=== PATIENT | male | born 1945 | race Caucasian/White ===

== ENCOUNTER 2017-08-03 18:24 | Emergency (ER) | payer MEDICARE, OTHER ==
[~2017-08-03] VITALS: Ht 180.3 cm; Wt 100.0 kg
[~2017-08-03 18:24] MED LIST: ADVAI250I INH; ALBU1AER INH; ALPR.5 PO; APIX5 PO; AZIT250T43 PO; CARV3.125 PO; CINA30 PO; CLON.2 PO; COMMODE 3:1; ECOT81TA2 PO; GABA300C3 PO; HYDR200T42 PO; PRED5 PO; PROT40TA PO; SEVEL800 PO; WALKER ROLLING; WHEELCHAIR RENTAL RA; Z.0.COMMODE-3:1; Z.0.OXYGEN INH; Z.0.WALKERFRONT
[2017-08-03 18:40] VITALS: BP 155/108; PULSE 114; RESP 24; TEMP 98.2; O2SAT 92
[2017-08-03] MEDS ORDERED: GABA300C5 PO (18:51)
[2017-08-03] MEDS ORDERED: PLAQ200T PO (18:51)
[2017-08-03] MEDS ORDERED: SEVEL800 PO (18:51)
[2017-08-03] MEDS ORDERED: CINA30 PO (18:51)
--- NOTE | 2017-08-03 19:02 | PD ---
HPI . left shoulder pain Chief Complaint: Injury Time Seen by Provider: 18:58 Travel History International Travel<30 days: No Contact w/Intl Traveler<30days: No Traveled to known affect area: No History of Present Illness HPI 71 yr old male here with c/o left shoulder pain s/p doing work for the [employer]. He is on dialysis. He tells me he thinks he hurt his rotator cuff. He is unable to move this upper extremity without assistance from the other hand. PFSH Past Medical History Arthritis: Yes Asthma: Yes Autoimmune Disease: No Blood Disorders: No Anxiety: No Depression: No Heart Rhythm Problems: Yes (irregular heartbeat) Cancer: No Cardiovascular Problems: Yes High Cholesterol: No Chemotherapy: No Chest Pain: No Congestive Heart Failure: Yes COPD: Yes Cerebrovascular Accident: No Diabetes: No Dialysis: Yes (MWF) Diminished Hearing: No Endocrine: Yes Gastrointestinal Disorders: Yes GERD: Yes Genitourinary: Yes Hepatitis: Yes Hiatal Hernia: No Hypertension: Yes Immune Disorder: No Kidney Stones: No Musculoskeletal: Yes (general. right femoral neck fx. avascular necrosis of left hip) Neurologic: No Psychiatric: No Reproductive: No Respiratory: Yes (COPD) Immunizations Current: Yes Migraines: No Myocardial Infarction: Yes Radiation Therapy: No Renal Failure: Yes Seizures: No Sickle Cell Disease: No Sleep Apnea: No Thyroid Disease: Yes (hyperparathyroidism of renal orgin) Ulcer: Yes Influenza Vaccination: Yes Past Surgical History Abdominal Surgery: No AICD: No Arteriovenous Shunt: No Cardiac Surgery: No Ear Surgery: No Endocrine Surgery: No Eye Surgery: No Genitourinary Surgery: Yes Insulin Pump: No Joint Replacement: Yes (L HIP, R HIP) Oral Surgery: No Pacemaker: No Thoracic Surgery: No Other Surgery: Yes Social History Alcohol Use: No Tobacco Use: No Substance Use: No Allergies-Medications (Allergen,Severity, Reaction): Coded Allergies: No Known Allergies (Verified , 08/03/17) Reported Meds & Prescriptions Reported Meds & Active Scripts Active Lortab (Hydrocodone-Acetaminophen) 5-325 Mg Tab 1 Tab PO Q6H PRN Reported Sensipar (Cinacalcet) 30 Mg Tab 30 Mg PO DAILY Plaquenil (Hydroxychloroquine Sulfate) 200 Mg Tab 200 Mg PO DAILY Take with food Gabapentin 300 Mg Cap 300 Mg PO DAILY Renvela (Sevelamer Carbonate) 800 Mg Tab 800 Mg PO QID Review of Systems General / Constitutional: No: Fever Eyes: No: Visual changes HENT: No: Headaches Cardiovascular: No: Chest Pain or Discomfort Respiratory: No: Shortness of Breath Gastrointestinal: No: Abdominal Pain Genitourinary: No: Dysuria Musculoskeletal: Positive: Pain (left shoulder pain) Skin: No Rash Neurologic: No: Weakness Psychiatric: No: Depression Endocrine: No: Polydipsia Hematologic/Lymphatic: No: Easy Bruising Physical Exam Narrative GENERAL: AAOx3, NAD, ambulatory, SKIN: Warm and dry. HEAD: Atraumatic. Normocephalic. EYES: Pupils equal and round. No scleral icterus. No injection or drainage. ENT: No nasal bleeding or discharge. Mucous membranes pink and moist. NECK: Trachea midline. No JVD. CARDIOVASCULAR: Regular rate and rhythm. RESPIRATORY: No accessory muscle use. Clear to auscultation. Breath sounds equal bilaterally. GASTROINTESTINAL: Abdomen soft, non-tender, nondistended. MUSCULOSKELETAL: Extremities without clubbing, cyanosis, or edema. No obvious deformities. left shoulder, no active ROM due to pain, must use other arm for assistance. cannot cross arms across chest. NEUROLOGICAL: Awake and alert. No obvious cranial nerve deficits. Motor grossly within normal limits. Five out of 5 muscle strength in the arms and legs. Normal speech. PSYCHIATRIC: Appropriate mood and affect; insight and judgment normal. Data Data Last Documented VS Vital Signs Date Time Temp Pulse Resp B/P (MAP) Pulse Ox O2 Delivery O2 Flow Rate FiO2 08/03/17 19:54 08/03/17 18:52 Room Air 08/03/17 18:40 98.2 114 24 92 Orders Orders Shoulder, Complete (>2vws) (08/03/17 18:57) Oxycodone-Acetamin 5-325 Mg (Percocet (08/03/17 19:15) Ice/Cold Pack (08/03/17 19:16) Splint Or Brace Apply/Monitor (08/03/17 19:16) Sling Cradle Arm (08/03/17 ) MDM Medical Decision Making Medical Screen Exam Complete: Yes Emergency Medical Condition: Yes Medical Record Reviewed: Yes Differential Diagnosis shoulder dislocation, fracture, rotator cuff injury Narrative Course 71 yr old male here with c/o left shoulder pain. He has decreased ROM and could possibly have a dislocation. Xray ordered. I suspect rotator cuff injury. Case discussed with Wm France PA-C who will disposition this patient. Scripts Hydrocodone-Acetaminophen (Lortab) 5-325 Mg Tab 1 TAB PO Q6H Y for PAIN, #20 TAB 0 Refills Prov: Dominique Martinez 08/03/17 Condition: Stable Karmen Staley Aug 03, 2017 19:02
[2017-08-03] MEDS ORDERED: oxyCODONE/ACETAMINOPHEN 5 MG/325 MG TAB PO ONE (19:15)
[2017-08-03] MEDS ORDERED: HYDR-3533 PO ×2 (19:16→19:23)
--- NOTE | 2017-08-03 19:29 | PD ---
Physical Exam Date Seen by Provider: Aug 03, 2017 Time Seen by Provider: 19:28 Data Data Last Documented VS Vital Signs Date Time Temp Pulse Resp B/P (MAP) Pulse Ox O2 Delivery O2 Flow Rate FiO2 08/03/17 18:52 Room Air 08/03/17 18:40 98.2 114 24 155/108 (124) 92 Orders Orders Shoulder, Complete (>2vws) (08/03/17 18:57) Oxycodone-Acetamin 5-325 Mg (Percocet (08/03/17 19:15) Ice/Cold Pack (08/03/17 19:16) Splint Or Brace Apply/Monitor (08/03/17 19:16) MDM Medical Record Reviewed: Yes Supervised Visit with ASHLEY: No Interpretation(s) Left shoulder: Negative for acute fracture. Positive general changes. Differential Diagnosis MDM: High Differential diagnoses: Fracture, sprain, strain, dislocation, contusion, neurovascular injury Narrative Course Patient's given Percocet 50 g by mouth, ice pack, sling. X-ray is negative for bony injury. This is left shoulder tendinitis Diagnosis Primary Impression: Left shoulder tendinitis Patient Instructions: General Instructions Additional Instruction: Rest. Sling. Ice. Lortab. Follow-up with her doctor next 3-5 days. Med/Other Pt SpecificInfo: Prescription(s) given Scripts Hydrocodone-Acetaminophen (Lortab) 5-325 Mg Tab 1 TAB PO Q6H Y for PAIN, #20 TAB 0 Refills Prov: Dominique Martinez DO 08/03/17 Disposition: 01 DISCHARGE HOME Condition: Stable Khoa Em Aug 03, 2017 19:29
--- NOTE | 2017-08-03 19:47 | RADRPT ---
EXAM DATE/TIME: 08/03/2017 19:33 [facility] COMPARISON: No previous studies available for comparison. INDICATIONS : Pain after working- [employer] for possible dislocation of left shoulder. MEDICAL HISTORY : None. SURGICAL HISTORY : None. ENCOUNTER: Initial ACUITY: 1 day PAIN SCORE: 10/10 LOCATION: Left Shoulder. FINDINGS: Multiple view examination of the left shoulder demonstrates no evidence of fracture or dislocation. The glenohumeral and acromioclavicular joints are maintained. There is normal range of motion betwee n internal and external rotation. Bony mineralization is normal. CONCLUSION: No fracture or subluxation of the left shoulder. Jakob Pace MD on August 03, 2017 at 19:45 Board Certified Radiologist. This report was verified electronically.
== END 2017-08-03 19:59 | disposition home or self-care (01) ==
LOC: NETRI 18:24
DX: M75.92 Shoulder lesion, unspecified, left shoulder (principal); X37.0XXA Hurricane, initial encounter
CPT/HCPCS: 73030; 99283

== ENCOUNTER 2017-12-12 10:02 | Inpatient (IN) | payer MEDICARE, OTHER ==
[~2017-12-12] VITALS: Ht 175.3 cm; Wt 92.8 kg
[2017-12-12] VITALS (13 sets, daily range): BP systolic 120–198; BP diastolic 55–86; PULSE 63–109; RESP 16–32; TEMP 98.3–98.7; O2SAT 100
[~2017-12-12 10:02] MED LIST changes: -ADVAI250I INH; -ALBU1AER INH; -ALPR.5 PO; -APIX5 PO; -AZIT250T43 PO; -CARV3.125 PO; -CLON.2 PO; -COMMODE 3:1; -ECOT81TA2 PO; -GABA300C3 PO; +GABA300C5 PO; +HYDR-3533 PO; -HYDR200T42 PO; +PLAQ200T PO; -PRED5 PO; -PROT40TA PO; -WALKER ROLLING; -WHEELCHAIR RENTAL RA; -Z.0.COMMODE-3:1; -Z.0.OXYGEN INH; -Z.0.WALKERFRONT
[2017-12-12] MEDS ORDERED: RESP: ALBUTEROL 2.5 MG/IPRATROPIUM 0.5 MG NEB (SCH) ONE (10:09)
[2017-12-12] MEDS ORDERED: fentaNYL DRIP 250 ML IV STA (10:09)
[2017-12-12] MEDS ORDERED: ETOMIDATE 40 MG/20 ML VIAL ONE (10:10)
[2017-12-12] MEDS ORDERED: SUCCINYLCHOLINE CHLORIDE 200 MG/10 ML VIAL ONE (10:11)
[2017-12-12] MEDS: RESP: ALBUTEROL 2.5 MG/IPRATROPIUM 0.5 MG NEB (SCH) INH ×5 (10:15→21:01)
[2017-12-12] MEDS ORDERED: SUCCINYLCHOLINE CHLORIDE 100 MG/5 ML SYRINGE IV PUSH ONE (10:15)
[2017-12-12] MEDS ORDERED: ETOMIDATE 20 MG/10 ML VIAL IV PUSH ONE (10:15)
[2017-12-12] MEDS ORDERED: PROPOFOL 500 MG/50 ML INJ 50 ML ONE (10:17)
[2017-12-12] MEDS: PROPOFOL 1000 MG/100 ML INJ 100 ML IV PRN ×2 (10:20→21:04)
--- NOTE | 2017-12-12 10:54 | RADRPT ---
EXAM DATE/TIME: 12/12/2017 10:37 [facility] COMPARISON: CHEST SINGLE AP, November 27, 2015, 4:57. SHOULDER LEFT COMPLETE (>2VWS), August 03, 2017, 19:33. INDICATIONS : Endotracheal placement, post respiratory arrest. MEDICAL HISTORY : dialysis SURGICAL HISTORY : None. ENCOUNTER: Initial ACUITY: 1 day PAIN SCORE: 0/10 LOCATION: upper chest FINDINGS: The endotracheal tube tip is approximately 5 cm above the level of the reed. The bilateral infiltrates which were seen on previous abdomen through. The heart is enlarged. There a re diffuse interstitial prominence likely worsening interstitial edema. The osseous structures are grossly intact.. CONCLUSION: 1. Endotracheal tube in satisfactory position. 2. Diffuse interstitial prominence suggesting interstitial edema. 3. The diffuse infiltrates seen on prior have improved. Cristian Lee MD on December 12, 2017 at 10:50 Board Certified Radiologist. This report was verified electronically.
--- NOTE | 2017-12-12 11:00 | PD ---
HPI Chief Complaint: Respiratory Distress Time Seen by Provider: 10:07 Travel History International Travel<30 days: No Contact w/Intl Traveler<30days: No Traveled to known affect area: No History of Present Illness HPI 72-year-old male was brought in by EMS for shortness of breath. Patient states that the shortness breath started yesterday evening. Patient has history of COPD. Patient with given albuterol treatment 2 an Solu-Medrol 125 mg IV prior to arrival. Patient has history of end-stage renal disease on dialysis Tuesday. Patient with given BiPAP on the way to ED. Patient still complain of severe shortness of breath. PFSH Past Medical History Arthritis: Yes Asthma: Yes Autoimmune Disease: No Blood Disorders: No Anxiety: No Depression: No Heart Rhythm Problems: Yes (irregular heartbeat) Cancer: No Cardiovascular Problems: Yes High Cholesterol: No Chemotherapy: No Chest Pain: No Congestive Heart Failure: Yes COPD: Yes Cerebrovascular Accident: No Diabetes: No Dialysis: Yes (MWF) Diminished Hearing: No Endocrine: Yes Gastrointestinal Disorders: Yes GERD: Yes Genitourinary: Yes Hepatitis: Yes Hiatal Hernia: No Hypertension: Yes Immune Disorder: No Kidney Stones: No Musculoskeletal: Yes (general. right femoral neck fx. avascular necrosis of left hip) Neurologic: No Psychiatric: No Reproductive: No Respiratory: Yes (COPD) Immunizations Current: Yes Migraines: No Myocardial Infarction: Yes Radiation Therapy: No Renal Failure: Yes Seizures: No Sickle Cell Disease: No Sleep Apnea: No Thyroid Disease: Yes (hyperparathyroidism of renal orgin) Ulcer: Yes ?: Not Past Surgical History Abdominal Surgery: No AICD: No Arteriovenous Shunt: No Cardiac Surgery: No Ear Surgery: No Endocrine Surgery: No Eye Surgery: No Genitourinary Surgery: Yes Insulin Pump: No Joint Replacement: Yes (L HIP, R HIP) Oral Surgery: No Pacemaker: No Thoracic Surgery: No Other Surgery: Yes Social History Alcohol Use: No Tobacco Use: No Substance Use: No Allergies-Medications (Allergen,Severity, Reaction): Coded Allergies: No Known Allergies (Verified , 08/03/17) Reported Meds & Prescriptions Reported Meds & Active Scripts Active Lortab (Hydrocodone-Acetaminophen) 5-325 Mg Tab 1 Tab PO Q6H PRN Reported Sensipar (Cinacalcet) 30 Mg Tab 30 Mg PO DAILY Plaquenil (Hydroxychloroquine Sulfate) 200 Mg Tab 200 Mg PO DAILY Take with food Gabapentin 300 Mg Cap 300 Mg PO DAILY Renvela (Sevelamer Carbonate) 800 Mg Tab 800 Mg PO QID Review of Systems General / Constitutional: No: Fever Eyes: No: Visual changes HENT: No: Headaches Cardiovascular: No: Chest Pain or Discomfort Respiratory: Positive: Shortness of Breath Gastrointestinal: No: Abdominal Pain Genitourinary: No: Dysuria Musculoskeletal: No: Pain Skin: No Rash Neurologic: No: Weakness Psychiatric: No: Depression Endocrine: No: Polydipsia Hematologic/Lymphatic: No: Easy Bruising Physical Exam Narrative GENERAL: Well-nourished, well-developed patient. SKIN: Focused skin assessment warm/dry. HEAD: Normocephalic. EYES: No scleral icterus. No injection or drainage. NECK: Supple, trachea midline. No JVD or lymphadenopathy. CARDIOVASCULAR: Regular rate and rhythm without murmurs, gallops, or rubs. RESPIRATORY: Patient has decreased breath sounds bilaterally. Moderate expiratory wheezes noted. Few rhonchi at the bases. GASTROINTESTINAL: Abdomen soft, non-tender, nondistended. MUSCULOSKELETAL: No cyanosis, or edema. BACK: Nontender without obvious deformity. No CVA tenderness. Neurologic exam: Patient's lethargic. Patient moves all extremities well. No obvious focal neurological deficit. Data Data Last Documented VS Vital Signs Date Time Temp Pulse Resp B/P (MAP) Pulse Ox O2 Delivery O2 Flow Rate FiO2 12/12/17 10:34 84 16 156/71 (99) 100 Ventilator 100 Orders Orders Complete Blood Count With Diff (12/12/17 10:07) Comprehensive Metabolic Panel (12/12/17 10:07) B-Type Natriuretic Peptide (12/12/17 10:07) Act Partial Throm Time (Ptt) (12/12/17 10:07) Prothrombin Time / Inr (Pt) (12/12/17 10:07) Arterial Blood Gas (Abg) (12/12/17 10:07) Urinalysis - C+S If Indicated (12/12/17 10:07) Influenzae A/B Antigen (12/12/17 10:07) Blood Culture (12/12/17 10:07) Iv Access Insert/Monitor (12/12/17 10:07) Electrocardiogram (12/12/17 10:07) Ecg Monitoring (12/12/17 10:07) Oximetry (12/12/17 10:07) Chest, Single Ap (12/12/17 10:07) Sodium Chloride 0.9% Flush (Ns Flush) (12/12/17 10:15) Albuterol-Ipratropium Neb (Duoneb Neb) (12/12/17 10:15) Resp Bipap / Cpap Non Invas Vt (12/12/17 10:07) Albuterol-Ipratropium Neb (Duoneb Neb) (12/12/17 10:09) Etomidate Inj (Amidate Inj) (12/12/17 10:10) Succinylcholine Inj (Quelicin Inj) (12/12/17 10:11) Etomidate Inj (Amidate Inj) (12/12/17 10:15) Succinylcholine Inj (Quelicin Inj) (12/12/17 10:15) Fentanyl Drip (Fentanyl Drip) (12/12/17 10:09) Restraints Non-Violent NAA.Q3H (12/12/17 10:09) Propofol 500 Mg/50 Ml Inj (Diprivan 500 (12/12/17 10:17) Urinary Catheter Insert/Apply (12/12/17 10:38) Doroteo-Gastric Tube Insert/Mon (12/12/17 10:38) Propofol 1000 Mg/100 Ml Inj (Diprivan 10 (12/12/17 10:45) MDM Medical Decision Making Medical Screen Exam Complete: Yes Emergency Medical Condition: Yes Interpretation(s) 10:57 AM. ET tube in place. Diffuse interstitial prominence suggesting interstitial edema. Differential Diagnosis Differential diagnoses include acute exacerbation COPD, bronchitis, pneumonia, PE, pneumothorax, CHF. Narrative Course 72-year-old male with shortness of breath. History of COPD. Patient in respiratory distress. Patient's lethargic. Moderate expiratory wheezes bilaterally. Patient was advised that he needs to be intubated. Patient agreed to that. Patient was not intubated. Propofol and fentanyl needed for sedation. Rocephin 1 g IV. Zithromax 500 mg IV. Albuterol with Atrovent unit dose treatment 3. Critical Care Narrative Aggregate critical care time was 60 minutes. Time to perform other separately billable procedures was not included in the critical care time. My time did not include minutes spent treating any other patients simultaneously or on activities that did not directly contribute to the patient's treatment. The services I provided to this patient were to treat and/or prevent clinically significant deterioration that could result in: I provided critical care services requiring my management, as noted below: Chart data review, documentation time, medication orders and management, vital sign assessments/reviewing monitor data, ordering and reviewing lab tests, ordering and interpreting/reviewing x-rays and diagnostic studies, care of the patient and discussion of the patient with the admitting physicians. Procedures Procedure Narrative After the risks and benefits were discussed the following procedure was performed: INTUBATION: The patient was put in optimal position for the procedure. Rapid sequence intubation was initiated by me using 20 milligrams of etomidate IV and 100 milligrams of succinylcholine IV. The patient was intubated with a 7.5 cuffed endotracheal tube. Tube placement was confirmed by visualization of the tube and balloon passing through the cords, capnometry and subsequent chest x- ray. Breath sounds were equal and well aerated bilaterally postintubation. No breath sounds over stomach. Patient tolerated procedure well. Diagnosis Primary Impression: ACUTE RESPIRATORY FAILURE WITH HYPOXIA Additional Impression: COPD with acute exacerbation Raul Campa MD Dec 12, 2017 11:00
[2017-12-12 11:44] LABS: AUTOMATED NEUTROPHIL # 11.6 TH/MM3 (1.8-7.7); BASOPHIL # 0.1 TH/MM3 (0-0.2); BASOPHIL % 0.6 % (0.0-2.0); EOSINOPHIL # 0.5 TH/MM3 (0-0.4); EOSINOPHIL % 2.7 % (0.0-4.0); HEMATOCRIT 30.4 % (39.0-51.0); HEMOGLOBIN 9.6 GM/DL (13.0-17.0); LYMPHOCYTE # 4.5 TH/MM3 (1.0-4.8); MEAN CELL VOLUME 94.7 FL (80.0-100.0); MEAN CORPUSCULAR HGB CONC 31.7 % (32.0-36.0); MEAN PLATELET VOLUME 7.6 FL (7.0-11.0); MONO % 10.1 % (0.0-8.0); MONOCYTE # 1.9 TH/MM3 (0-0.9); NEUT % 62.6 % (16.0-70.0); PLATELET COUNT 263 TH/MM3 (150-450); RED BLOOD COUNT 3.21 MIL/MM3 (4.50-5.90); RED CELL DISTRIBUTION WIDTH 15.7 % (11.6-17.2); WHITE BLOOD COUNT 18.5 TH/MM3 (4.0-11.0)
[2017-12-12 11:57] LABS: INTERNATIONAL NORMALIZED RATIO 1.1 RATIO; PROTHROMBIN TIME - PATIENT 10.7 SEC (9.8-11.6)
[2017-12-12 12:03] LABS: ALBUMIN 3.8 GM/DL (3.4-5.0); ALT (GPT) 64 U/L (12-78); AST (GOT) 46 U/L (15-37); BICARBONATE 28.1 MEQ/L (21.0-32.0); BLOOD UREA NITROGEN 53 MG/DL (7-18); CALCIUM 9.5 MG/DL (8.5-10.1); CHLORIDE 97 MEQ/L (98-107); CREATININE 8.63 MG/DL (0.60-1.30); GLOMERULAR FILTRATION RATE 6 ML/MIN (>89); GLUCOSE,RANDOM 166 MG/DL (74-106); SODIUM (NA) 136 MEQ/L (136-145)
[2017-12-12 12:05] LABS: ALKALINE PHOSPHATASE 128 U/L (45-117); TOTAL BILIRUBIN ADULT 0.6 MG/DL (0.2-1.0); TOTAL PROTEIN 7.6 GM/DL (6.4-8.2)
[2017-12-12] MEDS ORDERED: LACTULOSE SYRUP 20 GM/30 ML CUP PO PRN (14:00)
[2017-12-12] MEDS ORDERED: MAGNESIUM HYDROXIDE SUSP 30 ML CUP PO PRN (14:00)
[2017-12-12] MEDS ORDERED: FAMOTIDINE 20 MG/2 ML VIAL IV PUSH SCH (14:00)
[2017-12-12] MEDS ORDERED: SENNOSIDES 8.6 MG TAB PO PRN (14:00)
[2017-12-12] MEDS ORDERED: CHLORHEXIDINE GLUCONATE 2 % 1 PACK (2 CLOTHS) TOP PRN (14:00)
[2017-12-12] MEDS ORDERED: MISCELLANEOUS NURSING INFORMATION XX SCH (14:00)
[2017-12-12] MEDS ORDERED: BISACODYL 10 MG SUPP RECTAL PRN (14:00)
[2017-12-12] MEDS ORDERED: DEXTROSE 50% IN WATER 50 ML VIAL(D50) IV PUSH PRN (14:15)
[2017-12-12] MEDS ORDERED: GLUCAGON 1 MG/ML VIAL OTHER PRN (14:15)
[2017-12-12] MEDS ORDERED: SODIUM CHLOR 0.9% 1000 ML INJ 1,000 ML OTHER PRN ×2 (14:25)
[2017-12-12] MEDS ORDERED: SODIUM CHLOR 0.9% 1000 ML INJ 1,000 ML IV PRN (14:25)
[2017-12-12] MEDS ORDERED: MANNITOL 12.5 GM/50 ML VIAL IV PRN (14:30)
[2017-12-12] MEDS ORDERED: HEPARIN SODIUM - IV 10,000 UNITS/10 ML VIAL PRN (14:30)
[2017-12-12] MEDS ORDERED: diphenhydrAMINE HCL 25 MG CAP PO PRN (14:30)
[2017-12-12] MEDS ORDERED: SODIUM CHLORIDE 0.9% FLUSH 10 ML FLUSH IV FLUSH PRN (14:30)
[2017-12-12] MEDS ORDERED: NITROGLYCERIN 0.4 MG SL 25 TABS/BTL SL PRN (14:30)
[2017-12-12] MEDS ORDERED: ACETAMINOPHEN 325 MG TAB PO PRN (14:30)
[2017-12-12] MEDS ORDERED: ONDANSETRON HCL 4 MG/2 ML VIAL IV PUSH PRN (14:30)
[2017-12-12] MEDS ORDERED: cloNIDine HCL 0.1 MG TAB PO PRN (14:30)
[2017-12-12] MEDS ORDERED: GENTAMICIN SULFATE 20 MG/2 ML VIAL OTHER PRN (14:30)
[2017-12-12] MEDS ORDERED: HEPARIN SODIUM - IV 10,000 UNITS/10 ML VIAL IV FLUSH PRN (14:30)
[2017-12-12] MEDS: INSULIN NovoLIN REGULAR SUPPLEMENTAL SCALE SQ SCH ×3 (15:00→23:00)
--- NOTE | 2017-12-12 16:01 | MH ---
cc: STACI WOLFE M.D. DATE OF ADMISSION 12/12/2017 DATE OF 1945 HISTORY OF THE PRESENT ILLNESS The patient is a 72-year-old male with multiple medical comorbidities which include end-stage renal disease, hypertension, CHF, COPD, cardiomyopathy, hyperparathyroidism and anemia of chronic disease. He was brought into ED via EMS for respiratory distress and was given albuterol treatment x2 in addition to Solu-Medrol 125 mg IV prior to arrival. The patient was initially placed on BiPap without any significant relief. In the ED he was intubated with etomidate, succinylcholine and placed on full mechanical ventilation. When seen the patient is sedated with Diprivan and on fentanyl infusion. His laboratory data significant for hyperkalemia with potassium 6.3, BUN 53, creatinine in 8.63 and BNP of 1218. His chest x-ray showed ET tube above the reed, interstitial edema. Nephrology service was notified and the patient is currently receiving hemodialysis treatment. ABG postintubation showed a pH of 7.30, CO2 54, pAO2 454, bicarb 26, sats of 97%. PAST MEDICAL HISTORY As stated above which include: 1. End-stage renal disease. 2. CHF. 3. COPD. 4. Cardiomyopathy. 5. Anemia. PAST SURGICAL HISTORY 1. Previous left hip replacement. 2. AV fistula placement right upper extremity. ALLERGIES NO KNOWN DRUG ALLERGIES. FAMILY HISTORY Noncontributory to present medical illness. SOCIAL HISTORY The patient lives at home. Ex-smoker. No history of alcohol or drug use per records. MEDICATIONS Reported medications include: 1. Plaquenil. 2. Gabapentin. 3. Renvela. 4. Sensipar. REVIEW OF SYSTEMS As per HPI. Rest of the system unobtainable as the patient is intubated. PHYSICAL EXAMINATION GENERAL: A 72-year-old male intubated for respiratory failure. VITAL SIGNS: Afebrile, pulse of 84, blood pressure 156/65 with a MAP of 93, saturation 98%. Vent setting PRVC rate of 18, tidal volume 600. I-time 1.0. PEEP 5. FIO2 50%. HEENT: Atraumatic, normocephalic. Pupils equal, round and reactive to light and accommodation. Extraocular muscles intact. Conjunctivae pink. Nonicteric sclerae. Oral mucosa within normal. NECK: Supple. No JVD, adenopathy or thyromegaly. Trachea midline. Orally intubated. CARDIOVASCULAR: Regular rate and rhythm. Normal S1-S2. No murmurs, rubs or gallops noted. LUNGS: Pulmonary exam bilateral equal air entry with coarse breath sounds. ABDOMEN: Soft, obese, nontender, no distension, positive bowel sounds. EXTREMITIES: No cyanosis, clubbing, +1 edema. NEUROLOGIC: Intubated and sedated. LABORATORY DATA WBC 18.5, hemoglobin 9.6, hematocrit 30, platelet count 263. Sodium 136, potassium 6.3, chloride 97, CO2 28, BUN 53, creatinine 8.63, glucose 166, AST 46, ALT 64, total bilirubin 0.6. BNP 1218. INR 1.1. PT 10.7, PTT 24.9. IMAGING Radiographic studies chest x-ray showed ET tube above the reed, interstitial edema. IMPRESSION 1. Acute hypoxemic and hypercapnic respiratory failure. 2. Pulmonary edema. 3. End-stage renal disease. 4. Hypertension. 5. CHF. 6. Cardiomyopathy. 7. COPD. 8. Hyperparathyroidism. 9. Anemia of chronic disease. 10. Leukocytosis. RECOMMENDATIONS 1. Continue with Diprivan and fentanyl infusion for sedation and daily sedation vacation when appropriate. 2. Continue with vent support and maintain sats above 92%. 3. Bronchodilators in the form of DuoNeb q.6h and will initiate ICU vent bundle. 4. We will start spontaneous breathing trials in a.m. and possible extubation if the patient tolerates it. 5. Monitor heart rate and blood pressure closely and maintain MAP greater than 65 mmHg. 6. We will obtain 2-D echo to evaluate LV function. He had an echocardiogram November 2015 which showed EF of 25-30%. 7. Place on Coreg 3.125 mg b.i.d. 8. Monitor renal function and avoid nephrotoxins. Patient is currently receiving hemodialysis. Will repeat BMP in 2 hours post dialysis. 9. Keep n.p.o. for now and place on Pepcid 10 mg IV q.12 for GI prophylaxis. Start tube feeds within next 24 hours if the patient remains intubated. 10. Monitor for signs of infections which include fever and WBC. Will hold off on antibiotics at this time as there is no evidence of any infectious process. Will obtain a sputum culture with gram stain and urinalysis with culture if indicated. 11. Monitor CBC. 12. Sliding scale insulin with Accu-Cheks to maintain euglycemia. 13. GI prophylaxis with Pepcid and DVT prophylaxis with SCDs and heparin subcu. Further recommendations will be based on hospital course. MD MORIAH De La O/LORI /3:08 PM /3:31 PM
--- NOTE | 2017-12-12 16:17 | PD.CONS ---
HPI Service Nephrology Consult Requested By Reason for Consult ESRD Primary Care Physician Grey Calero MD History of Present Illness Mr. Sy is a 72 year old male with history of ESRD for which he is on nocturnal HD MWF. He was brought to the ER with complaints of shortness of breath. Was on BiPAP en route, intubated in the ER. Given nebulizer and Solumedrol. Xray of the chest suggestive of bilateral infiltrates, possible pulmonary edema. [place] [facility] [place]. Currently on the ventilator, on Diprivan drip, but he appears to follow some commands. Seen during dialysis, UF goal is 5 liters, but his BP dropped, may not be able to achieve 5liters in UF. On 1K, serum potassium was 6.3. Review of Systems ROS Limitations: Intubated Past Family Social History Allergies: Coded Allergies: No Known Allergies (Verified Allergy, Unknown, 12/12/17) Past Medical History ESRD Avascular necrosis of the hip, s/p replacement. Hypertension. Secondary hyperparathyroidism of renal origin. History of CHF History of COPD History of atrial flutter Past Surgical History AVF placement. Bilateral hip replacements. Reported Medications Active Lortab (Hydrocodone-Acetaminophen) 5-325 Mg Tab 1 Tab PO Q6H PRN Reported Sensipar (Cinacalcet) 30 Mg Tab 30 Mg PO DAILY Plaquenil (Hydroxychloroquine Sulfate) 200 Mg Tab 200 Mg PO DAILY Take with food Gabapentin 300 Mg Cap 300 Mg PO DAILY Renvela (Sevelamer Carbonate) 800 Mg Tab 800 Mg PO QID Family History non contributory Social History Former smoker, quit about 26 years ago. Physical Exam Vital Signs Vital Signs Date Time Temp Pulse Resp B/P (MAP) Pulse Ox O2 Delivery O2 Flow Rate FiO2 12/12/17 14:51 12/12/17 14:30 100 50 12/12/17 14:05 63 18 125/56 (79) 100 12/12/17 12:01 75 18 136/62 (86) 100 Auto-Vent 12/12/17 11:30 50 12/12/17 11:28 81 16 129/62 (84) 100 Auto-Vent 12/12/17 10:34 84 16 156/71 (99) 100 Ventilator 100 12/12/17 10:20 100 12/12/17 10:20 100 100 12/12/17 10:15 34 100 BiPAP 12/12/17 10:13 108 198/86 (123) 12/12/17 10:05 109 32 100 Physical Exam GENERAL: intubated, on the ventilator SKIN: Warm and dry. HEAD: Normocephalic. EYES: No scleral icterus. No injection or drainage. NECK: Supple, trachea midline. No JVD or lymphadenopathy. CARDIOVASCULAR: Regular rate and rhythm without murmurs, gallops, or rubs. RESPIRATORY: Breath sounds equal bilaterally. Vented breath sounds heard bilaterally. GASTROINTESTINAL: Abdomen soft, non-tender, nondistended. MUSCULOSKELETAL: No cyanosis, or edema. BACK: Nontender without obvious deformity. No CVA tenderness. Laboratory Laboratory Tests Test 12/12/17 10:07 12/12/17 10:10 Blood Gas Puncture Site LT RADIAL Blood Gas Patient Temperature 98.6 Blood Gas HCO3 26 Blood Gas Base Excess -0.1 Blood Gas Oxygen Saturation 97 Arterial Blood pH 7.30 Arterial Blood Partial Pressure CO2 54 Arterial Blood Partial Pressure O2 454 Arterial Blood Oxygen Content 12.5 Arterial Blood Carboxyhemoglobin 1.2 Arterial Blood Methemoglobin 1.3 Blood Gas Hemoglobin 8.3 Oxygen Delivery Device VENTILATOR Blood Gas Ventilator Setting Blood Gas Inspired Oxygen 100 White Blood Count 18.5 Red Blood Count 3.21 Hemoglobin 9.6 Hematocrit 30.4 Mean Corpuscular Volume 94.7 Mean Corpuscular Hemoglobin 30.0 Mean Corpuscular Hemoglobin Concent 31.7 Red Cell Distribution Width 15.7 Platelet Count 263 Mean Platelet Volume 7.6 Neutrophils (%) (Auto) 62.6 Lymphocytes (%) (Auto) 24.0 Monocytes (%) (Auto) 10.1 Eosinophils (%) (Auto) 2.7 Basophils (%) (Auto) 0.6 Neutrophils # (Auto) 11.6 Lymphocytes # (Auto) 4.5 Monocytes # (Auto) 1.9 Eosinophils # (Auto) 0.5 Basophils # (Auto) 0.1 CBC Comment DIFF FINAL Differential Comment Prothrombin Time 10.7 Prothromb Time International Ratio 1.1 Activated Partial Thromboplast Time 24.9 Blood Urea Nitrogen 53 Creatinine 8.63 Random Glucose 166 Total Protein 7.6 Albumin 3.8 Calcium Level 9.5 Alkaline Phosphatase 128 Aspartate Amino Transf (AST/SGOT) 46 Alanine Aminotransferase (ALT/SGPT) 64 Total Bilirubin 0.6 Sodium Level 136 Potassium Level 6.3 Chloride Level 97 Carbon Dioxide Level 28.1 Anion Gap 11 Estimat Glomerular Filtration Rate 6 B-Type Natriuretic Peptide 1218 Date/Time Source Procedure Growth Status 12/12/17 11:29 Blood Peripheral Aerobic Blood Culture Pending Received 12/12/17 11:29 Blood Peripheral Anaerobic Blood Culture Pending Received 12/12/17 11:30 Nasal Washing Influenza Types A,B Antigen (LUCRETIA) - Final NEGATIVE FOR FLU A AND B ANTIGEN.... Complete Result Diagram: 12/12/17 1010 12/12/17 1010 Assessment and Plan Problem List: (1) ESRD (end stage renal disease) ICD Codes: N18.6 - End-stage renal disease Status: Chronic Plan: Dialysis will be continued MWF. Seen at dialysis today: UF goal is 5 liters. On 1k. Monitor fluid and electrolyte balance. Avoid Gadolinium. High protein diet. Dietary potassium and phosphorus restrictions. (2) Respiratory failure ICD Codes: J96.90 - Respiratory failure, unspecified, unspecified whether with hypoxia or hypercapnia Plan: Due to pulmonary edema? COPD exacerbation? Pneumonia? Repeat CXR after dialysis. Monitor. Currently on the ventilator. (3) Anemia ICD Codes: D64.9 - Anemia, unspecified Plan: Epogen with dialysis. (4) Secondary hyperparathyroidism of renal origin ICD Codes: N25.81 - Secondary hyperparathyroidism of renal origin Plan: monitor phosphorus. Continue Sensipar when he is able to take oral medications. Assessment and Plan Thanks for the consult. Tru Galarza MD Dec 12, 2017 16:17
[2017-12-12] MEDS: GELATIN 12 MM/7 MM FOAM TOP PRN (17:22)
[2017-12-12] MEDS: EPOETIN ALFA 10,000 UNITS/ML VIAL IV PUSH PRN (17:23)
[2017-12-12] MEDS: FAMOTIDINE 20 MG/2 ML VIAL IV PUSH SCH (17:59)
[2017-12-12] MEDS: HEPARIN SODIUM - SQ 10,000 UNITS/ML VIAL SQ SCH (18:04)
--- NOTE | 2017-12-12 20:29 | EKG ---
Date Performed: 12/12/2017 Time Performed: 10:07:13 PTAGE: 72 years EKG: SINUS TACHYCARDIA RIGHT BUNDLE BRANCH BLOCK SIGNIFICANT BASELINE ARTIFACT CONSIDER REPEAT E KG ABNORMAL ECG PREVIOUS TRACING : 11/26/2015 09.17 DOCTOR: Munira Rutledge Interpretating Date/Time 12/12/2017 20:28:59
[2017-12-12] MEDS: DOCUSATE SODIUM 50 MG/SENNA 8.6 MG TAB PO SCH (21:00)
[2017-12-12] MEDS: CARVEDILOL 3.125 MG TAB PO SCH (21:04)
[2017-12-12 21:08] LABS: BICARBONATE 24.3 MEQ/L (21.0-32.0); CALCIUM 8.9 MG/DL (8.5-10.1); CREATININE 6.05 MG/DL (0.60-1.30)
[2017-12-13] VITALS (18 sets, daily range): BP systolic 134–179; BP diastolic 64–95; PULSE 62–86; RESP 18; TEMP 97.1–98.5; O2SAT 100
[2017-12-13] MEDS: PROPOFOL 1000 MG/100 ML INJ 100 ML IV PRN ×4 (02:00→21:07)
[2017-12-13] MEDS: FAMOTIDINE 20 MG/2 ML VIAL IV PUSH SCH ×2 (02:00→14:48)
[2017-12-13] MEDS: HEPARIN SODIUM - SQ 10,000 UNITS/ML VIAL SQ SCH ×2 (02:00→14:48)
[2017-12-13] MEDS ORDERED: RASS Change Order XX ONE ×2 (02:15→21:00)
[2017-12-13] MEDS: INSULIN NovoLIN REGULAR SUPPLEMENTAL SCALE SQ SCH ×6 (03:00→23:00)
[2017-12-13] MEDS: CHLORHEXIDINE GLUCONATE 2 % 1 PACK (2 CLOTHS) TOP SCH (04:00)
[2017-12-13 04:07] LABS: AUTOMATED NEUTROPHIL # 3.7 TH/MM3 (1.8-7.7); BASOPHIL % 0.1 % (0.0-2.0); HEMATOCRIT 24.2 % (39.0-51.0); HEMOGLOBIN 8.2 GM/DL (13.0-17.0); LYMPH % 4.9 % (9.0-44.0); LYMPHOCYTE # 0.2 TH/MM3 (1.0-4.8); MEAN CELL VOLUME 92.2 FL (80.0-100.0); MEAN CORPUSCULAR HGB CONC 33.7 % (32.0-36.0); MEAN PLATELET VOLUME 7.4 FL (7.0-11.0); MONO % 5.4 % (0.0-8.0); MONOCYTE # 0.2 TH/MM3 (0-0.9); NEUT % 89.6 % (16.0-70.0); PLATELET COUNT 117 TH/MM3 (150-450); RED BLOOD COUNT 2.63 MIL/MM3 (4.50-5.90); RED CELL DISTRIBUTION WIDTH 15.5 % (11.6-17.2); WHITE BLOOD COUNT 4.1 TH/MM3 (4.0-11.0)
[2017-12-13 04:22] LABS: BICARBONATE 26.6 MEQ/L (21.0-32.0); CALCIUM 8.6 MG/DL (8.5-10.1); CREATININE 6.81 MG/DL (0.60-1.30)
[2017-12-13] MEDS: RESP: ALBUTEROL 2.5 MG/IPRATROPIUM 0.5 MG NEB (SCH) INH ×4 (04:44→21:04)
--- NOTE | 2017-12-13 07:23 | HHI.CCPN ---
Subjective Remarks/Hospital Course Patient is a 72-year-old male with multiple medical comorbidities which include end-stage renal disease, hypertension, CHF, COPD, cardiomyopathy, hyperparathyroidism and anemia of chronic disease. He was brought into ED via EMS for respiratory distress and was given albuterol treatment x2 in addition to Solu-Medrol 125 mg IV prior to arrival. The patient was initially placed on BiPap without any significant relief. In the ED he was intubated with etomidate, succinylcholine and placed on full mechanical ventilation. When seen the patient is sedated with Diprivan and on fentanyl infusion. His laboratory data significant for hyperkalemia with potassium 6.3, BUN 53, creatinine in 8.63 and BNP of 1218. His chest x-ray showed ET tube above the reed, interstitial edema. Nephrology service was notified and the patient is currently receiving hemodialysis treatment. ABG postintubation showed a pH of 7.30, CO2 54, pAO2 454, bicarb 26, sats of 97%. 12/13 Patient is intubated on no sedation. Awake and alert, s/p HD yesterday with removal 3L. Afebrile. Objective Vital Signs Date Time Temp Pulse Resp B/P (MAP) Pulse Ox O2 Delivery O2 Flow Rate FiO2 12/13/17 06:00 63 12/13/17 04:45 100 40 12/13/17 04:00 98.5 179/74 (109) 12/13/17 00:00 18 12/12/17 12:01 Auto-Vent Intake and Output 12/13/17 12/13/17 12/14/17 08:00 16:00 00:00 Intake Total 154 ml Balance 154 ml Result Diagram: 12/13/17 0324 12/13/17 0324 Other Results Laboratory Tests Test 12/12/17 10:07 12/12/17 10:10 12/12/17 14:35 12/12/17 20:35 Blood Gas Puncture Site LT RADIAL Blood Gas Patient Temperature 98.6 Blood Gas HCO3 26 mmol/L Blood Gas Base Excess -0.1 mmol/L Blood Gas Oxygen Saturation 97 % Arterial Blood pH 7.30 Arterial Blood Partial Pressure CO2 54 mmHg Arterial Blood Partial Pressure O2 454 mmHG Arterial Blood Oxygen Content 12.5 Vol % Arterial Blood Carboxyhemoglobin 1.2 % Arterial Blood Methemoglobin 1.3 % Blood Gas Hemoglobin 8.3 G/DL Oxygen Delivery Device VENTILATOR Blood Gas Ventilator Setting Blood Gas Inspired Oxygen 100 % White Blood Count 18.5 TH/MM3 Red Blood Count 3.21 MIL/MM3 Hemoglobin 9.6 GM/DL Hematocrit 30.4 % Mean Corpuscular Volume 94.7 FL Mean Corpuscular Hemoglobin 30.0 PG Mean Corpuscular Hemoglobin Concent 31.7 % Red Cell Distribution Width 15.7 % Platelet Count 263 TH/MM3 Mean Platelet Volume 7.6 FL Neutrophils (%) (Auto) 62.6 % Lymphocytes (%) (Auto) 24.0 % Monocytes (%) (Auto) 10.1 % Eosinophils (%) (Auto) 2.7 % Basophils (%) (Auto) 0.6 % Neutrophils # (Auto) 11.6 TH/MM3 Lymphocytes # (Auto) 4.5 TH/MM3 Monocytes # (Auto) 1.9 TH/MM3 Eosinophils # (Auto) 0.5 TH/MM3 Basophils # (Auto) 0.1 TH/MM3 CBC Comment DIFF FINAL Differential Comment Prothrombin Time 10.7 SEC Prothromb Time International Ratio 1.1 RATIO Activated Partial Thromboplast Time 24.9 SEC Blood Urea Nitrogen 53 MG/DL 41 MG/DL Creatinine 8.63 MG/DL 6.05 MG/DL Random Glucose 166 MG/DL 183 MG/DL Total Protein 7.6 GM/DL Albumin 3.8 GM/DL Calcium Level 9.5 MG/DL 8.9 MG/DL Alkaline Phosphatase 128 U/L Aspartate Amino Transf (AST/SGOT) 46 U/L Alanine Aminotransferase (ALT/SGPT) 64 U/L Total Bilirubin 0.6 MG/DL Sodium Level 136 MEQ/L 136 MEQ/L Potassium Level 6.3 MEQ/L 5.9 MEQ/L Chloride Level 97 MEQ/L 97 MEQ/L Carbon Dioxide Level 28.1 MEQ/L 24.3 MEQ/L Anion Gap 11 MEQ/L 15 MEQ/L Estimat Glomerular Filtration Rate 6 ML/MIN 9 ML/MIN B-Type Natriuretic Peptide 1218 PG/ML Nasal Screen MRSA (PCR) MRSA DETECTED Test 12/13/17 03:24 White Blood Count 4.1 TH/MM3 Red Blood Count 2.63 MIL/MM3 Hemoglobin 8.2 GM/DL Hematocrit 24.2 % Mean Corpuscular Volume 92.2 FL Mean Corpuscular Hemoglobin 31.0 PG Mean Corpuscular Hemoglobin Concent 33.7 % Red Cell Distribution Width 15.5 % Platelet Count 117 TH/MM3 Mean Platelet Volume 7.4 FL Neutrophils (%) (Auto) 89.6 % Lymphocytes (%) (Auto) 4.9 % Monocytes (%) (Auto) 5.4 % Eosinophils (%) (Auto) 0.0 % Basophils (%) (Auto) 0.1 % Neutrophils # (Auto) 3.7 TH/MM3 Lymphocytes # (Auto) 0.2 TH/MM3 Monocytes # (Auto) 0.2 TH/MM3 Eosinophils # (Auto) 0.0 TH/MM3 Basophils # (Auto) 0.0 TH/MM3 CBC Comment DIFF FINAL Differential Comment Blood Urea Nitrogen 51 MG/DL Creatinine 6.81 MG/DL Random Glucose 152 MG/DL Calcium Level 8.6 MG/DL Sodium Level 137 MEQ/L Potassium Level 5.7 MEQ/L Chloride Level 98 MEQ/L Carbon Dioxide Level 26.6 MEQ/L Anion Gap 12 MEQ/L Estimat Glomerular Filtration Rate 8 ML/MIN Imaging Last Impressions Chest X-Ray 12/12/17 1007 Signed Impressions: Service Date/Time: Tuesday, December 12, 2017 10:37 - CONCLUSION: 1. Endotracheal tube in satisfactory position. 2. Diffuse interstitial prominence suggesting interstitial edema. 3. The diffuse infiltrates seen on prior have improved. Cristian Lee MD Objective Remarks GENERAL: Patient is 72 yo intubated SKIN: Warm and dry. HEAD: Normocephalic. EYES: No scleral icterus. No injection or drainage. NECK: Supple, trachea midline. No JVD or lymphadenopathy. CARDIOVASCULAR: Regular rate and rhythm without murmurs, gallops, or rubs. RESPIRATORY: Breath sounds equal bilaterally. No accessory muscle use. GASTROINTESTINAL: Abdomen soft, non-tender, nondistended. MUSCULOSKELETAL: No cyanosis, or edema. Neuro: Awake. A/P Assessment and Plan 1. Acute hypoxemic and hypercapnic respiratory failure. 2. Pulmonary edema. 3. End-stage renal disease. 4. Hypertension. 5. CHF. 6. Cardiomyopathy. 7. COPD. 8. Hyperparathyroidism. 9. Anemia of chronic disease. 10. Leukocytosis. Plan Neuro: On Diprivan and fentanyl infusion for sedation. Daily sedation vacation Pulm: Continue with vent support and maintain sats >92%. Bronchodilators, ICU vent bundle. Start SBT today and possible extubation if earle. CV: Monitor HR and BP and maintain MAP> 65 mmHg. For 2-D echo to evaluate LV function. Echo from November 2015 showed EF of 25-30%. Continue Coreg 3.125 mg b.i.d. : Monitor renal function and avoid nephrotoxins. s/p HD yesterday with removal 3L. Renal- Dr. Galarza GI: On Pepcid 10 mg IV q.12 for GI prophylaxis. Start tube feeds today if remains intubated. ID: Monitor for signs of infections(fever and WBC). Follow up on Blood and sputum cx, Nasal washing negative for Influenza Heme: Monitor CBC. On Epogen with HD. Endo: SSI with Accu-Cheks to maintain euglycemia. GI prophylaxis with Pepcid and DVT prophylaxis with SCDs and heparin subcu. Level 3 Nellie Giles MD Dec 13, 2017 07:23
[2017-12-13] MEDS ORDERED: DEXTROSE 10% INJ 1,000 ML IV SCH (09:15)
[2017-12-13] MEDS ORDERED: SODIUM POLYSTYRENE SULFONATE SUSP 15 GM/60 ML CUP PO ONE (09:15)
[2017-12-13] MEDS: CARVEDILOL 3.125 MG TAB PO SCH ×2 (09:28→20:42)
[2017-12-13] MEDS: DOCUSATE SODIUM 50 MG/SENNA 8.6 MG TAB PO SCH ×2 (09:28→20:42)
--- NOTE | 2017-12-13 09:49 | RADRPT ---
EXAM DATE/TIME: 12/13/2017 08:03 [place] COMPARISON: CHEST SINGLE AP, November 27, 2015, 4:57. CHEST SINGLE AP, December 12, 2017, 10:37. INDICATIONS : Ventilator dependent respiratory failure. MEDICAL HISTORY : None. SURGICAL HISTORY : Dialysis. ENCOUNTER: Subsequent ACUITY: 2 days PAIN SCORE: Non-responsive. LOCATION: Bilateral chest FINDINGS: There is an ETT with tip at the level of the clavicles. NGT courses beyond the GE junction. Diffuse i nterstitial prominence, perihilar patchy airspace disease and bilateral lower lung zone airspace dise ase. Cardiac selected remains enlarged. Remainder of the exam is unchanged. CONCLUSION: 1. Interval placement of NGT coursing beyond the GE junction. 2. Cardiomegaly with pulmonary vascular congestion. 3. Bilateral lower lung zone airspace disease, presumably atelectasis. Kb Dean MD on December 13, 2017 at 9:44 Board Certified Radiologist. This report was verified electronically.
--- NOTE | 2017-12-13 10:09 | HHI.NPPN ---
Subjective General Problems: Anemia Renal Failure: Chronic, End Stage Renal Disease Interval History 3L UF yesterday. He is on the vent, awake, attempting to speak. 40% FiO2. (Nancy Springer) Review of Systems General General Remarks unable to assess however denies pain (Nancy Springer) Objective Data Data Vital Signs Date Time Temp Pulse Resp B/P (MAP) Pulse Ox O2 Delivery O2 Flow Rate FiO2 12/13/17 07:47 100 40 12/13/17 06:00 63 12/13/17 04:45 100 40 12/13/17 04:00 98.5 63 179/74 (109) 100 12/13/17 04:00 63 12/13/17 04:00 50 12/13/17 02:00 63 12/13/17 00:00 65 12/13/17 00:00 98.4 65 18 172/73 (106) 100 12/13/17 00:00 50 12/12/17 23:22 100 40 12/12/17 22:00 69 12/12/17 20:34 100 40 12/12/17 20:00 98.7 78 18 149/65 (93) 100 12/12/17 20:00 78 12/12/17 20:00 50 12/12/17 16:00 98.3 85 18 120/55 (76) 100 12/12/17 14:51 12/12/17 14:30 100 50 12/12/17 14:05 63 18 125/56 (79) 100 12/12/17 12:01 75 18 136/62 (86) 100 Auto-Vent 12/12/17 11:30 50 12/12/17 11:28 81 16 129/62 (84) 100 Auto-Vent 12/12/17 10:34 84 16 156/71 (99) 100 Ventilator 100 12/12/17 10:20 100 12/12/17 10:20 100 100 12/12/17 10:15 34 100 BiPAP 12/12/17 10:13 108 198/86 (123) 12/12/17 10:05 109 32 100 (Nancy Springer) -: 12/13/17 0324 12/13/17 0324 Microbiology 12/12/17 Aerobic Blood Culture, Received Pending 12/12/17 Anaerobic Blood Culture, Received Pending 12/12/17 Aerobic Blood Culture, Received Pending 12/12/17 Anaerobic Blood Culture, Received Pending 12/12/17 Gram Stain - Final, Resulted 12/12/17 Sputum Culture, Resulted Pending 12/12/17 Influenza Types A,B Antigen (LUCRETIA) - Final, Complete NEGATIVE FOR FLU A AND B ANTIGEN.... Imaging Last 72 hours Impressions Chest X-Ray 12/13/17 0000 Signed Impressions: Service Date/Time: Wednesday, December 13, 2017 08:03 - CONCLUSION: 1. Interval placement of NGT coursing beyond the GE junction. 2. Cardiomegaly with pulmonary vascular congestion. 3. Bilateral lower lung zone airspace disease, presumably atelectasis. Kb Dean MD Chest X-Ray 12/12/17 1007 Signed Impressions: Service Date/Time: Tuesday, December 12, 2017 10:37 - CONCLUSION: 1. Endotracheal tube in satisfactory position. 2. Diffuse interstitial prominence suggesting interstitial edema. 3. The diffuse infiltrates seen on prior have improved. Cristian Lee MD (Nancy Springer) Physical Exam General Appearance: Well Developed, Comfortable (Nancy Springer) Eyes Eye Exam: Pupils Equal, Pupils Reactive (Nancy Springer) Pulmonary Resp Exam: Breath Sounds Equal, Crackles, Decreased Bases Resp Remarks vented lung sounds (Nancy Springer BLev TITLE AGENT) Cardiology CV Exam: Normal Sinus Rhythm, Good Perfusion (Nancy Springer) Gastrointestinal/Abdomen GI Exam: Soft, Non-Tender, Bowel Sounds Present (Nancy SpringerP) Musculoskeletal MS Exam: Joints Intact, Normal Tone (Nancy Springer) Integumentary Skin Exam: Clear, Warm, Dry, Intact (Nancy Springer) Extremeties Extremities Exam: No Edema, Pedal Pulses Palpable (Nancy Springer BLev CHAVEZ) Neurologic Neuro Exam: Awake, Moving All Extremities (Nancy Springer) Assessment/Plan Discussed Condition With: Patient Assessment Summary: Anemia of CKD, CHF, Diabetes Mellitus, End Stage Renal Disease Problem List: (1) ESRD (end stage renal disease) ICD Codes: N18.6 - End-stage renal disease Status: Chronic Plan: Typical MWF HD 3L UF yesterday (attempted 5L but he was hypotensive) We will dialyze again today. He has hyperkalemia. Kayexalate ordered with D10 drip . HD today on a 1K. Monitor fluid and electrolyte balance. Avoid Gadolinium. High protein diet when no longer NPO. Also dietary potassium and phosphorus restrictions. (2) Respiratory failure ICD Codes: J96.90 - Respiratory failure, unspecified, unspecified whether with hypoxia or hypercapnia Plan: Extubation after dialysis today Repeat CXR shows vascular congestion (3) Anemia ICD Codes: D64.9 - Anemia, unspecified Plan: Epogen with dialysis. (4) Secondary hyperparathyroidism of renal origin ICD Codes: N25.81 - Secondary hyperparathyroidism of renal origin Plan: Phosphorus level added. Resume Sensipar when he is able to take oral medications. (Nancy Springer) Plan patient was seen and examined. Dialysis again today. He may have lost body weight, needs a new dry weight. Avoid Kayexalate if at all possible. (Tru Galarza MD) Nancy Springer Dec 13, 2017 10:08 Tru Galarza MD Dec 13, 2017 11:06
[2017-12-13] MEDS: DEXTROSE 10% INJ 500 ML IV SCH (10:16)
--- NOTE | 2017-12-13 18:21 | ECHRPT ---
Indication: CHF CONCLUSIONS The left ventricular systolic function is normal with an estimated ejection fraction in the range of 55-60%. Mild mitral valve regurgitation. Mild mitral valve stenosis (mean grad 3 at heart rate of 66, MVA 2.22) Mild aortic valve stenosis (peak 25, mean 12, ANNABELLE 1.3) There is mild tricuspid valve regurgitation. BP: 125 / 56 HR: 63 Rhythm: Sinus MEASUREMENTS (Male / Female) Normal Values Technical Quality:Poor 2D ECHO LVOT Diameter 1.9 cm LV Ejection Fraction MOD 4C 58.7 % LV Cardiac Index MOD 4C 2479.4 cm/minm LV Ejection Fraction 4C AL 59.0 % LV Cardiac Index 4C AL 2583.9 cm/minm M-MODE Aortic Root Diameter MM 2.9 cm AV Cusp Separation MM 1.1 cm DOPPLER AV Peak Velocity 252.0 cm/s AV Peak Gradient 25.4 mmHg AV Mean Gradient 12.5 mmHg AV Velocity Time Integral 59.5 cm LVOT Peak Velocity 109.0 cm/s LVOT Peak Gradient 4.8 mmHg LVOT Velocity Time Integral 28.1 cm LVOT Cardiac Index 2244.7 cm/minm AV Area Cont Eq vti 1.3 cm AV Area Cont Eq pk 1.2 cm MV Peak Velocity 146.0 cm/s MV Peak Gradient 8.5 mmHg MV Mean Velocity 81.7 cm/s MV Mean Gradient 3.0 mmHg MV Area PHT 2.7 cm Mitral E Point Velocity 115.0 cm/s Mitral A Point Velocity 72.6 cm/s Mitral E to A Ratio 1.6 LV E' Lateral Velocity 6.1 cm/s Mitral E to LV E' Lateral Ratio 18.7 LV E' Septal Velocity 5.1 cm/s Mitral E to LV E' Septal Ratio 22.7 TR Peak Velocity 303.0 cm/s TR Peak Gradient 36.7 mmHg Right Atrial Pressure 10.0 mmHg Pulmonary Artery Systolic Pressu 46.7 mmHg Right Ventricular Systolic Press 46.7 mmHg PV Peak Velocity 110.0 cm/s PV Peak Gradient 4.8 mmHg FINDINGS LEFT VENTRICLE The left ventricular systolic function is normal with an estimated ejection fraction in the range of 55-60%. Normal left ventricular size. Wall thickness is normal. There was limited left ventricular wall motion assessment due to poor endocardial visualization. RIGHT VENTRICLE Normal right ventricular size and systolic function. LEFT ATRIUM The left atrial size is normal. RIGHT ATRIUM The right atrial size is normal. ATRIAL SEPTUM Normal atrial septal thickness. AORTA The aortic root and proximal ascending aorta are normal in size on limited imaging. MITRAL VALVE The mitral valve is not well visualized. Mild mitral valve regurgitation. Mild mitral annular calcification. Mild mitral valve stenosis (mean grad 3 at heart rate of 66, MVA 2.22) AORTIC VALVE The aortic valve is not well visualized. Mild aortic valve stenosis (peak 25, mean 12, ANNABELLE 1.3) No aortic valve regurgitation. TRICUSPID VALVE Structurally normal tricuspid valve. There is mild tricuspid valve regurgitation. The estimated pulmonary arterial pressure is 46.7 mmHg. PULMONARY VALVE No pulmonary valve regurgitation or stenosis. VESSELS The inferior vena cava is normal in size. PERICARDIUM No pericardial effusion. Igor Ordaz DO (Electronically Signed) Final Date:13 December 2017 18:20
[2017-12-13] MEDS ORDERED: fentaNYL DRIP 250 ML IV PRN (19:45)
[2017-12-13] MEDS: fentaNYL 2,500 MCG/NS 250 ML IV PRN (20:42)
[2017-12-14] VITALS (18 sets, daily range): BP systolic 80–175; BP diastolic 42–80; PULSE 58–112; RESP 16–23; TEMP 97.3–99.7; O2SAT 89–100
[2017-12-14] MEDS: HEPARIN SODIUM - SQ 10,000 UNITS/ML VIAL SQ SCH ×2 (00:56→15:19)
[2017-12-14] MEDS: PROPOFOL 1000 MG/100 ML INJ 100 ML IV PRN ×6 (00:56→21:59)
[2017-12-14] MEDS: FAMOTIDINE 20 MG/2 ML VIAL IV PUSH SCH ×2 (00:56→15:18)
[2017-12-14] MEDS: INSULIN NovoLIN REGULAR SUPPLEMENTAL SCALE SQ SCH ×6 (03:00→22:08)
[2017-12-14] MEDS: RESP: ALBUTEROL 2.5 MG/IPRATROPIUM 0.5 MG NEB (SCH) INH ×4 (03:33→21:06)
[2017-12-14] MEDS: CHLORHEXIDINE GLUCONATE 2 % 1 PACK (2 CLOTHS) TOP SCH (04:00)
[2017-12-14 06:05] LABS: AUTOMATED NEUTROPHIL # 4.4 TH/MM3 (1.8-7.7); BASOPHIL % 0.2 % (0.0-2.0); EOSINOPHIL % 0.9 % (0.0-4.0); HEMATOCRIT 25.4 % (39.0-51.0); HEMOGLOBIN 8.7 GM/DL (13.0-17.0); LYMPH % 8.3 % (9.0-44.0); LYMPHOCYTE # 0.4 TH/MM3 (1.0-4.8); MEAN CELL VOLUME 92.5 FL (80.0-100.0); MEAN CORPUSCULAR HEMOGLOBIN 31.5 PG (27.0-34.0); MEAN CORPUSCULAR HGB CONC 34.1 % (32.0-36.0); MEAN PLATELET VOLUME 7.8 FL (7.0-11.0); MONO % 6.8 % (0.0-8.0); MONOCYTE # 0.4 TH/MM3 (0-0.9); NEUT % 83.8 % (16.0-70.0); PLATELET COUNT 138 TH/MM3 (150-450); RED BLOOD COUNT 2.75 MIL/MM3 (4.50-5.90); RED CELL DISTRIBUTION WIDTH 15.4 % (11.6-17.2); WHITE BLOOD COUNT 5.3 TH/MM3 (4.0-11.0)
[2017-12-14 06:08] LABS: BICARBONATE 25.9 MEQ/L (21.0-32.0); CALCIUM 8.6 MG/DL (8.5-10.1); CREATININE 5.78 MG/DL (0.60-1.30)
[2017-12-14] MEDS: GELATIN 12 MM/7 MM FOAM TOP PRN (08:42)
[2017-12-14] MEDS: EPOETIN ALFA 10,000 UNITS/ML VIAL IV PUSH PRN (08:42)
--- NOTE | 2017-12-14 09:14 | HHI.NPPN ---
Subjective General Problems: Anemia Renal Failure: Chronic, End Stage Renal Disease Interval History Remains intubated, sedated. Seen during bedside dialysis. (Nancy Springer) Review of Systems General General Remarks unable to assess (Nancy Springer) Objective Data Data Vital Signs Date Time Temp Pulse Resp B/P (MAP) Pulse Ox O2 Delivery O2 Flow Rate FiO2 12/14/17 07:35 100 35 12/14/17 06:00 67 12/14/17 04:26 100 35 12/14/17 04:00 35 12/14/17 04:00 58 12/14/17 04:00 98.2 58 18 152/64 (93) 100 12/14/17 02:00 60 12/14/17 01:09 100 35 12/14/17 00:00 98.1 63 18 151/66 (94) 100 12/14/17 00:00 40 12/14/17 00:00 63 12/13/17 22:16 100 40 12/13/17 22:00 66 12/13/17 20:00 98.3 67 18 138/64 (88) 100 12/13/17 20:00 67 12/13/17 20:00 50 12/13/17 19:12 100 40 12/13/17 18:00 67 12/13/17 16:00 97.5 62 18 134/95 (108) 100 12/13/17 16:00 50 12/13/17 16:00 62 12/13/17 15:40 100 40 12/13/17 14:00 62 12/13/17 12:00 50 12/13/17 12:00 97.1 63 18 150/66 (94) 100 12/13/17 12:00 63 12/13/17 11:09 100 40 12/13/17 10:00 68 (Nancy Springer) -: 12/14/17 0415 12/14/17 0415 Imaging Last 72 hours Impressions Chest X-Ray 12/13/17 0000 Signed Impressions: Service Date/Time: Wednesday, December 13, 2017 08:03 - CONCLUSION: 1. Interval placement of NGT coursing beyond the GE junction. 2. Cardiomegaly with pulmonary vascular congestion. 3. Bilateral lower lung zone airspace disease, presumably atelectasis. Kb Dean MD Chest X-Ray 12/12/17 1007 Signed Impressions: Service Date/Time: Tuesday, December 12, 2017 10:37 - CONCLUSION: 1. Endotracheal tube in satisfactory position. 2. Diffuse interstitial prominence suggesting interstitial edema. 3. The diffuse infiltrates seen on prior have improved. Cristian Lee MD (Gian,Nancy B. PROCESS MAINTENANCE TECHNICIAN) Physical Exam General Appearance: Well Developed, Comfortable (Gian,Nancy B. PROCESS MAINTENANCE TECHNICIAN) Eyes Eye Exam: Pupils Equal, Pupils Reactive (Gian,Nancy B. PROCESS MAINTENANCE TECHNICIAN) Pulmonary Resp Exam: Breath Sounds Equal, Crackles, Decreased Bases Resp Remarks vented lung sounds (Gian,Nancy B. PROCESS MAINTENANCE TECHNICIAN) Cardiology CV Exam: Normal Sinus Rhythm, Good Perfusion (Gian,Nancy B. PROCESS MAINTENANCE TECHNICIAN) Gastrointestinal/Abdomen GI Exam: Soft, Non-Tender, Bowel Sounds Present (Gian,Nancy B. PROCESS MAINTENANCE TECHNICIAN) Musculoskeletal MS Exam: Joints Intact, Normal Tone (Gian,Nancy B. PROCESS MAINTENANCE TECHNICIAN) Integumentary Skin Exam: Clear, Warm, Dry, Intact (Gian,Nancy B. PROCESS MAINTENANCE TECHNICIAN) Extremeties Extremities Exam: No Edema, Pedal Pulses Palpable (Gian,Nancy B. PROCESS MAINTENANCE TECHNICIAN) Neurologic Neuro Exam: Awake, Moving All Extremities (Gian,Nancy B. PROCESS MAINTENANCE TECHNICIAN) Assessment/Plan Discussed Condition With: Patient Assessment Summary: Anemia of CKD, CHF, Diabetes Mellitus, End Stage Renal Disease Problem List: (1) ESRD (end stage renal disease) ICD Codes: N18.6 - End-stage renal disease Status: Chronic Plan: Typical MWF HD 3L UF Tue and 3L UF Tuesday Seen during dialysis today on a 3K, 350 BFR, goal 3L He has been hyperkalemic. On D10 drip . Monitor fluid and electrolyte balance. Avoid Gadolinium. High protein diet when no longer NPO. Also dietary potassium and phosphorus restrictions. (2) Respiratory failure ICD Codes: J96.90 - Respiratory failure, unspecified, unspecified whether with hypoxia or hypercapnia Plan: Vent management per CCM. Monitor fluid status Hx of CHF (3) Anemia ICD Codes: D64.9 - Anemia, unspecified Plan: Epogen with dialysis. (4) Secondary hyperparathyroidism of renal origin ICD Codes: N25.81 - Secondary hyperparathyroidism of renal origin Plan: Check Phosphorus level Resume Sensipar when he is able to take oral medications. (Nancy Springer) Plan patient was seen and examined. Seen during dialysis UF goal is 3 liters. I do not think he has significant pulmonary edema. Weaning from the vent per the turf keeper. (Tru Galarza MD) Nancy Springer Dec 14, 2017 09:14 Tru Galarza MD Dec 14, 2017 20:05
[2017-12-14] MEDS: ALBUMIN 25% INJ 100 ML IV PRN (10:04)
[2017-12-14] MEDS: CARVEDILOL 3.125 MG TAB PO SCH ×2 (11:42→21:00)
[2017-12-14] MEDS: DOCUSATE SODIUM 50 MG/SENNA 8.6 MG TAB PO SCH ×2 (11:43→21:58)
[2017-12-14] MEDS: DEXTROSE 10% INJ 500 ML IV SCH (12:29)
[2017-12-14] MEDS: fentaNYL 2,500 MCG/NS 250 ML IV PRN (12:43)
[2017-12-14] MEDS ORDERED: DEXTROSE 50% IN WATER 50 ML SYRINGE ONE (19:47)
[2017-12-14] MEDS ORDERED: CEFEPIME INJ 2,000 MG in SODIUM CHLORIDE 0.9% INJ 100 ML IV PRN (21:15)
--- NOTE | 2017-12-14 21:33 | HHI.CCPN ---
Subjective Remarks/Hospital Course Patient is a 72-year-old male with multiple medical comorbidities which include end-stage renal disease, hypertension, CHF, COPD, cardiomyopathy, hyperparathyroidism and anemia of chronic disease. He was brought into ED via EMS for respiratory distress and was given albuterol treatment x2 in addition to Solu-Medrol 125 mg IV prior to arrival. The patient was initially placed on BiPap without any significant relief. In the ED he was intubated with etomidate, succinylcholine and placed on full mechanical ventilation. When seen the patient is sedated with Diprivan and on fentanyl infusion. His laboratory data significant for hyperkalemia with potassium 6.3, BUN 53, creatinine in 8.63 and BNP of 1218. His chest x-ray showed ET tube above the reed, interstitial edema. Nephrology service was notified and the patient is currently receiving hemodialysis treatment. ABG postintubation showed a pH of 7.30, CO2 54, pAO2 454, bicarb 26, sats of 97%. 12/13 Patient is intubated on no sedation. Awake and alert, s/p HD yesterday with removal 3L. Afebrile. Subjective 12/14: Afebrile. Remains on propofol drip at 20 mcg/kg per minute. Episodic hypotension. Episodic hypoglycemia requiring D50. On D10 drip for hyperkalemia ? Per nephrology's orders, potassium currently normalized. We'll start tube feeding. Added cefepime for Pseudomonas in sputum Objective Vital Signs Date Time Temp Pulse Resp B/P (MAP) Pulse Ox O2 Delivery O2 Flow Rate FiO2 12/14/17 21:06 97 35 12/14/17 18:00 112 12/14/17 16:00 99.7 16 109/54 (72) 12/12/17 12:01 Auto-Vent Intake and Output 12/14/17 12/14/17 12/15/17 08:00 16:00 00:00 Intake Total 517 ml 100 ml 612 ml Output Total 0 ml 2200 ml 0 ml Balance 517 ml -2100 ml 612 ml Result Diagram: 12/14/17 0415 12/14/17 0415 Other Results Microbiology Date/Time Source Procedure Growth Status 12/12/17 15:50 Sputum Endotracheal Gram Stain - Final Complete 12/12/17 15:50 Sputum Culture - Final Haemophilus Influenzae Pseudomonas Aeruginosa Complete 12/12/17 11:30 Nasal Washing Influenza Types A,B Antigen (LUCRETIA) - Final NEGATIVE FOR FLU A AND B ANTIGEN.... Complete Imaging Last Impressions Chest X-Ray 12/13/17 0000 Signed Impressions: Service Date/Time: Wednesday, December 13, 2017 08:03 - CONCLUSION: 1. Interval placement of NGT coursing beyond the GE junction. 2. Cardiomegaly with pulmonary vascular congestion. 3. Bilateral lower lung zone airspace disease, presumably atelectasis. Kb Dean MD Objective Remarks GENERAL: 72-year-old male currently orotracheally intubated SKIN: Warm and dry. No rash HEAD: Normocephalic. Atraumatic EYES: Pupils are equally round and reactive at 3 mm. NECK: Supple, trachea midline. No JVD or lymphadenopathy. CARDIOVASCULAR: RRR. S1, S2. No S4. Without murmurs RESPIRATORY: Breath sounds equal bilaterally. No accessory muscle use. GASTROINTESTINAL: Abdomen soft, non-tender, nondistended. MUSCULOSKELETAL: Trace lower extremity. Right upper extremity positive thrill Neuro: Arousable, ventilator. Moves all 4 extremity spontaneously. Cranial nerves II through XII appear grossly intact. A/P Assessment and Plan Neuro/Psych: Peripheral neuropathy Currently on propofol drip at 20 mcg per kilogram per minute for sedation while intubated Goal of RASS -2 Daily sedation vacation Continue gabapentin 300 mg daily for peripheral neuropathy Hydrochloroquine 200 mg daily for arthritis CV: Chronic diastolic heart failure - Mild pulmonary hypertension with pulmonary arterial pressure 46.7 mmHg 2-D echocardiogram reveals EF of 55-60%. Mild MR/TR. Pulmonary arterial Pressures 46.7 mmHg I will hold carvedilol 3.125 mg twice a day in light of hypotension Currently not any baseline fluids. I will place on D5 normal saline at 50 cc an hour overnight discontinue once tube feeds are at goal Resp: Acute hypoxemic and hypercapnic respiratory failure Polymicrobial pneumonia - Pseudomonas and Haemophilus influenza History of COPD [facility] /11/25/34 Ventilator bundle Albuterol/ipratropium aerosols every 6 hours with albuterol aerosols every 2 hours. Dyspnea Follow-up on chest x-ray in a.m. 12/15 GI: Start tube feedings with Nepro goal 50 cc an hour Famotidine for GI prophylaxis Docusate sodium/senna 1 tablet twice a day for bowel regimen : Murillo catheter if indicated Endo: Hypoglycemia Secondary hyperparathyroidism Novulog with Accu-Cheks every 4 hours to maintain euglycemia Initiate tube feeding. Last blood sugar 71. Continue Cinacalet 30 mg daily for secondary hyperparathyroidism Check cortisol level Renal: End-stage renal disease on hemodialysis Tuesday/Tuesday/Tuesday Dr. Galarza..UF 3 L Tuesday and Tuesday. 2200 cc today. Avoid nephrotoxic drugs Heme: Normocytic anemia/anemia of chronic kidney disease Thrombocytopenia Monitor CBC daily. Follow trends Continue Epogen with hemodialysis ID: Haemophilus influenza/pseudomonas aeruginosa pneumonia Pertinent cultures 12/12 - sputum - Haemophilus influenza, pseudomonas aeruginosa 12/12 - blood cultures 2 - no growth MSK: OP/OA PT evaluate and treat FEN: Secondary hyperparathyroidisn Previously on sevelamer 800 mg 4 times a day. Switch to Lanthanum 500 mg 3 times a day while intubated Access - Utilize peripheral IV. Central line if indicated Prophylaxis - GI - famotidine - DVT - SCD/heparin subcutaneous Level II follow-up Saji Pearson MD Dec 14, 2017 21:33
[2017-12-14] MEDS: ARTIFICIAL TEARS OPTH SOLN 15 ML BTL EACH EYE SCH (22:24)
[2017-12-14] MEDS ORDERED: DEXT 5%-NACL 0.9% 1000 ML INJ 1,000 ML IV SCH (22:30)
[2017-12-14] MEDS ORDERED: DEXTROSE 50% IN WATER 50 ML VIAL(D50) IV PUSH ONE (22:30)
[2017-12-15] VITALS (20 sets, daily range): BP systolic 102–137; BP diastolic 51–95; PULSE 67–127; RESP 18–118; TEMP 98.7–100.7; O2SAT 91–100
[2017-12-15] MEDS: INSULIN NovoLIN REGULAR SUPPLEMENTAL SCALE SQ SCH ×6 (03:00→23:00)
[2017-12-15] MEDS: HEPARIN SODIUM - SQ 10,000 UNITS/ML VIAL SQ SCH ×2 (03:49→14:42)
[2017-12-15] MEDS: CHLORHEXIDINE GLUCONATE 2 % 1 PACK (2 CLOTHS) TOP SCH (04:00)
[2017-12-15] MEDS: RESP: ALBUTEROL 2.5 MG/IPRATROPIUM 0.5 MG NEB (SCH) INH ×4 (04:20→20:23)
--- NOTE | 2017-12-15 04:56 | RADRPT ---
EXAM DATE/TIME: 12/15/2017 03:12 [facility] COMPARISON: CHEST SINGLE AP, December 13, 2017, 8:03. INDICATIONS : Shortness of breath, possible pulmonary disease. MEDICAL HISTORY : Renal failure SURGICAL HISTORY : None. ENCOUNTER: Subsequent ACUITY: 4 - 6 days PAIN SCORE: Non-responsive. LOCATION: Bilateral chest FINDINGS: ET tube tip well above the reed. Gastric tube traverses the [id number]. Persistent mid and low er lung parenchymal opacities, similar to prior. Heart upper limits normal size. Both hemidiaphragm s are fairly well delineated. CONCLUSION: Persistent mid and lower lung air space opacities. Marco Antonio Umana MD on December 15, 2017 at 4:53 Board Certified Radiologist. This report was verified electronically.
[2017-12-15 07:23] LABS: AUTOMATED NEUTROPHIL # 10.7 TH/MM3 (1.8-7.7); BASOPHIL # 0.1 TH/MM3 (0-0.2); BASOPHIL % 0.4 % (0.0-2.0); EOSINOPHIL # 0.2 TH/MM3 (0-0.4); EOSINOPHIL % 1.3 % (0.0-4.0); HEMATOCRIT 32.5 % (39.0-51.0); HEMOGLOBIN 10.8 GM/DL (13.0-17.0); LYMPH % 4.7 % (9.0-44.0); LYMPHOCYTE # 0.6 TH/MM3 (1.0-4.8); MEAN CELL VOLUME 91.6 FL (80.0-100.0); MEAN CORPUSCULAR HEMOGLOBIN 30.5 PG (27.0-34.0); MEAN CORPUSCULAR HGB CONC 33.3 % (32.0-36.0); MEAN PLATELET VOLUME 7.5 FL (7.0-11.0); MONO % 6.4 % (0.0-8.0); MONOCYTE # 0.8 TH/MM3 (0-0.9); NEUT % 87.2 % (16.0-70.0); PLATELET COUNT 161 TH/MM3 (150-450); RED BLOOD COUNT 3.54 MIL/MM3 (4.50-5.90); RED CELL DISTRIBUTION WIDTH 15.2 % (11.6-17.2); WHITE BLOOD COUNT 12.2 TH/MM3 (4.0-11.0)
[2017-12-15 07:56] LABS: ALKALINE PHOSPHATASE 120 U/L (45-117); TOTAL BILIRUBIN ADULT 0.7 MG/DL (0.2-1.0); TOTAL PROTEIN 6.8 GM/DL (6.4-8.2)
[2017-12-15 08:04] LABS: ALT (GPT) 50 U/L (12-78); AST (GOT) 46 U/L (15-37); BICARBONATE 29.5 MEQ/L (21.0-32.0); BLOOD UREA NITROGEN 32 MG/DL (7-18); CALCIUM 9.2 MG/DL (8.5-10.1); CHLORIDE 98 MEQ/L (98-107); CREATININE 5.62 MG/DL (0.60-1.30); GLOMERULAR FILTRATION RATE 10 ML/MIN (>89); GLUCOSE,RANDOM 98 MG/DL (74-106); MAGNESIUM 1.7 MG/DL (1.5-2.5); PHOSPHORUS 4.5 MG/DL (2.5-4.9); SODIUM (NA) 138 MEQ/L (136-145)
[2017-12-15] MEDS ORDERED: SEVELAMER CARBONATE 800 MG TAB PO SCH (09:00)
[2017-12-15] MEDS: HYDROXYCHLOROQUINE SULFATE 200 MG TAB PO SCH (09:10)
[2017-12-15] MEDS: CINACALCET HYDROCHLORIDE 30 MG TAB PO SCH (09:10)
[2017-12-15] MEDS: FAMOTIDINE 20 MG TAB NG SCH (09:10)
[2017-12-15] MEDS: DOCUSATE SODIUM 50 MG/SENNA 8.6 MG TAB PO SCH ×2 (09:10→21:06)
[2017-12-15] MEDS: GABAPENTIN 300 MG CAP PO SCH (09:10)
[2017-12-15] MEDS: LANTHANUM CARBONATE 500 MG CHEWABLE TABLET CHEW SCH ×3 (09:10→18:24)
[2017-12-15] MEDS: PROPOFOL 1000 MG/100 ML INJ 100 ML IV PRN ×2 (09:35→21:13)
--- NOTE | 2017-12-15 12:24 | HHI.NPPN ---
Subjective General Problems: Anemia Renal Failure: Chronic, End Stage Renal Disease Interval History He is still intubated on 40% FiO2, tolerated CPAP. He is awake, agitated. Tube feeding has been started. (Nancy Springer) Review of Systems General General Remarks unable to assess (Nancy Springer) Objective Data Data Vital Signs Date Time Temp Pulse Resp B/P (MAP) Pulse Ox O2 Delivery O2 Flow Rate FiO2 12/15/17 11:46 100 40 12/15/17 11:40 99 40 12/15/17 08:48 100 40 12/15/17 06:00 100 12/15/17 04:21 91 40 12/15/17 04:00 98.7 103 20 135/53 (80) 94 12/15/17 04:00 35 12/15/17 04:00 103 12/15/17 02:00 67 12/15/17 00:05 92 40 12/15/17 00:00 35 12/15/17 00:00 98.9 101 18 108/53 (71) 92 12/15/17 00:00 101 12/14/17 22:00 101 12/14/17 21:06 97 35 12/14/17 20:00 35 12/14/17 20:00 98.8 98 18 80/42 (55) 89 12/14/17 20:00 96 12/14/17 18:00 112 12/14/17 16:16 97 35 12/14/17 16:00 99.7 109 16 109/54 (72) 91 12/14/17 16:00 35 12/14/17 16:00 109 12/14/17 14:00 108 (Nancy Springer) -: 12/15/17 0630 12/15/17 0630 Imaging Last 72 hours Impressions Chest X-Ray 12/15/17 0600 Signed Impressions: Service Date/Time: November 03:12 - CONCLUSION: Persistent mid and lower lung air space opacities. Marco Antonio Umana MD Chest X-Ray 12/13/17 0000 Signed Impressions: Service Date/Time: Wednesday, December 13, 2017 08:03 - CONCLUSION: 1. Interval placement of NGT coursing beyond the GE junction. 2. Cardiomegaly with pulmonary vascular congestion. 3. Bilateral lower lung zone airspace disease, presumably atelectasis. Kb Dean MD (Nancy Springer) Physical Exam General Appearance: Well Developed, Comfortable (Nancy Springer) Eyes Eye Exam: Pupils Equal, Pupils Reactive (Nancy Springer CELL TESTER) Pulmonary Resp Exam: Breath Sounds Equal, Crackles, Decreased Bases Resp Remarks vented lung sounds (Nancy Springer CELL TESTER) Cardiology CV Exam: Normal Sinus Rhythm, Good Perfusion (Nancy SpringerP) Gastrointestinal/Abdomen GI Exam: Soft, Non-Tender, Bowel Sounds Present (Nancy Springer) Musculoskeletal MS Exam: Joints Intact, Normal Tone (Nancy Springer) Integumentary Skin Exam: Clear, Warm, Dry, Intact (Nancy Springer) Extremeties Extremities Exam: No Edema, Pedal Pulses Palpable (Nancy Springer) Neurologic Neuro Exam: Awake, Moving All Extremities, Sedated Neuro Remarks awake, intubated, agitated (Nancy Springer) Assessment/Plan Discussed Condition With: Patient Assessment Summary: Anemia of CKD, CHF, Diabetes Mellitus, End Stage Renal Disease Problem List: (1) ESRD (end stage renal disease) ICD Codes: N18.6 - End-stage renal disease Status: Chronic Plan: Typical MWF HD ; He was dialyzed [id number] for fluid removal and hyperkalemia Next HD tomorrow Stop IVF, he has been started on tube feeding. he has functioning AVF Monitor fluid and electrolyte balance. His phosphorus is acceptable/ Avoid Gadolinium. (2) Respiratory failure ICD Codes: J96.90 - Respiratory failure, unspecified, unspecified whether with hypoxia or hypercapnia Plan: Vent management and weening per [facility]. Monitor fluid status Hx of CHF, also most likely has COPD He has hemophiles influenza and pseudomonas on sputum culture. On Cefepime. (3) Anemia ICD Codes: D64.9 - Anemia, unspecified Plan: Epogen with dialysis. (4) Secondary hyperparathyroidism of renal origin ICD Codes: N25.81 - Secondary hyperparathyroidism of renal origin Plan: Acceptable Phosphorus level Resume Sensipar when he is able to take oral medications. (Nancy Springer) Plan patient was seen and examined. Dialyzed on 3 consecutive days. May have developed vent associated pneumonia. On Cefepime. Change dose of Cefepime to 500 mg IV Q24 hours. (Tru Galarza MD) Nancy Springer Dec 15, 2017 12:24 Tru Galarza MD Dec 15, 2017 13:46
[2017-12-15] MEDS ORDERED: DIGOXIN 0.5 MG/2 ML VIAL IV PUSH ONE (14:30)
--- NOTE | 2017-12-15 15:46 | HHI.CCPN ---
Subjective Remarks/Hospital Course Patient is a 72-year-old male with multiple medical comorbidities which include end-stage renal disease, hypertension, CHF, COPD, cardiomyopathy, hyperparathyroidism and anemia of chronic disease. He was brought into ED via EMS for respiratory distress and was given albuterol treatment x2 in addition to Solu-Medrol 125 mg IV prior to arrival. The patient was initially placed on BiPap without any significant relief. In the ED he was intubated with etomidate, succinylcholine and placed on full mechanical ventilation. When seen the patient is sedated with Diprivan and on fentanyl infusion. His laboratory data significant for hyperkalemia with potassium 6.3, BUN 53, creatinine in 8.63 and BNP of 1218. His chest x-ray showed ET tube above the reed, interstitial edema. Nephrology service was notified and the patient is currently receiving hemodialysis treatment. ABG postintubation showed a pH of 7.30, CO2 54, pAO2 454, bicarb 26, sats of 97%. 12/13 Patient is intubated on no sedation. Awake and alert, s/p HD yesterday with removal 3L. Afebrile. 12/14: Afebrile. Remains on propofol drip at 20 mcg/kg per minute. Episodic hypotension. Episodic hypoglycemia requiring D50. On D10 drip for hyperkalemia ? Per nephrology's orders, potassium currently normalized. We'll start tube feeding. Added cefepime for Pseudomonas in sputum Subjective 12/15: Afebrile. Tolerating tube feeding. Currently on PSV trial is tolerated well. Not following commands however moving all 4 extremities purposefully today than yesterday. Objective Vital Signs Date Time Temp Pulse Resp B/P (MAP) Pulse Ox O2 Delivery O2 Flow Rate FiO2 12/15/17 11:46 100 40 12/15/17 06:00 100 12/15/17 04:00 98.7 20 135/53 (80) 12/12/17 12:01 Auto-Vent Intake and Output 12/15/17 12/15/17 12/16/17 08:00 16:00 00:00 Output Total 0 ml Balance 0 ml Result Diagram: 12/15/17 0630 12/15/17 0630 Other Results Microbiology Date/Time Source Procedure Growth Status 12/12/17 11:29 Blood Peripheral Aerobic Blood Culture - Preliminary NO GROWTH IN 3 DAYS Resulted 12/12/17 11:29 Blood Peripheral Anaerobic Blood Culture - Preliminary NO GROWTH IN 3 DAYS Resulted 12/12/17 15:50 Sputum Endotracheal Gram Stain - Final Complete 12/12/17 15:50 Sputum Culture - Final Haemophilus Influenzae Pseudomonas Aeruginosa Complete Imaging Last Impressions Chest X-Ray 12/15/17 0600 Signed Impressions: Service Date/Time: November 03:12 - CONCLUSION: Persistent mid and lower lung air space opacities. Marco Antonio Umana MD Objective Remarks GENERAL: 72-year-old male currently orotracheally intubated SKIN: Warm and dry. No rash HEAD: Normocephalic. Atraumatic EYES: Pupils are equally round and reactive at 3 mm. NECK: Supple, trachea midline. No JVD or lymphadenopathy. CARDIOVASCULAR: RRR. S1, S2. No S4. Without murmurs RESPIRATORY: Breath sounds equal bilaterally. No accessory muscle use. GASTROINTESTINAL: Abdomen soft, non-tender, nondistended. MUSCULOSKELETAL: Trace lower extremity. Right upper extremity positive thrill Neuro: Arousable, ventilator. Moves all 4 extremity spontaneously. Cranial nerves II through XII appear grossly intact. A/P Assessment and Plan Neuro/Psych: Peripheral neuropathy Currently on propofol drip at 20 mcg per kilogram per minute for sedation while intubated Goal of RASS -2 Daily sedation vacation Continue gabapentin 300 mg daily for peripheral neuropathy Hydrochloroquine 200 mg daily for arthritis resumed CV: Chronic diastolic heart failure - Mild pulmonary hypertension with pulmonary arterial pressure 46.7 mmHg 2-D echocardiogram reveals EF of 55-60%. Mild MR/TR. Pulmonary arterial Pressures 46.7 mmHg Resume carvedilol 3.125 mg twice a day in light of atrial fibrillation Received 1 dose of digoxin 0.25 mg on 12/15 Currently not any baseline fluids. I will place on D5 normal saline at 50 cc an hour overnight discontinue once tube feeds are at goal Resp: Acute hypoxemic and hypercapnic respiratory failure Polymicrobial pneumonia - Pseudomonas and Haemophilus influenza History of COPD [facility] /11/25/34 Ventilator bundle Albuterol/ipratropium aerosols every 6 hours with albuterol aerosols every 2 hours. Dyspnea Follow-up on chest x-ray in a.m. 12/16 GI: Start tube feedings with Nepro goal 55 cc an hour for nutrition's recommendations Famotidine for GI prophylaxis Docusate sodium/senna 1 tablet twice a day for bowel regimen : Murillo catheter if indicated Endo: Hypoglycemia Secondary hyperparathyroidism Novulog with Accu-Cheks every 4 hours to maintain euglycemia Blood sugars have stabilized Continue Cinacalet 30 mg daily for secondary hyperparathyroidism Check cortisol level - low at 9 Renal: End-stage renal disease on hemodialysis Tuesday/Tuesday/Tuesday Dr. Galarza..UF 3 L Tuesday and Tuesday. 2200 cc today. Plan for tomorrow Avoid nephrotoxic drugs Heme: Normocytic anemia/anemia of chronic kidney disease Thrombocytopenia Leukocytosis Monitor CBC daily. Follow trends Continue Epogen with hemodialysis ID: Haemophilus influenza/pseudomonas aeruginosa pneumonia Pertinent cultures Continue cefepime day #2. Dosage unclear with hemodialysis currently 2 g every 48 hours. 12/12 - sputum - Haemophilus influenza, pseudomonas aeruginosa 12/12 - blood cultures 2 - no growth MSK: OP/OA PT evaluate and treat FEN: Secondary hyperparathyroidisn Previously on sevelamer 800 mg 4 times a day. Switch to Lanthanum 500 mg 3 times a day while intubated Access - Utilize peripheral IV. Central line if indicated Prophylaxis - GI - famotidine - DVT - SCD/heparin subcutaneous Level II follow-up Saji Pearson MD Dec 15, 2017 15:46
[2017-12-15] MEDS: ARTIFICIAL TEARS OPTH SOLN 15 ML BTL EACH EYE SCH ×2 (17:38→21:06)
[2017-12-15] MEDS: CARVEDILOL 3.125 MG TAB PO SCH (21:07)
[2017-12-15] MEDS: MUPIROCIN 2% OINT 1 APPLIC/GM SYR EACH NARE SCH (21:07)
[2017-12-16] VITALS (19 sets, daily range): BP systolic 79–177; BP diastolic 50–74; PULSE 101–140; RESP 18–64; TEMP 98.5–100.1; O2SAT 93–100
[2017-12-16] MEDS: INSULIN NovoLIN REGULAR SUPPLEMENTAL SCALE SQ SCH ×5 (03:00→23:00)
[2017-12-16] MEDS: RESP: ALBUTEROL 2.5 MG/IPRATROPIUM 0.5 MG NEB (SCH) INH ×3 (03:21→16:23)
[2017-12-16] MEDS: CHLORHEXIDINE GLUCONATE 2 % 1 PACK (2 CLOTHS) TOP SCH (04:00)
[2017-12-16] MEDS: ARTIFICIAL TEARS OPTH SOLN 15 ML BTL EACH EYE SCH ×3 (04:46→21:16)
[2017-12-16] MEDS: HEPARIN SODIUM - SQ 10,000 UNITS/ML VIAL SQ SCH ×2 (04:46→14:00)
--- NOTE | 2017-12-16 05:11 | RADRPT ---
EXAM DATE/TIME: 12/16/2017 03:39 [facility] COMPARISON: CHEST SINGLE AP, December 12, 2017, 10:37. CHEST SINGLE AP, December 13, 2017, 8:03. CHEST SINGLE AP, December 15, 2017, 3:12. INDICATIONS : Evalaute for respiratory disease. MEDICAL HISTORY : Renal failure. SURGICAL HISTORY : None. ENCOUNTER: Subsequent ACUITY: 4 - 6 days PAIN SCORE: Non-responsive. LOCATION: chest FINDINGS: The ET tube and NG tube are well placed. The heart size is normal. There is increased density in the perihilar regions and at the bases bilaterally being more prominent on the right. There is some indis tinctness of the central interstitial markings. CONCLUSION: Persistent perihilar and bibasilar areas of consolidation. The indistinctness of the interstitium sug gests this could represent pulmonary edema. Jakob Marley MD on December 16, 2017 at 5:07 Board Certified Radiologist. This report was verified electronically.
[2017-12-16 07:12] LABS: HEMATOCRIT 32.1 % (39.0-51.0); HEMOGLOBIN 10.6 GM/DL (13.0-17.0); MEAN CORPUSCULAR HEMOGLOBIN 30.5 PG (27.0-34.0); MEAN CORPUSCULAR HGB CONC 33.1 % (32.0-36.0); MEAN PLATELET VOLUME 7.7 FL (7.0-11.0); PLATELET COUNT 163 TH/MM3 (150-450); RED BLOOD COUNT 3.49 MIL/MM3 (4.50-5.90); RED CELL DISTRIBUTION WIDTH 15.6 % (11.6-17.2); WHITE BLOOD COUNT 12.3 TH/MM3 (4.0-11.0)
[2017-12-16 07:38] LABS: BICARBONATE 29.4 MEQ/L (21.0-32.0); CALCIUM 8.7 MG/DL (8.5-10.1); CREATININE 7.36 MG/DL (0.60-1.30); MAGNESIUM 1.9 MG/DL (1.5-2.5); PHOSPHORUS 2.9 MG/DL (2.5-4.9)
--- NOTE | 2017-12-16 08:29 | HHI.CCPN ---
Subjective Remarks/Hospital Course Patient is a 72-year-old male with multiple medical comorbidities which include end-stage renal disease, hypertension, CHF, COPD, cardiomyopathy, hyperparathyroidism and anemia of chronic disease. He was brought into ED via EMS for respiratory distress and was given albuterol treatment x2 in addition to Solu-Medrol 125 mg IV prior to arrival. The patient was initially placed on BiPap without any significant relief. In the ED he was intubated with etomidate, succinylcholine and placed on full mechanical ventilation. When seen the patient is sedated with Diprivan and on fentanyl infusion. His laboratory data significant for hyperkalemia with potassium 6.3, BUN 53, creatinine in 8.63 and BNP of 1218. His chest x-ray showed ET tube above the reed, interstitial edema. Nephrology service was notified and the patient is currently receiving hemodialysis treatment. ABG postintubation showed a pH of 7.30, CO2 54, pAO2 454, bicarb 26, sats of 97%. 12/13 Patient is intubated on no sedation. Awake and alert, s/p HD yesterday with removal 3L. Afebrile. 12/14: Afebrile. Remains on propofol drip at 20 mcg/kg per minute. Episodic hypotension. Episodic hypoglycemia requiring D50. On D10 drip for hyperkalemia ? Per nephrology's orders, potassium currently normalized. We'll start tube feeding. Added cefepime for Pseudomonas in sputum Subjective 12/15: Afebrile. Tolerating tube feeding. Currently on PSV trial is tolerated well. Not following commands however moving all 4 extremities purposefully today than yesterday. 12/16 Patient remains intubated and on Fentanyl and Diprivan drip for sedation. s /p HD yesterday Objective Vital Signs Date Time Temp Pulse Resp B/P (MAP) Pulse Ox O2 Delivery O2 Flow Rate FiO2 12/16/17 06:00 108 12/16/17 04:12 95 40 12/16/17 04:00 100.1 18 131/61 (84) 12/12/17 12:01 Auto-Vent Intake and Output 12/16/17 12/16/17 12/17/17 08:00 16:00 00:00 Intake Total 427 ml Output Total 0 ml Balance 427 ml Result Diagram: 12/16/17 0406 12/16/17 0406 Other Results Laboratory Tests Test 12/16/17 04:06 White Blood Count 12.3 TH/MM3 Red Blood Count 3.49 MIL/MM3 Hemoglobin 10.6 GM/DL Hematocrit 32.1 % Mean Corpuscular Volume 92.0 FL Mean Corpuscular Hemoglobin 30.5 PG Mean Corpuscular Hemoglobin Concent 33.1 % Red Cell Distribution Width 15.6 % Platelet Count 163 TH/MM3 Mean Platelet Volume 7.7 FL Blood Urea Nitrogen 46 MG/DL Creatinine 7.36 MG/DL Random Glucose 141 MG/DL Calcium Level 8.7 MG/DL Phosphorus Level 2.9 MG/DL Magnesium Level 1.9 MG/DL Sodium Level 135 MEQ/L Potassium Level 4.7 MEQ/L Chloride Level 95 MEQ/L Carbon Dioxide Level 29.4 MEQ/L Anion Gap 11 MEQ/L Estimat Glomerular Filtration Rate 7 ML/MIN Imaging Last Impressions Chest X-Ray 12/16/17 0600 Signed Impressions: Service Date/Time: Saturday, December 16, 2017 03:39 - CONCLUSION: Persistent perihilar and bibasilar areas of consolidation. The indistinctness of the interstitium suggests this could represent pulmonary edema. Jakob Marley MD Objective Remarks GENERAL: 72-year-old male currently orotracheally intubated SKIN: Warm and dry. No rash HEAD: Normocephalic. Atraumatic EYES: Pupils are equally round and reactive at 3 mm. NECK: Supple, trachea midline. No JVD or lymphadenopathy. CARDIOVASCULAR: RRR. S1, S2. No S4. Without murmurs RESPIRATORY: Breath sounds equal bilaterally. No accessory muscle use. GASTROINTESTINAL: Abdomen soft, non-tender, nondistended. MUSCULOSKELETAL: Trace lower extremity. Right upper extremity positive thrill Neuro: Arousable, ventilator. Moves all 4 extremity spontaneously. Cranial nerves II through XII appear grossly intact. A/P Assessment and Plan Neuro/Psych: Peripheral neuropathy Monitor Neuro status. Check CT brain. Currently on propofol/Fentanyl drips for sedation. Daily sedation vacation Goal of RASS -2 Continue gabapentin 300 mg daily for peripheral neuropathy Hydrochloroquine 200 mg daily for arthritis resumed CV: Chronic diastolic heart failure - Mild pulmonary hypertension with pulmonary arterial pressure 46.7 mmHg 2-D echocardiogram reveals EF of 55-60%. Mild MR/TR. Pulmonary arterial Pressures 46.7 mmHg On carvedilol 3.125 mg twice a day in light of atrial fibrillation Received 1 dose of digoxin 0.25 mg on 12/15 Resp: Acute hypoxemic and hypercapnic respiratory failure Polymicrobial pneumonia - Pseudomonas and Haemophilus influenza History of COPD [facility] 18/600/11/25/34 Ventilator bundle Albuterol/ipratropium aerosols every 6 hours with albuterol aerosols every 2 hours. Dyspnea SBT daily as earle. Check ABG GI: On tube feedings with Nepro goal 55 cc an hour for nutrition's recommendations Famotidine for GI prophylaxis Docusate sodium/senna 1 tablet twice a day for bowel regimen Endo: Hypoglycemia Secondary hyperparathyroidism Novulog with Accu-Cheks every 4 hours to maintain euglycemia Blood sugars have stabilized Continue Cinacalet 30 mg daily for secondary hyperparathyroidism Check cortisol level - low at 9 Renal: Secondary hyperparathyroidism End-stage renal disease on hemodialysis Tuesday/Tuesday/Tuesday Monitor renal function, avoid nephrotoxins. HD per renal- Dr. Galarza On Lanthanum 500 mg 3 times a day while intubated Heme: Normocytic anemia/anemia of chronic kidney disease Thrombocytopenia Leukocytosis Monitor CBC daily. Follow trends Continue Epogen with hemodialysis ID: Haemophilus influenza/pseudomonas aeruginosa pneumonia Pertinent cultures Continue cefepime monitor for signs of infections ( Fever, WBC) 12/12 - sputum - Haemophilus influenza, pseudomonas aeruginosa 12/12 - blood cultures 2 - no growth Recheck sputum cx MSK: OP/OA PT evaluate and treat Access - Utilize peripheral IV. Central line if indicated Prophylaxis - GI - famotidine - DVT - SCD/heparin subcutaneous Level III Nellie Giles MD Dec 16, 2017 08:29
[2017-12-16] MEDS: FAMOTIDINE 20 MG TAB NG SCH (09:00)
--- NOTE | 2017-12-16 09:55 | HHI.NPPN ---
Subjective General Problems: Anemia Renal Failure: Chronic, End Stage Renal Disease Interval History Clinically doing worse. He is still on the vent, 40% FiO2. Sedation decreased and he is not following commands. Lung sounds are more coarse. He is in route for head CT. (Nancy Springer) Review of Systems General General Remarks unable to assess (Nancy Springer) Objective Data Data Vital Signs Date Time Temp Pulse Resp B/P (MAP) Pulse Ox O2 Delivery O2 Flow Rate FiO2 12/16/17 09:29 96 40 12/16/17 06:00 108 12/16/17 04:12 95 40 12/16/17 04:00 109 12/16/17 04:00 40 12/16/17 04:00 100.1 111 18 131/61 (84) 96 12/16/17 02:00 107 12/16/17 01:14 97 40 12/16/17 00:00 110 12/16/17 00:00 99.8 110 18 79/50 (60) 97 12/16/17 00:00 40 12/15/17 22:12 98 40 12/15/17 22:00 109 12/15/17 20:05 98 40 12/15/17 20:00 100.7 96 22 122/58 (79) 98 12/15/17 20:00 96 12/15/17 20:00 40 12/15/17 18:00 96 12/15/17 17:10 98 40 12/15/17 16:00 40 12/15/17 16:00 98.8 97 118 102/51 (68) 98 12/15/17 16:00 97 12/15/17 14:00 105 12/15/17 13:55 40 12/15/17 12:00 106 12/15/17 12:00 98.9 106 86 120/58 (78) 98 12/15/17 12:00 40 12/15/17 11:46 100 40 12/15/17 11:40 99 40 12/15/17 10:00 127 (Nancy Springer) -: 12/16/17 0406 12/16/17 0406 Imaging Last 72 hours Impressions Chest X-Ray 12/16/17 0600 Signed Impressions: Service Date/Time: Saturday, December 16, 2017 03:39 - CONCLUSION: Persistent perihilar and bibasilar areas of consolidation. The indistinctness of the interstitium suggests this could represent pulmonary edema. Jakob Marley MD Chest X-Ray 12/15/17 0600 Signed Impressions: Service Date/Time: November 03:12 - CONCLUSION: Persistent mid and lower lung air space opacities. Marco Antonio Umana MD Drip Comment Fentanyl, propofol, tube feeding. (GianNancy B. COUNTY ENGINEER) Physical Exam General Appearance: Well Developed, Comfortable (Gian,Nancy B. COUNTY ENGINEER) Eyes Eye Exam: Pupils Equal, Pupils Reactive (Gian,Nancy B. COUNTY ENGINEER) Pulmonary Resp Exam: Breath Sounds Equal, Crackles, Rhonchi, Sputum, Decreased Bases Resp Remarks vented lung sounds (Gian,Nancy B. COUNTY ENGINEER) Cardiology CV Exam: Normal Sinus Rhythm, Good Perfusion (GianNancy B. COUNTY ENGINEER) Gastrointestinal/Abdomen GI Exam: Soft, Non-Tender, Bowel Sounds Present (Gian,Nancy B. COUNTY ENGINEER) Musculoskeletal MS Exam: Joints Intact, Normal Tone (Gian,Nancy B. COUNTY ENGINEER) Integumentary Skin Exam: Clear, Warm, Dry, Intact (Gian,Nancy B. COUNTY ENGINEER) Extremeties Extremities Exam: No Edema, Pedal Pulses Palpable (Gian,Nancy B. COUNTY ENGINEER) Neurologic Neuro Exam: Awake, Moving All Extremities, Sedated Neuro Remarks awake, intubated, agitated (GianNancy B. COUNTY ENGINEER) Assessment/Plan Discussed Condition With: Patient Assessment Summary: Anemia of CKD, CHF, Diabetes Mellitus, End Stage Renal Disease Problem List: (1) ESRD (end stage renal disease) ICD Codes: N18.6 - End-stage renal disease Status: Chronic Plan: Typical MWF HD ; He was had extra treatment on Tuesday for fluid removal Due for dialysis today Avoid IVF, follow fluid status Obtain renal panel intermittently. he has functioning AVF Monitor fluid and electrolyte balance. Avoid Gadolinium. (2) Respiratory failure ICD Codes: J96.90 - Respiratory failure, unspecified, unspecified whether with hypoxia or hypercapnia Plan: Attempd CPAP trial and extubation, Vent management and weening per CCM. Now with VAP,+ H. influenza and pseudomonas on sputum culture. Now on cefepime. Consider adding Ceftriaxone. Hx of CHF, also most likely has COPD He has developed fever, leukocytosis. (3) Anemia ICD Codes: D64.9 - Anemia, unspecified Plan: Epogen with dialysis. (4) Secondary hyperparathyroidism of renal origin ICD Codes: N25.81 - Secondary hyperparathyroidism of renal origin Plan: Hold Fosrenol, phosphorus is on low end of normal. Resume Sensipar when he is able to take oral medications. Plan p (Nancy Springer) Plan patient was seen and examined. Agree with above assessment and plan. (Tru Galarza MD) Nancy Springer Dec 16, 2017 09:55 Tru Galarza MD Dec 16, 2017 14:18
[2017-12-16] MEDS: MUPIROCIN 2% OINT 1 APPLIC/GM SYR EACH NARE SCH ×2 (10:01→21:16)
[2017-12-16] MEDS: DOCUSATE SODIUM 50 MG/SENNA 8.6 MG TAB PO SCH ×2 (10:02→21:16)
[2017-12-16] MEDS: CINACALCET HYDROCHLORIDE 30 MG TAB PO SCH (10:02)
[2017-12-16] MEDS: GABAPENTIN 300 MG CAP PO SCH (10:03)
[2017-12-16] MEDS: CARVEDILOL 3.125 MG TAB PO SCH ×2 (10:03→21:16)
[2017-12-16] MEDS: HYDROXYCHLOROQUINE SULFATE 200 MG TAB PO SCH (10:03)
--- NOTE | 2017-12-16 11:24 | RADRPT ---
EXAM DATE/TIME: 12/16/2017 10:58 [place] COMPARISON: No previous studies available for comparison. INDICATIONS : Altered mental status RADIATION DOSE: 69.15 CTDIvol (mGy) ; Patient motion MEDICAL HISTORY : Hypertension. Congestive heart failure. Renal failure, acute. SURGICAL HISTORY : None. ENCOUNTER: Initial ACUITY: 1 day PAIN SCALE: Non-responsive LOCATION: cranial TECHNIQUE: Multiple contiguous axial images were obtained of the head. Using automated exposure control and adj ustment of the mA and/or kV according to patient size, radiation dose was kept as low as reasonably a chievable to obtain optimal diagnostic quality images. DICOM format image data is available electro nically for review and comparison. FINDINGS: CEREBRUM: Atrophy. The ventricles are normal for age. No evidence of midline shift, mass lesion, hemorrhage or acute infarction. No extra-axial fluid collections are seen. POSTERIOR FOSSA: The cerebellum and brainstem are intact. The 4th ventricle is midline. The cerebellopontine angle i s unremarkable. EXTRACRANIAL: The visualized portion of the orbits is intact. SKULL: The calvaria is intact. No evidence of skull fracture. CONCLUSION: No acute disease. Marco Antonio Henriquez Jr., MD on December 16, 2017 at 11:16 Board Certified Radiologist. This report was verified electronically.
[2017-12-16] MEDS: GELATIN 12 MM/7 MM FOAM TOP PRN (13:51)
[2017-12-16] MEDS: EPOETIN ALFA 10,000 UNITS/ML VIAL IV PUSH PRN (13:51)
[2017-12-16] MEDS: fentaNYL 2,500 MCG/NS 250 ML IV PRN (21:17)
[2017-12-17] VITALS (34 sets, daily range): BP systolic 90–170; BP diastolic 46–91; PULSE 79–128; RESP 17–81; TEMP 98.1–99; O2SAT 90–100
[2017-12-17] MEDS: HEPARIN SODIUM - SQ 10,000 UNITS/ML VIAL SQ SCH ×2 (01:07→15:59)
[2017-12-17] MEDS: INSULIN NovoLIN REGULAR SUPPLEMENTAL SCALE SQ SCH ×6 (02:20→23:00)
[2017-12-17] MEDS: CHLORHEXIDINE GLUCONATE 2 % 1 PACK (2 CLOTHS) TOP SCH (02:21)
[2017-12-17] MEDS: ARTIFICIAL TEARS OPTH SOLN 15 ML BTL EACH EYE SCH ×3 (04:56→21:33)
[2017-12-17 05:39] LABS: AUTOMATED NEUTROPHIL # 10.6 TH/MM3 (1.8-7.7); BASOPHIL % 0.3 % (0.0-2.0); EOSINOPHIL # 0.2 TH/MM3 (0-0.4); EOSINOPHIL % 1.7 % (0.0-4.0); HEMATOCRIT 31.2 % (39.0-51.0); HEMOGLOBIN 10.3 GM/DL (13.0-17.0); LYMPH % 3.8 % (9.0-44.0); LYMPHOCYTE # 0.5 TH/MM3 (1.0-4.8); MEAN CORPUSCULAR HEMOGLOBIN 30.3 PG (27.0-34.0); MEAN CORPUSCULAR HGB CONC 32.9 % (32.0-36.0); MEAN PLATELET VOLUME 7.2 FL (7.0-11.0); MONO % 14.4 % (0.0-8.0); MONOCYTE # 1.9 TH/MM3 (0-0.9); NEUT % 79.8 % (16.0-70.0); PLATELET COUNT 147 TH/MM3 (150-450); RED BLOOD COUNT 3.39 MIL/MM3 (4.50-5.90); RED CELL DISTRIBUTION WIDTH 15.2 % (11.6-17.2); WHITE BLOOD COUNT 13.3 TH/MM3 (4.0-11.0)
[2017-12-17 06:25] LABS: BICARBONATE 29.5 MEQ/L (21.0-32.0); CALCIUM 9.7 MG/DL (8.5-10.1); CREATININE 5.97 MG/DL (0.60-1.30)
--- NOTE | 2017-12-17 07:08 | HHI.CCPN ---
Subjective Remarks/Hospital Course Patient is a 72-year-old male with multiple medical comorbidities which include end-stage renal disease, hypertension, CHF, COPD, cardiomyopathy, hyperparathyroidism and anemia of chronic disease. He was brought into ED via EMS for respiratory distress and was given albuterol treatment x2 in addition to Solu-Medrol 125 mg IV prior to arrival. The patient was initially placed on BiPap without any significant relief. In the ED he was intubated with etomidate, succinylcholine and placed on full mechanical ventilation. When seen the patient is sedated with Diprivan and on fentanyl infusion. His laboratory data significant for hyperkalemia with potassium 6.3, BUN 53, creatinine in 8.63 and BNP of 1218. His chest x-ray showed ET tube above the reed, interstitial edema. Nephrology service was notified and the patient is currently receiving hemodialysis treatment. ABG postintubation showed a pH of 7.30, CO2 54, pAO2 454, bicarb 26, sats of 97%. 12/13 Patient is intubated on no sedation. Awake and alert, s/p HD yesterday with removal 3L. Afebrile. 12/14: Afebrile. Remains on propofol drip at 20 mcg/kg per minute. Episodic hypotension. Episodic hypoglycemia requiring D50. On D10 drip for hyperkalemia ? Per nephrology's orders, potassium currently normalized. We'll start tube feeding. Added cefepime for Pseudomonas in sputum Subjective 12/15: Afebrile. Tolerating tube feeding. Currently on PSV trial is tolerated well. Not following commands however moving all 4 extremities purposefully today than yesterday. 12/16 Patient remains intubated and on Fentanyl and Diprivan drip for sedation. s /p HD yesterday 12/17 No events overnight. s/p HD yesterday with removal 1.8L. Remains sedated with Fentanyl and intubated. Patient doesnt follow commands off sedation. CT brain yesterday showed no acute process. T:99.9 last night Objective Vital Signs Date Time Temp Pulse Resp B/P (MAP) Pulse Ox O2 Delivery O2 Flow Rate FiO2 12/17/17 06:00 126 12/17/17 04:06 94 50 12/17/17 04:00 98.1 48 170/63 (98) Intake and Output 12/17/17 12/17/17 12/18/17 08:00 16:00 00:00 Intake Total 695 ml Output Total 0 ml Balance 695 ml Result Diagram: 12/17/17 0435 12/17/17 0435 Other Results Laboratory Tests Test 12/16/17 08:55 12/17/17 04:35 Blood Gas Puncture Site LT RADIAL Blood Gas Patient Temperature 98.6 Blood Gas HCO3 29 mmol/L Blood Gas Base Excess 3.5 mmol/L Blood Gas Oxygen Saturation 86 % Arterial Blood pH 7.36 Arterial Blood Partial Pressure CO2 52 mmHg Arterial Blood Partial Pressure O2 60 mmHg Arterial Blood Oxygen Content 13.6 Vol % Arterial Blood Carboxyhemoglobin 1.1 % Arterial Blood Methemoglobin 2.3 % Blood Gas Hemoglobin 11.3 G/DL Oxygen Delivery Device VENTILATOR Blood Gas Ventilator Setting 18/600/5PEEP Blood Gas Inspired Oxygen 40 % White Blood Count 13.3 TH/MM3 Red Blood Count 3.39 MIL/MM3 Hemoglobin 10.3 GM/DL Hematocrit 31.2 % Mean Corpuscular Volume 92.0 FL Mean Corpuscular Hemoglobin 30.3 PG Mean Corpuscular Hemoglobin Concent 32.9 % Red Cell Distribution Width 15.2 % Platelet Count 147 TH/MM3 Mean Platelet Volume 7.2 FL Neutrophils (%) (Auto) 79.8 % Lymphocytes (%) (Auto) 3.8 % Monocytes (%) (Auto) 14.4 % Eosinophils (%) (Auto) 1.7 % Basophils (%) (Auto) 0.3 % Neutrophils # (Auto) 10.6 TH/MM3 Lymphocytes # (Auto) 0.5 TH/MM3 Monocytes # (Auto) 1.9 TH/MM3 Eosinophils # (Auto) 0.2 TH/MM3 Basophils # (Auto) 0.0 TH/MM3 CBC Comment DIFF FINAL Differential Comment Blood Urea Nitrogen 40 MG/DL Creatinine 5.97 MG/DL Random Glucose 174 MG/DL Calcium Level 9.7 MG/DL Sodium Level 135 MEQ/L Potassium Level 4.3 MEQ/L Chloride Level 95 MEQ/L Carbon Dioxide Level 29.5 MEQ/L Anion Gap 11 MEQ/L Estimat Glomerular Filtration Rate 9 ML/MIN Imaging Last Impressions Chest X-Ray 12/16/17 0600 Signed Impressions: Service Date/Time: Saturday, December 16, 2017 03:39 - CONCLUSION: Persistent perihilar and bibasilar areas of consolidation. The indistinctness of the interstitium suggests this could represent pulmonary edema. Jakob Marley MD Head CT 12/16/17 0000 Signed Impressions: Service Date/Time: Saturday, December 16, 2017 10:58 - CONCLUSION: No acute disease. Marco Antonio Henriquez Jr., MD Objective Remarks GENERAL: 72-year-old male currently orotracheally intubated SKIN: Warm and dry. No rash HEAD: Normocephalic. Atraumatic EYES: Pupils are equally round and reactive at 3 mm. NECK: Supple, trachea midline. No JVD or lymphadenopathy. CARDIOVASCULAR: RRR. S1, S2. No S4. Without murmurs RESPIRATORY: Breath sounds equal bilaterally. No accessory muscle use. GASTROINTESTINAL: Abdomen soft, non-tender, nondistended. MUSCULOSKELETAL: Trace lower extremity. Right upper extremity positive thrill Neuro: Arousable, ventilator. Moves all 4 extremity spontaneously. Cranial nerves II through XII appear grossly intact. A/P Assessment and Plan Neuro/Psych: Peripheral neuropathy Monitor Neuro status. CT brain yesterday showed herman cute intracranial process. Will check EEG and Ammonia level, Neuro eval. Check MRI brain. On Fentanyl drip for sedation. Daily sedation vacation Goal of RASS -2 Continue gabapentin 300 mg daily for peripheral neuropathy Hydrochloroquine 200 mg daily for arthritis resumed CV: Chronic diastolic heart failure - Mild pulmonary hypertension with pulmonary arterial pressure 46.7 mmHg 2-D echocardiogram reveals EF of 55-60%. Mild MR/TR. Pulmonary arterial Pressures 46.7 mmHg On carvedilol 3.125 mg twice a day in light of atrial fibrillation Received 1 dose of digoxin 0.25 mg on 12/15 Resp: Acute hypoxemic and hypercapnic respiratory failure Polymicrobial pneumonia - Pseudomonas and Haemophilus influenza History of COPD [facility] 18/600///50 Ventilator bundle Albuterol/ipratropium aerosols every 6 hours with albuterol aerosols every 2 hours. Dyspnea SBT daily as earle. GI: On tube feedings with Nepro goal 55 cc an hour for nutrition's recommendations Famotidine for GI prophylaxis Docusate sodium/senna 1 tablet twice a day for bowel regimen Endo: Hypoglycemia Secondary hyperparathyroidism Novulog with Accu-Cheks every 4 hours to maintain euglycemia Continue Cinacalet 30 mg daily for secondary hyperparathyroidism Check cortisol level - low at 9 Renal: Secondary hyperparathyroidism End-stage renal disease on hemodialysis Tuesday/Tuesday/Tuesday Monitor renal function, avoid nephrotoxins. HD per renal- Dr. Galarza On Lanthanum 500 mg 3 times a day while intubated Heme: Normocytic anemia/anemia of chronic kidney disease Thrombocytopenia Leukocytosis Monitor CBC daily. Follow trends Continue Epogen with hemodialysis ID: Haemophilus influenza/pseudomonas aeruginosa pneumonia Pertinent cultures Continue cefepime monitor for signs of infections ( Fever, WBC) 12/12 - sputum - Haemophilus influenza, pseudomonas aeruginosa 12/12 - blood cultures 2 - no growth Follow up on sputum cx from 12/16 MSK: OP/OA PT evaluate and treat Access - Utilize peripheral IV. Central line if indicated Prophylaxis - GI - famotidine - DVT - SCD/heparin subcutaneous Level III Nellie Giles MD Dec 17, 2017 07:08
--- NOTE | 2017-12-17 08:18 | HHI.NPPN ---
Subjective General Problems: Anemia Renal Failure: Chronic, End Stage Renal Disease Interval History on the ventilator. Had dialysis yesterday with removal of 1.8 liters. Review of Systems General General Remarks unable to assess Objective Data Data Vital Signs Date Time Temp Pulse Resp B/P (MAP) Pulse Ox O2 Delivery O2 Flow Rate FiO2 12/17/17 07:55 97 45 12/17/17 07:55 45 12/17/17 06:00 126 12/17/17 04:06 94 50 12/17/17 04:00 98.1 96 48 170/63 (98) 93 12/17/17 04:00 96 12/17/17 04:00 50 12/17/17 02:00 121 12/17/17 01:08 93 40 12/17/17 00:00 99.0 127 21 102/51 (68) 94 12/17/17 00:00 127 12/17/17 00:00 40 12/16/17 22:00 127 12/16/17 20:00 130 12/16/17 20:00 40 12/16/17 20:00 99.9 130 30 123/58 (79) 98 12/16/17 19:45 98 40 12/16/17 18:00 129 12/16/17 16:25 96 40 12/16/17 16:00 98.5 140 64 132/63 (86) 94 12/16/17 16:00 140 12/16/17 14:00 139 12/16/17 12:21 40 12/16/17 12:21 93 40 12/16/17 12:00 98.9 102 64 127/56 (79) 94 12/16/17 12:00 101 12/16/17 10:40 100 100 12/16/17 10:00 116 12/16/17 09:29 96 40 -: 12/17/17 0435 12/17/17 0435 Microbiology 12/16/17 Gram Stain, Received Pending 12/16/17 Sputum Culture, Received Pending Drip Comment Fentanyl, propofol, tube feeding. Physical Exam General Appearance: Well Developed, Comfortable Eyes Eye Exam: Pupils Equal, Pupils Reactive Pulmonary Resp Exam: Breath Sounds Equal, Crackles, Rhonchi, Sputum, Decreased Bases Cardiology CV Exam: Normal Sinus Rhythm, Good Perfusion Gastrointestinal/Abdomen GI Exam: Soft, Non-Tender, Bowel Sounds Present Musculoskeletal MS Exam: Joints Intact, Normal Tone Integumentary Skin Exam: Clear, Warm, Dry, Intact Extremeties Extremities Exam: No Edema, Pedal Pulses Palpable Neurologic Neuro Exam: Awake, Moving All Extremities, Sedated Assessment/Plan Discussed Condition With: Patient Assessment Summary: Anemia of CKD, CHF, Diabetes Mellitus, End Stage Renal Disease Problem List: (1) ESRD (end stage renal disease) ICD Codes: N18.6 - End-stage renal disease Status: Chronic Plan: We will continue dialysis MWF. Avoid IVF, follow fluid status Obtain renal panel intermittently. he has functioning AVF Monitor fluid and electrolyte balance. Avoid Gadolinium. (2) Respiratory failure ICD Codes: J96.90 - Respiratory failure, unspecified, unspecified whether with hypoxia or hypercapnia Plan: Management per hull molder. Now with VAP,+ H. influenza and pseudomonas on sputum culture. Now on cefepime. Hx of CHF, also most likely has COPD He has developed fever, leukocytosis. (3) Anemia ICD Codes: D64.9 - Anemia, unspecified Plan: Epogen with dialysis. (4) Secondary hyperparathyroidism of renal origin ICD Codes: N25.81 - Secondary hyperparathyroidism of renal origin Plan: Hold Fosrenol, phosphorus is on low end of normal. Resume Sensipar when he is able to take oral medications. Tru Galarza MD Dec 17, 2017 08:18
[2017-12-17] MEDS: CARVEDILOL 3.125 MG TAB PO SCH ×2 (09:58→21:33)
[2017-12-17] MEDS: MUPIROCIN 2% OINT 1 APPLIC/GM SYR EACH NARE SCH ×2 (09:58→21:33)
[2017-12-17] MEDS: FAMOTIDINE 20 MG TAB NG SCH (09:58)
[2017-12-17] MEDS: HYDROXYCHLOROQUINE SULFATE 200 MG TAB PO SCH (09:58)
[2017-12-17] MEDS: CINACALCET HYDROCHLORIDE 30 MG TAB PO SCH (09:58)
[2017-12-17] MEDS: DOCUSATE SODIUM 50 MG/SENNA 8.6 MG TAB PO SCH ×2 (09:58→21:33)
[2017-12-17] MEDS: SODIUM CHLORIDE 0.9% FLUSH 10 ML FLUSH IVF PRN (09:59)
--- NOTE | 2017-12-17 11:44 | MB ---
cc: SHAHZAD ACE M.D. DATE OF CONSULTATION: 12/17/2017. REASON FOR CONSULTATION: He is a 72-year-old seen in neurological consultation. HISTORY OF PRESENT ILLNESS: He was admitted on December 12 with a history of shortness of breath in acute respiratory failure. The patient has a history of end-stage renal disease on dialysis. He had been followed by the screenplay writer. He remains intubated. When seen this morning, he is off sedation but he has been intermittently on fentanyl and Diprivan. EXAMINATION: The exam showed the patient to be restless, moving intermittently, there is some head and neck movement and some right more than left sided limb movement. He does not follow commands at all. Pupils were poorly reactive, about 2 - 3 mm. He does not respond to visual threat. When stimulated over the chest and limbs, there is what appears to be more right-sided than left sided mild withdrawal response. His reflexes were absent throughout. Plantar responses - none. LABORATORY DATA: WBC today 13.3, hemoglobin 10.3, platelets 147,000. On the , his white count was 4.1, hemoglobin 8.2. His latest chemistry includes sodium 135, potassium 4.3, BUN 40, creatinine 5.97, glucose 174. IMAGING STUDIES: His CT brain yesterday showed no acute abnormality. ASSESSMENT: 1. Metabolic encephalopathy. 2. End-stage renal disease. An EEG is pending. As discussed with Dr. Giles, we will try to obtain an MRI brain as there are some focal findings on the neurologic exam. Continue the medical care. Additional labs have been requested including the ammonia level. I will follow the neurological course. Thank you for asking to assist in his care. Shahzad Ace MD [facility] /8:39 AM /11:32 AM
--- NOTE | 2017-12-17 12:15 | RADRPT ---
EXAM DATE/TIME: 12/17/2017 11:33 [facility] COMPARISON: CT BRAIN W/O CONTRAST, December 16, 2017, 10:58. INDICATIONS : Unresponsive off sedation. MEDICAL HISTORY : Congestive heart failure. Hypertension. SURGICAL HISTORY : Bilateral hip surgery. ENCOUNTER: Initial ACUITY: 1 day PAIN SCORE: 0/10 LOCATION: cranial TECHNIQUE: Multiplanar, multisequence MRI of the brain was performed without contrast. FINDINGS: CEREBRUM: The ventricles are normal for age. No evidence of midline shift, mass lesion, hemorrhage. No extraa xial fluid collections are seen. The pituitary gland and suprasellar cistern are normal in configura tion. WHITE MATTER: No significant signal abnormalities are seen in the white matter. POSTERIOR FOSSA: The cerebellum and brainstem are intact. The 4th ventricle is midline. The cerebellopontine angle is unremarkable. The cerebellar tonsils are normal in position. DIFFUSION IMAGIN mm focus of hyperintensity in the right parietal periventricular white matter on the diffusion weig hted images. Corresponding hyperintensity is seen on the flair images. There is also corresponding ab normality on the ADC map images. Similar but smaller finding is also seen in the left parietal perive ntricular white matter. EXTRACRANIAL: The visualized portions of the orbits and paranasal sinuses are unremarkable. CONCLUSION: Small foci of retracted diffusion in the parietal periventricular white matter bilaterally indicating small acute infarcts. No other acute intracranial findings. Gatito Shipman MD on December 17, 2017 at 12:02 Board Certified Radiologist. This report was verified electronically.
[2017-12-18] VITALS (23 sets, daily range): BP systolic 82–165; BP diastolic 47–65; PULSE 77–97; RESP 16–51; TEMP 98.5–99.6; O2SAT 92–98
[2017-12-18] MEDS ORDERED: ETOMIDATE 40 MG/20 ML VIAL ONE (00:46)
[2017-12-18] MEDS ORDERED: ROCURONIUM INJ 50 MG/5 ML VIAL IV ONE (01:00)
[2017-12-18] MEDS ORDERED: ETOMIDATE 20 MG/10 ML VIAL IV PUSH ONE (01:00)
--- NOTE | 2017-12-18 01:01 | PD.PROCEDR ---
Procedure Note Procedure PROCEDURE NOTE PROCEDURE: Endotracheal intubation INDICATION: Acute respiratory failure, endotracheal tube was dislodged. DETAILS OF PROCEDURE: The patient was placed in optimal position and preoxygenated with 100% FiO2 via [id number]. Oximeter oxygen saturation of 92% was obtained prior to laryngoscopy. The patient was administered Etomidate 20 mg IV for sedation, rocuronium 50 mg IV. Direct laryngoscopy was performed with a 4 Glidescope blade. The existing ETT was dislodged with cuff above the cords. ETT was removed and a grade I Cormack-Lehane view was obtained. On single attempt a size 7.5 endotracheal tube was visualized passing through the cords. Correct placement was confirmed with colorimetric CO2 detector. Breath sounds were equal bilaterally. No sounds auscultated over the stomach. The endotracheal tube was secured with a commercial tube guardado at a depth of 25 cm at the lips. The patient was connected to the ventilator. The patient tolerated the procedure well without any apparent complication. Oxygen saturations were maintained greater than 91% at all times. Stat chest x-ray was ordered. Patient has thrush. Nystatin ordered. Radha Adam MD Dec 18, 2017 01:01
--- NOTE | 2017-12-18 01:37 | RADRPT ---
EXAM DATE/TIME: 12/18/2017 00:58 [facility] COMPARISON: CHEST SINGLE AP, December 16, 2017, 3:39. INDICATIONS : Respiratory failure, post reintubation. MEDICAL HISTORY : Congestive heart failure. Hypertension. SURGICAL HISTORY : Bilateral hip surgery. ENCOUNTER: Initial ACUITY: 1 day PAIN SCORE: Non-responsive. LOCATION: Bilateral chest FINDINGS: ET tube is in good position 5.5 cm from the reed. The heart size is normal. There is increased dens ity at the right perihilar and right base. This minimal patchy density in the left perihilar region a nd medial left base. CONCLUSION: Bilateral areas of consolidation being worse on the right. ET tube is in good position. Jakob Marley MD on December 18, 2017 at 1:33 Board Certified Radiologist. This report was verified electronically.
[2017-12-18] MEDS: HEPARIN SODIUM - SQ 10,000 UNITS/ML VIAL SQ SCH ×2 (02:00→14:06)
[2017-12-18] MEDS: INSULIN NovoLIN REGULAR SUPPLEMENTAL SCALE SQ SCH ×7 (03:00→23:00)
[2017-12-18] MEDS: CHLORHEXIDINE GLUCONATE 2 % 1 PACK (2 CLOTHS) TOP SCH (04:00)
--- NOTE | 2017-12-18 05:36 | MG ---
cc: SHAHZAD ACE M.D. Sex: M DATE OF STUDY: 12/17/2017 INTRODUCTION An EEG was obtained on this 72-year-old patient with a history of being intubated. MEDICATIONS Fentanyl. DESCRIPTION The EEG is showing prominent delta rhythms bilaterally. There are some intermixed higher amplitude sharp contoured waves on the right at times more than left, and maximum anteriorly with some triphasic components. This pattern of EEG is noted continually with occasional brief generalized attenuation. Photic stimulation showed no change. INTERPRETATION Moderate to severe EEG abnormality bilaterally, possibly worse on the right. There are triphasic sharp waves right more than left but there are no epileptiform discharges. Clinical and imaging correlation. Shahzad Ace MD [facility] /8:02 PM /5:29 AM
[2017-12-18 05:53] LABS: AUTOMATED NEUTROPHIL # 9.8 TH/MM3 (1.8-7.7); BASOPHIL # 0.1 TH/MM3 (0-0.2); BASOPHIL % 0.7 % (0.0-2.0); EOSINOPHIL # 0.2 TH/MM3 (0-0.4); EOSINOPHIL % 1.4 % (0.0-4.0); HEMATOCRIT 31.6 % (39.0-51.0); HEMOGLOBIN 10.3 GM/DL (13.0-17.0); LYMPH % 4.4 % (9.0-44.0); LYMPHOCYTE # 0.6 TH/MM3 (1.0-4.8); MEAN CELL VOLUME 90.9 FL (80.0-100.0); MEAN CORPUSCULAR HEMOGLOBIN 29.6 PG (27.0-34.0); MEAN CORPUSCULAR HGB CONC 32.6 % (32.0-36.0); MEAN PLATELET VOLUME 7.3 FL (7.0-11.0); MONO % 15.2 % (0.0-8.0); MONOCYTE # 1.9 TH/MM3 (0-0.9); NEUT % 78.3 % (16.0-70.0); PLATELET COUNT 153 TH/MM3 (150-450); RED BLOOD COUNT 3.48 MIL/MM3 (4.50-5.90); RED CELL DISTRIBUTION WIDTH 15.5 % (11.6-17.2); WHITE BLOOD COUNT 12.5 TH/MM3 (4.0-11.0)
[2017-12-18 06:20] LABS: ALBUMIN 2.3 GM/DL (3.4-5.0); ALT (GPT) 35 U/L (12-78); AST (GOT) 39 U/L (15-37); BLOOD UREA NITROGEN 66 MG/DL (7-18); CALCIUM 10.1 MG/DL (8.5-10.1); CHLORIDE 95 MEQ/L (98-107); CREATININE 7.53 MG/DL (0.60-1.30); GLOMERULAR FILTRATION RATE 7 ML/MIN (>89); GLUCOSE,RANDOM 131 MG/DL (74-106); SODIUM (NA) 136 MEQ/L (136-145)
[2017-12-18 06:22] LABS: ALKALINE PHOSPHATASE 154 U/L (45-117); TOTAL BILIRUBIN ADULT 0.8 MG/DL (0.2-1.0); TOTAL PROTEIN 6.6 GM/DL (6.4-8.2)
[2017-12-18] MEDS: ARTIFICIAL TEARS OPTH SOLN 15 ML BTL EACH EYE SCH ×3 (06:45→21:04)
--- NOTE | 2017-12-18 08:23 | HHI.NPPN ---
Subjective General Problems: Anemia Renal Failure: Chronic, End Stage Renal Disease Interval History ETT tube dislodged, was reintubated yesterday. Seen by neurology, note was reviewed. MRI of the brain suggests small acute infarcts in the parietal lobe. Review of Systems General General Remarks unable to assess Objective Data Data Vital Signs Date Time Temp Pulse Resp B/P (MAP) Pulse Ox O2 Delivery O2 Flow Rate FiO2 12/18/17 08:04 98 35 12/18/17 08:04 35 12/18/17 06:00 79 12/18/17 04:00 78 12/18/17 04:00 40 12/18/17 04:00 99.3 78 49 112/53 (72) 97 12/18/17 03:59 97 40 12/18/17 02:00 82 12/18/17 01:01 94 40 12/18/17 00:00 99.1 90 33 165/65 (98) 92 12/18/17 00:00 40 12/18/17 00:00 90 12/17/17 22:00 91 12/17/17 20:06 100 40 12/17/17 20:00 89 12/17/17 20:00 40 12/17/17 20:00 99.0 89 29 116/55 (75) 100 12/17/17 18:00 79 12/17/17 16:00 98.9 91 24 158/84 (108) 100 12/17/17 16:00 91 12/17/17 16:00 45 12/17/17 15:16 100 40 12/17/17 15:00 84 30 110/63 (79) 100 12/17/17 14:00 82 12/17/17 14:00 82 38 111/76 (88) 100 12/17/17 13:00 82 33 152/91 (111) 100 12/17/17 12:34 100 45 12/17/17 12:00 83 12/17/17 12:00 45 12/17/17 12:00 99.0 83 17 133/88 (103) 100 12/17/17 11:30 85 22 149/64 (92) 100 12/17/17 11:25 100 100 12/17/17 11:16 86 17 130/67 (88) 95 12/17/17 11:01 96 77 157/64 (95) 94 12/17/17 10:31 93 76 99/46 (63) 92 12/17/17 10:00 90 12/17/17 09:30 92 80 120/82 (95) 90 12/17/17 09:00 91 74 139/60 (86) 91 -: 12/18/17 0425 12/18/17 0425 Drip Comment Fentanyl, propofol, tube feeding. Physical Exam General Appearance: Well Developed, Comfortable Eyes Eye Exam: Pupils Equal Pulmonary Resp Exam: Breath Sounds Equal, Crackles, Rhonchi, Sputum, Decreased Bases Cardiology CV Exam: Normal Sinus Rhythm, Good Perfusion Gastrointestinal/Abdomen GI Exam: Soft, Non-Tender, Bowel Sounds Present Musculoskeletal MS Exam: Joints Intact, Normal Tone Integumentary Skin Exam: Clear, Warm, Dry, Intact Extremeties Extremities Exam: No Edema Neurologic Neuro Exam: Sedated Assessment/Plan Discussed Condition With: Patient Assessment Summary: Anemia of CKD, CHF, Diabetes Mellitus, End Stage Renal Disease Problem List: (1) ESRD (end stage renal disease) ICD Codes: N18.6 - End-stage renal disease Status: Chronic Plan: We will continue dialysis MWF. Avoid IVF, follow fluid status Obtain renal panel intermittently. he has functioning AVF Monitor fluid and electrolyte balance. Avoid Gadolinium. (2) Respiratory failure ICD Codes: J96.90 - Respiratory failure, unspecified, unspecified whether with hypoxia or hypercapnia Plan: Management per designer writer. Now with VAP,+ H. influenza and pseudomonas on sputum culture. Now on cefepime. Hx of CHF, also most likely has COPD (3) Anemia ICD Codes: D64.9 - Anemia, unspecified Plan: Epogen with dialysis. (4) Secondary hyperparathyroidism of renal origin ICD Codes: N25.81 - Secondary hyperparathyroidism of renal origin Plan: Hold Fosrenol, phosphorus is on low end of normal. Resume Sensipar when he is able to take oral medications. (5) Encephalopathy ICD Codes: G93.40 - Encephalopathy, unspecified Plan: metabolic encephalopathy, with possibility of stroke. Seen by neurology. Monitor. Plan Prognosis is guarded. Tru Galarza MD Dec 18, 2017 08:23
[2017-12-18] MEDS: DOCUSATE SODIUM 50 MG/SENNA 8.6 MG TAB PO SCH ×2 (09:49→21:03)
[2017-12-18] MEDS: NYSTATIN SUSP 500,000 U/5 ML CUP OROPHARYNG SCH ×4 (09:49→21:04)
[2017-12-18] MEDS: CARVEDILOL 3.125 MG TAB PO SCH ×2 (09:49→21:03)
[2017-12-18] MEDS: MUPIROCIN 2% OINT 1 APPLIC/GM SYR EACH NARE SCH ×2 (09:49→21:04)
[2017-12-18] MEDS: CINACALCET HYDROCHLORIDE 30 MG TAB PO SCH (09:49)
[2017-12-18] MEDS: HYDROXYCHLOROQUINE SULFATE 200 MG TAB PO SCH (09:49)
[2017-12-18] MEDS: FAMOTIDINE 20 MG TAB NG SCH (09:52)
[2017-12-18] MEDS: fentaNYL 2,500 MCG/NS 250 ML IV PRN (10:28)
--- NOTE | 2017-12-18 16:21 | HHI.CCPN ---
Subjective Remarks/Hospital Course Patient is a 72-year-old male with multiple medical comorbidities which include end-stage renal disease, hypertension, CHF, COPD, cardiomyopathy, hyperparathyroidism and anemia of chronic disease. He was brought into ED via EMS for respiratory distress and was given albuterol treatment x2 in addition to Solu-Medrol 125 mg IV prior to arrival. The patient was initially placed on BiPap without any significant relief. In the ED he was intubated with etomidate, succinylcholine and placed on full mechanical ventilation. When seen the patient is sedated with Diprivan and on fentanyl infusion. His laboratory data significant for hyperkalemia with potassium 6.3, BUN 53, creatinine in 8.63 and BNP of 1218. His chest x-ray showed ET tube above the reed, interstitial edema. Nephrology service was notified and the patient is currently receiving hemodialysis treatment. ABG postintubation showed a pH of 7.30, CO2 54, pAO2 454, bicarb 26, sats of 97%. 12/13 Patient is intubated on no sedation. Awake and alert, s/p HD yesterday with removal 3L. Afebrile. 12/14: Afebrile. Remains on propofol drip at 20 mcg/kg per minute. Episodic hypotension. Episodic hypoglycemia requiring D50. On D10 drip for hyperkalemia ? Per nephrology's orders, potassium currently normalized. We'll start tube feeding. Added cefepime for Pseudomonas in sputum 12/15: Afebrile. Tolerating tube feeding. Currently on PSV trial is tolerated well. Not following commands however moving all 4 extremities purposefully today than yesterday. 12/16 Patient remains intubated and on Fentanyl and Diprivan drip for sedation. s /p HD yesterday 12/17 No events overnight. s/p HD yesterday with removal 1.8L. Remains sedated with Fentanyl and intubated. Patient doesn't follow commands off sedation. CT brain yesterday showed no acute process. T:99.9 last night Subjective 12/18: Afebrile. Patient ET tube migrated upwards towards vocal cords in high probability aspirated tube feeding. Reintubated by overnight product development actuary. Noted MRI brain revealed acute right and left parietal CVA. MRA brain and carotid Dopplers currently pending. Currently on baby aspirin. Also started on atorvastatin 10 mg daily. Objective Vital Signs Date Time Temp Pulse Resp B/P (MAP) Pulse Ox O2 Delivery O2 Flow Rate FiO2 12/18/17 15:14 93 35 12/18/17 14:00 78 12/18/17 12:00 98.5 18 91/59 (70) Intake and Output 12/18/17 12/18/17 12/19/17 08:00 16:00 00:00 Intake Total 312 ml Balance 312 ml Result Diagram: 12/18/17 0425 12/18/17 0425 Other Results Microbiology Date/Time Source Procedure Growth Status 12/12/17 11:29 Blood Peripheral Aerobic Blood Culture - Final NO GROWTH IN 5 DAYS Complete 12/12/17 11:29 Blood Peripheral Anaerobic Blood Culture - Final NO GROWTH IN 5 DAYS Complete 12/16/17 15:00 Sputum Endotracheal Gram Stain - Final Resulted 12/16/17 15:00 Sputum Culture - Preliminary Pseudomonas Aeruginosa Haemophilus Influenzae Resulted Imaging Last Impressions Chest X-Ray 12/18/17 0000 Signed Impressions: Service Date/Time: Monday, December 18, 2017 00:58 - CONCLUSION: Bilateral areas of consolidation being worse on the right. ET tube is in good position. Jakob Marley MD Brain MRI 12/17/17 0000 Signed Impressions: Service Date/Time: Sunday, December 17, 2017 11:33 - CONCLUSION: Small foci of retracted diffusion in the parietal periventricular white matter bilaterally indicating small acute infarcts. No other acute intracranial findings. Gatito Shipman MD Head CT 12/16/17 0000 Signed Impressions: Service Date/Time: Saturday, December 16, 2017 10:58 - CONCLUSION: No acute disease. Marco Antonio Henriquez Jr., MD Objective Remarks GENERAL: 72-year-old male currently orotracheally intubated SKIN: Warm and dry. No rash HEAD: Normocephalic. Atraumatic EYES: Pupils are equally round and reactive at 3 mm. NECK: Supple, trachea midline. No JVD or lymphadenopathy. CARDIOVASCULAR: RRR. S1, S2. No S4. Without murmurs RESPIRATORY: Breath sounds equal bilaterally. No accessory muscle use. GASTROINTESTINAL: Abdomen soft, non-tender, nondistended. MUSCULOSKELETAL: Trace lower extremity. Right upper extremity positive thrill Neuro: Arousable, ventilator. Moves all 4 extremity spontaneously. Cranial nerves II through XII appear grossly intact. Appears to right greater than left. No DTRs. A/P Assessment and Plan Neuro/Psych: Peripheral neuropathy Right greater than left parietal CVA Monitor Neuro status. CT brain yesterday showed herman cute intracranial process. 12/17 EEG revealed O's Sharp's triphasic right greater than left. No epileptiform discharges MRI brain 12/17 revealed 6 mm right parietal and tiny left parietal lacunar infarct in the periventricular white matter. Check MRA brain and carotid Dopplers Aspirin 81 mg daily Atorvastatin 10 mg denied On Fentanyl drip for sedation. Daily sedation vacation Goal of RASS -2 Continue gabapentin 300 mg daily for peripheral neuropathy Hydrochloroquine 200 mg daily for arthritis resumed Dr. Ace neurology following CV: Chronic diastolic heart failure - Mild pulmonary hypertension with pulmonary arterial pressure 46.7 mmHg 2-D echocardiogram reveals EF of 55-60%. Mild MR/TR. Pulmonary arterial Pressures 46.7 mmHg On carvedilol 3.125 mg twice a day in light of atrial fibrillation Received 1 dose of digoxin 0.25 mg on 12/15 Resp: Acute hypoxemic and hypercapnic respiratory failure Polymicrobial pneumonia - Pseudomonas and Haemophilus influenza History of COPD PRVC 18/600/11/25/40 PSV trial 10/25 at 40% Ventilator bundle Albuterol/ipratropium aerosols every 6 hours with albuterol aerosols every 2 hours. Dyspnea SBT daily as earle. GI: On tube feedings with Nepro goal 55 cc an hour for nutrition's recommendations Famotidine for GI prophylaxis Docusate sodium/senna 1 tablet twice a day for bowel regimen Endo: Hypoglycemia Secondary hyperparathyroidism Novulog with Accu-Cheks every 4 hours to maintain euglycemia Continue Cinacalet 30 mg daily for secondary hyperparathyroidism when able Check cortisol level - low at 9 Renal: Secondary hyperparathyroidism End-stage renal disease on hemodialysis Tuesday/Tuesday/Tuesday Monitor renal function, avoid nephrotoxins. HD per renal- Dr. Galarza Holding Lanthanum 500 mg 3 times a day while intubated and phosphorus currently normal. Recheck in a minimally Heme: Normocytic anemia/anemia of chronic kidney disease Thrombocytopenia Leukocytosis Monitor CBC daily. Follow trends Continue Epogen with hemodialysis ID: Haemophilus influenza/pseudomonas aeruginosa pneumonia Pertinent cultures Continue cefepime monitor for signs of infections ( Fever, WBC) 12/12 - sputum - Haemophilus influenza, pseudomonas aeruginosa 12/12 - blood cultures 2 - no growth Follow up on sputum cx from 12/16 MSK: OP/OA PT evaluate and treat Access - Utilize peripheral IV. Central line if indicated Prophylaxis - GI - famotidine - DVT - SCD/heparin subcutaneous Level II Saji Pearson MD Dec 18, 2017 16:21
[2017-12-18] MEDS ORDERED: ASPIRIN 81 MG CHEW TAB CHEW SCH (17:00)
--- NOTE | 2017-12-18 17:02 | PD.PROCEDR ---
Central Line Procedure REASON FOR PROCEDURE Central venous access PROCEDURE PERFORMED Central line placement: Right IJ CVL CONSENT Informed consent for procedure was not obtained and considered emergent due to hemodynamic instability. The risks and benefits of the procedure were discussed to include but limited to bleeding, clot formation, infection, and even . ANESTHESIA Local injection of 1% Lidocaine DESCRIPTION OF THE PROCEDURE The patient was placed in supine, mild Trendelenburg position. The area was exposed and cleansed with ChloraPrep, times two. Large sterile drape was used to cover the patient, with the site exposed, under sterile conditions including cap, face mask, sterile gown, and sterile gloves. On single attempt, the introducer needle was inserted with negative pressure in syringe and venous flash was obtained. The guide wire was then advanced without any restriction and the needle was removed. The dilator was used without any complications. Using Seldinger technique the triple-lumen antibiotic coated catheter was advanced over the guide wire to a depth of 16 centimeters. The guide wire was removed. All ports were aspirated with dark venous blood return and flushed easily with sterile saline. All ports were capped. Antibiotic disc was placed around central line at puncture site. The central line was secured to the skin with two interrupted 2.0 silk sutures. The area was bandaged with sterile see- through central line bandage. RADIOLOGICAL DATA Ultrasound guidance was used to locate the right internal jugular vein. Doppler /color flow was used to confirm venous flow. COMPLICATIONS: No apparent complications ESTIMATED BLOOD LOSS: Less than 1 cc. Saji Pearson MD Dec 18, 2017 17:02
[2017-12-18] MEDS ORDERED: VANCOMYCIN 1 GM/200 ML INJ 200 ML IV ONE (17:15)
--- NOTE | 2017-12-18 17:26 | RADRPT ---
EXAM DATE/TIME: 12/18/2017 17:03 [facility] COMPARISON: CHEST SINGLE AP, December 18, 2017, 0:58. INDICATIONS : Central line placement. MEDICAL HISTORY : Congestive heart failure. Hypertension. SURGICAL HISTORY : None. ENCOUNTER: Subsequent ACUITY: 1 week PAIN SCORE: 0/10 LOCATION: Bilateral chest FINDINGS: Single AP view of the chest. Endotracheal tube remains in place. Nasogastric tube is now in place wit h the tip below the [id number] of the radiograph. Patchy bilateral pulmonary opacity is unchanged. No evidence of pleural effusion or pneumothorax. CONCLUSION: Nasogastric tube now in place with tip below the [id number] of the radiograph. No significant inte rval change in bilateral pulmonary opacity with basilar predominance. Gatito Shipman MD on December 18, 2017 at 17:22 Board Certified Radiologist. This report was verified electronically.
[2017-12-18] MEDS: LEVOFLOXACIN 250 MG PREMIX INJ 50 ML IV SCH (18:12)
[2017-12-18 18:35] LABS: CHOLESTEROL 158 MG/DL (120-200); TRIGLYCERIDES 528 MG/DL (42-150)
[2017-12-18 18:36] LABS: CHOLESTEROL/ HDL RATIO 16.28 RATIO; HDL CHOLESTEROL 9.7 MG/DL (40.0-60.0)
[2017-12-18] MEDS: metroNIDAZOLE 250 MG TAB PO SCH ×2 (19:55→22:33)
[2017-12-18] MEDS ORDERED: TERBUTALINE INJ 1 MG/ML AMP SQ PRN (21:00)
[2017-12-18] MEDS: NOREPINEPHRINE INJ 4 MG in SODIUM CHLOR 0.9% 250 ML INJ 246 ML IV PRN (21:03)
[2017-12-18] MEDS: ATORVASTATIN 10 MG TAB PO SCH (21:04)
[2017-12-18 23:03] LABS: HEMATOCRIT 29.8 % (39.0-51.0); HEMOGLOBIN 9.9 GM/DL (13.0-17.0); MEAN CELL VOLUME 90.2 FL (80.0-100.0); MEAN CORPUSCULAR HEMOGLOBIN 30.1 PG (27.0-34.0); MEAN CORPUSCULAR HGB CONC 33.4 % (32.0-36.0); MEAN PLATELET VOLUME 7.4 FL (7.0-11.0); PLATELET COUNT 153 TH/MM3 (150-450); RED CELL DISTRIBUTION WIDTH 15.2 % (11.6-17.2); WHITE BLOOD COUNT 13.6 TH/MM3 (4.0-11.0)
[2017-12-18 23:31] LABS: ALKALINE PHOSPHATASE 140 U/L (45-117); ALT (GPT) 31 U/L (12-78); AST (GOT) 51 U/L (15-37); BICARBONATE 31.8 MEQ/L (21.0-32.0); BLOOD UREA NITROGEN 82 MG/DL (7-18); CALCIUM 9.6 MG/DL (8.5-10.1); CHLORIDE 96 MEQ/L (98-107); CREATININE 8.59 MG/DL (0.60-1.30); GLOMERULAR FILTRATION RATE 6 ML/MIN (>89); GLUCOSE,RANDOM 78 MG/DL (74-106); MAGNESIUM 2.2 MG/DL (1.5-2.5); PHOSPHORUS 2.8 MG/DL (2.5-4.9); SODIUM (NA) 137 MEQ/L (136-145); TOTAL BILIRUBIN ADULT 0.8 MG/DL (0.2-1.0)
[2017-12-18] MEDS: VASOPRESSIN INJ 40 UNITS in DEXTROSE 5% IN WATER 100ML INJ 98 ML IV SCH ×2 (23:54)
[2017-12-19] VITALS (38 sets, daily range): BP systolic 94–156; BP diastolic 43–84; PULSE 66–120; RESP 18–41; TEMP 98–100; O2SAT 92–100
[2017-12-19] MEDS: HEPARIN SODIUM - SQ 10,000 UNITS/ML VIAL SQ SCH ×2 (02:53→14:25)
[2017-12-19] MEDS: INSULIN NovoLIN REGULAR SUPPLEMENTAL SCALE SQ SCH ×6 (03:00→23:00)
[2017-12-19] MEDS: CHLORHEXIDINE GLUCONATE 2 % 1 PACK (2 CLOTHS) TOP SCH (04:00)
[2017-12-19 04:41] LABS: AUTOMATED NEUTROPHIL # 10.9 TH/MM3 (1.8-7.7); BASOPHIL # 0.1 TH/MM3 (0-0.2); BASOPHIL % 0.4 % (0.0-2.0); EOSINOPHIL # 0.4 TH/MM3 (0-0.4); EOSINOPHIL % 2.4 % (0.0-4.0); HEMATOCRIT 30.9 % (39.0-51.0); HEMOGLOBIN 10.1 GM/DL (13.0-17.0); LYMPH % 7.1 % (9.0-44.0); MEAN CELL VOLUME 90.4 FL (80.0-100.0); MEAN CORPUSCULAR HEMOGLOBIN 29.4 PG (27.0-34.0); MEAN CORPUSCULAR HGB CONC 32.5 % (32.0-36.0); MEAN PLATELET VOLUME 7.4 FL (7.0-11.0); MONO % 16.4 % (0.0-8.0); MONOCYTE # 2.4 TH/MM3 (0-0.9); NEUT % 73.7 % (16.0-70.0); PLATELET COUNT 154 TH/MM3 (150-450); RED BLOOD COUNT 3.42 MIL/MM3 (4.50-5.90); RED CELL DISTRIBUTION WIDTH 15.4 % (11.6-17.2); WHITE BLOOD COUNT 14.8 TH/MM3 (4.0-11.0)
--- NOTE | 2017-12-19 04:41 | RADRPT ---
EXAM DATE/TIME: 12/19/2017 02:57 [facility] COMPARISON: CHEST SINGLE AP, December 18, 2017, 17:03. INDICATIONS : Shortness of breath, possible pulmonary disease. MEDICAL HISTORY : Congestive heart failure. Hypertension SURGICAL HISTORY : None. ENCOUNTER: Subsequent ACUITY: 1 week PAIN SCORE: Non-responsive. LOCATION: Bilateral chest FINDINGS: Endotracheal tube in good position. NG enters stomach. Right central line in superior vena cava. Basi lar airspace disease increased on the left since December 18. No pneumothorax. CONCLUSION: 1. Slight increase in left basilar airspace disease over the last day. Right IJ line, endotracheal tu be and nasogastric tube in good position. Khoa Franco MD on December 19, 2017 at 4:38 Board Certified Radiologist. This report was verified electronically.
[2017-12-19 05:50] LABS: BANDS 6 % (0-6); LYMPHOCYTES 6 % (9-44); METAMYELOCYTES 2 % (0-1); MONOCYTES 17 % (0-8); NEUTROPHIL # MANUAL DIFF 10.7 TH/MM3 (1.8-7.7); POLYS (SEG NEUTROPHILS) 64 % (16-70)
[2017-12-19] MEDS: HYDROXYCHLOROQUINE SULFATE 200 MG TAB PO SCH (08:31)
[2017-12-19] MEDS: NYSTATIN SUSP 500,000 U/5 ML CUP OROPHARYNG SCH ×4 (08:31→20:41)
[2017-12-19] MEDS: ARTIFICIAL TEARS OPTH SOLN 15 ML BTL EACH EYE SCH ×3 (08:31→20:39)
[2017-12-19] MEDS: ASPIRIN 81 MG CHEW TAB PO SCH (08:32)
[2017-12-19] MEDS: CARVEDILOL 3.125 MG TAB PO SCH ×2 (08:32→20:40)
[2017-12-19] MEDS: CINACALCET HYDROCHLORIDE 30 MG TAB PO SCH (08:32)
[2017-12-19] MEDS: DOCUSATE SODIUM 50 MG/SENNA 8.6 MG TAB PO SCH ×2 (08:32→20:39)
[2017-12-19] MEDS: metroNIDAZOLE 250 MG TAB PO SCH ×3 (08:32→20:39)
[2017-12-19] MEDS: FAMOTIDINE 20 MG TAB NG SCH (08:32)
[2017-12-19] MEDS: SODIUM CHLORIDE 0.9% FLUSH 10 ML FLUSH IV FLUSH SCH (08:32)
[2017-12-19] MEDS: VASOPRESSIN INJ 40 UNITS in DEXTROSE 5% IN WATER 100ML INJ 98 ML IV SCH ×4 (09:38→16:01)
[2017-12-19] MEDS: NOREPINEPHRINE INJ 4 MG in SODIUM CHLOR 0.9% 250 ML INJ 246 ML IV PRN ×3 (09:38→23:17)
[2017-12-19] MEDS: fentaNYL 2,500 MCG/NS 250 ML IV PRN (09:39)
--- NOTE | 2017-12-19 09:51 | HHI.NPPN ---
Subjective General Problems: Anemia Renal Failure: Chronic, End Stage Renal Disease Interval History Remains intubated, sedated on Fentanyl. He is on Levophed and Vasopressin. (Nancy Springer) Review of Systems General General Remarks unable to assess (Nancy Springer) Objective Data Data 12/19/17 12/20/17 19:00 07:00 Intake Total 50 ml Output Total 0 ml Balance 50 ml IV Total 50 ml Tube Feeding Residual Discard 0 ml Vital Signs Date Time Temp Pulse Resp B/P (MAP) Pulse Ox O2 Delivery O2 Flow Rate FiO2 12/19/17 09:38 81 129/46 12/19/17 09:38 81 132/48 12/19/17 09:00 80 12/19/17 09:00 80 25 133/63 (86) 97 139/57 (84) 12/19/17 08:33 85 142/50 12/19/17 08:33 85 147/51 12/19/17 08:01 100 50 12/19/17 08:00 98.1 80 18 129/45 (73) 100 12/19/17 08:00 80 12/19/17 08:00 50 12/19/17 06:00 85 12/19/17 04:14 100 50 12/19/17 04:00 40 12/19/17 04:00 89 12/19/17 04:00 99.2 89 18 147/50 (82) 100 12/19/17 02:00 95 12/19/17 01:00 93 50 12/19/17 00:00 95 12/19/17 00:00 100.0 95 23 151/50 (83) 95 12/19/17 00:00 40 12/18/17 23:54 94 139/46 12/18/17 22:00 97 12/18/17 21:03 93 87/51 12/18/17 20:00 99.6 94 24 93/55 (68) 98 12/18/17 20:00 94 12/18/17 20:00 40 12/18/17 19:20 98 50 12/18/17 19:00 45 12/18/17 18:00 92 12/18/17 16:00 80 12/18/17 16:00 99.0 80 22 124/60 (81) 92 12/18/17 15:14 93 35 12/18/17 14:00 78 12/18/17 12:00 45 12/18/17 12:00 83 12/18/17 12:00 98.5 82 18 91/59 (70) 93 12/18/17 11:24 93 35 12/18/17 11:00 83 16 104/54 (71) 94 12/18/17 10:01 83 16 89/52 (64) 93 12/18/17 10:00 83 (Nancy Springer) -: 12/19/17 0410 12/18/17 2247 Microbiology 12/18/17 Aerobic Blood Culture, Received Pending 12/18/17 Anaerobic Blood Culture, Received Pending 12/18/17 Aerobic Blood Culture, Received Pending 12/18/17 Anaerobic Blood Culture, Received Pending Imaging Last 72 hours Impressions Chest X-Ray 12/19/17 0600 Signed Impressions: Service Date/Time: Tuesday, December 19, 2017 02:57 - CONCLUSION: 1. Slight increase in left basilar airspace disease over the last day. Right IJ line, endotracheal tube and nasogastric tube in good position. Khoa Franco MD Chest X-Ray 12/18/17 1701 Signed Impressions: Service Date/Time: Monday, December 18, 2017 17:03 - CONCLUSION: Nasogastric tube now in place with tip below the [id number] of the radiograph. No significant interval change in bilateral pulmonary opacity with basilar predominance. Gatito Shipman MD Chest X-Ray 12/18/17 0000 Signed Impressions: Service Date/Time: Monday, December 18, 2017 00:58 - CONCLUSION: Bilateral areas of consolidation being worse on the right. ET tube is in good position. Jakob Marley MD Brain MRI 12/17/17 0000 Signed Impressions: Service Date/Time: Sunday, December 17, 2017 11:33 - CONCLUSION: Small foci of retracted diffusion in the parietal periventricular white matter bilaterally indicating small acute infarcts. No other acute intracranial findings. Gatito Shipman MD Tubes & Lines Comment TLC right IJ Drip Comment Fentanyl, Levophed, vasopressin. (Nancy Springer) Physical Exam General Appearance: Well Developed, Comfortable Appearance Remarks intubated, sedated (Gian,Nancy B. AGENCY TRAINER) Eyes Eye Exam: Pupils Equal (Nancy Springer B. AGENCY TRAINER) Pulmonary Resp Exam: Breath Sounds Equal, Crackles, Rhonchi, Sputum, Decreased Bases Resp Remarks vented lung sounds (Nancy Springer. AGENCY TRAINER) Cardiology CV Exam: Normal Sinus Rhythm, Good Perfusion (Nancy Springer B. AGENCY TRAINER) Gastrointestinal/Abdomen GI Exam: Soft, Non-Tender, Bowel Sounds Present (Nancy Springer. AGENCY TRAINER) Musculoskeletal MS Exam: Joints Intact, Normal Tone (Nancy Springer B. AGENCY TRAINER) Integumentary Skin Exam: Clear, Warm, Dry, Intact (Nancy Springer. AGENCY TRAINER) Extremeties Extremities Exam: No Edema (Nancy Springer. AGENCY TRAINER) Neurologic Neuro Exam: Unresponsive, Sedated (Nancy Springer B. AGENCY TRAINER) VTE Prophylaxis Device: SCDs (Nancy Springer B. AGENCY TRAINER) Assessment/Plan Discussed Condition Comment Nurse Assessment Summary: Anemia of CKD, CHF, Diabetes Mellitus, End Stage Renal Disease Problem List: (1) ESRD (end stage renal disease) ICD Codes: N18.6 - End-stage renal disease Status: Chronic Plan: We will continue dialysis MWF. He is due for treatment today. Avoid IVF, follow fluid status Obtain renal panel intermittently. He has functioning AVF, avoid right arm procedures. Monitor fluid and electrolyte balance. Avoid Gadolinium. (2) Respiratory failure ICD Codes: J96.90 - Respiratory failure, unspecified, unspecified whether with hypoxia or hypercapnia Plan: Management per spikemaking supervisor. Vent weening as tolerated. Now with VAP,+ H. influenza and pseudomonas on sputum culture. Now on cefepime and Levaquin. Hx of CHF, also most likely has COPD (3) Anemia ICD Codes: D64.9 - Anemia, unspecified Plan: Epogen with dialysis. (4) Secondary hyperparathyroidism of renal origin ICD Codes: N25.81 - Secondary hyperparathyroidism of renal origin Plan: Hold Fosrenol, phosphorus is on low end of normal. Resume Sensipar when he is able to take oral medications. (5) Encephalopathy ICD Codes: G93.40 - Encephalopathy, unspecified Plan: metabolic encephalopathy, acute CVA per MRI. Due for MRA today. Seen by neurology. Plan Prognosis is guarded. (Nancy Springer) Plan patient was seen and examined. His condition has declined unfortunately. Due to dialysis today. On pressors. Prognosis is guarded. (Tru Galarza MD) Nancy Springer Dec 19, 2017 09:51 Tru Galarza MD Dec 19, 2017 15:33
[2017-12-19] MEDS ORDERED: GLYCERIN ADULT 2 GM SUPP RECTAL ONE (10:15)
[2017-12-19] MEDS ORDERED: METHYLNALTREXONE BROMIDE 12 MG/0.6 ML VIAL SQ ONE (10:15)
--- NOTE | 2017-12-19 10:17 | HHI.CCPN ---
Subjective Remarks/Hospital Course Patient is a 72-year-old male with multiple medical comorbidities which include end-stage renal disease, hypertension, CHF, COPD, cardiomyopathy, hyperparathyroidism and anemia of chronic disease. He was brought into ED via EMS for respiratory distress and was given albuterol treatment x2 in addition to Solu-Medrol 125 mg IV prior to arrival. The patient was initially placed on BiPap without any significant relief. In the ED he was intubated with etomidate, succinylcholine and placed on full mechanical ventilation. When seen the patient is sedated with Diprivan and on fentanyl infusion. His laboratory data significant for hyperkalemia with potassium 6.3, BUN 53, creatinine in 8.63 and BNP of 1218. His chest x-ray showed ET tube above the reed, interstitial edema. Nephrology service was notified and the patient is currently receiving hemodialysis treatment. ABG postintubation showed a pH of 7.30, CO2 54, pAO2 454, bicarb 26, sats of 97%. 12/13 Patient is intubated on no sedation. Awake and alert, s/p HD yesterday with removal 3L. Afebrile. 12/14: Afebrile. Remains on propofol drip at 20 mcg/kg per minute. Episodic hypotension. Episodic hypoglycemia requiring D50. On D10 drip for hyperkalemia ? Per nephrology's orders, potassium currently normalized. We'll start tube feeding. Added cefepime for Pseudomonas in sputum 12/15: Afebrile. Tolerating tube feeding. Currently on PSV trial is tolerated well. Not following commands however moving all 4 extremities purposefully today than yesterday. 12/16 Patient remains intubated and on Fentanyl and Diprivan drip for sedation. s /p HD yesterday 12/17 No events overnight. s/p HD yesterday with removal 1.8L. Remains sedated with Fentanyl and intubated. Patient doesn't follow commands off sedation. CT brain yesterday showed no acute process. T:99.9 last night 12/18: Afebrile. Patient ET tube migrated upwards towards vocal cords in high probability aspirated tube feeding. Reintubated by overnight cotton factor. Noted MRI brain revealed acute right and left parietal CVA. MRA brain and carotid Dopplers currently pending. Currently on baby aspirin. Also started on atorvastatin 10 mg daily. Subjective 1/29: Tmax 100. Central line placed yesterday due to hypotension. Currently norepinephrine and vasopressin drips. Wide pulse pressure arterial line. Tube feeds will be resumed. Stress dose steroids initiated. Last cortisol was 9. Objective Vital Signs Date Time Temp Pulse Resp B/P (MAP) Pulse Ox O2 Delivery O2 Flow Rate FiO2 12/19/17 09:38 81 129/46 12/19/17 09:00 25 97 12/19/17 08:01 50 12/19/17 08:00 98.1 Intake and Output 12/19/17 12/19/17 12/20/17 08:00 16:00 00:00 Intake Total 711 ml 280 ml Output Total 0 ml Balance 711 ml 280 ml Result Diagram: 12/19/17 0410 12/18/17 2247 Other Results Microbiology Date/Time Source Procedure Growth Status 12/18/17 19:50 Blood Peripheral Aerobic Blood Culture Pending Received 12/18/17 19:50 Blood Peripheral Anaerobic Blood Culture Pending Received 12/16/17 15:00 Sputum Endotracheal Gram Stain - Final Resulted 12/16/17 15:00 Sputum Culture - Preliminary Pseudomonas Aeruginosa Haemophilus Influenzae Resulted Imaging Last Impressions Chest X-Ray 12/19/17 0600 Signed Impressions: Service Date/Time: Tuesday, December 19, 2017 02:57 - CONCLUSION: 1. Slight increase in left basilar airspace disease over the last day. Right IJ line, endotracheal tube and nasogastric tube in good position. Khoa Franco MD Brain MRI 12/17/17 0000 Signed Impressions: Service Date/Time: Sunday, December 17, 2017 11:33 - CONCLUSION: Small foci of retracted diffusion in the parietal periventricular white matter bilaterally indicating small acute infarcts. No other acute intracranial findings. Gatito Shipman MD Head CT 12/16/17 0000 Signed Impressions: Service Date/Time: Saturday, December 16, 2017 10:58 - CONCLUSION: No acute disease. Marco Antonio Henriquez Jr., MD Objective Remarks GENERAL: 72-year-old male currently orotracheally intubated SKIN: Warm and dry. No rash HEAD: Normocephalic. Atraumatic EYES: Pupils are equally round and reactive at 3 mm. NECK: Supple, trachea midline. No JVD or lymphadenopathy. Right IJ CVL is clean dry and intact CARDIOVASCULAR: RRR. S1, S2. No S4. Without murmurs RESPIRATORY: Breath sounds equal bilaterally. No accessory muscle use. GASTROINTESTINAL: Abdomen soft, non-tender, nondistended. MUSCULOSKELETAL: Trace lower extremity. Right upper extremity positive thrill Neuro: Arousable, ventilator. Moves all 4 extremity spontaneously. Cranial nerves II through XII appear grossly intact. Appears to right greater than left. No DTRs. Vascular Central Line Catheter: Yes Assessment to: Continue Date of Insertion: Dec 18, 2017 Line: Central Venous Catheter Side: Right Location: Internal, Jugular A/P Assessment and Plan Neuro/Psych: Peripheral neuropathy Right greater than left parietal CVA Monitor Neuro status. CT brain no acute findings 12/17 EEG revealed O's Sharp's triphasic right greater than left. No epileptiform discharges MRI brain 12/17 revealed 6 mm right parietal and tiny left parietal lacunar infarct in the periventricular white matter. Check MRA brain unstable. Unable to carotid Dopplers currently secondary to central line Aspirin 81 mg daily Atorvastatin 10 mg a day. Triglycerides elevated On Fentanyl drip for sedation. Daily sedation vacation Goal of RASS -2 Continue gabapentin 300 mg daily for peripheral neuropathy Hydrochloroquine 200 mg daily for arthritis resumed Dr. Ace neurology following CV: Chronic diastolic heart failure - Mild pulmonary hypertension with pulmonary arterial pressure 46.7 mmHg Currently on norepinephrine at 12 mcg/m and vasopressin 0.04 units per minute to maintain mean a arterial pressure greater than 65 Stress dose hydrocortisone 100 mill grams every 8 hours started 12/19. Cortisol was low several days ago. 2-D echocardiogram reveals EF of 55-60%. Mild MR/TR. Pulmonary arterial Pressures 46.7 mmHg On carvedilol 3.125 mg twice a day in light of atrial fibrillation Received 1 dose of digoxin 0.25 mg on 12/15 Resp: Acute hypoxemic and hypercapnic respiratory failure Polymicrobial pneumonia - Pseudomonas and Haemophilus influenza History of COPD PRVC 18/600/1/5/40 PSV trial 10/25 at 40% Ventilator bundle Albuterol/ipratropium aerosols every 6 hours with albuterol aerosols every 2 hours. Dyspnea SBT daily as earle. GI: Constipation On tube feedings with Nepro goal 55 cc an hour for nutrition's recommendations. Restart now. Famotidine for GI prophylaxis Docusate sodium/senna 1 tablet twice a day for bowel regimen. Polyethylene glycol 17 twice a day, lactulose 30 cc 4 times a day and glycerin suppository 1 today. Check KUB in a.m. Endo: Hypoglycemia Secondary hyperparathyroidism Novulog with Accu-Cheks every 4 hours to maintain euglycemia Continue Cinacalet 30 mg daily for secondary hyperparathyroidism when able Check cortisol level - low at 9 Renal: Secondary hyperparathyroidism End-stage renal disease on hemodialysis Tuesday/Tuesday/Tuesday Monitor renal function, avoid nephrotoxins. HD per renal- Dr. Galarza Holding Lanthanum 500 mg 3 times a day while intubated and phosphorus currently normal. Recheck as needed Heme: Normocytic anemia/anemia of chronic kidney disease Thrombocytopenia Leukocytosis Monitor CBC daily. Follow trends Continue Epogen with hemodialysis ID: Haemophilus influenza/pseudomonas aeruginosa pneumonia Pertinent cultures Continue cefepime monitor for signs of infections ( Fever, WBC) 12/12 - sputum - Haemophilus influenza, pseudomonas aeruginosa 12/12 - blood cultures 2 - no growth Follow up on sputum cx from 12/16 Follow-up on blood cultures 12/18 MSK: OP/OA PT evaluate and treat Access -Right IJ CVL day #2 placed 12/18 -Left radial arterial line day #2 placed 12/18 Prophylaxis - GI - famotidine - DVT - SCD/heparin subcutaneous Level III follow-up Saji Pearson MD Dec 19, 2017 10:17
[2017-12-19] MEDS: HYDROCORTISONE SOD SUCCINATE 100 MG VIAL IV PUSH SCH ×3 (11:11→22:12)
[2017-12-19] MEDS: MUPIROCIN 2% OINT 1 APPLIC/GM SYR EACH NARE SCH ×2 (11:12→20:39)
[2017-12-19] MEDS: POLYETHYLENE GLYCOL 17 GM PKG PO SCH ×2 (11:24→20:38)
[2017-12-19] MEDS: ALBUMIN 25% INJ 100 ML IV PRN ×2 (13:45→13:46)
--- NOTE | 2017-12-19 14:08 | RADRPT ---
EXAM DATE/TIME: 12/19/2017 12:24 [facility] COMPARISON: No previous studies available for comparison. INDICATIONS : Unresponsive off sedation. MEDICAL HISTORY : Hypertension. Congestive heart failure. SURGICAL HISTORY : Bilateral hip ENCOUNTER: Initial ACUITY: 2 day PAIN SCORE: 0/10 LOCATION: cranial Please note a normal MRA of the brain does not entirely exclude the possibility of a small aneurysm, nor the possibility of distal intracranial vessel disease. TECHNIQUE: 3D time of flight MRA was performed. Source images, multiplanar STS MIP, and 3D volume MIP reconstru ctions were reviewed. FINDINGS: There is excellent visualization of the major intracranial arteries out to the second-order branch ve ssels. There is no evidence for aneurysm, vessel truncation or stenosis, and no evidence for vascula r malformation. Anterior communicating artery not seen. Posterior communicating arteries are not seen . Dominant left vertebral artery. Basilar artery is normal. Anterior, middle and posterior cerebral a rteries are patent. CONCLUSION: 1. No large vessel stenosis or aneurysm. 2. Normal variants as described above. Leonard Vaughn MD on December 19, 2017 at 14:02 Board Certified Radiologist. This report was verified electronically.
[2017-12-19] MEDS: LACTULOSE SYRUP 20 GM/30 ML CUP PO SCH ×3 (14:24→20:39)
[2017-12-19] MEDS: PROPOFOL 1000 MG/100 ML INJ 100 ML IV PRN (16:01)
--- NOTE | 2017-12-19 16:18 | HHI.PR ---
Review/Management Daily Summary 12/19 spoke with RN mri brain reviewed, tiny areas of probable subacute ischemia troy he is very ill, this ischemia could be from hypoperfusion or small embolism echo done 12/13, not very impressive for now asa and later on consider anticoagulation Subjective Subjective Comments sedated, dialysis i progress Active Medications Current Medications Medications (Trade) Dose Ordered Sig/Jhonathan Route Start Time Stop Time Status Last Admin (NS Flush) 2 ml UNSCH PRN IVF 12/12/17 10:15 12/17/17 09:59 Propofol 100 ml @ 0 mls/hr TITRATE PRN IV 12/12/17 10:45 12/19/17 16:01 (Heparin Inj) 5,000 units Q12H SQ 12/12/17 14:00 12/19/17 14:25 Miscellaneous Information 1 Q361D XX 12/12/17 14:00 (Chlorhexidine 2% Cloth) Taper DAILY@04 TOP 12/13/17 04:00 12/09/18 03:59 12/17/17 02:21 (Chlorhexidine 2% Cloth) 3 pack UNSCH PRN TOP 12/12/17 14:00 (Dayna-Colace) 1 tab BID PO 12/12/17 21:00 12/19/17 08:32 (Milk Of Magnesia Liq) 30 ml Q12H PRN PO 12/12/17 14:00 (Senokot) 17.2 mg Q12H PRN PO 12/12/17 14:00 (Dulcolax Supp) 10 mg DAILY PRN RECTAL 12/12/17 14:00 (Lactulose Liq) 30 ml DAILY PRN PO 12/12/17 14:00 (D50w (Vial) Inj) 50 ml UNSCH PRN IV PUSH 12/12/17 14:15 12/14/17 15:19 (Glucagon Inj) 1 mg UNSCH PRN OTHER 12/12/17 14:15 (NovoLIN R SUPPLEMENTAL SCALE) 1 Q4H SQ 12/12/17 15:00 12/19/17 11:00 Sodium Chloride 1,000 ml @ 0 mls/hr Q0M PRN OTHER 12/12/17 14:25 (Heparin Inj) 8,000 units UNSCH PRN IV FLUSH 12/12/17 14:30 Sodium Chloride 1,000 ml @ 200 mls/hr Q5H PRN IV 1/22/18 14:25 Sodium Chloride 1,000 ml @ 0 mls/hr Q0M PRN OTHER 12/12/17 14:25 (Mannitol Inj) 12.5 gm UNSCH PRN IV 12/12/17 14:30 Albumin Human 100 ml @ 60 mls/hr UNSCH PRN IV 12/12/17 14:30 12/19/17 13:46 (NS Flush) 5 ml UNSCH PRN IV FLUSH 12/12/17 14:30 (Heparin Inj) UNSCH PRN .XX 12/12/17 14:30 (Gentamicin (Dialysis) Inj) 20 mg UNSCH PRN OTHER 12/12/17 14:30 (Zofran Inj) 4 mg UNSCH PRN IV PUSH 12/12/17 14:30 (Tylenol) 650 mg UNSCH PRN PO 12/12/17 14:30 (Benadryl) 25 mg UNSCH PRN PO 12/12/17 14:30 (Nitrostat Sl) 0.4 mg UNSCH PRN SL 12/12/17 14:30 (Catapres) 0.1 mg UNSCH PRN PO 12/12/17 14:30 (Epogen Inj) 10,000 units UNSCH PRN IV PUSH 12/12/17 14:30 12/16/17 13:51 (Gelfoam 12 Mm/7 Mm Top) 1 foam UNSCH PRN TOP 12/12/17 14:30 12/16/17 13:51 Fentanyl Citrate 250 ml @ 5 mls/hr TITRATE PRN IV 12/13/17 20:45 12/19/17 09:39 Cefepime HCl 2000 mg/Sodium Chloride 100 ml @ 200 mls/hr Q48H PRN IV 12/14/17 21:15 (Pepcid) 20 mg DAILY NG 12/15/17 09:00 12/19/17 08:32 (Tears Naturale Opth Soln) 1 drop Q8HR EACH EYE 12/14/17 22:00 12/19/17 14:25 (Albuterol Neb) 2.5 mg Q2HR NEB PRN NEB 12/14/17 21:45 (Sensipar) 30 mg DAILY PO 12/15/17 09:00 12/19/17 08:32 (Plaquenil) 200 mg DAILY PO 12/15/17 09:00 12/19/17 08:31 (Bactroban Nasal 2% Oint) 1 applic Taper BID EACH NARE 12/15/17 21:00 12/11/18 20:59 12/19/17 11:12 (Coreg) 3.125 mg Q12HR PO 12/15/17 21:00 12/19/17 08:32 (Mycostatin Liq) 5 ml QID OROPHARYNG 12/18/17 09:00 12/28/17 08:59 12/19/17 14:24 (Aspirin Chew) 81 mg DAILY PO 12/19/17 09:00 12/19/17 08:32 (Lipitor) 10 mg HS PO 12/18/17 21:00 12/18/17 21:04 (NS Flush) DAILY IV FLUSH 12/19/17 09:00 12/19/17 08:32 (NS Flush) UNSCH PRN IV FLUSH 12/18/17 17:15 Levofloxacin/ Dextrose 50 ml @ 50 mls/hr Q48H IV 12/18/17 17:00 12/18/17 18:12 (Flagyl) 250 mg Q8HR PO 12/18/17 17:15 12/19/17 14:25 Norepinephrine Bitartrate 4 mg/ Sodium Chloride 250 ml @ 7.5 mls/hr TITRATE PRN IV 12/18/17 21:00 12/19/17 16:02 (Brethine Inj) 1 mg UNSCH PRN SQ 12/18/17 21:00 Vasopressin 40 units/Dextrose 100 ml @ 6 mls/hr [id number] IV 12/18/17 23:17 12/19/17 16:01 (SoluCORTEF INJ) 100 mg Q6H IV PUSH 12/19/17 11:00 12/19/17 11:11 (Miralax) 17 gm BID PO 12/19/17 10:15 12/19/17 11:24 (Lactulose Liq) 30 ml QID PO 12/19/17 13:00 12/19/17 14:24 (Kondremul Liq) 30 ml HS PO 12/19/17 21:00 Allergies Allergies Coded Allergies No Known Allergies (Verified Allergy, Unknown, 12/12/17) Exam I&O / VS 12/19/17 12/19/17 12/20/17 15:00 23:00 07:00 Intake Total 280 ml Output Total 0 ml Balance 280 ml IV Total 280 ml Tube Feeding Residual Discard 0 ml Vital Signs Date Time Temp Pulse Resp B/P (MAP) Pulse Ox O2 Delivery O2 Flow Rate FiO2 12/19/17 16:02 105 118/53 12/19/17 16:01 121 116/50 12/19/17 15:31 115 12/19/17 15:31 115 25 117/62 (80) 100 127/56 (79) 12/19/17 15:16 76 37 155/68 (97) 100 110/84 (93) 12/19/17 15:16 76 12/19/17 15:01 67 12/19/17 15:01 67 23 142/66 (91) 100 141/48 (79) 12/19/17 15:00 70 32 152/71 (98) 100 12/19/17 15:00 70 12/19/17 14:45 79 12/19/17 14:45 79 18 128/60 (82) 100 143/49 (80) 12/19/17 14:30 77 19 115/57 (76) 100 130/47 (74) 12/19/17 14:30 77 12/19/17 14:15 66 19 110/53 (72) 100 124/43 (70) 12/19/17 14:15 66 12/19/17 14:00 66 12/19/17 14:00 66 18 121/58 (79) 100 136/44 (74) 12/19/17 13:45 79 12/19/17 13:45 79 18 125/60 (81) 100 138/48 (78) 12/19/17 13:30 74 12/19/17 13:30 74 19 135/63 (87) 120/49 (72) 12/19/17 13:22 77 12/19/17 13:22 98.0 77 18 156/70 (98) 12/19/17 12:00 96 100 12/19/17 12:00 40 12/19/17 11:50 92 40 12/19/17 11:00 80 12/19/17 10:00 82 12/19/17 09:38 81 129/46 12/19/17 09:38 81 132/48 12/19/17 09:00 80 12/19/17 09:00 80 25 133/63 (86) 97 139/57 (84) 12/19/17 08:33 85 142/50 12/19/17 08:33 85 147/51 12/19/17 08:01 100 50 12/19/17 08:00 98.1 80 18 129/45 (73) 100 12/19/17 08:00 80 12/19/17 08:00 50 12/19/17 06:00 85 12/19/17 04:14 100 50 12/19/17 04:00 40 12/19/17 04:00 89 12/19/17 04:00 99.2 89 18 147/50 (82) 100 12/19/17 02:00 95 12/19/17 01:00 93 50 12/19/17 00:00 95 12/19/17 00:00 100.0 95 23 151/50 (83) 95 12/19/17 00:00 40 12/18/17 23:54 94 139/46 12/18/17 22:00 97 12/18/17 21:03 93 87/51 12/18/17 20:00 99.6 94 24 93/55 (68) 98 12/18/17 20:00 94 12/18/17 20:00 40 12/18/17 19:20 98 50 12/18/17 19:00 45 12/18/17 18:00 92 Respiratory: Lungs CTA, Non-labored respirations Cardiology: Normal rate Musculoskeletal: ROM Objective Radiology Results Last 48 hours Impressions Chest X-Ray 12/19/17 0600 Signed Impressions: Service Date/Time: Tuesday, December 19, 2017 02:57 - CONCLUSION: 1. Slight increase in left basilar airspace disease over the last day. Right IJ line, endotracheal tube and nasogastric tube in good position. Khoa Franco MD Head Magnetic Resonance Angiography 12/19/17 0000 Signed Impressions: Service Date/Time: Tuesday, December 19, 2017 12:24 - CONCLUSION: 1. No large vessel stenosis or aneurysm. 2. Normal variants as described above. Leonard Vaughn MD Chest X-Ray 12/18/17 1701 Signed Impressions: Service Date/Time: Monday, December 18, 2017 17:03 - CONCLUSION: Nasogastric tube now in place with tip below the [id number] of the radiograph. No significant interval change in bilateral pulmonary opacity with basilar predominance. Gatito Shipman MD Chest X-Ray 12/18/17 0000 Signed Impressions: Service Date/Time: Monday, December 18, 2017 00:58 - CONCLUSION: Bilateral areas of consolidation being worse on the right. ET tube is in good position. Jakob Marley MD Micro and Labs Laboratory Tests Test 12/18/17 18:45 12/18/17 22:47 12/19/17 04:10 Lactic Acid Level 1.0 0.9 0.9 White Blood Count 13.6 14.8 Red Blood Count 3.30 3.42 Hemoglobin 9.9 10.1 Hematocrit 29.8 30.9 Mean Corpuscular Volume 90.2 90.4 Mean Corpuscular Hemoglobin 30.1 29.4 Mean Corpuscular Hemoglobin Concent 33.4 32.5 Red Cell Distribution Width 15.2 15.4 Platelet Count 153 154 Mean Platelet Volume 7.4 7.4 Blood Urea Nitrogen 82 Creatinine 8.59 Random Glucose 78 Total Protein 6.0 Albumin 2.0 Calcium Level 9.6 Phosphorus Level 2.8 Magnesium Level 2.2 Alkaline Phosphatase 140 Aspartate Amino Transf (AST/SGOT) 51 Alanine Aminotransferase (ALT/SGPT) 31 Total Bilirubin 0.8 Sodium Level 137 Potassium Level 4.6 Chloride Level 96 Carbon Dioxide Level 31.8 Anion Gap 9 Estimat Glomerular Filtration Rate 6 Neutrophils (%) (Auto) 73.7 Lymphocytes (%) (Auto) 7.1 Monocytes (%) (Auto) 16.4 Eosinophils (%) (Auto) 2.4 Basophils (%) (Auto) 0.4 Neutrophils # (Auto) 10.9 Lymphocytes # (Auto) 1.0 Monocytes # (Auto) 2.4 Eosinophils # (Auto) 0.4 Basophils # (Auto) 0.1 CBC Comment AUTO DIFF Differential Total Cells Counted 100 Neutrophils % (Manual) 64 Band Neutrophils % 6 Lymphocytes % 6 Monocytes % 17 Eosinophils % 5 Neutrophils # (Manual) 10.7 Metamyelocytes 2 Differential Comment FINAL DIFF MANUAL Platelet Estimate NORMAL Platelet Morphology Comment NORMAL Date/Time Source Procedure Growth Status 12/18/17 19:50 Blood Peripheral Aerobic Blood Culture - Preliminary NO GROWTH IN 1 DAY Resulted 12/18/17 19:50 Blood Peripheral Anaerobic Blood Culture - Preliminary NO GROWTH IN 1 DAY Resulted 12/16/17 15:00 Sputum Endotracheal Gram Stain - Final Complete 12/16/17 15:00 Sputum Culture - Final Pseudomonas Aeruginosa Haemophilus Influenzae S. Aureus Mrsa Complete Raudel Ace MD Dec 19, 2017 16:18
[2017-12-19] MEDS: GELATIN 12 MM/7 MM FOAM TOP PRN (16:24)
[2017-12-19] MEDS: EPOETIN ALFA 10,000 UNITS/ML VIAL IV PUSH PRN (16:24)
[2017-12-19 16:26] LABS: HEMOGLOBIN A1C 6.9 % (4.3-6.0)
--- NOTE | 2017-12-19 19:08 | RADRPT ---
EXAM DATE/TIME: 12/19/2017 12:24 [facility] COMPARISON: No previous studies available for comparison. INDICATIONS : Unresponsive off sedation. MEDICAL HISTORY : Hypertension. Congestive heart failure. ESRD SURGICAL HISTORY : Bilat hip sx ENCOUNTER: Subsequent ACUITY: 1 week PAIN SCORE: Nonresponsive. LOCATION: cranial Percent stenosis is calculated using the diameter of the stenotic region over the diameter of the nor mal distal internal carotid artery. TECHNIQUE: 3D time of flight MRA of the extracranial circulation was performed using a neurovascular coil. Post processing was performed including rotating subvolume maximum intensity projections of each carotid artery, rotating full-volume maximum intensity projections of both carotid arteries, sagittal and cor onal sliding thin-slab reformations of each carotid artery, and left oblique sliding thin slab reform ation through the aortic arch to include the origin of the arch branch vessels. FINDINGS: AORTIC ARCH: There is a three vessel origin of the great vessels from the aorta. No evidence of ostial narrowing. RIGHT CAROTID: The common carotid artery is intact. The carotid bulb has a normal configuration without ulceration or narrowing. The internal carotid artery lumen is smooth without stenosis. The external carotid ar ray is intact. LEFT CAROTID: The common carotid artery is intact. The carotid bulb has a normal configuration without ulceration or narrowing. The internal carotid artery lumen is smooth without stenosis. The external carotid ar ray is intact. VERTEBRALS: The vertebral arteries have a symmetric diameter. No stenotic lesions are seen. CONCLUSION: 1. Patent carotids and vertebrals. Marco Antonio Henriquez Jr., MD on December 19, 2017 at 18:52 Board Certified Radiologist. This report was verified electronically.
[2017-12-19] MEDS: ATORVASTATIN 10 MG TAB PO SCH (20:39)
[2017-12-19] MEDS: MINERAL OIL EMULSION 55% PO SCH (20:40)
[2017-12-20] VITALS (30 sets, daily range): BP systolic 100–161; BP diastolic 45–73; PULSE 62–86; RESP 15–116; TEMP 97.6–99.1; O2SAT 80–100
[2017-12-20] MEDS: HEPARIN SODIUM - SQ 10,000 UNITS/ML VIAL SQ SCH ×2 (02:03→15:09)
[2017-12-20] MEDS: INSULIN NovoLIN REGULAR SUPPLEMENTAL SCALE SQ SCH ×6 (03:00→20:00)
--- NOTE | 2017-12-20 03:44 | RADRPT ---
EXAM DATE/TIME: 12/20/2017 02:02 [facility] COMPARISON: CHEST SINGLE AP, December 19, 2017, 2:57. INDICATIONS : Short of breath. MEDICAL HISTORY : Congestive heart failure. Hypertension SURGICAL HISTORY : None. ENCOUNTER: Subsequent ACUITY: 1 week PAIN SCORE: 0/10 LOCATION: Bilateral chest FINDINGS: Endotracheal tube in good position. NG enters stomach. Right central line in superior vena cava. Bila teral mostly basilar airspace disease similar to December 19. CONCLUSION: 1. Basilar airspace consolidation similar to December 19. Support apparatus in good position. Khoa Franco MD on December 20, 2017 at 3:40 Board Certified Radiologist. This report was verified electronically.
--- NOTE | 2017-12-20 03:53 | RADRPT ---
EXAM DATE/TIME: 12/20/2017 02:07 [facility] COMPARISON: ABDOMEN KUB ONLY, November 10, 2015, 18:37. INDICATIONS : Constipation. MEDICAL HISTORY : None. SURGICAL HISTORY : None. ENCOUNTER: Subsequent ACUITY: 1 week PAIN SCORE: 0/10 LOCATION: Bilateral abdomen FINDINGS: Supine view of the abdomen was performed. The abdominal bowel gas pattern is normal with NG tube coi led in the stomach. Bilateral total hip replacement. Moderate constipation. CONCLUSION: 1. Moderate constipation with stool throughout large bowel. NG coiled in stomach. Khoa Franco MD on December 20, 2017 at 3:50 Board Certified Radiologist. This report was verified electronically.
[2017-12-20] MEDS: HYDROCORTISONE SOD SUCCINATE 100 MG VIAL IV PUSH SCH ×4 (04:42→21:38)
[2017-12-20] MEDS: metroNIDAZOLE 250 MG TAB PO SCH (04:42)
[2017-12-20] MEDS: PROPOFOL 1000 MG/100 ML INJ 100 ML IV PRN (04:42)
[2017-12-20 05:39] LABS: BASOPHIL % 0.1 % (0.0-2.0); HEMATOCRIT 27.8 % (39.0-51.0); HEMOGLOBIN 9.1 GM/DL (13.0-17.0); LYMPHOCYTE # 0.8 TH/MM3 (1.0-4.8); MEAN CELL VOLUME 90.5 FL (80.0-100.0); MEAN CORPUSCULAR HEMOGLOBIN 29.7 PG (27.0-34.0); MEAN CORPUSCULAR HGB CONC 32.8 % (32.0-36.0); MEAN PLATELET VOLUME 7.7 FL (7.0-11.0); MONO % 9.1 % (0.0-8.0); MONOCYTE # 1.1 TH/MM3 (0-0.9); NEUT % 83.8 % (16.0-70.0); PLATELET COUNT 136 TH/MM3 (150-450); RED BLOOD COUNT 3.08 MIL/MM3 (4.50-5.90); RED CELL DISTRIBUTION WIDTH 15.6 % (11.6-17.2); WHITE BLOOD COUNT 11.9 TH/MM3 (4.0-11.0)
[2017-12-20 06:16] LABS: ALBUMIN 2.6 GM/DL (3.4-5.0); BICARBONATE 29.2 MEQ/L (21.0-32.0); CREATININE 6.49 MG/DL (0.60-1.30); PHOSPHORUS 5.3 MG/DL (2.5-4.9)
[2017-12-20] MEDS: VASOPRESSIN INJ 40 UNITS in DEXTROSE 5% IN WATER 100ML INJ 98 ML IV SCH ×2 (07:48)
[2017-12-20] MEDS: fentaNYL 2,500 MCG/NS 250 ML IV PRN ×2 (07:50→08:16)
[2017-12-20] MEDS ORDERED: METOCLOPRAMIDE HCL 10 MG/2 ML VIAL IV PUSH PRN (08:00)
[2017-12-20] MEDS ORDERED: BISACODYL 10 MG SUPP RECTAL ONE (08:00)
[2017-12-20] MEDS ORDERED: SODIUM POLYSTYRENE SULFONATE SUSP 15 GM/60 ML CUP PO ONE (08:00)
[2017-12-20] MEDS ORDERED: DEXTROSE 50% IN WATER 50 ML VIAL(D50) IV PUSH PRN (08:00)
[2017-12-20] MEDS ORDERED: GLUCAGON 1 MG/ML VIAL OTHER PRN (08:00)
[2017-12-20] MEDS ORDERED: Vancomycin Consult Pharmacy 1 EA OTHER SCH (08:00)
--- NOTE | 2017-12-20 08:07 | HHI.CCPN ---
Subjective Remarks/Hospital Course Patient is a 72-year-old male with multiple medical comorbidities which include end-stage renal disease, hypertension, CHF, COPD, cardiomyopathy, hyperparathyroidism and anemia of chronic disease. He was brought into ED via EMS for respiratory distress and was given albuterol treatment x2 in addition to Solu-Medrol 125 mg IV prior to arrival. The patient was initially placed on BiPap without any significant relief. In the ED he was intubated with etomidate, succinylcholine and placed on full mechanical ventilation. When seen the patient is sedated with Diprivan and on fentanyl infusion. His laboratory data significant for hyperkalemia with potassium 6.3, BUN 53, creatinine in 8.63 and BNP of 1218. His chest x-ray showed ET tube above the reed, interstitial edema. Nephrology service was notified and the patient is currently receiving hemodialysis treatment. ABG postintubation showed a pH of 7.30, CO2 54, pAO2 454, bicarb 26, sats of 97%. 12/13 Patient is intubated on no sedation. Awake and alert, s/p HD yesterday with removal 3L. Afebrile. 12/14: Afebrile. Remains on propofol drip at 20 mcg/kg per minute. Episodic hypotension. Episodic hypoglycemia requiring D50. On D10 drip for hyperkalemia ? Per nephrology's orders, potassium currently normalized. We'll start tube feeding. Added cefepime for Pseudomonas in sputum 12/15: Afebrile. Tolerating tube feeding. Currently on PSV trial is tolerated well. Not following commands however moving all 4 extremities purposefully today than yesterday. 12/16 Patient remains intubated and on Fentanyl and Diprivan drip for sedation. s /p HD yesterday 12/17 No events overnight. s/p HD yesterday with removal 1.8L. Remains sedated with Fentanyl and intubated. Patient doesn't follow commands off sedation. CT brain yesterday showed no acute process. T:99.9 last night 12/18: Afebrile. Patient ET tube migrated upwards towards vocal cords in high probability aspirated tube feeding. Reintubated by overnight long chain dyeing machine operator. Noted MRI brain revealed acute right and left parietal CVA. MRA brain and carotid Dopplers currently pending. Currently on baby aspirin. Also started on atorvastatin 10 mg daily. Subjective 1/29: Tmax 100. Central line placed yesterday due to hypotension. Currently norepinephrine and vasopressin drips. Wide pulse pressure arterial line. Tube feeds will be resumed. Stress dose steroids initiated. Last cortisol was 9. 12/20 Patient remains intubated and sedated with Diprivan and Fentanyl drips. On Levophed 8 mocs and Vasopressin 0.04. Afebrile. s/p HD yesterday with removal 4L. Objective Vital Signs Date Time Temp Pulse Resp B/P (MAP) Pulse Ox O2 Delivery O2 Flow Rate FiO2 12/20/17 05:05 100 45 12/20/17 04:00 98.6 63 18 117/57 (77) 123/45 (71) Intake and Output 12/20/17 12/20/17 12/21/17 08:00 16:00 00:00 Intake Total 648 ml Balance 648 ml Result Diagram: 12/20/17 0450 12/20/17 0450 Other Results Laboratory Tests Test 12/19/17 17:34 12/20/17 04:50 Lactic Acid Level 1.0 mmol/L White Blood Count 11.9 TH/MM3 Red Blood Count 3.08 MIL/MM3 Hemoglobin 9.1 GM/DL Hematocrit 27.8 % Mean Corpuscular Volume 90.5 FL Mean Corpuscular Hemoglobin 29.7 PG Mean Corpuscular Hemoglobin Concent 32.8 % Red Cell Distribution Width 15.6 % Platelet Count 136 TH/MM3 Mean Platelet Volume 7.7 FL Neutrophils (%) (Auto) 83.8 % Lymphocytes (%) (Auto) 7.0 % Monocytes (%) (Auto) 9.1 % Eosinophils (%) (Auto) 0.0 % Basophils (%) (Auto) 0.1 % Neutrophils # (Auto) 10.0 TH/MM3 Lymphocytes # (Auto) 0.8 TH/MM3 Monocytes # (Auto) 1.1 TH/MM3 Eosinophils # (Auto) 0.0 TH/MM3 Basophils # (Auto) 0.0 TH/MM3 CBC Comment AUTO DIFF Blood Urea Nitrogen 74 MG/DL Creatinine 6.49 MG/DL Random Glucose 266 MG/DL Albumin 2.6 GM/DL Calcium Level 9.0 MG/DL Phosphorus Level 5.3 MG/DL Sodium Level 135 MEQ/L Potassium Level 5.6 MEQ/L Chloride Level 93 MEQ/L Carbon Dioxide Level 29.2 MEQ/L Anion Gap 13 MEQ/L Estimat Glomerular Filtration Rate 9 ML/MIN Imaging Last Impressions Chest X-Ray 12/20/17 0600 Signed Impressions: Service Date/Time: Wednesday, December 20, 2017 02:02 - CONCLUSION: 1. Basilar airspace consolidation similar to December 19. Support apparatus in good position. Khoa Franco MD Abdomen X-Ray 12/20/17 0600 Signed Impressions: Service Date/Time: Wednesday, December 20, 2017 02:07 - CONCLUSION: 1. Moderate constipation with stool throughout large bowel. NG coiled in stomach. Khoa Franco MD Neck Magnetic Resonance Angiography 12/19/17 0000 Signed Impressions: Service Date/Time: Tuesday, December 19, 2017 12:24 - CONCLUSION: 1. Patent carotids and vertebrals. Marco Antonio Henriquez Jr., MD Head Magnetic Resonance Angiography 12/19/17 0000 Signed Impressions: Service Date/Time: Tuesday, December 19, 2017 12:24 - CONCLUSION: 1. No large vessel stenosis or aneurysm. 2. Normal variants as described above. Leonard Vaughn MD Brain MRI 12/17/17 0000 Signed Impressions: Service Date/Time: Sunday, December 17, 2017 11:33 - CONCLUSION: Small foci of retracted diffusion in the parietal periventricular white matter bilaterally indicating small acute infarcts. No other acute intracranial findings. Gatito Shipman MD Head CT 12/16/17 0000 Signed Impressions: Service Date/Time: Saturday, December 16, 2017 10:58 - CONCLUSION: No acute disease. Marco Antonio Henriquez Jr., MD Objective Remarks GENERAL: 72-year-old male currently orotracheally intubated SKIN: Warm and dry. No rash HEAD: Normocephalic. Atraumatic EYES: Pupils are equally round and reactive at 3 mm. NECK: Supple, trachea midline. No JVD or lymphadenopathy. Right IJ CVL is clean dry and intact CARDIOVASCULAR: RRR. S1, S2. No S4. Without murmurs RESPIRATORY: Breath sounds equal bilaterally. No accessory muscle use. GASTROINTESTINAL: Abdomen soft, non-tender, nondistended. MUSCULOSKELETAL: Trace lower extremity. Right upper extremity positive thrill Neuro: Arousable, ventilator. Moves all 4 extremity spontaneously. Cranial nerves II through XII appear grossly intact. Appears to right greater than left. No DTRs. Date of Insertion: Dec 18, 2017 Line: Central Venous Catheter Side: Right Location: Internal, Jugular A/P Assessment and Plan Neuro/Psych: Peripheral neuropathy Right greater than left parietal CVA Monitor Neuro status. CT brain no acute findings 12/17 EEG revealed O's Sharp's triphasic right greater than left. No epileptiform discharges MRI brain 12/17 revealed 6 mm right parietal and tiny left parietal lacunar infarct in the periventricular white matter. MRA brain 12/19: No large vessel stenosis or aneurysm. Aspirin 81 mg daily Atorvastatin 10 mg a day. Triglycerides elevated On Fentanyl/Diprivan drips for sedation. Daily sedation vacation Goal of RASS -2 Continue gabapentin 300 mg daily for peripheral neuropathy Hydrochloroquine 200 mg daily for arthritis resumed Dr. Ace neurology following CV: Chronic diastolic heart failure - Mild pulmonary hypertension with pulmonary arterial pressure 46.7 mmHg Currently on norepinephrine at 8 mcg/m and vasopressin 0.04 units per minute to maintain MAP>65mmHg Decrease hydrocortisone 50 mg Q 6 hours. Cortisol level 9 on 12/15 2-D echocardiogram reveals EF of 55-60%. Mild MR/TR. Pulmonary arterial Pressures 46.7 mmHg On carvedilol 3.125 mg twice a day in light of atrial fibrillation Received 1 dose of digoxin 0.25 mg on 12/15 Resp: Acute hypoxemic and hypercapnic respiratory failure Polymicrobial pneumonia - Pseudomonas and Haemophilus influenza History of COPD [facility] [address]/11/25/39 Continue with vent support keep sat >92% Ventilator bundle Albuterol/ipratropium aerosols every 6 hours with albuterol aerosols every 2 hours. Dyspnea SBT daily as earle. GI: Constipation Tube feeds held for high residuals. Nepro goal 55 cc an hour for nutrition's recommendations. KUB abdomen:Moderate constipation with stool throughout large bowel Famotidine for GI prophylaxis Docusate sodium/senna 1 tablet twice a day for bowel regimen. Polyethylene glycol 17 twice a day, lactulose 30 cc 4 times a day Will Add Reglan and give Dulcolax suppos x1 Endo: Hyperglycemia Secondary hyperparathyroidism Increase SSI to medium scale with accu checks Q4hr. Continue Cinacalet 30 mg daily for secondary hyperparathyroidism when able Cortisol level - 9 Renal: Secondary hyperparathyroidism End-stage renal disease on hemodialysis Tuesday/Tuesday/Tuesday Monitor renal function, avoid nephrotoxins. HD per renal- Dr. Galarza s/p HD yesterday with removal 4L. Heme: Normocytic anemia/anemia of chronic kidney disease Thrombocytopenia Leukocytosis..trending down Monitor CBC daily. Follow trends Continue Epogen with hemodialysis ID: Haemophilus influenza/pseudomonas aeruginosa pneumonia Pertinent cultures On cefepime, Levaquin, add Vanco. d./c Flagyl. monitor for signs of infections ( Fever, WBC) 12/12 - sputum - Haemophilus influenza, pseudomonas aeruginosa 12/12 - blood cultures 2 - no growth Follow up on sputum cx from 12/16: MRSA, H. Influenza, Pseudomonas Follow-up on blood cultures 12/18 MSK: OP/OA PT evaluate and treat Access -Right IJ CVL day #2 placed 12/18 -Left radial arterial line day #2 placed 12/18 Prophylaxis - GI - famotidine - DVT - SCD/heparin subcutaneous Level III follow-up Nellie Giles MD Dec 20, 2017 08:07
[2017-12-20] MEDS: NOREPINEPHRINE INJ 4 MG in SODIUM CHLOR 0.9% 250 ML INJ 246 ML IV PRN (08:15)
[2017-12-20] MEDS: DOCUSATE SODIUM 50 MG/SENNA 8.6 MG TAB PO SCH ×2 (08:17→21:38)
[2017-12-20] MEDS: MUPIROCIN 2% OINT 1 APPLIC/GM SYR EACH NARE SCH ×2 (08:17→21:00)
[2017-12-20] MEDS: ARTIFICIAL TEARS OPTH SOLN 15 ML BTL EACH EYE SCH ×3 (08:17→21:39)
[2017-12-20] MEDS: FAMOTIDINE 20 MG TAB NG SCH (08:17)
[2017-12-20] MEDS: POLYETHYLENE GLYCOL 17 GM PKG PO SCH ×2 (08:17→21:38)
[2017-12-20] MEDS: LACTULOSE SYRUP 20 GM/30 ML CUP PO SCH ×4 (08:17→21:00)
[2017-12-20] MEDS: NYSTATIN SUSP 500,000 U/5 ML CUP OROPHARYNG SCH ×4 (08:17→21:00)
[2017-12-20] MEDS: HYDROXYCHLOROQUINE SULFATE 200 MG TAB PO SCH (08:17)
[2017-12-20] MEDS: SODIUM CHLORIDE 0.9% FLUSH 10 ML FLUSH IV FLUSH SCH ×2 (08:17→21:38)
[2017-12-20] MEDS: CARVEDILOL 3.125 MG TAB PO SCH ×2 (08:18→21:37)
[2017-12-20] MEDS: ASPIRIN 81 MG CHEW TAB PO SCH (08:18)
[2017-12-20 08:25] LABS: BANDS 27 % (0-6); LYMPHOCYTES 5 % (9-44); MONOCYTES 6 % (0-8); NEUTROPHIL # MANUAL DIFF 10.6 TH/MM3 (1.8-7.7); POLYS (SEG NEUTROPHILS) 62 % (16-70)
[2017-12-20 08:26] LABS: TOXIC GRANULATION 1+ (NORMAL)
[2017-12-20] MEDS ORDERED: CEFEPIME INJ 1,000 MG in SODIUM CHLORIDE 0.9% INJ 100 ML IV SCH (09:00)
[2017-12-20] MEDS: CINACALCET HYDROCHLORIDE 30 MG TAB PO SCH ×2 (09:00→17:13)
--- NOTE | 2017-12-20 09:27 | HHI.NPPN ---
Subjective General Problems: Anemia Renal Failure: Chronic, End Stage Renal Disease Interval History Remains intubated, sedation is off. Saturations 100%. Hyperkalemic today, he was dialyzed yesterday. (Nancy Springer) Review of Systems General General Remarks unable to assess (Nancy Springer) Objective Data Data Vital Signs Date Time Temp Pulse Resp B/P (MAP) Pulse Ox O2 Delivery O2 Flow Rate FiO2 12/20/17 08:15 65 136/47 12/20/17 08:07 99 45 12/20/17 07:48 62 117/58 12/20/17 05:05 100 45 12/20/17 04:00 40 12/20/17 04:00 98.6 63 18 117/57 (77) 99 123/45 (71) 12/20/17 01:15 100 45 12/20/17 00:00 98.7 71 18 132/62 (85) 100 135/51 (79) 12/20/17 00:00 40 12/20/17 00:00 71 12/19/17 23:17 70 140/48 12/19/17 22:25 100 45 12/19/17 21:18 100 50 12/19/17 20:00 112 12/19/17 20:00 98.5 72 18 129/61 (83) 100 149/56 (87) 12/19/17 20:00 50 12/19/17 18:00 102 12/19/17 17:45 105 12/19/17 17:45 105 22 116/55 (75) 99 123/54 (77) 12/19/17 17:30 110 18 130/60 (83) 100 138/58 (84) 12/19/17 17:30 110 12/19/17 17:15 106 12/19/17 17:15 106 41 142/66 (91) 100 154/63 (93) 12/19/17 17:00 109 26 132/67 (88) 100 147/59 (88) 12/19/17 17:00 109 12/19/17 16:45 110 33 143/69 (93) 100 140/70 (93) 12/19/17 16:45 110 12/19/17 16:30 111 12/19/17 16:30 111 25 108/59 (75) 100 135/54 (81) 12/19/17 16:23 100 50 12/19/17 16:16 114 12/19/17 16:16 114 30 106/55 (72) 100 111/48 (69) 12/19/17 16:02 105 118/53 12/19/17 16:01 118 36 102/59 (73) 98 113/51 (71) 12/19/17 16:01 118 12/19/17 16:01 121 116/50 12/19/17 16:00 40 12/19/17 16:00 98.6 120 29 94/48 (63) 100 12/19/17 16:00 120 12/19/17 15:31 115 12/19/17 15:31 115 25 117/62 (80) 100 127/56 (79) 12/19/17 15:16 76 37 155/68 (97) 100 110/84 (93) 12/19/17 15:16 76 12/19/17 15:01 67 12/19/17 15:01 67 23 142/66 (91) 100 141/48 (79) 12/19/17 15:00 70 32 152/71 (98) 100 12/19/17 15:00 70 12/19/17 14:45 79 12/19/17 14:45 79 18 128/60 (82) 100 143/49 (80) 12/19/17 14:30 77 19 115/57 (76) 100 130/47 (74) 12/19/17 14:30 77 12/19/17 14:15 66 19 110/53 (72) 100 124/43 (70) 12/19/17 14:15 66 12/19/17 14:00 66 12/19/17 14:00 66 18 121/58 (79) 100 136/44 (74) 12/19/17 13:45 79 12/19/17 13:45 79 18 125/60 (81) 100 138/48 (78) 12/19/17 13:30 74 12/19/17 13:30 74 19 135/63 (87) 120/49 (72) 12/19/17 13:22 77 12/19/17 13:22 98.0 77 18 156/70 (98) 12/19/17 12:00 96 100 12/19/17 12:00 40 12/19/17 11:50 92 40 12/19/17 11:00 80 12/19/17 10:00 82 12/19/17 09:38 81 129/46 12/19/17 09:38 81 132/48 (Nancy Springer) -: 12/20/17 0450 12/20/17 0450 Imaging Last 72 hours Impressions Chest X-Ray 12/20/17 0600 Signed Impressions: Service Date/Time: Wednesday, December 20, 2017 02:02 - CONCLUSION: 1. Basilar airspace consolidation similar to December 19. Support apparatus in good position. Khoa Franco MD Abdomen X-Ray 12/20/17 06 Signed Impressions: Service Date/Time: Wednesday, December 20, 2017 02:07 - CONCLUSION: 1. Moderate constipation with stool throughout large bowel. NG coiled in stomach. Khoa Franco MD Chest X-Ray 12/19/17 0600 Signed Impressions: Service Date/Time: Tuesday, December 19, 2017 02:57 - CONCLUSION: 1. Slight increase in left basilar airspace disease over the last day. Right IJ line, endotracheal tube and nasogastric tube in good position. Khoa Franco MD Neck Magnetic Resonance Angiography 12/19/17 0000 Signed Impressions: Service Date/Time: Tuesday, December 19, 2017 12:24 - CONCLUSION: 1. Patent carotids and vertebrals. Marco Antonio Henriquez Jr., MD Head Magnetic Resonance Angiography 12/19/17 0000 Signed Impressions: Service Date/Time: Tuesday, December 19, 2017 12:24 - CONCLUSION: 1. No large vessel stenosis or aneurysm. 2. Normal variants as described above. Leonard Vaughn MD Chest X-Ray 12/18/17 1701 Signed Impressions: Service Date/Time: Monday, December 18, 2017 17:03 - CONCLUSION: Nasogastric tube now in place with tip below the [id number] of the radiograph. No significant interval change in bilateral pulmonary opacity with basilar predominance. Gatito Shipman MD Chest X-Ray 12/18/17 0000 Signed Impressions: Service Date/Time: Monday, December 18, 2017 00:58 - CONCLUSION: Bilateral areas of consolidation being worse on the right. ET tube is in good position. Jakob Marley MD Tubes & Lines Comment TLC right IJ Drip Comment Levophed (Nancy Springer. FIXED WING PILOT) Physical Exam General Appearance: Well Developed, Comfortable Appearance Remarks intubated, sedated (Nancy Springer. FIXED WING PILOT) Eyes Eye Exam: Pupils Equal (Nancy Springer B. FIXED WING PILOT) Pulmonary Resp Exam: Breath Sounds Equal, Crackles, Rhonchi, Sputum, Decreased Bases Resp Remarks vented lung sounds (Nancy Springer B. FIXED WING PILOT) Cardiology CV Exam: Regular, Normal Sinus Rhythm, Good Perfusion (Nancy Springer B. FIXED WING PILOT) Gastrointestinal/Abdomen GI Exam: Soft, Non-Tender, Bowel Sounds Present (Nnacy Springer B. FIXED WING PILOT) Musculoskeletal MS Exam: Joints Intact, Normal Tone (Nancy Springer B. FIXED WING PILOT) Integumentary Skin Exam: Clear, Warm, Dry, Intact (Nancy Springer B. FIXED WING PILOT) Extremeties Extremities Exam: No Edema, Pedal Pulses Palpable (Nancy Springer B. FIXED WING PILOT) Neurologic Neuro Exam: Unresponsive, Sedated (Nancy Springer B. FIXED WING PILOT) VTE Prophylaxis Device: SCDs (Nancy Springer B. FIXED WING PILOT) Assessment/Plan Assessment Summary: Anemia of CKD, CHF, Diabetes Mellitus, End Stage Renal Disease Electrolyte Assessment: Hyperkalemia Problem List: (1) ESRD (end stage renal disease) ICD Codes: N18.6 - End-stage renal disease Status: Chronic Plan: Dialyzed yesterday, 4L UF We will dialyze today due to hyperkalemia, resume MWF schedule tomorrow. Avoid IVF, follow fluid status Obtain renal panel intermittently. He has functioning AVF, avoid right arm procedures. Monitor fluid and electrolyte balance. Avoid Gadolinium. (2) Respiratory failure ICD Codes: J96.90 - Respiratory failure, unspecified, unspecified whether with hypoxia or hypercapnia Plan: Management per apartment maintenance technician. Vent weening as tolerated. Now with VAP,+ H. influenza and pseudomonas on sputum culture. Now on cefepime and Levaquin. Hx of CHF, also most likely has COPD (3) Anemia ICD Codes: D64.9 - Anemia, unspecified Plan: Epogen with dialysis. (4) Secondary hyperparathyroidism of renal origin ICD Codes: N25.81 - Secondary hyperparathyroidism of renal origin Plan: Start Calcium acetate with tube feeding. Sensipar resumed. (5) Encephalopathy ICD Codes: G93.40 - Encephalopathy, unspecified Plan: metabolic encephalopathy, acute CVA per MRI. Due for MRA today. Seen by neurology. (Nancy Springer) Plan patient was seen and examined. Because of hyperkalemia, he was dialyzed on . Remains on the ventilator. MRA unremarkable. ANIA? (Tru Galarza MD) Nancy Springer Dec 20, 2017 09:27 Tru Galarza MD Dec 21, 2017 08:27
[2017-12-20] MEDS: CEFEPIME INJ 1,000 MG in SODIUM CHLORIDE 0.9% INJ 100 ML IV SCH (09:54)
[2017-12-20] MEDS ORDERED: VANCOMYCIN INJ 1,250 MG in SODIUM CHLOR 0.9% 250 ML INJ 250 ML IV ONE (11:00)
[2017-12-20] MEDS: CALCIUM ACETATE 667 MG CAP PO SCH ×2 (15:08→18:52)
[2017-12-20] MEDS: LEVOFLOXACIN 250 MG PREMIX INJ 50 ML IV SCH (16:26)
[2017-12-20] MEDS: MINERAL OIL EMULSION 55% PO SCH (21:00)
[2017-12-20] MEDS: ATORVASTATIN 10 MG TAB PO SCH (21:38)
[2017-12-21] VITALS (19 sets, daily range): BP systolic 82–164; BP diastolic 46–72; PULSE 75–137; RESP 20–36; TEMP 97.7–98.8; O2SAT 92–100
[2017-12-21] MEDS: HEPARIN SODIUM - SQ 10,000 UNITS/ML VIAL SQ SCH ×2 (00:39→15:14)
[2017-12-21] MEDS: NOREPINEPHRINE INJ 4 MG in SODIUM CHLOR 0.9% 250 ML INJ 246 ML IV PRN (03:08)
[2017-12-21] MEDS: INSULIN NovoLIN REGULAR SUPPLEMENTAL SCALE SQ SCH ×7 (04:00→23:21)
[2017-12-21] MEDS: HYDROCORTISONE SOD SUCCINATE 100 MG VIAL IV PUSH SCH ×3 (05:23→20:37)
[2017-12-21] MEDS: ARTIFICIAL TEARS OPTH SOLN 15 ML BTL EACH EYE SCH ×3 (05:24→20:39)
[2017-12-21 06:22] LABS: AUTOMATED NEUTROPHIL # 19.7 TH/MM3 (1.8-7.7); BASOPHIL % 0.1 % (0.0-2.0); HEMATOCRIT 31.6 % (39.0-51.0); HEMOGLOBIN 10.4 GM/DL (13.0-17.0); LYMPH % 2.8 % (9.0-44.0); LYMPHOCYTE # 0.6 TH/MM3 (1.0-4.8); MEAN CELL VOLUME 90.3 FL (80.0-100.0); MEAN CORPUSCULAR HEMOGLOBIN 29.7 PG (27.0-34.0); MEAN CORPUSCULAR HGB CONC 32.9 % (32.0-36.0); MEAN PLATELET VOLUME 7.7 FL (7.0-11.0); MONO % 6.7 % (0.0-8.0); MONOCYTE # 1.5 TH/MM3 (0-0.9); NEUT % 90.4 % (16.0-70.0); PLATELET COUNT 168 TH/MM3 (150-450); RED CELL DISTRIBUTION WIDTH 15.2 % (11.6-17.2); WHITE BLOOD COUNT 21.8 TH/MM3 (4.0-11.0)
[2017-12-21 06:36] LABS: BICARBONATE 29.8 MEQ/L (21.0-32.0); CREATININE 5.85 MG/DL (0.60-1.30); RANDOM VANCOMYCIN 19.9 COMMENT
[2017-12-21 08:17] LABS: BANDS 12 % (0-6); LYMPHOCYTES 3 % (9-44); METAMYELOCYTES 1 % (0-1); MONOCYTES 3 % (0-8); NEUTROPHIL # MANUAL DIFF 20.5 TH/MM3 (1.8-7.7); POLYS (SEG NEUTROPHILS) 81 % (16-70)
[2017-12-21] MEDS: CEFEPIME INJ 1,000 MG in SODIUM CHLORIDE 0.9% INJ 100 ML IV SCH (09:00)
[2017-12-21] MEDS: CINACALCET HYDROCHLORIDE 30 MG TAB PO SCH (09:00)
[2017-12-21] MEDS: NYSTATIN SUSP 500,000 U/5 ML CUP OROPHARYNG SCH ×4 (09:00→20:37)
[2017-12-21] MEDS: MUPIROCIN 2% OINT 1 APPLIC/GM SYR EACH NARE SCH ×2 (09:00→20:38)
[2017-12-21] MEDS: CARVEDILOL 3.125 MG TAB PO SCH ×2 (09:57→20:38)
[2017-12-21] MEDS: FAMOTIDINE 20 MG TAB NG SCH (09:57)
[2017-12-21] MEDS: LACTULOSE SYRUP 20 GM/30 ML CUP PO SCH (09:57)
[2017-12-21] MEDS: DOCUSATE SODIUM 50 MG/SENNA 8.6 MG TAB PO SCH ×2 (09:57→19:29)
[2017-12-21] MEDS: ASPIRIN 81 MG CHEW TAB PO SCH (09:57)
[2017-12-21] MEDS: CALCIUM ACETATE 667 MG CAP PO SCH (09:57)
[2017-12-21] MEDS: HYDROXYCHLOROQUINE SULFATE 200 MG TAB PO SCH (09:58)
[2017-12-21] MEDS: POLYETHYLENE GLYCOL 17 GM PKG PO SCH (09:58)
--- NOTE | 2017-12-21 12:22 | HHI.NPPN ---
Subjective General Problems: Anemia Renal Failure: Chronic, End Stage Renal Disease Interval History Unresponsive on ventilator. Low dose Levophed infusing. Due for dialysis. (Nancy Springer) Review of Systems General General Remarks unable to assess (Nancy Springer) Objective Data Data Vital Signs Date Time Temp Pulse Resp B/P (MAP) Pulse Ox O2 Delivery O2 Flow Rate FiO2 12/21/17 10:00 75 12/21/17 08:00 75 12/21/17 08:00 97.8 86 36 154/72 (99) 95 164/62 (96) 12/21/17 08:00 45 12/21/17 07:35 45 12/21/17 07:33 94 40 12/21/17 06:00 85 12/21/17 04:04 92 40 12/21/17 04:00 97.7 84 22 149/70 (96) 100 145/65 (91) 12/21/17 04:00 82 12/21/17 04:00 45 12/21/17 03:08 81 139/54 12/21/17 02:00 80 12/21/17 01:04 96 40 12/21/17 00:00 45 12/21/17 00:00 84 12/21/17 00:00 97.7 80 22 117/59 (78) 100 124/57 (79) 12/20/17 20:00 45 12/20/17 20:00 71 12/20/17 20:00 97.6 71 22 100/69 (79) 100 161/67 (98) 12/20/17 19:28 100 40 12/20/17 19:00 75 40 141/57 (85) 80 12/20/17 19:00 75 12/20/17 18:00 71 12/20/17 18:00 71 28 153/55 (87) 100 12/20/17 17:00 67 12/20/17 17:00 67 18 141/58 (85) 100 12/20/17 16:15 99 45 12/20/17 16:00 62 12/20/17 16:00 45 12/20/17 16:00 98.6 62 23 107/48 (67) 100 12/20/17 15:30 71 29 134/63 (86) 129/68 (88) 12/20/17 15:30 71 12/20/17 15:00 70 31 130/52 (78) 100 12/20/17 15:00 70 12/20/17 14:00 73 12/20/17 14:00 73 116 118/51 (73) 100 12/20/17 13:00 77 12/20/17 13:00 77 18 115/53 (73) 100 (Nancy Springer) -: 12/21/17 0500 12/21/17 0500 Imaging Last 72 hours Impressions Chest X-Ray 12/20/17 0600 Signed Impressions: Service Date/Time: Wednesday, December 20, 2017 02:02 - CONCLUSION: 1. Basilar airspace consolidation similar to December 19. Support apparatus in good position. Khoa Franco MD Abdomen X-Ray 12/20/17 0600 Signed Impressions: Service Date/Time: Wednesday, December 20, 2017 02:07 - CONCLUSION: 1. Moderate constipation with stool throughout large bowel. NG coiled in stomach. Khoa Franco MD Chest X-Ray 12/19/17 0600 Signed Impressions: Service Date/Time: Tuesday, December 19, 2017 02:57 - CONCLUSION: 1. Slight increase in left basilar airspace disease over the last day. Right IJ line, endotracheal tube and nasogastric tube in good position. Khoa Franco MD Neck Magnetic Resonance Angiography 12/19/17 0000 Signed Impressions: Service Date/Time: Tuesday, December 19, 2017 12:24 - CONCLUSION: 1. Patent carotids and vertebrals. Marco Antonio Henriquez Jr., MD Head Magnetic Resonance Angiography 12/19/17 0000 Signed Impressions: Service Date/Time: Tuesday, December 19, 2017 12:24 - CONCLUSION: 1. No large vessel stenosis or aneurysm. 2. Normal variants as described above. Leonard Vaughn MD Chest X-Ray 12/18/17 1701 Signed Impressions: Service Date/Time: Monday, December 18, 2017 17:03 - CONCLUSION: Nasogastric tube now in place with tip below the [id number] of the radiograph. No significant interval change in bilateral pulmonary opacity with basilar predominance. Gatito Shipman MD Tubes & Lines Comment TLC right IJ Drip Comment Levophed (Nancy Springer) Physical Exam General Appearance: Well Developed, Comfortable Appearance Remarks intubated, sedated (Nancy Springer HARBOR ENGINEER) Eyes Eye Exam: Pupils Equal (Nancy SpringerP) Pulmonary Resp Exam: Breath Sounds Equal, Crackles, Rhonchi, Sputum, Decreased Bases Resp Remarks vented lung sounds (Nancy Springer HARBOR ENGINEER) Cardiology CV Exam: Regular, Normal Sinus Rhythm, Good Perfusion (Nancy Springer HARBOR ENGINEER) Gastrointestinal/Abdomen GI Exam: Soft, Non-Tender, Bowel Sounds Present (Nancy Springer. HARBOR ENGINEER) Musculoskeletal MS Exam: Joints Intact, Normal Tone (Nancy Springer HARBOR ENGINEER) Integumentary Skin Exam: Clear, Warm, Dry, Intact (Nancy Springer HARBOR ENGINEER) Extremeties Extremities Exam: No Edema, Pedal Pulses Palpable (Nancy Springer HARBOR ENGINEER) Neurologic Neuro Exam: Unresponsive, Sedated (Nancy Springer HARBOR ENGINEER) VTE Prophylaxis Device: SCDs (Nancy Springer HARBOR ENGINEER) Assessment/Plan Assessment Summary: Anemia of CKD, CHF, Diabetes Mellitus, End Stage Renal Disease Electrolyte Assessment: Hyperkalemia Problem List: (1) ESRD (end stage renal disease) ICD Codes: N18.6 - End-stage renal disease Status: Chronic Plan: Dialyzed yesterday due to hyperkalemia HD today to return to normal schedule. Avoid IVF, follow fluid status Obtain renal panel intermittently. He has functioning AVF, avoid right arm procedures. Monitor fluid and electrolyte balance. Avoid Gadolinium. (2) Respiratory failure ICD Codes: J96.90 - Respiratory failure, unspecified, unspecified whether with hypoxia or hypercapnia Plan: Management per broach setter. Vent weening as tolerated. + VAP,+ H. influenza and pseudomonas, MRSA, on sputum culture. On cefepime and Levaquin. Hx of CHF, also most likely has COPD Worsening leukocytosis. (3) Anemia ICD Codes: D64.9 - Anemia, unspecified Plan: Epogen with dialysis. (4) Secondary hyperparathyroidism of renal origin ICD Codes: N25.81 - Secondary hyperparathyroidism of renal origin Plan: Continue Calcium acetate with tube feeding. Also on Sensipar. (5) Encephalopathy ICD Codes: G93.40 - Encephalopathy, unspecified Plan: metabolic encephalopathy, acute CVA per MRI. MRA negative. Seen by neurology. (Nancy Springer) Plan patient was seen and examined. Not improving. Dialysis to be continued. Prognosis is guarded. (Tru Galarza MD) Nancy Springer Dec 21, 2017 12:22 Tru Galarza MD Dec 22, 2017 09:42
--- NOTE | 2017-12-21 12:29 | HHI.CCPN ---
Subjective Remarks/Hospital Course Patient is a 72-year-old male with multiple medical comorbidities which include end-stage renal disease, hypertension, CHF, COPD, cardiomyopathy, hyperparathyroidism and anemia of chronic disease. He was brought into ED via EMS for respiratory distress and was given albuterol treatment x2 in addition to Solu-Medrol 125 mg IV prior to arrival. The patient was initially placed on BiPap without any significant relief. In the ED he was intubated with etomidate, succinylcholine and placed on full mechanical ventilation. When seen the patient is sedated with Diprivan and on fentanyl infusion. His laboratory data significant for hyperkalemia with potassium 6.3, BUN 53, creatinine in 8.63 and BNP of 1218. His chest x-ray showed ET tube above the reed, interstitial edema. Nephrology service was notified and the patient is currently receiving hemodialysis treatment. ABG postintubation showed a pH of 7.30, CO2 54, pAO2 454, bicarb 26, sats of 97%. 12/13 Patient is intubated on no sedation. Awake and alert, s/p HD yesterday with removal 3L. Afebrile. 12/14: Afebrile. Remains on propofol drip at 20 mcg/kg per minute. Episodic hypotension. Episodic hypoglycemia requiring D50. On D10 drip for hyperkalemia ? Per nephrology's orders, potassium currently normalized. We'll start tube feeding. Added cefepime for Pseudomonas in sputum 12/15: Afebrile. Tolerating tube feeding. Currently on PSV trial is tolerated well. Not following commands however moving all 4 extremities purposefully today than yesterday. 12/16 Patient remains intubated and on Fentanyl and Diprivan drip for sedation. s /p HD yesterday 12/17 No events overnight. s/p HD yesterday with removal 1.8L. Remains sedated with Fentanyl and intubated. Patient doesn't follow commands off sedation. CT brain yesterday showed no acute process. T:99.9 last night 12/18: Afebrile. Patient ET tube migrated upwards towards vocal cords in high probability aspirated tube feeding. 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 Noted MRI brain revealed acute right and left parietal CVA. MRA brain and carotid Dopplers currently pending. Currently on baby aspirin. Also started on atorvastatin 10 mg daily. 12/19: Tmax 100. Central line placed yesterday due to hypotension. Currently norepinephrine and vasopressin drips. Wide pulse pressure arterial line. Tube feeds will be resumed. Stress dose steroids initiated. Last cortisol was 9. 12/20 Patient remains intubated and sedated with Diprivan and Fentanyl drips. On Levophed 8 mocs and Vasopressin 0.04. Afebrile. s/p HD yesterday with removal 4L. Subjective 12/21: Afebrile. Remains on propofol drip at 20 mcg/kg Per minute. On low- dose norepinephrine 2.5 g per minute as well. Remains quite agitated on the ventilator. 8 bowel movements overnight. C. difficile toxin is pending. Noted staph epi in blood 12/10 question kalie. ID consulted. On vancomycin Objective Vital Signs Date Time Temp Pulse Resp B/P (MAP) Pulse Ox O2 Delivery O2 Flow Rate FiO2 12/21/17 10:00 75 12/21/17 08:00 97.8 36 154/72 (99) 95 164/62 (96) 12/21/17 08:00 45 Intake and Output 12/21/17 12/21/17 12/22/17 08:00 16:00 00:00 Intake Total 326 ml Balance 326 ml Result Diagram: 12/21/17 0500 12/21/17 0500 Other Results Microbiology Date/Time Source Procedure Growth Status 12/18/17 19:50 Blood Peripheral Aerobic Blood Culture - Preliminary Staphylococcus Epidermidis Resulted 12/18/17 19:50 Blood Peripheral Anaerobic Blood Culture - Preliminary NO GROWTH IN 3 DAYS Resulted 12/16/17 15:00 Sputum Endotracheal Gram Stain - Final Complete 12/16/17 15:00 Sputum Culture - Final Pseudomonas Aeruginosa Haemophilus Influenzae S. Aureus Mrsa Complete Imaging Last Impressions Chest X-Ray 12/20/17 0600 Signed Impressions: Service Date/Time: Wednesday, December 20, 2017 02:02 - CONCLUSION: 1. Basilar airspace consolidation similar to December 19. Support apparatus in good position. Khoa Franco MD Abdomen X-Ray 12/20/17 0600 Signed Impressions: Service Date/Time: Wednesday, December 20, 2017 02:07 - CONCLUSION: 1. Moderate constipation with stool throughout large bowel. NG coiled in stomach. Khoa Franco MD Neck Magnetic Resonance Angiography 12/19/17 0000 Signed Impressions: Service Date/Time: Tuesday, December 19, 2017 12:24 - CONCLUSION: 1. Patent carotids and vertebrals. Marco Antonio Henriquez Jr., MD Head Magnetic Resonance Angiography 12/19/17 0000 Signed Impressions: Service Date/Time: Tuesday, December 19, 2017 12:24 - CONCLUSION: 1. No large vessel stenosis or aneurysm. 2. Normal variants as described above. Leonard Vaughn MD Brain MRI 12/17/17 0000 Signed Impressions: Service Date/Time: Sunday, December 17, 2017 11:33 - CONCLUSION: Small foci of retracted diffusion in the parietal periventricular white matter bilaterally indicating small acute infarcts. No other acute intracranial findings. Gatito Shipman MD Head CT 12/16/17 0000 Signed Impressions: Service Date/Time: Saturday, December 16, 2017 10:58 - CONCLUSION: No acute disease. Marco Antonio Henriquez Jr., MD Objective Remarks GENERAL: 72-year-old male currently orotracheally intubated SKIN: Warm and dry. No rash HEAD: Normocephalic. Atraumatic EYES: Pupils are equally round and reactive at 3 mm. NECK: Supple, trachea midline. No JVD or lymphadenopathy. Right IJ CVL is clean dry and intact CARDIOVASCULAR: RRR. S1, S2. No S4. Without murmurs RESPIRATORY: Breath sounds equal bilaterally. No accessory muscle use. GASTROINTESTINAL: Abdomen soft, non-tender, nondistended. MUSCULOSKELETAL: Trace lower extremity. Right upper extremity positive thrill Neuro: Arousable, ventilator. Moves all 4 extremity spontaneously. Cranial nerves II through XII appear grossly intact. Appears to right greater than left. No DTRs. Vascular Central Line Catheter: Yes Assessment to: Continue Date of Insertion: Dec 18, 2017 Line: Central Venous Catheter Side: Right Location: Internal, Jugular A/P Assessment and Plan Neuro/Psych: Peripheral neuropathy Right greater than left parietal CVA Monitor Neuro status. CT brain no acute findings 12/17 EEG revealed Sharp's triphasic right greater than left. No epileptiform discharges MRI brain 12/17 revealed 6 mm right parietal and tiny left parietal lacunar infarct in the periventricular white matter. MRA brain/neck 12/19: No large vessel stenosis or aneurysm. Aspirin 81 mg daily Atorvastatin 10 mg a day. Triglycerides elevated On Fentanyl as needed/propofol at 20 mcg/kg per minute drips for sedation. Daily sedation vacation Goal of RASS -2 Continue gabapentin 300 mg daily for peripheral neuropathy Hydrochloroquine 200 mg daily for arthritis resumed As needed midazolam for breakthrough agitation. Dexmedetomidine drip in attempt to wean. Dr. Ace neurology following CV: Chronic diastolic heart failure - Mild pulmonary hypertension with pulmonary arterial pressure 46.7 mmHg Currently on norepinephrine at 2.5 mcg/m to maintain MAP>65mmHg Decrease hydrocortisone 50 mg Q 8 hours. Cortisol level 9 on 12/15 2-D echocardiogram reveals EF of 55-60%. Mild MR/TR. Pulmonary arterial Pressures 46.7 mmHg Holding carvedilol 3.125 mg twice a day in light of atrial fibrillation Received 1 dose of digoxin 0.25 mg on 12/15 Resp: Acute hypoxemic and hypercapnic respiratory failure Polymicrobial pneumonia - Pseudomonas and Haemophilus influenza History of COPD [facility] /11/25/39 Continue with vent support keep sat >92% Ventilator bundle Albuterol/ipratropium aerosols every 6 hours with albuterol aerosols every 2 hours. Dyspnea SBT daily as earle. GI: Constipation - resolved Nepro goal 55 cc an hour for nutrition's recommendations. KUB abdomen:Moderate constipation with stool throughout large bowel Famotidine 20 mg by tube daily for GI prophylaxis Docusate sodium/senna 1 tablet twice a day for bowel regimen. Metoclopramide 5 mg every 8 hours as needed nausea/high residuals Check C. difficile Endo: Hyperglycemia Secondary hyperparathyroidism Increase SSI to medium scale with accu checks Q4hr. Continue Cinacalet 30 mg daily for secondary hyperparathyroidism when able Cortisol level - 9 Renal: End-stage renal disease on hemodialysis Tuesday/Tuesday/Tuesday Monitor renal function, avoid nephrotoxins. HD per renal- Dr. Galarza s/p HD yesterday with removal 4L. Heme: Normocytic anemia/anemia of chronic kidney disease Thrombocytopenia Leukocytosis..trending upwards Monitor CBC daily. Follow trends Continue Epogen with hemodialysis ID: Haemophilus influenza/pseudomonas aeruginosa pneumonia/MRSA Staph epi bacteremia Pertinent cultures On cefepime, levofloxacin, add Vanco/30. d./c metronidazole. monitor for signs of infections ( Fever, WBC) 12/12 - sputum - Haemophilus influenza, pseudomonas aeruginosa 12/12 - blood cultures 2 - no growth Follow up on sputum cx from 12/16: MRSA, H. Influenza, Pseudomonas Follow-up on blood cultures 12/18 [facility] Infectious disease consult for antibiotic management Repeat blood cultures 2 today 12/21 [facility]: OP/OA PT evaluate and treat Access -Right IJ CVL day #4 placed 12/18 -Left radial arterial line day #4 placed 12/18. Discontinue today Prophylaxis - GI - famotidine - DVT - SCD/heparin subcutaneous Level III follow-up Saji Pearson MD Dec 21, 2017 12:29
[2017-12-21] MEDS ORDERED: Vancomycin Consult Pharmacy 1 EA OTHER SCH (12:30)
[2017-12-21] MEDS: PROPOFOL 1000 MG/100 ML INJ 100 ML IV PRN ×2 (15:12→22:42)
[2017-12-21] MEDS: LANTHANUM CARBONATE 500 MG CHEWABLE TABLET CHEW SCH ×2 (15:14→17:00)
[2017-12-21] MEDS: SODIUM CHLORIDE 0.9% FLUSH 10 ML FLUSH IV FLUSH SCH (15:15)
[2017-12-21] MEDS: RESP: ALBUTEROL 2.5 MG/IPRATROPIUM 0.5 MG NEB (SCH) NEB ×3 (15:52→21:15)
[2017-12-21] MEDS ORDERED: RESP: ALBUTEROL 2.5 MG/IPRATROPIUM 0.5 MG NEB (SCH) NEB (16:00)
--- NOTE | 2017-12-21 16:26 | PD.CONS ---
Consult Service Palliative Care Consult Requested By Dr. Pearson. Primary Care Physician Grey Calero MD Reason for Consultation a. To assist with evaluation and management of symptoms including: Shortness of breath, restlessness/agitation, debility. b. To assist medical decision maker(s) with: better understanding of current medical conditions; weighing benefits/burdens of medical treatment options; making medical treatment decisions. . HPI History of Present Illness Mr. Sy is a 72-year-old male with a medical history significant for end- stage renal disease on hemodialysis, COPD, CHF, cardiomyopathy and anemia of chronic disease. Patient presented to ED via EMS on 12/12/17 endorsing worsening shortness of breath. ED workup to include chest x-ray revealing diffuse infiltrates, cardiomegaly with pulmonary vascular congestion. Patient presented with leukocytosis of 18.5, Hgb 9.6, platelet count 263. Potassium 6.3 , BUN/creatinine 53/8.63. Elevated liver enzymes to include total bilirubin 0.6 , AST 46, ALT 64, alkaline phosphatase 128. BNP 1218. Upon ED arrival, patient was initially placed on BiPAP without significant relief. Clinical course complicated by acute respiratory failure requiring intubation and mechanical ventilation. Patient was admitted to medical ICU for further management. Nephrology, consulted given end-stage renal disease on hemodialysis. Patient was subsequently dialyzed on 12/12, 12/13 and 12/14. Clinical course further complicated by altered mental status, encephalopathy. Neurology, Dr. Ace consulted on 12/17/17. EEG revealing moderate to severe encephalopathy. MRI revealing small acute infarct. Clinical course further complicated by hypotension requiring vasopressors. Patient remained agitated on the vent, concerns regarding his ability to medically extubate. Sputum culture positive for MRSA, blood culture positive for Staphylococcus epidermidis. ID consultation pending for further recommendations and management. Palliative care has been consulted to assist with goals of care given patient complicated medical history and current clinical condition. Patient seen in the medical ICU. He remains intratracheally intubated on mechanical ventilation. Currently 40% FiO2. Patient restless during my visit, heart rate in the 120s. Eyes half open, not tracking or following any commands. Patient is scheduled for hemodialysis today. No family at bedside. Case discussed with Dr. Pearson and bedside RN Clinton. Telephone call to patient's tire rebuilder Dr. Demetris Calero. Confirmation of advance directives available. Contacted Sonya, patient receiving hemodialysis 3 times a week. Confirmed NO advance directives, contact information is for patient's step-son John. However, receptionists recalls that patient once mentioned having 2 children. Telephone conversation with patient's friend Joanie Chirinos -listed on contact information. Friend tells me that he has known patient for the past few years, used to be coworkers. Friend has no information on patient's family members, unaware if patient has biological children. Telephone conversation with patient's jaguar Rogersoralcristy. He confirmed being patient's jaguar, his mother Nigel Sy was to patient, she in 2008. John indicates not knowing much about patient's past has he was very "reserved". Unknown as per John if patient has any biological children, however, there is a sister in [place]. John to call back with sister's information. Medical information provided. Heavier reports that we have him listed as proxy healthcare decision-maker and that he has been signing consents. Explained to John that we need to obtain additional information before establishing proxy decision maker. He verbalized understanding. . Function/Cognitive Trajectory As per prior admission in 2016, patient residing alone. Independent with all ADLs. Driving himself to all of his hemodialysis appointments. . Review of Systems ROS Limitations: Clinical Condition, Intubated, Altered Mental Status Constitutional: DENIES: Fever Eyes: DENIES: Eye inflammation Ears, nose, mouth, throat: DENIES: Nasal discharge, Running Nose, Epistaxis Respiratory: COMPLAINS OF: Shortness of breath Cardiovascular: COMPLAINS OF: Dyspnea on Exertion, DENIES: Lower Extremity Edema Gastrointestinal: COMPLAINS OF: Diarrhea, DENIES: Vomiting Genitourinary: DENIES: Urinary incontinence Integumentary: COMPLAINS OF: Excessive dryness Hematologic/Lymphatics: COMPLAINS OF: Bruising Neurologic: DENIES: Seizures, Tremor Psychiatric: COMPLAINS OF: Anxiety, Confusion, Agitation Other ROS: Limited ROS secondary to patient's clinical condition, intubated on mechanical ventilation. ROS obtained from medical records, clinical observation. Past Family Social History Coded Allergies: No Known Allergies (Verified Allergy, Unknown, 12/12/17) Past Medical History End-stage renal disease on hemodialysis M-W-F COPD CHF Cardiomyopathy Atherosclerotic heart disease, history of [place] Asthma GERD Anemia of chronic disease Hyperparathyroidism Hepatitis C History of acute respiratory failure requiring intubation and mechanical ventilation in July 2005 . Past Surgical History Left hip replacement AV fistula to right upper extremity Cardiac catheter in 2002 . Reported Medications Sensipar (Cinacalcet) 30 Mg Tab 30 Mg PO DAILY Plaquenil (Hydroxychloroquine Sulfate) 200 Mg Tab 200 Mg PO DAILY Gabapentin 300 Mg Cap 300 Mg PO DAILY Renvela (Sevelamer Carbonate) 800 Mg Tab 800 Mg PO QID . Current Medications Medications (Trade) Dose Ordered Sig/Jhonathan Route Start Time Stop Time Status Last Admin (NS Flush) 2 ml UNSCH PRN IVF 12/12/17 10:15 12/17/17 09:59 Propofol 100 ml @ 0 mls/hr TITRATE PRN IV 12/12/17 10:45 12/21/17 15:12 (Heparin Inj) 5,000 units Q12H SQ 12/12/17 14:00 12/21/17 15:14 Miscellaneous Information 1 Q361D XX 12/12/17 14:00 (Chlorhexidine 2% Cloth) Taper DAILY@04 TOP 12/13/17 04:00 12/09/18 03:59 12/17/17 02:21 (Chlorhexidine 2% Cloth) 3 pack UNSCH PRN TOP 12/12/17 14:00 (Dayna-Colace) 1 tab BID PO 12/12/17 21:00 12/21/17 09:57 (Milk Of Magnesia Liq) 30 ml Q12H PRN PO 12/12/17 14:00 (Senokot) 17.2 mg Q12H PRN PO 12/12/17 14:00 (Dulcolax Supp) 10 mg DAILY PRN RECTAL 12/12/17 14:00 (Lactulose Liq) 30 ml DAILY PRN PO 12/12/17 14:00 (D50w (Vial) Inj) 50 ml UNSCH PRN IV PUSH 12/12/17 14:15 12/14/17 15:19 (Glucagon Inj) 1 mg UNSCH PRN OTHER 12/12/17 14:15 Sodium Chloride 1,000 ml @ 0 mls/hr Q0M PRN OTHER 12/12/17 14:25 (Heparin Inj) 8,000 units UNSCH PRN IV FLUSH 12/12/17 14:30 Sodium Chloride 1,000 ml @ 200 mls/hr Q5H PRN IV 12/12/17 14:25 Sodium Chloride 1,000 ml @ 0 mls/hr Q0M PRN OTHER 12/12/17 14:25 (Mannitol Inj) 12.5 gm UNSCH PRN IV 12/12/17 14:30 Albumin Human 100 ml @ 60 mls/hr UNSCH PRN IV 12/12/17 14:30 12/19/17 13:46 (NS Flush) 5 ml UNSCH PRN IV FLUSH 12/12/17 14:30 (Heparin Inj) UNSCH PRN .XX 12/12/17 14:30 (Gentamicin (Dialysis) Inj) 20 mg UNSCH PRN OTHER 12/12/17 14:30 (Zofran Inj) 4 mg UNSCH PRN IV PUSH 12/12/17 14:30 (Tylenol) 650 mg UNSCH PRN PO 12/12/17 14:30 (Benadryl) 25 mg UNSCH PRN PO 12/12/17 14:30 (Nitrostat Sl) 0.4 mg UNSCH PRN SL 12/12/17 14:30 (Catapres) 0.1 mg UNSCH PRN PO 12/12/17 14:30 (Epogen Inj) 10,000 units UNSCH PRN IV PUSH 12/12/17 14:30 12/19/17 16:24 (Gelfoam 12 Mm/7 Mm Top) 1 foam UNSCH PRN TOP 12/12/17 14:30 12/19/17 16:24 Fentanyl Citrate 250 ml @ 5 mls/hr TITRATE PRN IV 12/13/17 20:45 12/20/17 08:16 Cefepime HCl 2000 mg/Sodium Chloride 100 ml @ 200 mls/hr Q48H PRN IV 12/14/17 21:15 (Pepcid) 20 mg DAILY NG 12/15/17 09:00 12/21/17 09:57 (Tears Naturale Opth Soln) 1 drop Q8HR EACH EYE 12/14/17 22:00 12/21/17 15:14 (Albuterol Neb) 2.5 mg Q2HR NEB PRN NEB 12/14/17 21:45 (Sensipar) 30 mg DAILY PO 12/15/17 09:00 12/21/17 09:00 (Plaquenil) 200 mg DAILY PO 12/15/17 09:00 12/21/17 09:58 (Bactroban Nasal 2% Oint) Taper BID EACH NARE 12/15/17 21:00 12/11/18 20:59 12/20/17 21:00 (Coreg) 3.125 mg Q12HR PO 12/15/17 21:00 12/21/17 09:57 (Mycostatin Liq) 5 ml QID OROPHARYNG 12/18/17 09:00 12/28/17 08:59 12/20/17 18:52 (Aspirin Chew) 81 mg DAILY PO 12/19/17 09:00 12/21/17 09:57 (Lipitor) 10 mg HS PO 12/18/17 21:00 12/20/17 21:38 (NS Flush) DAILY IV FLUSH 12/19/17 09:00 12/21/17 15:15 (NS Flush) UNSCH PRN IV FLUSH 12/18/17 17:15 Levofloxacin/ Dextrose 50 ml @ 50 mls/hr Q48H IV 12/18/17 17:00 12/20/17 16:26 Norepinephrine Bitartrate 4 mg/ Sodium Chloride 250 ml @ 7.5 mls/hr TITRATE PRN IV 12/18/17 21:00 12/21/17 03:08 (Brethine Inj) 1 mg UNSCH PRN SQ 12/18/17 21:00 (Reglan Inj) 5 mg Q8H PRN IV PUSH 12/20/17 08:00 (D50w (Vial) Inj) 50 ml UNSCH PRN IV PUSH 12/20/17 08:00 (Glucagon Inj) 1 mg UNSCH PRN OTHER 12/20/17 08:00 (NovoLIN R SUPPLEMENTAL SCALE) 1 Q4HR SQ 12/20/17 08:00 12/21/17 12:29 Cefepime HCl 1000 mg/Sodium Chloride 100 ml @ 200 mls/hr Q24H IV 12/20/17 09:00 12/20/17 09:54 (SoluCORTEF INJ) 50 mg Q8HR IV PUSH 12/21/17 14:00 12/21/17 15:13 (Fosrenol Chew) 500 mg TID@0800,1200,1700 CHEW 12/21/17 14:00 12/21/17 15:14 (Duoneb Neb) 1 ampule Q6HR NEB NEB 12/21/17 16:00 Dexmedetomidine HCl 200 mcg/ Sodium Chloride 52 ml @ 4.18 mls/hr TITRATE PRN IV 12/21/17 12:30 (Versed Inj) 2 mg Q1HR PRN IV PUSH 12/21/17 12:30 Family History Both parents are , unknown cause. . Substance Use Tobacco: Former smoker. history of having smoked 2-1/2 packs per day 20 years , stopped about 1994. Alcohol: None reported as per family. Prescription med abuse: None reported as per family. Illicits: None reported as per family. . Psychosocial History Retired, , lives alone. in 2008. . Spiritual/Cultural Factors Jehovah Witness. . Health Care Surrogate(s): Unclear if advance directives have been completed. Healthcare proxy decision maker to be determined. . Physical Exam Vital Signs Date Time Temp Pulse Resp B/P (MAP) Pulse Ox O2 Delivery O2 Flow Rate FiO2 12/21/17 14:00 75 12/21/17 14:00 45 12/21/17 12:16 100 40 12/21/17 12:00 98.1 80 21 129/46 (73) 98 12/21/17 12:00 75 12/21/17 10:00 75 12/21/17 08:00 75 12/21/17 08:00 97.8 86 36 154/72 (99) 95 164/62 (96) 12/21/17 08:00 45 12/21/17 07:35 45 12/21/17 07:33 94 40 12/21/17 06:00 85 12/21/17 04:04 92 40 12/21/17 04:00 97.7 84 22 149/70 (96) 100 145/65 (91) 12/21/17 04:00 82 12/21/17 04:00 45 12/21/17 03:08 81 139/54 12/21/17 02:00 80 12/21/17 01:04 96 40 12/21/17 00:00 45 12/21/17 00:00 84 12/21/17 00:00 97.7 80 22 117/59 (78) 100 124/57 (79) 12/20/17 20:00 45 12/20/17 20:00 71 12/20/17 20:00 97.6 71 22 100/69 (79) 100 161/67 (98) 12/20/17 19:28 100 40 12/20/17 19:00 75 40 141/57 (85) 80 12/20/17 19:00 75 12/20/17 18:00 71 12/20/17 18:00 71 28 153/55 (87) 100 12/20/17 17:00 67 12/20/17 17:00 67 18 141/58 (85) 100 12/20/17 16:15 99 45 12/20/17 16:00 62 12/20/17 16:00 45 12/20/17 16:00 98.6 62 23 107/48 (67) 100 12/20/17 15:30 71 29 134/63 (86) 129/68 (88) 12/20/17 15:30 71 Exam CONSTITUTIONAL/GENERAL: This is an adequately nourished elderly man in moderate distress secondary to restlessness, agitation. TUBES/LINES/DRAINS: ETT, OG, Murillo catheter, rectal tube, right IJ, soft wrist restraints. SKIN: No jaundice, rashes, or lesions. Ecchymoses on upper extremities. No wounds seen anteriorly. Skin temperature appropriate. Not diaphoretic. HEAD: Atraumatic. Normocephalic. EYES: Pupils equal and round and reactive. No scleral icterus. No injection or drainage. Fundi not examined. ENT: Unable to evaluate hearing secondary to clinical condition. Nose without bleeding or purulent drainage. Moist oral cause a. NECK: Trachea midline. Supple. CARDIOVASCULAR: Tachycardic with heart rate in the 120s. Regular rhythm. Peripheral pulses symmetric. RESPIRATORY/CHEST: Symmetric, coarse sounds bilaterally. Endotracheal intubated on mechanical ventilation. GASTROINTESTINAL: Abdomen large, round, soft. Bowel sounds present. GENITOURINARY: Without palpable bladder distension. Murillo catheter in place. MUSCULOSKELETAL: Extremities without clubbing, cyanosis, or edema. No mottling or clubbing. NEUROLOGICAL: Not following any commands or attempting to communicate. Moves all extremities spontaneously. PSYCHIATRIC: Restlessness/agitated. . Diagnostic Tests Laboratory Laboratory Tests Test 12/18/17 18:45 12/18/17 22:47 12/19/17 04:10 12/19/17 17:34 Lactic Acid Level 1.0 mmol/L (0.4-2.0) 0.9 mmol/L (0.4-2.0) 0.9 mmol/L (0.4-2.0) 1.0 mmol/L (0.4-2.0) White Blood Count 13.6 TH/MM3 (4.0-11.0) 14.8 TH/MM3 (4.0-11.0) Red Blood Count 3.30 MIL/MM3 (4.50-5.90) 3.42 MIL/MM3 (4.50-5.90) Hemoglobin 9.9 GM/DL (13.0-17.0) 10.1 GM/DL (13.0-17.0) Hematocrit 29.8 % (39.0-51.0) 30.9 % (39.0-51.0) Mean Corpuscular Volume 90.2 FL (80.0-100.0) 90.4 FL (80.0-100.0) Mean Corpuscular Hemoglobin 30.1 PG (27.0-34.0) 29.4 PG (27.0-34.0) Mean Corpuscular Hemoglobin Concent 33.4 % (32.0-36.0) 32.5 % (32.0-36.0) Red Cell Distribution Width 15.2 % (11.6-17.2) 15.4 % (11.6-17.2) Platelet Count 153 TH/MM3 (150-450) 154 TH/MM3 (150-450) Mean Platelet Volume 7.4 FL (7.0-11.0) 7.4 FL (7.0-11.0) Blood Urea Nitrogen 82 MG/DL (7-18) Creatinine 8.59 MG/DL (0.60-1.30) Random Glucose 78 MG/DL (74-106) Total Protein 6.0 GM/DL (6.4-8.2) Albumin 2.0 GM/DL (3.4-5.0) Calcium Level 9.6 MG/DL (8.5-10.1) Phosphorus Level 2.8 MG/DL (2.5-4.9) Magnesium Level 2.2 MG/DL (1.5-2.5) Alkaline Phosphatase 140 U/L (45-117) Aspartate Amino Transf (AST/SGOT) 51 U/L (15-37) Alanine Aminotransferase (ALT/SGPT) 31 U/L (12-78) Total Bilirubin 0.8 MG/DL (0.2-1.0) Sodium Level 137 MEQ/L (136-145) Potassium Level 4.6 MEQ/L (3.5-5.1) Chloride Level 96 MEQ/L (98-107) Carbon Dioxide Level 31.8 MEQ/L (21.0-32.0) Anion Gap 9 MEQ/L (5-15) Estimat Glomerular Filtration Rate 6 ML/MIN (>89) Neutrophils (%) (Auto) 73.7 % (16.0-70.0) Lymphocytes (%) (Auto) 7.1 % (9.0-44.0) Monocytes (%) (Auto) 16.4 % (0.0-8.0) Eosinophils (%) (Auto) 2.4 % (0.0-4.0) Basophils (%) (Auto) 0.4 % (0.0-2.0) Neutrophils # (Auto) 10.9 TH/MM3 (1.8-7.7) Lymphocytes # (Auto) 1.0 TH/MM3 (1.0-4.8) Monocytes # (Auto) 2.4 TH/MM3 (0-0.9) Eosinophils # (Auto) 0.4 TH/MM3 (0-0.4) Basophils # (Auto) 0.1 TH/MM3 (0-0.2) CBC Comment AUTO DIFF Differential Total Cells Counted 100 Neutrophils % (Manual) 64 % (16-70) Band Neutrophils % 6 % (0-6) Lymphocytes % 6 % (9-44) Monocytes % 17 % (0-8) Eosinophils % 5 % (0-4) Neutrophils # (Manual) 10.7 TH/MM3 (1.8-7.7) Metamyelocytes 2 % (0-1) Differential Comment FINAL DIFF MANUAL Platelet Estimate NORMAL (NORMAL) Platelet Morphology Comment NORMAL (NORMAL) Test 12/20/17 04:50 12/20/17 10:59 12/21/17 05:00 White Blood Count 11.9 TH/MM3 (4.0-11.0) 21.8 TH/MM3 (4.0-11.0) Red Blood Count 3.08 MIL/MM3 (4.50-5.90) 3.50 MIL/MM3 (4.50-5.90) Hemoglobin 9.1 GM/DL (13.0-17.0) 10.4 GM/DL (13.0-17.0) Hematocrit 27.8 % (39.0-51.0) 31.6 % (39.0-51.0) Mean Corpuscular Volume 90.5 FL (80.0-100.0) 90.3 FL (80.0-100.0) Mean Corpuscular Hemoglobin 29.7 PG (27.0-34.0) 29.7 PG (27.0-34.0) Mean Corpuscular Hemoglobin Concent 32.8 % (32.0-36.0) 32.9 % (32.0-36.0) Red Cell Distribution Width 15.6 % (11.6-17.2) 15.2 % (11.6-17.2) Platelet Count 136 TH/MM3 (150-450) 168 TH/MM3 (150-450) Mean Platelet Volume 7.7 FL (7.0-11.0) 7.7 FL (7.0-11.0) Neutrophils (%) (Auto) 83.8 % (16.0-70.0) 90.4 % (16.0-70.0) Lymphocytes (%) (Auto) 7.0 % (9.0-44.0) 2.8 % (9.0-44.0) Monocytes (%) (Auto) 9.1 % (0.0-8.0) 6.7 % (0.0-8.0) Eosinophils (%) (Auto) 0.0 % (0.0-4.0) 0.0 % (0.0-4.0) Basophils (%) (Auto) 0.1 % (0.0-2.0) 0.1 % (0.0-2.0) Neutrophils # (Auto) 10.0 TH/MM3 (1.8-7.7) 19.7 TH/MM3 (1.8-7.7) Lymphocytes # (Auto) 0.8 TH/MM3 (1.0-4.8) 0.6 TH/MM3 (1.0-4.8) Monocytes # (Auto) 1.1 TH/MM3 (0-0.9) 1.5 TH/MM3 (0-0.9) Eosinophils # (Auto) 0.0 TH/MM3 (0-0.4) 0.0 TH/MM3 (0-0.4) Basophils # (Auto) 0.0 TH/MM3 (0-0.2) 0.0 TH/MM3 (0-0.2) CBC Comment AUTO DIFF AUTO DIFF Differential Total Cells Counted 100 100 Neutrophils % (Manual) 62 % (16-70) 81 % (16-70) Band Neutrophils % 27 % (0-6) 12 % (0-6) Lymphocytes % 5 % (9-44) 3 % (9-44) Monocytes % 6 % (0-8) 3 % (0-8) Neutrophils # (Manual) 10.6 TH/MM3 (1.8-7.7) 20.5 TH/MM3 (1.8-7.7) Differential Comment FINAL DIFF MANUAL FINAL DIFF MANUAL Toxic Granulation 1+ (NORMAL) Platelet Estimate LOW (NORMAL) NORMAL (NORMAL) Platelet Morphology Comment NORMAL (NORMAL) NORMAL (NORMAL) Blood Urea Nitrogen 74 MG/DL (7-18) 72 MG/DL (7-18) Creatinine 6.49 MG/DL (0.60-1.30) 5.85 MG/DL (0.60-1.30) Random Glucose 266 MG/DL (74-106) 220 MG/DL (74-106) Albumin 2.6 GM/DL (3.4-5.0) Calcium Level 9.0 MG/DL (8.5-10.1) 9.0 MG/DL (8.5-10.1) Phosphorus Level 5.3 MG/DL (2.5-4.9) Sodium Level 135 MEQ/L (136-145) 137 MEQ/L (136-145) Potassium Level 5.6 MEQ/L (3.5-5.1) 4.9 MEQ/L (3.5-5.1) 3.9 MEQ/L (3.5-5.1) Chloride Level 93 MEQ/L (98-107) 94 MEQ/L (98-107) Carbon Dioxide Level 29.2 MEQ/L (21.0-32.0) 29.8 MEQ/L (21.0-32.0) Anion Gap 13 MEQ/L (5-15) 13 MEQ/L (5-15) Estimat Glomerular Filtration Rate 9 ML/MIN (>89) 10 ML/MIN (>89) Metamyelocytes 1 % (0-1) Random Vancomycin Level 19.9 COMMENT Result Diagram: 12/21/17 0500 12/21/17 0500 Microbiology Microbiology Date/Time Source Procedure Growth Status 12/21/17 14:32 Blood Peripheral Aerobic Blood Culture Pending Received 12/21/17 14:32 Blood Peripheral Anaerobic Blood Culture Pending Received 12/21/17 14:23 Blood Peripheral Aerobic Blood Culture Pending Received 12/21/17 14:23 Blood Peripheral Anaerobic Blood Culture Pending Received 12/18/17 19:50 Blood Peripheral Aerobic Blood Culture - Preliminary Staphylococcus Epidermidis Resulted 12/18/17 19:50 Blood Peripheral Anaerobic Blood Culture - Preliminary NO GROWTH IN 3 DAYS Resulted 12/18/17 18:45 Blood Peripheral Aerobic Blood Culture - Preliminary NO GROWTH IN 3 DAYS Resulted 12/18/17 18:45 Blood Peripheral Anaerobic Blood Culture - Preliminary NO GROWTH IN 3 DAYS Resulted Imaging Last Impressions Chest X-Ray 12/20/17 06 Signed Impressions: Service Date/Time: Wednesday, December 20, 2017 02:02 - CONCLUSION: 1. Basilar airspace consolidation similar to December 19. Support apparatus in good position. Khoa Franco MD Abdomen X-Ray 12/20/17 0600 Signed Impressions: Service Date/Time: Wednesday, December 20, 2017 02:07 - CONCLUSION: 1. Moderate constipation with stool throughout large bowel. NG coiled in stomach. Khoa Franco MD Neck Magnetic Resonance Angiography 12/19/17 0000 Signed Impressions: Service Date/Time: Tuesday, December 19, 2017 12:24 - CONCLUSION: 1. Patent carotids and vertebrals. Marco Antonio Henriquez Jr., MD Head Magnetic Resonance Angiography 12/19/17 0000 Signed Impressions: Service Date/Time: Tuesday, December 19, 2017 12:24 - CONCLUSION: 1. No large vessel stenosis or aneurysm. 2. Normal variants as described above. Leonard Vaughn MD Brain MRI 12/17/17 0000 Signed Impressions: Service Date/Time: Sunday, December 17, 2017 11:33 - CONCLUSION: Small foci of retracted diffusion in the parietal periventricular white matter bilaterally indicating small acute infarcts. No other acute intracranial findings. Gatito Shipman MD Head CT 12/16/17 0000 Signed Impressions: Service Date/Time: Saturday, December 16, 2017 10:58 - CONCLUSION: No acute disease. Marco Antonio Henriquez Jr., MD Procedures * 12/12/17 -endotracheal intubation. . Patient/Family Conference Present at Family Conference: Jaguar Benito. Family Conference Time (mins): 31 Family Conference Location: Telephone Issues Discussed: * Palliative care role, purpose, approach * Additional medical, psychosocial, and spiritual history * Patients general health, functional status, and cognitive changes in the months leading up to the current hospitalization * Patient/family understanding of the current medical problems * Patient/family understanding of prognosis -guarded prognosis * Patients goals of care as best understood from advance directives and/or conversations and/or values * Questions answered to the best of my ability * Palliative care contact information provided . Assessment and Plan Disease Oriented Problem List: (1) Respiratory failure (2) Pneumonia (3) Cerebrovascular accident (CVA) (4) ESRD (end stage renal disease) (5) Encephalopathy (6) Congestive heart failure Symptom Scale: (1) Anxiety 0-10 Scale: Unable to quantify (2) Pain 0-10 Scale: Unable to quantify (3) Shortness of breath 0-10 Scale: Unable to quantify Pertinent Non-Medical Issues Psychosocial: Retired, , lives alone. in 2008. Spiritual: Jehovah Witness. Legal: Appears that no advance directives have been completed. Ethical issues impacting care: Pending designation of healthcare proxy decision maker. Patient unable to participating in medical decision-making secondary to clinical condition. . Important Contacts Sosastephanie John Thong . Sister -pending name and contact information. . Prognosis Mr. Sy is a 72-year-old male with a medical history significant for end- stage renal disease on hemodialysis, COPD, CHF, cardiomyopathy and anemia of chronic disease. Patient presented to ED via EMS on 12/12/17 endorsing worsening shortness of breath. Clinical course complicated by acute respiratory failure requiring intubation and mechanical ventilation. Clinical course further complicated by acute CVA, pneumonia, persistent respiratory failure, sepsis. Patient's prognosis is guarded. Very high risk for further complications, clinical decline and . . Code Status: Full Code Plan * CODE STATUS: Full code by default. * HEALTHCARE DECISION-MAKING: Patient unable to participate in medical decision- making secondary to clinical condition, encephalopathic, intubated on mechanical ventilation. Unlikely to regain medical decision-making capacity given critical condition. It appears that no advance directives have been completed, palliative care has reached to patient's PCP and hemodialysis center. Patient is , unclear if he has any biological children. One jaguar Benito is willing to serve as proxy, however, it appears that patient has a sister in [place]. Pending sister's contact info. -- Healthcare proxy decision maker to be determined. * GOALS OF CARE: Unable to address given pending identification of healthcare proxy decision maker. See above. * SYMPTOMS: = Shortness of breath, secondary to respiratory failure. Currently intubated on mechanical ventilation. = Pain, history of chronic pain and neuropathy. Tylenol available as needed. Fentanyl infusion oncology's time as per toll bridge attendant. = Anxiety/agitation: Patient currently on propofol drip. Versed 2 mg IV available as needed. * Case discussed with Dr. Pearson and bedside RN Clinton. * Palliative care contact information has been provided to patient's jaguar Lopez. * Palliative care will continue to follow-up for further clarifications of goals of care as patient's clinical course continues to evolve. . Time Spent Total Floor Time (mins): 65 (Total time to include review and summarization of available medical records to include prior hospitalizations, physical exam, telephone conversation with patient's step son, case discussion with Dr. Pearson and bedside RN.) >50% Counseling/Coord of Care: Yes Thank you for the opportunity to participate in the care of Mr. Sy. Attestation To help prompt me to consider important information that might be impacting today's encounter and assessment, information from prior notes written by myself or my colleagues may have been "brought forward" into today's note. My signature on this note, however, is an attestation that I personally performed the exam, history, and/or decision-making noted today, and, unless otherwise indicated, the interactions with patient, family, and staff as well as the review of records all occurred today. I also attest that the listed assessment and stated plan reflect my best clinical judgment today based on the combination of historical information, prior notes, and today's exam/ interactions. When time spent is documented, it refers only to time spent today by the signer, or if indicated, combined time spent today by collaborating physician/nurse practitioner. Cindy Gatica Dec 21, 2017 16:26
[2017-12-21] MEDS: LINEZOLID 600 MG PREMIX 300 ML IV SCH (17:00)
--- NOTE | 2017-12-21 18:26 | MB ---
cc: AGUILAR JACKSON MD DATE OF CONSULTATION: 12/21/[address] Pearson. REASON FOR CONSULTATION: MRSA pneumonia. Staph epi bacteremia. Assistance with antibiotics. HISTORY OF PRESENT ILLNESS This is a 72 year-old white male who presented to the emergency department with shortness of breath on 12/12/2017. The patient has a history of COPD. He was intubated in the emergency department and admitted to the hospital and has been undergoing treatment. He remains on the ventilator. Sputum culture on admission came back showing Haemophilus influenzae and Pseudomonas aeruginosa. The sputum culture was repeated on 12/16 and it showed MRSA in addition to the previous organisms. The patient also had one blood culture of staph epidermidis on 12/18/2017. He had periodic low grade fever on admission with the highest temperature being 100.7 degrees on 12/15 and his last temperature of 100 degrees occurred on 12/19. The patient is sedated on the ventilator. His chest x-ray showing bibasilar airspace consolidation. On admission chest x-ray showed diffuse infiltrates. The patient undergoes dialysis 3 days a week. His white count has increased to 21.8 today. Previously was 11.9 yesterday. He was evaluated by neurology and felt to have metabolic encephalopathy. PAST MEDICAL HISTORY: 1. COPD. 2. CHF. 3. Anemia. 4. End-stage renal disease. 5. Cardiomyopathy. 6. History of left hip replacement. 7. History of right upper extremity A-V fistula. 8. Secondary hyperparathyroidism. ALLERGIES NO KNOWN DRUG ALLERGIES. MEDICATIONS 1. Cefepime 2. Levaquin. 3. Vancomycin given at dialysis. 4. Hydrocortisone. 5. Fosrenol. 6. Aspirin. 7. Lipitor. 8. Levophed. 9. Coreg. 10. Pepcid. 11. Sensipar. 12. Plaquenil. SOCIAL HISTORY: Unknown. FAMILY HISTORY Unable to obtain. REVIEW OF SYSTEMS: Unable to obtain. PHYSICAL EXAMINATION: This is a well-developed male who is in no acute distress. He is sedated on the ventilator. Vital signs: Temperature 98.1, heart rate 132, blood pressure 107/58. Respiratory rate per ventilator. HEENT: Head atraumatic. Extraocular movements cannot be assessed adequately. No icterus. Oropharynx intubated. Neck: Supple. No palpable adenopathy. Lungs: Rhonchi at both right and left diffusely. Heart: Irregular S1-S2. No audible murmur. Abdomen: Soft, nontender. Bowel sounds present. Rectal: Not performed. Extremities: No clubbing or cyanosis or edema. Skin: No diffuse rash. Neuro: Unable to assess. Psych: Unable to assess. LABORATORY DATA WBC 28.1, 90% neutrophils including 12% bands, hemoglobin 10.4, platelet count 168. Creatinine 5.85, BUN 10, sodium 137. Random vancomycin 19.9. IMPRESSION 1. Pneumonia due to MRSA and pseudomonas. 2. Acute respiratory failure. 3. End-stage renal disease. 4. One blood culture with staph epidermidis, out of four bottles suggesting contamination. RECOMMENDATIONS 1. Continue cefepime. 2. Continue Levaquin. 3. Change the vancomycin to Linezolid. 4. Follow chest x-ray and clinical response. I will follow the patient's progress with you. Aguilar Jackson MD FD/LUCITA /4:36 PM /5:34 PM
[2017-12-21] MEDS: ATORVASTATIN 10 MG TAB PO SCH (20:38)
[2017-12-21] MEDS: SODIUM CHLORIDE 0.9% FLUSH 10 ML FLUSH IV FLUSH PRN (20:39)
[2017-12-21] MEDS ORDERED: DEXMEDETOMIDINE INJ 1,000 MCG in SODIUM CHLOR 0.9% 250 ML INJ 240 ML IV PRN (21:15)
[2017-12-21] MEDS ORDERED: SODIUM CHLOR 0.9% 1000 ML INJ 1,000 ML IV ONE (21:45)
[2017-12-21] MEDS ORDERED: ALBUMIN 5% INJ 500 ML IV ONE (21:45)
[2017-12-21] MEDS: DEXMEDETOMIDINE INJ 200 MCG in SODIUM CHLORIDE 0.9% INJ 50 ML IV PRN (22:50)
[2017-12-21] MEDS: CHLORHEXIDINE GLUCONATE 2 % 1 PACK (2 CLOTHS) TOP SCH (23:24)
[2017-12-22] VITALS (20 sets, daily range): BP systolic 79–175; BP diastolic 52–82; PULSE 62–92; RESP 20–52; TEMP 97.8–100; O2SAT 91–100
[2017-12-22] MEDS: HEPARIN SODIUM - SQ 10,000 UNITS/ML VIAL SQ SCH ×2 (02:25→14:45)
[2017-12-22] MEDS: DEXMEDETOMIDINE INJ 200 MCG in SODIUM CHLORIDE 0.9% INJ 50 ML IV PRN ×5 (02:52→20:52)
[2017-12-22] MEDS: RESP: ALBUTEROL 2.5 MG/IPRATROPIUM 0.5 MG NEB (SCH) NEB ×4 (03:23→21:55)
[2017-12-22] MEDS: INSULIN NovoLIN REGULAR SUPPLEMENTAL SCALE SQ SCH ×6 (03:32→23:27)
[2017-12-22] MEDS: LINEZOLID 600 MG PREMIX 300 ML IV SCH ×2 (05:00→17:34)
[2017-12-22] MEDS: ARTIFICIAL TEARS OPTH SOLN 15 ML BTL EACH EYE SCH ×3 (05:00→20:51)
[2017-12-22] MEDS: HYDROCORTISONE SOD SUCCINATE 100 MG VIAL IV PUSH SCH ×3 (05:00→20:51)
--- NOTE | 2017-12-22 05:35 | RADRPT ---
EXAM DATE/TIME: 12/22/2017 03:23 [facility] COMPARISON: CHEST SINGLE AP, December 20, 2017, 2:02. INDICATIONS : Shortness of breath, possible pulmonary disease. MEDICAL HISTORY : Congestive heart failure. Hypertension SURGICAL HISTORY : None. ENCOUNTER: Subsequent ACUITY: 1 week PAIN SCORE: Non-responsive. LOCATION: Bilateral chest FINDINGS: Endotracheal tube in good position. NG enters stomach. Right central line in superior vena cava. Compared with December 20 there is interval development of dense consolidation in the left lung. Right basilar airspace disease has resolved with a cavitary lesion at the right lung base suspected, measu ring 3.3 cm in diameter. CONCLUSION: 1. Development of increased density consolidation in the left lung. Differential diagnosis includes p neumonia and aspiration. 2. Improving right basilar airspace consolidation but with development of a suspected cavitary lesion measuring about 3.3 cm in diameter, probably infectious in nature. Khoa Franco MD on December 22, 2017 at 5:30 Board Certified Radiologist. This report was verified electronically.
[2017-12-22 05:47] LABS: AUTOMATED NEUTROPHIL # 15.7 TH/MM3 (1.8-7.7); BASOPHIL % 0.2 % (0.0-2.0); HEMATOCRIT 28.3 % (39.0-51.0); HEMOGLOBIN 9.2 GM/DL (13.0-17.0); LYMPH % 4.3 % (9.0-44.0); LYMPHOCYTE # 0.7 TH/MM3 (1.0-4.8); MEAN CELL VOLUME 90.3 FL (80.0-100.0); MEAN CORPUSCULAR HEMOGLOBIN 29.5 PG (27.0-34.0); MEAN CORPUSCULAR HGB CONC 32.7 % (32.0-36.0); MEAN PLATELET VOLUME 8.2 FL (7.0-11.0); MONO % 4.3 % (0.0-8.0); MONOCYTE # 0.7 TH/MM3 (0-0.9); NEUT % 91.2 % (16.0-70.0); PLATELET COUNT 159 TH/MM3 (150-450); RED BLOOD COUNT 3.13 MIL/MM3 (4.50-5.90); RED CELL DISTRIBUTION WIDTH 15.3 % (11.6-17.2); WHITE BLOOD COUNT 17.2 TH/MM3 (4.0-11.0)
[2017-12-22 06:23] LABS: ALBUMIN 2.4 GM/DL (3.4-5.0); ALKALINE PHOSPHATASE 164 U/L (45-117); ALT (GPT) 37 U/L (12-78); AST (GOT) 39 U/L (15-37); BICARBONATE 30.5 MEQ/L (21.0-32.0); BLOOD UREA NITROGEN 69 MG/DL (7-18); CALCIUM 8.9 MG/DL (8.5-10.1); CHLORIDE 94 MEQ/L (98-107); GLOMERULAR FILTRATION RATE 12 ML/MIN (>89); GLUCOSE,RANDOM 340 MG/DL (74-106); MAGNESIUM 2.6 MG/DL (1.5-2.5); SODIUM (NA) 136 MEQ/L (136-145); TOTAL BILIRUBIN ADULT 0.7 MG/DL (0.2-1.0); TOTAL PROTEIN 6.3 GM/DL (6.4-8.2)
[2017-12-22] MEDS: LANTHANUM CARBONATE 500 MG CHEWABLE TABLET CHEW SCH ×3 (08:00→17:00)
[2017-12-22] MEDS: DOCUSATE SODIUM 50 MG/SENNA 8.6 MG TAB PO SCH ×2 (09:00→19:47)
[2017-12-22] MEDS: CINACALCET HYDROCHLORIDE 30 MG TAB PO SCH (09:00)
[2017-12-22] MEDS: ASPIRIN 81 MG CHEW TAB PO SCH (10:03)
[2017-12-22] MEDS: NYSTATIN SUSP 500,000 U/5 ML CUP OROPHARYNG SCH ×4 (10:03→20:53)
[2017-12-22] MEDS: HYDROXYCHLOROQUINE SULFATE 200 MG TAB PO SCH (10:03)
[2017-12-22] MEDS: SODIUM CHLORIDE 0.9% FLUSH 10 ML FLUSH IV FLUSH SCH (10:04)
[2017-12-22] MEDS: MUPIROCIN 2% OINT 1 APPLIC/GM SYR EACH NARE SCH ×2 (10:04→20:51)
[2017-12-22] MEDS: CEFEPIME INJ 1,000 MG in SODIUM CHLORIDE 0.9% INJ 100 ML IV SCH (10:04)
[2017-12-22] MEDS: FAMOTIDINE 20 MG TAB NG SCH (10:18)
[2017-12-22] MEDS: CARVEDILOL 3.125 MG TAB PO SCH ×2 (10:18→20:51)
[2017-12-22] MEDS: MIDAZOLAM HCL 2 MG/2 ML VIAL IV PUSH PRN (10:19)
--- NOTE | 2017-12-22 10:29 | HHI.NPPN ---
Subjective General Problems: Anemia Renal Failure: Chronic, End Stage Renal Disease Interval History Remains on vent, agitated. Precedex started. He becomes hypotensive with low dose propofol. (Nancy Springer) Review of Systems General General Remarks unable to assess (Nancy Springer) Objective Data Data Vital Signs Date Time Temp Pulse Resp B/P (MAP) Pulse Ox O2 Delivery O2 Flow Rate FiO2 12/22/17 09:56 96 40 12/22/17 09:51 40 12/22/17 09:51 96 40 12/22/17 07:55 91 40 12/22/17 06:00 88 12/22/17 04:09 95 40 12/22/17 04:00 40 12/22/17 04:00 72 12/22/17 04:00 97.8 72 20 86/54 (65) 95 12/22/17 02:00 62 12/22/17 00:45 75 66/40 12/22/17 00:00 40 12/22/17 00:00 83 12/22/17 00:00 99.4 83 29 143/65 (91) 97 12/21/17 23:55 97 40 12/21/17 22:30 84 138/71 12/21/17 22:00 86 12/21/17 21:45 86 129/60 12/21/17 21:30 85 107/58 12/21/17 21:06 99 40 12/21/17 20:00 137 12/21/17 20:00 40 12/21/17 20:00 98.8 137 20 82/56 (65) 98 Arterial Line 12/21/17 18:00 45 12/21/17 18:00 75 12/21/17 16:00 98.2 131 20 100/54 (69) 98 12/21/17 16:00 75 12/21/17 15:53 100 40 12/21/17 14:00 75 12/21/17 14:00 45 12/21/17 12:16 100 40 12/21/17 12:00 98.1 80 21 129/46 (73) 98 12/21/17 12:00 75 (Nancy Springer) -: 12/22/17 0400 12/22/17 0400 Microbiology 12/21/17 Aerobic Blood Culture, Received Pending 12/21/17 Anaerobic Blood Culture, Received Pending 12/21/17 Aerobic Blood Culture, Received Pending 12/21/17 Anaerobic Blood Culture, Received Pending Imaging Last 72 hours Impressions Chest X-Ray 12/22/17 0600 Signed Impressions: Service Date/Time: December 03:23 - CONCLUSION: 1. Development of increased density consolidation in the left lung. Differential diagnosis includes pneumonia and aspiration. 2. Improving right basilar airspace consolidation but with development of a suspected cavitary lesion measuring about 3.3 cm in diameter, probably infectious in nature. Khoa Franco MD Chest X-Ray 12/20/17 0600 Signed Impressions: Service Date/Time: Wednesday, December 20, 2017 02:02 - CONCLUSION: 1. Basilar airspace consolidation similar to December 19. Support apparatus in good position. Khoa Franco MD Abdomen X-Ray 12/20/17 06 Signed Impressions: Service Date/Time: Wednesday, December 20, 2017 02:07 - CONCLUSION: 1. Moderate constipation with stool throughout large bowel. NG coiled in stomach. Khoa Franco MD Tubes & Lines Comment TLC right IJ Drip Comment Levophed, propofol, precedex (Nancy Springer) Physical Exam General Appearance: Well Developed, Comfortable Appearance Remarks intubated, sedated (Nancy Springer) Eyes Eye Exam: Pupils Equal (Nancy SpringerP) Pulmonary Resp Exam: Breath Sounds Equal, Crackles, Rhonchi, Sputum, Decreased Bases Resp Remarks vented lung sounds (Nancy Springer) Cardiology CV Exam: Regular, Normal Sinus Rhythm, Good Perfusion (Nancy SpringerP) Gastrointestinal/Abdomen GI Exam: Soft, Non-Tender, Bowel Sounds Present (Nancy Springer) Musculoskeletal MS Exam: Joints Intact, Normal Tone (Nancy SpringerP) Integumentary Skin Exam: Clear, Warm, Dry, Intact (Nancy SpringerP) Extremeties Extremities Exam: No Edema, Pedal Pulses Palpable (Nancy Springer) Neurologic Neuro Exam: Awake, Moving All Extremities, Unresponsive, Sedated (Nancy Springer) VTE Prophylaxis Device: SCDs (Nancy Springer) Assessment/Plan Assessment Summary: Anemia of CKD, CHF, Diabetes Mellitus, End Stage Renal Disease Electrolyte Assessment: Hyperkalemia Problem List: (1) ESRD (end stage renal disease) ICD Codes: N18.6 - End-stage renal disease Status: Chronic Plan: Conitnue HD MWF, 1500 ml UF yesterday Avoid IVF, follow fluid status Obtain renal panel intermittently. He has functioning AVF, avoid right arm procedures. Monitor fluid and electrolyte balance. Avoid Gadolinium. (2) Respiratory failure ICD Codes: J96.90 - Respiratory failure, unspecified, unspecified whether with hypoxia or hypercapnia Plan: Management per electrical & instrumentation supervisor. Vent weening as tolerated. + VAP,+ H. influenza and pseudomonas, MRSA, on sputum culture. On cefepime and Levaquin. Vanco stopped, added Zyvoxx Hx of CHF, also most likely has COPD Persistent leukocytosis. ID is following. May need tracheostomy. Palliative care has evaluated, pending contact with sister. (3) Anemia ICD Codes: D64.9 - Anemia, unspecified Plan: Epogen with dialysis. (4) Secondary hyperparathyroidism of renal origin ICD Codes: N25.81 - Secondary hyperparathyroidism of renal origin Plan: Continue binders with tube feeding. Also on Sensipar. (5) Encephalopathy ICD Codes: G93.40 - Encephalopathy, unspecified Plan: metabolic encephalopathy, acute CVA per MRI. MRA negative. Seen by neurology. He is on precedex, consider changing propofol to versed. (Nancy Springer) Plan patient was seen and examined. Agree with above assessment and plan. Unfortunately he is not doing well. Not tolerating CPAP. May need tracheostomy. (Tru Galarza MD) Nancy Springer Dec 22, 2017 10:29 Tru Galarza MD Dec 22, 2017 14:39
--- NOTE | 2017-12-22 12:21 | HHI.IDPN ---
Note Infectious Disease Note Patient on the vent. Barely opens eyes. Afebrile. 72 year-old white male who presented to the emergency department with shortness of breath on 12/12/2017. The patient has a history of COPD. PAST MEDICAL HISTORY: 1. COPD. 2. CHF. 3. Anemia. 4. End-stage renal disease. 5. Cardiomyopathy. 6. History of left hip replacement. 7. History of right upper extremity A-V fistula. 8. Secondary hyperparathyroidism. ALLERGIES NO KNOWN DRUG ALLERGIES. ANTIBIOTICS 1. Cefepime 2. Levaquin. 3. Zyvox. OBJECTIVE: Vital Signs Date Time Temp Pulse Resp B/P (MAP) Pulse Ox O2 Delivery O2 Flow Rate FiO2 12/22/17 09:56 96 40 12/22/17 09:51 40 12/22/17 09:51 96 40 12/22/17 08:00 100.0 92 52 175/82 (113) 92 12/22/17 08:00 92 12/22/17 07:55 91 40 12/22/17 06:00 88 12/22/17 04:09 95 40 12/22/17 04:00 40 12/22/17 04:00 72 12/22/17 04:00 97.8 72 20 86/54 (65) 95 12/22/17 02:00 62 12/22/17 00:45 75 66/40 12/22/17 00:00 40 12/22/17 00:00 83 12/22/17 00:00 99.4 83 29 143/65 (91) 97 12/21/17 23:55 97 40 12/21/17 22:30 84 138/71 12/21/17 22:00 86 12/21/17 21:45 86 129/60 12/21/17 21:30 85 107/58 12/21/17 21:06 99 40 12/21/17 20:00 137 12/21/17 20:00 40 12/21/17 20:00 98.8 137 20 82/56 (65) 98 Arterial Line 12/21/17 18:00 45 12/21/17 18:00 75 12/21/17 16:00 98.2 131 20 100/54 (69) 98 12/21/17 16:00 75 12/21/17 15:53 100 40 12/21/17 14:00 75 12/21/17 14:00 45 Laboratory Tests Test 12/21/17 05:00 12/22/17 04:00 White Blood Count 21.8 TH/MM3 17.2 TH/MM3 Red Blood Count 3.50 MIL/MM3 3.13 MIL/MM3 Hemoglobin 10.4 GM/DL 9.2 GM/DL Hematocrit 31.6 % 28.3 % Mean Corpuscular Volume 90.3 FL 90.3 FL Mean Corpuscular Hemoglobin 29.7 PG 29.5 PG Mean Corpuscular Hemoglobin Concent 32.9 % 32.7 % Red Cell Distribution Width 15.2 % 15.3 % Platelet Count 168 TH/MM3 159 TH/MM3 Mean Platelet Volume 7.7 FL 8.2 FL Neutrophils (%) (Auto) 90.4 % 91.2 % Lymphocytes (%) (Auto) 2.8 % 4.3 % Monocytes (%) (Auto) 6.7 % 4.3 % Eosinophils (%) (Auto) 0.0 % 0.0 % Basophils (%) (Auto) 0.1 % 0.2 % Neutrophils # (Auto) 19.7 TH/MM3 15.7 TH/MM3 Lymphocytes # (Auto) 0.6 TH/MM3 0.7 TH/MM3 Monocytes # (Auto) 1.5 TH/MM3 0.7 TH/MM3 Eosinophils # (Auto) 0.0 TH/MM3 0.0 TH/MM3 Basophils # (Auto) 0.0 TH/MM3 0.0 TH/MM3 CBC Comment AUTO DIFF DIFF FINAL Differential Total Cells Counted 100 Neutrophils % (Manual) 81 % Band Neutrophils % 12 % Lymphocytes % 3 % Monocytes % 3 % Neutrophils # (Manual) 20.5 TH/MM3 Metamyelocytes 1 % Differential Comment FINAL DIFF MANUAL Platelet Estimate NORMAL Platelet Morphology Comment NORMAL Laboratory Tests Test 12/21/17 05:00 12/22/17 04:00 Blood Urea Nitrogen 72 MG/DL 69 MG/DL Creatinine 5.85 MG/DL 4.80 MG/DL Random Glucose 220 MG/DL 340 MG/DL Calcium Level 9.0 MG/DL 8.9 MG/DL Sodium Level 137 MEQ/L 136 MEQ/L Potassium Level 3.9 MEQ/L 3.7 MEQ/L Chloride Level 94 MEQ/L 94 MEQ/L Carbon Dioxide Level 29.8 MEQ/L 30.5 MEQ/L Anion Gap 13 MEQ/L 12 MEQ/L Estimat Glomerular Filtration Rate 10 ML/MIN 12 ML/MIN Total Protein 6.3 GM/DL Albumin 2.4 GM/DL Phosphorus Level 5.0 MG/DL Magnesium Level 2.6 MG/DL Alkaline Phosphatase 164 U/L Aspartate Amino Transf (AST/SGOT) 39 U/L Alanine Aminotransferase (ALT/SGPT) 37 U/L Total Bilirubin 0.7 MG/DL Microbiology Date/Time Source Procedure Growth Status 12/21/17 14:32 Blood Peripheral Aerobic Blood Culture - Preliminary NO GROWTH IN 1 DAY Resulted 12/21/17 14:32 Blood Peripheral Anaerobic Blood Culture - Preliminary NO GROWTH IN 1 DAY Resulted 12/21/17 14:23 Blood Peripheral Aerobic Blood Culture - Preliminary NO GROWTH IN 1 DAY Resulted 12/21/17 14:23 Blood Peripheral Anaerobic Blood Culture - Preliminary NO GROWTH IN 1 DAY Resulted IMAGING: Chest X-Ray 12/22/17 06 Signed Impressions: Service Date/Time: December 03:23 - CONCLUSION: 1. Development of increased density consolidation in the left lung. Differential diagnosis includes pneumonia and aspiration. 2. Improving right basilar airspace consolidation but with development of a suspected cavitary lesion measuring about 3.3 cm in diameter, probably infectious in nature. Khoa Franco MD Abdomen X-Ray 12/20/17 0600 Signed Impressions: Service Date/Time: Wednesday, December 20, 2017 02:07 - CONCLUSION: 1. Moderate constipation with stool throughout large bowel. NG coiled in stomach. Khoa Franco MD Neck Magnetic Resonance Angiography 12/19/17 0000 Signed Impressions: Service Date/Time: Tuesday, December 19, 2017 12:24 - CONCLUSION: 1. Patent carotids and vertebrals. Marco Antonio Henriquez Jr., MD Head Magnetic Resonance Angiography 12/19/17 0000 Signed Impressions: Service Date/Time: Tuesday, December 19, 2017 12:24 - CONCLUSION: 1. No large vessel stenosis or aneurysm. 2. Normal variants as described above. Leonard Vaughn MD Brain MRI 12/17/17 0000 Signed Impressions: Service Date/Time: Sunday, December 17, 2017 11:33 - CONCLUSION: Small foci of retracted diffusion in the parietal periventricular white matter bilaterally indicating small acute infarcts. No other acute intracranial findings. Gatito Shipman MD Head CT 12/16/17 0000 Signed Impressions: Service Date/Time: Saturday, December 16, 2017 10:58 - CONCLUSION: No acute disease. Marco Antonio Henriquez Jr., MD PHYSICAL EXAMINATION: GENERAL: No acute distress. Sedated on the ventilator. HEENT: Head atraumatic. Extraocular movements cannot be assessed adequately. No icterus. Oropharynx intubated. Neck: Supple. No palpable adenopathy. Lungs: Rhonchi at the left. clearer on the right. Heart: Irregular S1-S2. No audible murmur. Abdomen: Soft, nontender. Bowel sounds present. Extremities: No clubbing or cyanosis or edema. Skin: No diffuse rash. Neuro: Unable to assess. Psych: Unable to assess. IMPRESSION 1. Pneumonia due to MRSA and pseudomonas. 2. Acute respiratory failure. 3. End-stage renal disease. 4. One blood culture with staph epidermidis, out of four bottles suggesting contamination. RECOMMENDATIONS 1. Continue cefepime. 2. Continue Levaquin. 3. Continue Linezolid. 4. Monitor clinical status. Dave Waite MD Dec 22, 2017 12:21
--- NOTE | 2017-12-22 14:00 | HHI.HCPN ---
Reason for visit a. To assist with evaluation and management of symptoms including: Shortness of breath, restlessness/agitation, debility. b. To assist medical decision maker(s) with: better understanding of current medical conditions; weighing benefits/burdens of medical treatment options; making medical treatment decisions. . Subjective/Interval History Palliative care follow up for further clarification of goals of care. Patient seen in the medical ICU. He remains intratracheally intubated on mechanical ventilation. Currently 40% FiO2. Patient restless during my visit, currently on low-dose propofol and Precedex drip. Eyes half open, not tracking or following any commands. Chest x-ray today revealing increased density consolidation in the left lung, likely pneumonia/aspiration, cavitary lesion measuring 2.3 cm, probable infectious in nature. Pending CT of the thorax for further evaluation of lesion. workup today revealing persistent leukocytosis 17.2, Hgb is stable and 9.2, platelet count 159. BUN/creatinine 69 /4.80 status post hemodialysis yesterday removing 3L. Case discussed with Dr. Pearson, patient not likely to medically extubate, close to trach and PEG decision. Telephone call to patient's sister Lesa Pickard. Contact information obtained from case management. It appears that sister has been previously contacted and that she has to declined participating in medical decision- making. However, pending information on any additional blood relatives that may wish to participate. [facility] reports that patient has mentioned having 2 children. Telephone conversation with patient's willianon John Benito. Discussed that as per [place] statute, we are still in the process of identifying proxy decision maker. Medical update provided. John reports that patient's sister has verbalized previously not wishing to participating in medical decision-making, advised John that we need to hear directly from her. Willianon willing and readily available for medical decision-making. Reviewed that patient is not likely to be medically extubated, trach and PEG decision pending in the incoming days. Kelsie receptive to palliative care follow-ups. Requesting acute and report from case management to locate additional blood relatives. . Family/friend interactions See interval note. . Advance Directives Advance Directive Specifics Health Care Surrogate(s): Unclear if advance directives have been completed. Healthcare proxy decision maker to be determined. . Significant change in goals: Goals remain aggressive by default. Pending identification of proxy decision maker. . Objective Vital Signs Date Time Temp Pulse Resp B/P (MAP) Pulse Ox O2 Delivery O2 Flow Rate FiO2 12/22/17 13:19 95 40 12/22/17 09:56 96 40 12/22/17 09:51 40 12/22/17 09:51 96 40 12/22/17 08:00 100.0 92 52 175/82 (113) 92 12/22/17 08:00 92 12/22/17 07:55 91 40 12/22/17 06:00 88 12/22/17 04:09 95 40 12/22/17 04:00 40 12/22/17 04:00 72 12/22/17 04:00 97.8 72 20 86/54 (65) 95 12/22/17 02:00 62 12/22/17 00:45 75 66/40 12/22/17 00:00 40 12/22/17 00:00 83 12/22/17 00:00 99.4 83 29 143/65 (91) 97 12/21/17 23:55 97 40 12/21/17 22:30 84 138/71 12/21/17 22:00 86 12/21/17 21:45 86 129/60 12/21/17 21:30 85 107/58 12/21/17 21:06 99 40 12/21/17 20:00 137 12/21/17 20:00 40 12/21/17 20:00 98.8 137 20 82/56 (65) 98 Arterial Line 12/21/17 18:00 45 12/21/17 18:00 75 12/21/17 16:00 98.2 131 20 100/54 (69) 98 12/21/17 16:00 75 12/21/17 15:53 100 40 12/21/17 14:00 75 12/21/17 14:00 45 Intake & Output 12/22/17 12/22/17 07:00 19:00 Intake Total 1281 ml Output Total 1960.0 ml Balance -679.0 ml IV Total 952 ml Tube Feeding 329 ml Stool Total 400 ml Tube Feeding Residual Discard 60.0 ml Hemodialysis 1500 ml # Bowel Movements 1 Physical Exam CONSTITUTIONAL/GENERAL: This is an adequately nourished elderly man in moderate distress secondary to restlessness, agitation. TUBES/LINES/DRAINS: ETT, OG, Murillo catheter, rectal tube, right IJ, soft wrist restraints. SKIN: No jaundice, rashes, or lesions. Ecchymoses on upper extremities. No wounds seen anteriorly. Skin temperature appropriate. Not diaphoretic. HEAD: Atraumatic. Normocephalic. EYES: Pupils equal and round and reactive. No scleral icterus. No injection or drainage. Fundi not examined. ENT: Unable to evaluate hearing secondary to clinical condition. Nose without bleeding or purulent drainage. Moist oral cause a. NECK: Trachea midline. Supple. CARDIOVASCULAR: Regular rate and rhythm. Peripheral pulses symmetric. RESPIRATORY/CHEST: Symmetric, coarse sounds bilaterally. Endotracheal intubated on mechanical ventilation. GASTROINTESTINAL: Abdomen large, round, soft. Bowel sounds present, hyperactive. GENITOURINARY: Without palpable bladder distension. Murillo catheter in place. MUSCULOSKELETAL: Extremities without clubbing, cyanosis, or edema. No mottling or clubbing. NEUROLOGICAL: Not following any commands or attempting to communicate. Moves all extremities spontaneously. PSYCHIATRIC: Restlessness/agitated. . Diagnostic Tests Laboratory Laboratory Tests Test 12/19/17 17:34 12/20/17 04:50 12/20/17 10:59 12/21/17 05:00 Lactic Acid Level 1.0 mmol/L (0.4-2.0) White Blood Count 11.9 TH/MM3 (4.0-11.0) 21.8 TH/MM3 (4.0-11.0) Red Blood Count 3.08 MIL/MM3 (4.50-5.90) 3.50 MIL/MM3 (4.50-5.90) Hemoglobin 9.1 GM/DL (13.0-17.0) 10.4 GM/DL (13.0-17.0) Hematocrit 27.8 % (39.0-51.0) 31.6 % (39.0-51.0) Mean Corpuscular Volume 90.5 FL (80.0-100.0) 90.3 FL (80.0-100.0) Mean Corpuscular Hemoglobin 29.7 PG (27.0-34.0) 29.7 PG (27.0-34.0) Mean Corpuscular Hemoglobin Concent 32.8 % (32.0-36.0) 32.9 % (32.0-36.0) Red Cell Distribution Width 15.6 % (11.6-17.2) 15.2 % (11.6-17.2) Platelet Count 136 TH/MM3 (150-450) 168 TH/MM3 (150-450) Mean Platelet Volume 7.7 FL (7.0-11.0) 7.7 FL (7.0-11.0) Neutrophils (%) (Auto) 83.8 % (16.0-70.0) 90.4 % (16.0-70.0) Lymphocytes (%) (Auto) 7.0 % (9.0-44.0) 2.8 % (9.0-44.0) Monocytes (%) (Auto) 9.1 % (0.0-8.0) 6.7 % (0.0-8.0) Eosinophils (%) (Auto) 0.0 % (0.0-4.0) 0.0 % (0.0-4.0) Basophils (%) (Auto) 0.1 % (0.0-2.0) 0.1 % (0.0-2.0) Neutrophils # (Auto) 10.0 TH/MM3 (1.8-7.7) 19.7 TH/MM3 (1.8-7.7) Lymphocytes # (Auto) 0.8 TH/MM3 (1.0-4.8) 0.6 TH/MM3 (1.0-4.8) Monocytes # (Auto) 1.1 TH/MM3 (0-0.9) 1.5 TH/MM3 (0-0.9) Eosinophils # (Auto) 0.0 TH/MM3 (0-0.4) 0.0 TH/MM3 (0-0.4) Basophils # (Auto) 0.0 TH/MM3 (0-0.2) 0.0 TH/MM3 (0-0.2) CBC Comment AUTO DIFF AUTO DIFF Differential Total Cells Counted 100 100 Neutrophils % (Manual) 62 % (16-70) 81 % (16-70) Band Neutrophils % 27 % (0-6) 12 % (0-6) Lymphocytes % 5 % (9-44) 3 % (9-44) Monocytes % 6 % (0-8) 3 % (0-8) Neutrophils # (Manual) 10.6 TH/MM3 (1.8-7.7) 20.5 TH/MM3 (1.8-7.7) Differential Comment FINAL DIFF MANUAL FINAL DIFF MANUAL Toxic Granulation 1+ (NORMAL) Platelet Estimate LOW (NORMAL) NORMAL (NORMAL) Platelet Morphology Comment NORMAL (NORMAL) NORMAL (NORMAL) Blood Urea Nitrogen 74 MG/DL (7-18) 72 MG/DL (7-18) Creatinine 6.49 MG/DL (0.60-1.30) 5.85 MG/DL (0.60-1.30) Random Glucose 266 MG/DL (74-106) 220 MG/DL (74-106) Albumin 2.6 GM/DL (3.4-5.0) Calcium Level 9.0 MG/DL (8.5-10.1) 9.0 MG/DL (8.5-10.1) Phosphorus Level 5.3 MG/DL (2.5-4.9) Sodium Level 135 MEQ/L (136-145) 137 MEQ/L (136-145) Potassium Level 5.6 MEQ/L (3.5-5.1) 4.9 MEQ/L (3.5-5.1) 3.9 MEQ/L (3.5-5.1) Chloride Level 93 MEQ/L (98-107) 94 MEQ/L (98-107) Carbon Dioxide Level 29.2 MEQ/L (21.0-32.0) 29.8 MEQ/L (21.0-32.0) Anion Gap 13 MEQ/L (5-15) 13 MEQ/L (5-15) Estimat Glomerular Filtration Rate 9 ML/MIN (>89) 10 ML/MIN (>89) Metamyelocytes 1 % (0-1) Random Vancomycin Level 19.9 COMMENT Test 12/21/17 15:20 12/22/17 04:00 Stool C. difficile Toxin (PCR) NEGATIVE (NEGATIVE) Stl C. difficile Toxin Epiderm 027 PRESUMPTIVE NEGATIVE White Blood Count 17.2 TH/MM3 (4.0-11.0) Red Blood Count 3.13 MIL/MM3 (4.50-5.90) Hemoglobin 9.2 GM/DL (13.0-17.0) Hematocrit 28.3 % (39.0-51.0) Mean Corpuscular Volume 90.3 FL (80.0-100.0) Mean Corpuscular Hemoglobin 29.5 PG (27.0-34.0) Mean Corpuscular Hemoglobin Concent 32.7 % (32.0-36.0) Red Cell Distribution Width 15.3 % (11.6-17.2) Platelet Count 159 TH/MM3 (150-450) Mean Platelet Volume 8.2 FL (7.0-11.0) Neutrophils (%) (Auto) 91.2 % (16.0-70.0) Lymphocytes (%) (Auto) 4.3 % (9.0-44.0) Monocytes (%) (Auto) 4.3 % (0.0-8.0) Eosinophils (%) (Auto) 0.0 % (0.0-4.0) Basophils (%) (Auto) 0.2 % (0.0-2.0) Neutrophils # (Auto) 15.7 TH/MM3 (1.8-7.7) Lymphocytes # (Auto) 0.7 TH/MM3 (1.0-4.8) Monocytes # (Auto) 0.7 TH/MM3 (0-0.9) Eosinophils # (Auto) 0.0 TH/MM3 (0-0.4) Basophils # (Auto) 0.0 TH/MM3 (0-0.2) CBC Comment DIFF FINAL Differential Comment Blood Urea Nitrogen 69 MG/DL (7-18) Creatinine 4.80 MG/DL (0.60-1.30) Random Glucose 340 MG/DL (74-106) Total Protein 6.3 GM/DL (6.4-8.2) Albumin 2.4 GM/DL (3.4-5.0) Calcium Level 8.9 MG/DL (8.5-10.1) Phosphorus Level 5.0 MG/DL (2.5-4.9) Magnesium Level 2.6 MG/DL (1.5-2.5) Alkaline Phosphatase 164 U/L (45-117) Aspartate Amino Transf (AST/SGOT) 39 U/L (15-37) Alanine Aminotransferase (ALT/SGPT) 37 U/L (12-78) Total Bilirubin 0.7 MG/DL (0.2-1.0) Sodium Level 136 MEQ/L (136-145) Potassium Level 3.7 MEQ/L (3.5-5.1) Chloride Level 94 MEQ/L (98-107) Carbon Dioxide Level 30.5 MEQ/L (21.0-32.0) Anion Gap 12 MEQ/L (5-15) Estimat Glomerular Filtration Rate 12 ML/MIN (>89) Result Diagram: 12/22/170 12/22/17399 Microbiology Microbiology Date/Time Source Procedure Growth Status 12/21/17 14:32 Blood Peripheral Aerobic Blood Culture - Preliminary NO GROWTH IN 1 DAY Resulted 12/21/17 14:32 Blood Peripheral Anaerobic Blood Culture - Preliminary NO GROWTH IN 1 DAY Resulted 12/21/17 14:23 Blood Peripheral Aerobic Blood Culture - Preliminary NO GROWTH IN 1 DAY Resulted 12/21/17 14:23 Blood Peripheral Anaerobic Blood Culture - Preliminary NO GROWTH IN 1 DAY Resulted Imaging Last 24 hours Impressions Chest X-Ray 12/22/17 0600 Signed Impressions: Service Date/Time: , December 22, 2017 03:23 - CONCLUSION: 1. Development of increased density consolidation in the left lung. Differential diagnosis includes pneumonia and aspiration. 2. Improving right basilar airspace consolidation but with development of a suspected cavitary lesion measuring about 3.3 cm in diameter, probably infectious in nature. Khoa Franco MD Procedures * 12/12/17 -endotracheal intubation. . Assessment and Plan Disease Oriented Problem List: (1) Respiratory failure (2) Pneumonia (3) Cerebrovascular accident (CVA) (4) ESRD (end stage renal disease) (5) Encephalopathy (6) Congestive heart failure Symptom Scale: (1) Anxiety 0-10 Scale: Unable to quantify (2) Pain 0-10 Scale: Unable to quantify (3) Shortness of breath 0-10 Scale: Unable to quantify Pertinent Non-Medical Issues Psychosocial: Retired, , lives alone. in 2008. Spiritual: Jehovah Witness. Legal: Appears that no advance directives have been completed. Ethical issues impacting care: Pending designation of healthcare proxy decision maker. Patient unable to participating in medical decision-making secondary to clinical condition. . Important Contacts Kelsie John Thong . Sister Lesa Pickard . . Prognosis Mr. Sy is a 72-year-old male with a medical history significant for end- stage renal disease on hemodialysis, COPD, CHF, cardiomyopathy and anemia of chronic disease. Patient presented to ED via EMS on 12/12/17 endorsing worsening shortness of breath. Clinical course complicated by acute respiratory failure requiring intubation and mechanical ventilation. Clinical course further complicated by acute CVA, pneumonia, persistent respiratory failure, sepsis. Patient's prognosis is guarded. Very high risk for further complications, clinical decline and . . Code Status: Full Code Plan * CODE STATUS: Full code by default. * HEALTHCARE DECISION-MAKING: Patient unable to participate in medical decision- making secondary to clinical condition, encephalopathic, intubated on mechanical ventilation. Unlikely to regain medical decision-making capacity given critical condition. It appears that no advance directives have been completed, palliative care has reached to patient's PCP and hemodialysis center. Patient is , unclear if he has any biological children. One kelsie Benito is willing to serve as proxy, however, pt has a sister - Lesa Pickard- in [place]. Telephone call to patient's sister, left message in . Contact information obtained from case management. It appears that sister has been previously contacted and that she has to declined to participate in medical decision-making. However, pending information on any additional blood relatives that may wish to participate. [facility] reports that patient has mentioned having 2 children.--Healthcare proxy decision maker to be determined. [facility] report requested to identify potential blood relatives. * GOALS OF CARE: Unable to address given pending identification of healthcare proxy decision maker. See above. * SYMPTOMS: = Shortness of breath, secondary to respiratory failure. Currently intubated on mechanical ventilation. Likely to be medically extubated, trach and PEG decision approaching. = Pain, history of chronic pain and neuropathy. Tylenol available as needed. 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 = Anxiety/agitation: Patient currently on propofol drip. Versed 2 mg IV available as needed. * Case discussed with Dr. Pearson. * Palliative care contact information has been provided to patient's kelsie Lopez. * Palliative care will continue to follow-up for further clarifications of goals of care as patient's clinical course continues to evolve. . Time Spent Total Floor Time (mins): 33 (Total time to include review medical records, physical exam, several attempts at contacting patient's sister Lesa, telephone conversation with patient's willianstephanie Lopez, case discussion with Dr. Pearson.) >50% Counseling/Coord of Care: Yes Attestation To help prompt me to consider important information that might be impacting today's encounter and assessment, information from prior notes written by myself or my colleagues may have been "brought forward" into today's note. My signature on this note, however, is an attestation that I personally performed the exam, history, and/or decision-making noted today, and, unless otherwise indicated, the interactions with patient, family, and staff as well as the review of records all occurred today. I also attest that the listed assessment and stated plan reflect my best clinical judgment today based on the combination of historical information, prior notes, and today's exam/ interactions. When time spent is documented, it refers only to time spent today by the signer, or if indicated, combined time spent today by collaborating physician/nurse practitioner. Cindy Gatica Dec 22, 2017 14:00
[2017-12-22] MEDS: fentaNYL 2,500 MCG/NS 250 ML IV PRN (14:50)
--- NOTE | 2017-12-22 17:07 | RADRPT ---
EXAM DATE/TIME: 12/22/2017 16:39 [facility] COMPARISON: CHEST SINGLE AP, December 12, 2017, 10:37. CHEST SINGLE AP, December 20, 2017, 2:02. CHEST SINGLE AP, December 22, 2017, 3:23. INDICATIONS : Right lung cavitary lesion RADIATION DOSE: 11.18 CTDIvol (mGy) MEDICAL HISTORY : Cardiovascular disease. Hypertension. Chronic obstructive pulmonary disease. Hepatitis SURGICAL HISTORY : Right av fistula ENCOUNTER: Subsequent ACUITY: 2 weeks PAIN SCALE: Non-responsive LOCATION: chest TECHNIQUE: Volumetric scanning of the chest was performed. Using automated exposure control and adjustment of t he mA and/or kV according to patient size, radiation dose was kept as low as reasonably achievable to obtain optimal diagnostic quality images. DICOM format image data is available electronically for r eview and comparison. Follow-up recommendations for detected pulmonary nodules are based at a minimum on nodule size and pa tient risk factors according to Fleischner Society Guidelines. FINDINGS: This study is degraded by motion artifact. LUNGS: There is diffuse consolidation throughout the left lung with air bronchograms and volume loss. There is mediastinal shift to the left. In the right lung there is a cavitary mass in the right lower lobe measuring 3 x 2.3 cm. There are several smaller subtle cavitary lesions also noted. There is a larger 1.9 cm mass in the left lower lobe as well as small noncalcified pulmonary nodule in the right lung base measuring approximately 5 mm. There is mild consolidation and/or atelectasis in the posterior ri ght lower lobe. There is abrupt cut off of the left mainstem bronchus with abnormal soft tissue densi ty which could indicate mucous plugging. PLEURAE: There is no pleural thickening or pleural effusion. MEDIASTINUM: The heart and great vessels demonstrate no acute abnormality. There is no mediastinal or hilar lymph adenopathy. Coronary artery calcifications are present. There is mild cardiomegaly. There is no peric ardial effusion. Nasogastric tube is seen coursing through the esophagus and stomach. An endotracheal tube is present as well. AXILLAE: Within normal limits. No lymphadenopathy. MUSCULOSKELETAL: Within normal limits for patient age. MISCELLANEOUS: The visualized upper abdominal organs demonstrate no acute abnormality. The kidneys are small and atr ophic in appearance. CONCLUSION: 1. Multiple cavitary lesions in the right lung as well as a small nodule and larger nodule or mass. T hese findings are concerning for metastatic disease. 2. The left lung is completely opacified with air bronchograms and volume loss with mediastinal shift . Areas cut off of the left main bronchus with soft tissue density material which could indicate muco us plugging. 3. Mild to moderate cardiomegaly. Edy Laughlin MD on December 22, 2017 at 16:54 Board Certified Radiologist. This report was verified electronically.
[2017-12-22] MEDS ORDERED: ETOMIDATE 20 MG/10 ML VIAL IV PUSH ONE (17:45)
[2017-12-22] MEDS ORDERED: ROCURONIUM INJ 50 MG/5 ML VIAL IV ONE (17:45)
[2017-12-22] MEDS: NOREPINEPHRINE INJ 4 MG in SODIUM CHLOR 0.9% 250 ML INJ 246 ML IV PRN ×2 (18:05→20:53)
--- NOTE | 2017-12-22 18:22 | PD.PROCEDR ---
Procedure Note Procedure DATE: 12/22/2017 Bronchoscopy/diagnostic and therapeutic: INDICATION: Left lung mucous plugging CONSENT Informed consent for procedure was not a candidate considered emergent due to acute hypoxemia with known left mucous plugging DESCRIPTION OF THE PROCEDURE The patient was placed in supine position. On ACV 18/500/5/100. On propofol on dexmedetomidine and fentanyl drips. Received 20 mg etomidate and 50 mill grams rocuronium. I entered the ET tube with fiberoptic bronchoscopy. The reed was sharp. Left upper and lower lobes were visualized with thick white mucus plugging. A lavage was sterile saline. A Lukens trap was placed and lavaged and sent for sample see orders. The scope was withdrawn to the right upper, middle and lower lobes. Mucosa was normal without masses. There is thick mucous plugs in the right lower lobe/posterior branch which were lavaged with sterile saline until clear. I reexamined the left upper and lower lobes and they remain clear. The scope was withdrawn and the procedure ended ESTIMATED BLOOD LOSS: Minimal COMPLICATIONS: No apparent complications. STAT chest x-ray pending at time of dictation Saji Pearson MD Dec 22, 2017 18:22
[2017-12-22] MEDS: LEVOFLOXACIN 250 MG PREMIX INJ 50 ML IV SCH (19:02)
--- NOTE | 2017-12-22 19:42 | HHI.CCPN ---
Subjective Remarks/Hospital Course Patient is a 72-year-old male with multiple medical comorbidities which include end-stage renal disease, hypertension, CHF, COPD, cardiomyopathy, hyperparathyroidism and anemia of chronic disease. He was brought into ED via EMS for respiratory distress and was given albuterol treatment x2 in addition to Solu-Medrol 125 mg IV prior to arrival. The patient was initially placed on BiPap without any significant relief. In the ED he was intubated with etomidate, succinylcholine and placed on full mechanical ventilation. When seen the patient is sedated with Diprivan and on fentanyl infusion. His laboratory data significant for hyperkalemia with potassium 6.3, BUN 53, creatinine in 8.63 and BNP of 1218. His chest x-ray showed ET tube above the reed, interstitial edema. Nephrology service was notified and the patient is currently receiving hemodialysis treatment. ABG postintubation showed a pH of 7.30, CO2 54, pAO2 454, bicarb 26, sats of 97%. 12/13 Patient is intubated on no sedation. Awake and alert, s/p HD yesterday with removal 3L. Afebrile. 12/14: Afebrile. Remains on propofol drip at 20 mcg/kg per minute. Episodic hypotension. Episodic hypoglycemia requiring D50. On D10 drip for hyperkalemia ? Per nephrology's orders, potassium currently normalized. We'll start tube feeding. Added cefepime for Pseudomonas in sputum 12/15: Afebrile. Tolerating tube feeding. Currently on PSV trial is tolerated well. Not following commands however moving all 4 extremities purposefully today than yesterday. 12/16 Patient remains intubated and on Fentanyl and Diprivan drip for sedation. s /p HD yesterday 12/17 No events overnight. s/p HD yesterday with removal 1.8L. Remains sedated with Fentanyl and intubated. Patient doesn't follow commands off sedation. CT brain yesterday showed no acute process. T:99.9 last night 12/18: Afebrile. Patient ET tube migrated upwards towards vocal cords in high probability aspirated tube feeding. Reintubated by overnight public health program manager. Noted MRI brain revealed acute right and left parietal CVA. MRA brain and carotid Dopplers currently pending. Currently on baby aspirin. Also started on atorvastatin 10 mg daily. 12/19: Tmax 100. Central line placed yesterday due to hypotension. Currently norepinephrine and vasopressin drips. Wide pulse pressure arterial line. Tube feeds will be resumed. Stress dose steroids initiated. Last cortisol was 9. 12/20 Patient remains intubated and sedated with Diprivan and Fentanyl drips. On Levophed 8 mocs and Vasopressin 0.04. Afebrile. s/p HD yesterday with removal 4L. 12/21: Afebrile. Remains on propofol drip at 20 mcg/kg Per minute. On low- dose norepinephrine 2.5 g per minute as well. Remains quite agitated on the ventilator. 8 bowel movements overnight. C. difficile toxin is pending. Noted staph epi in blood 12/10 question kalie. ID consulted. On vancomycin Subjective 12/22: Tmax 100. Currently 99.7. CT chest today revealed 3 x 2 point centimeter right cavitary lesion along. Is mediastinal shift left dense infiltrate possible mucous plug left-sided. Status post bronchoscopy which essentially showed clearance of any significant degree/plugging. Follow chest x -ray revealed dense consolidation left lung. No pleural effusion. Labile blood pressure. Objective Vital Signs Date Time Temp Pulse Resp B/P (MAP) Pulse Ox O2 Delivery O2 Flow Rate FiO2 12/22/17 18:08 100 100 12/22/17 18:05 83 85/42 12/22/17 16:00 99.7 25 Intake and Output 12/22/17 12/22/17 12/23/17 08:00 16:00 00:00 Intake Total 681 ml Output Total 400 ml Balance 281 ml Result Diagram: 12/22/17 0400 12/22/17 0400 Other Results Microbiology Date/Time Source Procedure Growth Status 12/21/17 14:32 Blood Peripheral Aerobic Blood Culture - Preliminary NO GROWTH IN 1 DAY Resulted 12/21/17 14:32 Blood Peripheral Anaerobic Blood Culture - Preliminary NO GROWTH IN 1 DAY Resulted 12/16/17 15:00 Sputum Endotracheal Gram Stain - Final Complete 12/16/17 15:00 Sputum Culture - Final Pseudomonas Aeruginosa Haemophilus Influenzae S. Aureus Mrsa Complete Imaging Last Impressions Chest X-Ray 12/22/17 0600 Signed Impressions: Service Date/Time: December 03:23 - CONCLUSION: 1. Development of increased density consolidation in the left lung. Differential diagnosis includes pneumonia and aspiration. 2. Improving right basilar airspace consolidation but with development of a suspected cavitary lesion measuring about 3.3 cm in diameter, probably infectious in nature. Khoa Franco MD Chest CT 12/22/17 0000 Signed Impressions: Service Date/Time: December 16:39 - CONCLUSION: 1. Multiple cavitary lesions in the right lung as well as a small nodule and larger nodule or mass. These findings are concerning for metastatic disease. 2. The left lung is completely opacified with air bronchograms and volume loss with mediastinal shift. Areas cut off of the left main bronchus with soft tissue density material which could indicate mucous plugging. 3. Mild to moderate cardiomegaly. Edy Laughlin MD Abdomen X-Ray 12/20/17 0600 Signed Impressions: Service Date/Time: Wednesday, December 20, 2017 02:07 - CONCLUSION: 1. Moderate constipation with stool throughout large bowel. NG coiled in stomach. Khoa Franco MD Neck Magnetic Resonance Angiography 12/19/17 0000 Signed Impressions: Service Date/Time: Tuesday, December 19, 2017 12:24 - CONCLUSION: 1. Patent carotids and vertebrals. Marco Antonio Henriquez Jr., MD Head Magnetic Resonance Angiography 12/19/17 0000 Signed Impressions: Service Date/Time: Tuesday, December 19, 2017 12:24 - CONCLUSION: 1. No large vessel stenosis or aneurysm. 2. Normal variants as described above. Leonard Vaughn MD Brain MRI 12/17/17 0000 Signed Impressions: Service Date/Time: Sunday, December 17, 2017 11:33 - CONCLUSION: Small foci of retracted diffusion in the parietal periventricular white matter bilaterally indicating small acute infarcts. No other acute intracranial findings. Gatito Shipman MD Head CT 12/16/17 0000 Signed Impressions: Service Date/Time: Saturday, December 16, 2017 10:58 - CONCLUSION: No acute disease. Marco Antonio Henriquez Jr., MD Objective Remarks GENERAL: 72-year-old male currently orotracheally intubated SKIN: Warm and dry. No rash HEAD: Normocephalic. Atraumatic EYES: Pupils are equally round and reactive at 3 mm. NECK: Supple, trachea midline. No JVD or lymphadenopathy. Right IJ CVL is clean dry and intact CARDIOVASCULAR: RRR. S1, S2. No S4. Without murmurs RESPIRATORY: Misperceptions for the left lung uriostegui. No wheezing GASTROINTESTINAL: Abdomen soft, non-tender, nondistended. MUSCULOSKELETAL: Trace lower extremity. Right upper extremity positive thrill Neuro: Arousable, ventilator. Moves all 4 extremity spontaneously. Cranial nerves II through XII appear grossly intact. Appears to right greater than left. No DTRs. Vascular Central Line Catheter: Yes Assessment to: Continue Date of Insertion: Dec 18, 2017 Line: Central Venous Catheter Side: Right Location: Internal, Jugular A/P Assessment and Plan Neuro/Psych: Peripheral neuropathy Right greater than left parietal CVA Monitor Neuro status. CT brain no acute findings 12/17 EEG revealed Sharp's triphasic right greater than left. No epileptiform discharges MRI brain 12/17 revealed 6 mm right parietal and tiny left parietal lacunar infarct in the periventricular white matter. MRA brain/neck 12/19: No large vessel stenosis or aneurysm. Aspirin 81 mg daily Atorvastatin 10 mg a day. Triglycerides elevated On Fentanyl as needed/propofol at 20 mcg/kg per minute drips for sedation. Daily sedation vacation Goal of RASS -2 Continue gabapentin 300 mg daily for peripheral neuropathy Hydrochloroquine 200 mg daily for arthritis resumed As needed midazolam for breakthrough agitation. Dexmedetomidine drip in attempt to wean. Dr. Ace neurology following CV: Chronic diastolic heart failure - Mild pulmonary hypertension with pulmonary arterial pressure 46.7 mmHg Currently on norepinephrine at 2.5 mcg/m to maintain MAP>65mmHg Decrease hydrocortisone 50 mg Q 8 hours. Cortisol level 9 on 12/15 2-D echocardiogram reveals EF of 55-60%. Mild MR/TR. Pulmonary arterial Pressures 46.7 mmHg Holding carvedilol 3.125 mg twice a day in light of atrial fibrillation Received 1 dose of digoxin 0.25 mg on 12/15 Resp: Acute hypoxemic and hypercapnic respiratory failure Polymicrobial pneumonia - Pseudomonas and Haemophilus influenza Right cavitary lung mass History of COPD PRVC 18/600/11/25/40 increase PEEP to 8 Continue with vent support keep sat >92% Ventilator bundle Albuterol/ipratropium aerosols every 6 hours with albuterol aerosols every 2 hours. Dyspnea SBT daily as earle. CT thorax revealed 3 x 2.3 cm cavitary lesion. Mediastinal shift right to left. Left lower lobe collapse. Possible mucus plugging As post bronchoscopy 12/22. Lukens trap obtained. Follow chest x-ray revealed dense consolidation left lung uriostegui. No masses on my bronchoscopy. Able to identify of left upper and lower lobes up to third subsegment without obstruction. GI: Constipation - resolved Nepro goal 55 cc an hour for nutrition's recommendations. KUB abdomen:Moderate constipation with stool throughout large bowel Famotidine 20 mg by tube daily for GI prophylaxis Docusate sodium/senna 1 tablet twice a day for bowel regimen. Metoclopramide 5 mg every 8 hours as needed nausea/high residuals Check C. difficile Endo: Hyperglycemia Secondary hyperparathyroidism Increase SSI to medium scale with accu checks Q4hr. Continue Cinacalet 30 mg daily for secondary hyperparathyroidism when able Cortisol level - 9 /FEN/Renal: End-stage renal disease on hemodialysis Tuesday/Tuesday/Tuesday Hyper-magnesium Hyperphosphatemia Monitor renal function, avoid nephrotoxins. HD per renal- Dr. Galarza s/p HD yesterday with removal 4L. Heme: Normocytic anemia/anemia of chronic kidney disease Leukocytosis..trending downward Monitor CBC daily. Follow trends Continue Epogen with hemodialysis ID: Haemophilus influenza/pseudomonas aeruginosa pneumonia/MRSA Staph epi bacteremia? Pertinent cultures On cefepime, levofloxacin, add linezolid Previously on vancomycin and metronidazole monitor for signs of infections ( Fever, WBC) 12/12 - sputum - Haemophilus influenza, pseudomonas aeruginosa 12/12 - blood cultures 2 - no growth Follow up on sputum cx from 12/16: MRSA, H. Influenza, Pseudomonas Follow-up on blood cultures 12/18 staph epi Infectious disease consult for antibiotic management Repeat blood cultures 2 12/21 MSK: OP/OA PT evaluate and treat Access -Right IJ CVL day #5 placed 12/18 -Left radial arterial line 12/18.- 12/21 Prophylaxis - GI - famotidine - DVT - SCD/heparin subcutaneous Level III follow-up Saji Pearson MD Dec 22, 2017 19:42
--- NOTE | 2017-12-22 19:44 | RADRPT ---
EXAM DATE/TIME: 12/22/2017 18:53 [facility] COMPARISON: CHEST SINGLE AP, December 22, 2017, 3:23. INDICATIONS : Post bronchoscopy. MEDICAL HISTORY : Cardiovascular disease. Hypertension. Chronic obstructive pulmonary disease. Hepatitis SURGICAL HISTORY : None. ENCOUNTER: Subsequent ACUITY: 1 day PAIN SCORE: Non-responsive. LOCATION: Bilateral chest FINDINGS: There is worsening of opacification of the left hemithorax compared to previous examination consisten t with probable worsening diffuse consolidation and possible increased pleural fluid. The right lung is stable. Apparent cavitary lesion is noted within the right lower lung field. No pneumothorax is no maryann. Multiple tubes and lines are stable. CONCLUSION: Worsening opacification of the left hemithorax compared to previous examination consistent with proba ble worsening diffuse consolidation and possible increased pleural fluid. Apparent cavitary lesion wi thin the right lower lung field is stable. Multiple tubes and lines are stable. Sergey Brown MD on December 22, 2017 at 19:40 Board Certified Radiologist. This report was verified electronically.
[2017-12-22] MEDS: ATORVASTATIN 10 MG TAB PO SCH (20:52)
[2017-12-22] MEDS: RESP: SODIUM CHLORIDE 3% 4 ML NEB NEB SCH (21:59)
[2017-12-23] VITALS (31 sets, daily range): BP systolic 81–194; BP diastolic 42–87; PULSE 56–98; RESP 0–48; TEMP 98.1–100.9; O2SAT 92–99
[2017-12-23] MEDS: DEXMEDETOMIDINE INJ 200 MCG in SODIUM CHLORIDE 0.9% INJ 50 ML IV PRN ×4 (00:13→14:30)
[2017-12-23] MEDS: HEPARIN SODIUM - SQ 10,000 UNITS/ML VIAL SQ SCH ×2 (02:47→13:00)
[2017-12-23] MEDS: CHLORHEXIDINE GLUCONATE 2 % 1 PACK (2 CLOTHS) TOP SCH (03:14)
[2017-12-23] MEDS: INSULIN NovoLIN REGULAR SUPPLEMENTAL SCALE SQ SCH ×5 (03:14→20:28)
[2017-12-23] MEDS ORDERED: TERBUTALINE INJ 1 MG/ML AMP SQ PRN (03:45)
[2017-12-23] MEDS ORDERED: SODIUM CHLORID 0.9% 500 ML INJ 500 ML IV ONE (03:45)
[2017-12-23] MEDS: RESP: ALBUTEROL 2.5 MG/IPRATROPIUM 0.5 MG NEB (SCH) NEB ×4 (04:00→21:30)
[2017-12-23] MEDS: RESP: SODIUM CHLORIDE 3% 4 ML NEB NEB SCH ×4 (04:00→21:32)
[2017-12-23] MEDS: PHENYLEPHRINE INJ 40 MG in DEXTROSE 5% IN WATE 500 ML INJ 496 ML IV PRN ×2 (04:27)
[2017-12-23] MEDS ORDERED: ALTEPLASE RECOMBINANT 2 MG VIAL INTRACATH SCH ×3 (04:30)
[2017-12-23] MEDS: LINEZOLID 600 MG PREMIX 300 ML IV SCH ×2 (05:06→16:46)
[2017-12-23] MEDS: ARTIFICIAL TEARS OPTH SOLN 15 ML BTL EACH EYE SCH ×3 (05:06→21:25)
[2017-12-23] MEDS: HYDROCORTISONE SOD SUCCINATE 100 MG VIAL IV PUSH SCH ×3 (05:07→21:25)
[2017-12-23 06:21] LABS: AUTOMATED NEUTROPHIL # 21.4 TH/MM3 (1.8-7.7); BASOPHIL % 0.1 % (0.0-2.0); HEMATOCRIT 28.6 % (39.0-51.0); HEMOGLOBIN 9.3 GM/DL (13.0-17.0); LYMPH % 2.8 % (9.0-44.0); LYMPHOCYTE # 0.7 TH/MM3 (1.0-4.8); MEAN CELL VOLUME 89.9 FL (80.0-100.0); MEAN CORPUSCULAR HEMOGLOBIN 29.3 PG (27.0-34.0); MEAN CORPUSCULAR HGB CONC 32.6 % (32.0-36.0); MEAN PLATELET VOLUME 8.2 FL (7.0-11.0); MONO % 3.9 % (0.0-8.0); MONOCYTE # 0.9 TH/MM3 (0-0.9); NEUT % 93.2 % (16.0-70.0); PLATELET COUNT 202 TH/MM3 (150-450); RED BLOOD COUNT 3.19 MIL/MM3 (4.50-5.90); RED CELL DISTRIBUTION WIDTH 14.9 % (11.6-17.2); WHITE BLOOD COUNT 22.9 TH/MM3 (4.0-11.0)
[2017-12-23 06:46] LABS: ALBUMIN 2.2 GM/DL (3.4-5.0); BICARBONATE 25.4 MEQ/L (21.0-32.0); CALCIUM 8.1 MG/DL (8.5-10.1); CREATININE 6.41 MG/DL (0.60-1.30); MAGNESIUM 2.7 MG/DL (1.5-2.5); PHOSPHORUS 7.3 MG/DL (2.5-4.9)
[2017-12-23] MEDS: LANTHANUM CARBONATE 500 MG CHEWABLE TABLET CHEW SCH ×2 (08:00→11:50)
[2017-12-23] MEDS: MIDAZOLAM HCL 2 MG/2 ML VIAL IV PUSH PRN ×5 (08:14→20:00)
[2017-12-23] MEDS: fentaNYL 2,500 MCG/NS 250 ML IV PRN ×2 (08:18→21:24)
[2017-12-23] MEDS: SODIUM CHLORIDE 0.9% FLUSH 10 ML FLUSH IV FLUSH SCH (08:26)
[2017-12-23 08:33] LABS: LYMPHOCYTES 3 % (9-44); MONOCYTES 1 % (0-8); MYELOCYTES 1 % (0-0); POLYS (SEG NEUTROPHILS) 95 % (16-70)
[2017-12-23] MEDS: ALBUMIN 25% INJ 100 ML IV PRN ×2 (08:50→09:05)
[2017-12-23] MEDS: MUPIROCIN 2% OINT 1 APPLIC/GM SYR EACH NARE SCH ×2 (09:00→20:29)
[2017-12-23] MEDS: NYSTATIN SUSP 500,000 U/5 ML CUP OROPHARYNG SCH ×4 (09:00→20:28)
[2017-12-23] MEDS: EPOETIN ALFA 10,000 UNITS/ML VIAL IV PUSH PRN (11:07)
--- NOTE | 2017-12-23 11:20 | HHI.IDPN ---
Note Infectious Disease Note Patient on the vent. 40%FIO2. Becomes agitated when sedation is decreased. Has eyes open. Had bronch yesterday. Mucous plugging noted. Dialysis in progress. Afebrile. 72 year-old white male who presented to the emergency department with shortness of breath on 12/12/2017. The patient has a history of COPD. PAST MEDICAL HISTORY: 1. COPD. 2. CHF. 3. Anemia. 4. End-stage renal disease. 5. Cardiomyopathy. 6. History of left hip replacement. 7. History of right upper extremity A-V fistula. 8. Secondary hyperparathyroidism. ALLERGIES NO KNOWN DRUG ALLERGIES. ANTIBIOTICS 1. Cefepime 2. Levaquin. 3. Zyvox. OBJECTIVE: Vital Signs Date Time Temp Pulse Resp B/P (MAP) Pulse Ox O2 Delivery O2 Flow Rate FiO2 12/22/17 09:56 96 40 12/22/17 09:51 40 12/22/17 09:51 96 40 12/22/17 08:00 100.0 92 52 175/82 (113) 92 12/22/17 08:00 92 12/22/17 07:55 91 40 12/22/17 06:00 88 12/22/17 04:09 95 40 12/22/17 04:00 40 12/22/17 04:00 72 12/22/17 04:00 97.8 72 20 86/54 (65) 95 12/22/17 02:00 62 12/22/17 00:45 75 66/40 12/22/17 00:00 40 12/22/17 00:00 83 12/22/17 00:00 99.4 83 29 143/65 (91) 97 12/21/17 23:55 97 40 12/21/17 22:30 84 138/71 12/21/17 22:00 86 12/21/17 21:45 86 129/60 12/21/17 21:30 85 107/58 12/21/17 21:06 99 40 12/21/17 20:00 137 12/21/17 20:00 40 12/21/17 20:00 98.8 137 20 82/56 (65) 98 Arterial Line 12/21/17 18:00 45 12/21/17 18:00 75 12/21/17 16:00 98.2 131 20 100/54 (69) 98 12/21/17 16:00 75 12/21/17 15:53 100 40 12/21/17 14:00 75 12/21/17 14:00 45 Laboratory Tests Test 12/22/17 04:00 12/23/17 04:00 White Blood Count 17.2 TH/MM3 22.9 TH/MM3 Red Blood Count 3.13 MIL/MM3 3.19 MIL/MM3 Hemoglobin 9.2 GM/DL 9.3 GM/DL Hematocrit 28.3 % 28.6 % Mean Corpuscular Volume 90.3 FL 89.9 FL Mean Corpuscular Hemoglobin 29.5 PG 29.3 PG Mean Corpuscular Hemoglobin Concent 32.7 % 32.6 % Red Cell Distribution Width 15.3 % 14.9 % Platelet Count 159 TH/MM3 202 TH/MM3 Mean Platelet Volume 8.2 FL 8.2 FL Neutrophils (%) (Auto) 91.2 % 93.2 % Lymphocytes (%) (Auto) 4.3 % 2.8 % Monocytes (%) (Auto) 4.3 % 3.9 % Eosinophils (%) (Auto) 0.0 % 0.0 % Basophils (%) (Auto) 0.2 % 0.1 % Neutrophils # (Auto) 15.7 TH/MM3 21.4 TH/MM3 Lymphocytes # (Auto) 0.7 TH/MM3 0.7 TH/MM3 Monocytes # (Auto) 0.7 TH/MM3 0.9 TH/MM3 Eosinophils # (Auto) 0.0 TH/MM3 0.0 TH/MM3 Basophils # (Auto) 0.0 TH/MM3 0.0 TH/MM3 CBC Comment DIFF FINAL AUTO DIFF Differential Comment FINAL DIFF MANUAL Differential Total Cells Counted 100 Neutrophils % (Manual) 95 % Lymphocytes % 3 % Monocytes % 1 % Neutrophils # (Manual) 22.0 TH/MM3 Myelocytes 1 % Platelet Estimate NORMAL Platelet Morphology Comment NORMAL Laboratory Tests Test 12/22/17 04:00 12/23/17 04:00 Blood Urea Nitrogen 69 MG/DL 107 MG/DL Creatinine 4.80 MG/DL 6.41 MG/DL Random Glucose 340 MG/DL 305 MG/DL Total Protein 6.3 GM/DL Albumin 2.4 GM/DL 2.2 GM/DL Calcium Level 8.9 MG/DL 8.1 MG/DL Phosphorus Level 5.0 MG/DL 7.3 MG/DL Magnesium Level 2.6 MG/DL 2.7 MG/DL Alkaline Phosphatase 164 U/L Aspartate Amino Transf (AST/SGOT) 39 U/L Alanine Aminotransferase (ALT/SGPT) 37 U/L Total Bilirubin 0.7 MG/DL Sodium Level 136 MEQ/L 136 MEQ/L Potassium Level 3.7 MEQ/L 4.3 MEQ/L Chloride Level 94 MEQ/L 95 MEQ/L Carbon Dioxide Level 30.5 MEQ/L 25.4 MEQ/L Anion Gap 12 MEQ/L 16 MEQ/L Estimat Glomerular Filtration Rate 12 ML/MIN 9 ML/MIN Microbiology Date/Time Source Procedure Growth Status 12/21/17 14:32 Blood Peripheral Aerobic Blood Culture - Preliminary NO GROWTH IN 2 DAYS Resulted 12/21/17 14:32 Blood Peripheral Anaerobic Blood Culture - Preliminary NO GROWTH IN 2 DAYS Resulted 12/21/17 14:23 Blood Peripheral Aerobic Blood Culture - Preliminary Gram Positive Cocci Resulted 12/21/17 14:23 Blood Peripheral Anaerobic Blood Culture - Preliminary NO GROWTH IN 2 DAYS Resulted 12/22/17 18:20 Bronchial Washings Left Lower Lobe Fungal Smear - Final NO FUNGAL ELEMENTS SEEN. Resulted 12/22/17 18:20 Bronchial Washings Left Lower Lobe Fungal Culture Pending Resulted 12/22/17 18:20 Bronchial Washings Left Lower Lobe Acid Fast Stain Pending Received 12/22/17 18:20 Bronchial Washings Left Lower Lobe Mycobacterial Culture Pending Received 12/22/17 18:20 Bronchial Washings Left Lower Lobe Gram Stain - Final Resulted 12/22/17 18:20 Bronchial Washings Left Lower Lobe Bronchial Culture Pending Resulted IMAGING: Chest X-Ray 12/22/17 0600 Signed Impressions: Service Date/Time: December 03:23 - CONCLUSION: 1. Development of increased density consolidation in the left lung. Differential diagnosis includes pneumonia and aspiration. 2. Improving right basilar airspace consolidation but with development of a suspected cavitary lesion measuring about 3.3 cm in diameter, probably infectious in nature. Khoa Franco MD Chest X-Ray 12/22/17 0000 Signed Impressions: Service Date/Time: December 18:53 - CONCLUSION: Worsening opacification of the left hemithorax compared to previous examination consistent with probable worsening diffuse consolidation and possible increased pleural fluid. Apparent cavitary lesion within the right lower lung field is stable. Multiple tubes and lines are stable. Sergey Brown MD Chest CT 12/22/17 Signed Impressions: Service Date/Time: December 16:39 - CONCLUSION: 1. Multiple cavitary lesions in the right lung as well as a small nodule and larger nodule or mass. These findings are concerning for metastatic disease. 2. The left lung is completely opacified with air bronchograms and volume loss with mediastinal shift. Areas cut off of the left main bronchus with soft tissue density material which could indicate mucous plugging. 3. Mild to moderate cardiomegaly. Edy Laughlin MD Chest X-Ray 12/22/17 0600 Signed Impressions: Service Date/Time: December 03:23 - CONCLUSION: 1. Development of increased density consolidation in the left lung. Differential diagnosis includes pneumonia and aspiration. 2. Improving right basilar airspace consolidation but with development of a suspected cavitary lesion measuring about 3.3 cm in diameter, probably infectious in nature. Khoa Franco MD Abdomen X-Ray 12/20/17599 Signed Impressions: Service Date/Time: Wednesday, December 20, 2017 02:07 - CONCLUSION: 1. Moderate constipation with stool throughout large bowel. NG coiled in stomach. Khoa Franco MD Neck Magnetic Resonance Angiography 12/19/17 Signed Impressions: Service Date/Time: Tuesday, December 19, 2017 12:24 - CONCLUSION: 1. Patent carotids and vertebrals. Marco Antonio Henriquez Jr., MD Head Magnetic Resonance Angiography 12/19/17 0000 Signed Impressions: Service Date/Time: Tuesday, December 19, 2017 12:24 - CONCLUSION: 1. No large vessel stenosis or aneurysm. 2. Normal variants as described above. Leonard Vaughn MD Brain MRI 12/17/17 0000 Signed Impressions: Service Date/Time: Sunday, December 17, 2017 11:33 - CONCLUSION: Small foci of retracted diffusion in the parietal periventricular white matter bilaterally indicating small acute infarcts. No other acute intracranial findings. Gatito Shipman MD Head CT 12/16/17 0000 Signed Impressions: Service Date/Time: Saturday, December 16, 2017 10:58 - CONCLUSION: No acute disease. Marco Antonio Herniquez Jr., MD PHYSICAL EXAMINATION: GENERAL: No acute distress. Sedated on the ventilator. HEENT: Head atraumatic. No icterus. Oropharynx intubated. Neck: Supple. No palpable adenopathy. Lungs: Rhonchi on the left. clear on the right. Heart: Irregular S1-S2. No audible murmur. Abdomen: Soft, nontender. Bowel sounds present. Extremities: No clubbing or cyanosis or edema. Skin: No diffuse rash. Neuro: Unable to assess. Psych: Unable to assess. IMPRESSION 1. Pneumonia due to MRSA and pseudomonas. - mucous plugging. 2. Acute respiratory failure. 3. End-stage renal disease. 4. One blood culture with staph epidermidis, out of four bottles again positive on repeat suggesting contamination. RECOMMENDATIONS 1. Continue cefepime. 2. Continue Levaquin. 3. Continue Linezolid. 4. Monitor bronch culture. 5. Monitor clinical status. Dave Waite MD Dec 23, 2017 11:20
[2017-12-23] MEDS: INSULIN DETEMIR 100 UNITS/ML VIAL SQ SCH ×2 (11:50→20:28)
[2017-12-23] MEDS: FAMOTIDINE 20 MG TAB NG SCH (11:50)
[2017-12-23] MEDS: DOCUSATE SODIUM 50 MG/SENNA 8.6 MG TAB PO SCH ×2 (11:50→20:28)
[2017-12-23] MEDS: CINACALCET HYDROCHLORIDE 30 MG TAB PO SCH (11:50)
[2017-12-23] MEDS: HYDROXYCHLOROQUINE SULFATE 200 MG TAB PO SCH (11:50)
[2017-12-23] MEDS: CEFEPIME INJ 1,000 MG in SODIUM CHLORIDE 0.9% INJ 100 ML IV SCH (11:51)
[2017-12-23] MEDS: CARVEDILOL 3.125 MG TAB PO SCH ×2 (11:51→20:29)
[2017-12-23] MEDS: ASPIRIN 81 MG CHEW TAB PO SCH (11:51)
[2017-12-23] MEDS ORDERED: QUEtiapine FUMARATE 25 MG TAB NG ONE (12:15)
--- NOTE | 2017-12-23 12:37 | HHI.NPPN ---
Subjective General Problems: Anemia Renal Failure: Chronic, End Stage Renal Disease Interval History Had dialysis earlier. Still on vasopressin, hypotensive. He is agitated despite sedation. Had bronchoscopy yesterday. (Nancy Springer) Review of Systems General General Remarks unable to assess (Nancy Springer) Objective Data Data 12/23/17 12/24/17 19:00 07:00 Output Total 3000 ml Balance -3000 ml Hemodialysis 3000 ml Vital Signs Date Time Temp Pulse Resp B/P (MAP) Pulse Ox O2 Delivery O2 Flow Rate FiO2 12/23/17 11:43 97 40 12/23/17 09:00 69 72/46 12/23/17 08:25 95 40 12/23/17 08:00 99.0 76 45 194/87 (122) 94 12/23/17 08:00 76 12/23/17 06:30 80 189/81 12/23/17 06:15 76 151/72 12/23/17 06:00 67 12/23/17 05:52 93 40 12/23/17 05:00 61 173/82 12/23/17 04:45 80 173/82 12/23/17 04:27 85 12/23/17 04:15 98 172/78 12/23/17 04:01 97 164/74 12/23/17 04:00 40 12/23/17 04:00 98 12/23/17 04:00 98 12/23/17 04:00 98.1 98 32 164/74 (104) 96 12/23/17 03:46 145 81/42 12/23/17 03:30 143 64/43 12/23/17 02:00 80 12/23/17 00:15 66 106/60 12/23/17 00:00 67 12/23/17 00:00 40 12/23/17 00:00 98.9 67 26 102/56 (71) 99 12/22/17 22:00 81 12/22/17 21:55 98 40 12/22/17 20:53 67 113/59 12/22/17 20:00 67 12/22/17 20:00 40 12/22/17 20:00 98.9 67 20 127/68 (87) 96 12/22/17 19:00 74 141/65 12/22/17 18:08 100 100 2/1/18 18:05 83 85/42 12/22/17 18:00 83 12/22/17 16:59 97 100 12/22/17 16:59 96 40 12/22/17 16:00 82 12/22/17 16:00 99.7 82 25 164/80 (108) 98 12/22/17 16:00 40 12/22/17 14:00 82 12/22/17 13:19 95 40 (Nancy Springer) -: 12/23/17 0400 12/23/17 0400 Microbiology 12/22/17 Fungal Smear - Final, Resulted NO FUNGAL ELEMENTS SEEN. 12/22/17 Fungal Culture, Resulted Pending 12/22/17 Acid Fast Stain, Received Pending 12/22/17 Mycobacterial Culture, Received Pending 12/22/17 Gram Stain - Final, Resulted 12/22/17 Bronchial Culture, Resulted Pending Imaging Last 72 hours Impressions Chest X-Ray 12/22/17 0600 Signed Impressions: Service Date/Time: December 03:23 - CONCLUSION: 1. Development of increased density consolidation in the left lung. Differential diagnosis includes pneumonia and aspiration. 2. Improving right basilar airspace consolidation but with development of a suspected cavitary lesion measuring about 3.3 cm in diameter, probably infectious in nature. Khoa Franco MD Chest X-Ray 12/22/17 0000 Signed Impressions: Service Date/Time: December 18:53 - CONCLUSION: Worsening opacification of the left hemithorax compared to previous examination consistent with probable worsening diffuse consolidation and possible increased pleural fluid. Apparent cavitary lesion within the right lower lung field is stable. Multiple tubes and lines are stable. Sergey Brown MD Chest CT 12/22/17 0000 Signed Impressions: Service Date/Time: December 16:39 - CONCLUSION: 1. Multiple cavitary lesions in the right lung as well as a small nodule and larger nodule or mass. These findings are concerning for metastatic disease. 2. The left lung is completely opacified with air bronchograms and volume loss with mediastinal shift. Areas cut off of the left main bronchus with soft tissue density material which could indicate mucous plugging. 3. Mild to moderate cardiomegaly. Edy Laughlin MD Tubes & Lines Comment TLC right IJ Drip Comment fentanyl, versed, precedex (Nancy Springer MASSAGE OPERATOR) Physical Exam General Appearance: Well Developed, Comfortable Appearance Remarks intubated, sedated (Nancy Springer MASSAGE OPERATOR) Eyes Eye Exam: Pupils Equal (Nancy Springer BLev MASSAGE OPERATOR) Pulmonary Resp Exam: Breath Sounds Equal, Crackles, Rhonchi, Sputum, Decreased Bases Resp Remarks vented lung sounds (Nancy Springer MASSAGE OPERATOR) Cardiology CV Exam: Regular, Normal Sinus Rhythm, Good Perfusion (Nancy Springer MASSAGE OPERATOR) Gastrointestinal/Abdomen GI Exam: Soft, Non-Tender, Bowel Sounds Present (Nancy Springer MASSAGE OPERATOR) Musculoskeletal MS Exam: Joints Intact, Normal Tone (Nancy Springer B. MASSAGE OPERATOR) Integumentary Skin Exam: Clear, Warm, Dry, Intact (Nancy Springer MASSAGE OPERATOR) Extremeties Extremities Exam: No Edema, Pedal Pulses Palpable (Nancy Springer MASSAGE OPERATOR) Neurologic Neuro Exam: Awake, Moving All Extremities, Unresponsive, Sedated (Nancy Springer MASSAGE OPERATOR) VTE Prophylaxis Device: SCDs (Nancy SpringerP) Assessment/Plan Assessment Summary: Anemia of CKD, CHF, Diabetes Mellitus, End Stage Renal Disease Electrolyte Assessment: Hyperkalemia Problem List: (1) ESRD (end stage renal disease) ICD Codes: N18.6 - End-stage renal disease Status: Chronic Plan: He was dialyzed today, 3L UF Continue HD MWF Avoid IVF, follow fluid status Obtain renal panel intermittently. He has functioning AVF, avoid right arm procedures. Monitor fluid and electrolyte balance. Avoid Gadolinium. (2) Respiratory failure ICD Codes: J96.90 - Respiratory failure, unspecified, unspecified whether with hypoxia or hypercapnia Plan: Management per information management specialist. Most likely will need trach/PEG soon. Not tolerating CPAP. + VAP,+ H. influenza and pseudomonas, MRSA, on sputum culture. On cefepime, Levaquin, and Zyvoxx Had bronch yesterday Hx of CHF, also most likely has COPD Persistent leukocytosis. ID is following. Blood cultures positive, may be contaminant Palliative care has evaluated, pending HCS. (3) Anemia ICD Codes: D64.9 - Anemia, unspecified Plan: Epogen with dialysis. (4) Secondary hyperparathyroidism of renal origin ICD Codes: N25.81 - Secondary hyperparathyroidism of renal origin Plan: Continue binders with tube feeding. Change to calcium acetate, 1334 mg TID with tube feeding Also on Sensipar. Check iPTH (5) Encephalopathy ICD Codes: G93.40 - Encephalopathy, unspecified Plan: metabolic encephalopathy, acute CVA per MRI. MRA negative. Seen by neurology. He is on precedex and versed. (Nancy Springer) Plan patient was seen and examined. He is doing poorly. Had dialysis today, 3 liters removed. s/p bronchoscopy. ID managing antibiotics. Poor prognosis. (Tru Galarza MD) Nancy Springer Dec 23, 2017 12:37 Tru Galarza MD Dec 23, 2017 14:54
[2017-12-23] MEDS: oxyCODONE HCL ORAL CONC 5 MG/0.25 ML SYRINGE NG SCH ×2 (12:47→20:27)
[2017-12-23] MEDS: CALCIUM ACETATE 667 MG CAP OG-TUBE SCH ×2 (12:56→16:46)
--- NOTE | 2017-12-23 14:08 | RADRPT ---
EXAM DATE/TIME: 12/23/2017 12:26 [facility] COMPARISON: CHEST SINGLE AP, December 22, 2017, 18:53. INDICATIONS : Left-sided pneumonia and shortness of breath. MEDICAL HISTORY : Congestive heart failure. Hypertension SURGICAL HISTORY : None. ENCOUNTER: Subsequent ACUITY: 1 day PAIN SCORE: Non-responsive. LOCATION: Bilateral chest FINDINGS: A single view of the chest demonstrates reexpansion of the left lung. Persistent left basilar density and probable small pleural effusion. Cardiomegaly. Endotracheal tube and nasogastric tube unchanged. Osseous structures are intact. CONCLUSION: Reexpansion of the left lung with minimal left basilar density. Leonard Vaughn MD on December 23, 2017 at 14:04 Board Certified Radiologist. This report was verified electronically.
--- NOTE | 2017-12-23 15:21 | HHI.HCPN ---
Reason for visit a. To assist with evaluation and management of symptoms including: Shortness of breath, restlessness/agitation, debility. b. To assist medical decision maker(s) with: better understanding of current medical conditions; weighing benefits/burdens of medical treatment options; making medical treatment decisions. . Subjective/Interval History Palliative care follow up for further clarification of goals of care. Patient seen in the medical ICU. He remains intratracheally intubated on mechanical ventilation. Currently 40% FiO2. Patient calm during my visit, currently on low-dose Precedex and fentanyl drip. Eyes closed, did not open to verbal or tactile stimuli. Patient underwent hemodialysis yesterday, 1.5L removed. Laboratory workup today revealing WBC 22.9, Hgb is stable and 9.3, platelet count 22. BUN/creatinine 107/6.41. Patient underwent bronchoscopy on 12/22/17 secondary to left lung mucous plugging. Bronchial wash culture is a still pending. Chest x-ray today revealing reexpansion of the left lung with minimal left basilar density. Chest CT 12/22 revealing multiple cavitary lesions in the right lung as well as small nodule and larger nodule or mass. The findings are concerning for metastatic disease. Case discussed with Dr. Pearson, patient not likely to medically extubate, close to trach and PEG decision. Case discussed with casework specialist. [employer] report only provided 1 contact: Aleja Ha, called -no answer, only able to leave message. Telephone call to patient's sister Lesa Pickard, left message in voicemail. This is my 4th call to patient's sister with a message. Palliative care has not received any phone calls back. As per casework specialist's notes, It appears that sister has been previously contacted and that she has to declined participating in medical decision-making. However, pending information on any additional blood relatives that may wish to participate. [facility] reports that patient has mentioned having 2 children. Telephone conversation with patient's kelsie Benito. Discussed that as per [place] statute, we are still in the process of identifying proxy decision maker. Medical update provided. John reports that patient's sister has verbalized previously not wishing to participating in medical decision-making, advised John that we need to hear directly from her. Kelsie willing and readily available for medical decision-making. Reviewed that patient is not likely to be medically extubated, trach and PEG decision pending in the incoming days. Reviewed chest CT results revealing multiple nodules, lesions concerning for metastatic cancer. Reviewed overall poor prognosis given multiple chronic ongoing comorbidities and acute events. Stepson receptive to palliative care follow-ups. Palliative care not following over the weekend. Stepson made aware. Palliative care to reach stepson via telephone on Tuesday12/27/17. . Family/friend interactions See interval note. . Advance Directives Advance Directive Specifics Health Care Surrogate(s): Unclear if advance directives have been completed. Healthcare proxy decision maker to be determined. . Significant change in goals: Pending identification of proxy decision maker. Objective Vital Signs Date Time Temp Pulse Resp B/P (MAP) Pulse Ox O2 Delivery O2 Flow Rate FiO2 12/23/17 12:00 99.0 83 22 96/52 (67) 98 12/23/17 12:00 40 12/23/17 12:00 83 12/23/17 11:43 97 40 12/23/17 10:00 65 12/23/17 09:00 69 72/46 12/23/17 08:25 95 40 12/23/17 08:00 99.0 76 45 194/87 (122) 94 12/23/17 08:00 40 12/23/17 08:00 76 12/23/17 06:30 80 189/81 12/23/17 06:15 76 151/72 12/23/17 06:00 67 12/23/17 05:52 93 40 12/23/17 05:00 61 173/82 12/23/17 04:45 80 173/82 12/23/17 04:27 85 12/23/17 04:15 98 172/78 12/23/17 04:01 97 164/74 12/23/17 04:00 40 12/23/17 04:00 98 12/23/17 04:00 98 12/23/17 04:00 98.1 98 32 164/74 (104) 96 12/23/17 03:46 145 81/42 12/23/17 03:30 143 64/43 12/23/17 02:00 80 12/23/17 00:15 66 106/60 12/23/17 00:00 67 2/2/18 00:00 40 12/23/17 00:00 98.9 67 26 102/56 (71) 99 12/22/17 22:00 81 12/22/17 21:55 98 40 12/22/17 20:53 67 113/59 12/22/17 20:00 67 12/22/17 20:00 40 12/22/17 20:00 98.9 67 20 127/68 (87) 96 12/22/17 19:00 74 141/65 12/22/17 18:08 100 100 12/22/17 18:05 83 85/42 12/22/17 18:00 83 12/22/17 16:59 97 100 12/22/17 16:59 96 40 12/22/17 16:00 82 12/22/17 16:00 99.7 82 25 164/80 (108) 98 12/22/17 16:00 40 Intake & Output 12/23/17 12/23/17 07:00 19:00 Intake Total 1461 ml Output Total 3000 ml Balance 1461 ml -3000 ml IV Total 942 ml Tube Feeding 519 ml Hemodialysis 3000 ml # Bowel Movements 1 Physical Exam CONSTITUTIONAL/GENERAL: This is an adequately nourished elderly man in no acute distress. TUBES/LINES/DRAINS: ETT, OG, Murillo catheter, right IJ, soft wrist restraints. SKIN: No jaundice, rashes, or lesions. Ecchymoses on upper extremities. No wounds seen anteriorly. Skin temperature appropriate. Not diaphoretic. HEAD: Atraumatic. Normocephalic. EYES: Pupils equal and round and reactive. No scleral icterus. No injection or drainage. Fundi not examined. ENT: Unable to evaluate hearing secondary to clinical condition. Nose without bleeding or purulent drainage. Moist oral cause a. NECK: Trachea midline. Supple. CARDIOVASCULAR: Regular rate and rhythm. Peripheral pulses symmetric. RESPIRATORY/CHEST: Symmetric, coarse sounds bilaterally. Endotracheal intubated on mechanical ventilation. GASTROINTESTINAL: Abdomen large, round, soft. Bowel sounds present, hyperactive. GENITOURINARY: Without palpable bladder distension. Murillo catheter in place. MUSCULOSKELETAL: Extremities without clubbing, cyanosis, or edema. No mottling or clubbing. NEUROLOGICAL: Not following any commands or attempting to communicate. Moves all extremities spontaneously. PSYCHIATRIC: Unable to evaluate given her clinical condition, appears calm. . Diagnostic Tests Laboratory Laboratory Tests Test 1/31/18 05:00 12/21/17 15:20 12/22/17 04:00 12/22/17 18:20 White Blood Count 21.8 TH/MM3 (4.0-11.0) 17.2 TH/MM3 (4.0-11.0) Red Blood Count 3.50 MIL/MM3 (4.50-5.90) 3.13 MIL/MM3 (4.50-5.90) Hemoglobin 10.4 GM/DL (13.0-17.0) 9.2 GM/DL (13.0-17.0) Hematocrit 31.6 % (39.0-51.0) 28.3 % (39.0-51.0) Mean Corpuscular Volume 90.3 FL (80.0-100.0) 90.3 FL (80.0-100.0) Mean Corpuscular Hemoglobin 29.7 PG (27.0-34.0) 29.5 PG (27.0-34.0) Mean Corpuscular Hemoglobin Concent 32.9 % (32.0-36.0) 32.7 % (32.0-36.0) Red Cell Distribution Width 15.2 % (11.6-17.2) 15.3 % (11.6-17.2) Platelet Count 168 TH/MM3 (150-450) 159 TH/MM3 (150-450) Mean Platelet Volume 7.7 FL (7.0-11.0) 8.2 FL (7.0-11.0) Neutrophils (%) (Auto) 90.4 % (16.0-70.0) 91.2 % (16.0-70.0) Lymphocytes (%) (Auto) 2.8 % (9.0-44.0) 4.3 % (9.0-44.0) Monocytes (%) (Auto) 6.7 % (0.0-8.0) 4.3 % (0.0-8.0) Eosinophils (%) (Auto) 0.0 % (0.0-4.0) 0.0 % (0.0-4.0) Basophils (%) (Auto) 0.1 % (0.0-2.0) 0.2 % (0.0-2.0) Neutrophils # (Auto) 19.7 TH/MM3 (1.8-7.7) 15.7 TH/MM3 (1.8-7.7) Lymphocytes # (Auto) 0.6 TH/MM3 (1.0-4.8) 0.7 TH/MM3 (1.0-4.8) Monocytes # (Auto) 1.5 TH/MM3 (0-0.9) 0.7 TH/MM3 (0-0.9) Eosinophils # (Auto) 0.0 TH/MM3 (0-0.4) 0.0 TH/MM3 (0-0.4) Basophils # (Auto) 0.0 TH/MM3 (0-0.2) 0.0 TH/MM3 (0-0.2) CBC Comment AUTO DIFF DIFF FINAL Differential Total Cells Counted 100 Neutrophils % (Manual) 81 % (16-70) Band Neutrophils % 12 % (0-6) Lymphocytes % 3 % (9-44) Monocytes % 3 % (0-8) Neutrophils # (Manual) 20.5 TH/MM3 (1.8-7.7) Metamyelocytes 1 % (0-1) Differential Comment FINAL DIFF MANUAL Platelet Estimate NORMAL (NORMAL) Platelet Morphology Comment NORMAL (NORMAL) Blood Urea Nitrogen 72 MG/DL (7-18) 69 MG/DL (7-18) Creatinine 5.85 MG/DL (0.60-1.30) 4.80 MG/DL (0.60-1.30) Random Glucose 220 MG/DL (74-106) 340 MG/DL (74-106) Calcium Level 9.0 MG/DL (8.5-10.1) 8.9 MG/DL (8.5-10.1) Sodium Level 137 MEQ/L (136-145) 136 MEQ/L (136-145) Potassium Level 3.9 MEQ/L (3.5-5.1) 3.7 MEQ/L (3.5-5.1) Chloride Level 94 MEQ/L (98-107) 94 MEQ/L (98-107) Carbon Dioxide Level 29.8 MEQ/L (21.0-32.0) 30.5 MEQ/L (21.0-32.0) Anion Gap 13 MEQ/L (5-15) 12 MEQ/L (5-15) Estimat Glomerular Filtration Rate 10 ML/MIN (>89) 12 ML/MIN (>89) Random Vancomycin Level 19.9 COMMENT Stool C. difficile Toxin (PCR) NEGATIVE (NEGATIVE) Stl C. difficile Toxin Epiderm 027 PRESUMPTIVE NEGATIVE Total Protein 6.3 GM/DL (6.4-8.2) Albumin 2.4 GM/DL (3.4-5.0) Phosphorus Level 5.0 MG/DL (2.5-4.9) Magnesium Level 2.6 MG/DL (1.5-2.5) Alkaline Phosphatase 164 U/L (45-117) Aspartate Amino Transf (AST/SGOT) 39 U/L (15-37) Alanine Aminotransferase (ALT/SGPT) 37 U/L (12-78) Total Bilirubin 0.7 MG/DL (0.2-1.0) Bronchoalveolar Lavage WBC 4178 /MM3 Bronchoalveolar Lavage RBC 250 /MM3 Bronchoalveolar Lavage Neutrophils 94 % Bronchoalveolar Lavage Lymphocytes 4 % Bronchoalveolar Lavage Histiocytes 2 % Lavage Fluid Total Volume 25.0 ML Lavage Fluid Total WBC Count 104.400 MILLION Test 12/23/17 04:00 White Blood Count 22.9 TH/MM3 (4.0-11.0) Red Blood Count 3.19 MIL/MM3 (4.50-5.90) Hemoglobin 9.3 GM/DL (13.0-17.0) Hematocrit 28.6 % (39.0-51.0) Mean Corpuscular Volume 89.9 FL (80.0-100.0) Mean Corpuscular Hemoglobin 29.3 PG (27.0-34.0) Mean Corpuscular Hemoglobin Concent 32.6 % (32.0-36.0) Red Cell Distribution Width 14.9 % (11.6-17.2) Platelet Count 202 TH/MM3 (150-450) Mean Platelet Volume 8.2 FL (7.0-11.0) Neutrophils (%) (Auto) 93.2 % (16.0-70.0) Lymphocytes (%) (Auto) 2.8 % (9.0-44.0) Monocytes (%) (Auto) 3.9 % (0.0-8.0) Eosinophils (%) (Auto) 0.0 % (0.0-4.0) Basophils (%) (Auto) 0.1 % (0.0-2.0) Neutrophils # (Auto) 21.4 TH/MM3 (1.8-7.7) Lymphocytes # (Auto) 0.7 TH/MM3 (1.0-4.8) Monocytes # (Auto) 0.9 TH/MM3 (0-0.9) Eosinophils # (Auto) 0.0 TH/MM3 (0-0.4) Basophils # (Auto) 0.0 TH/MM3 (0-0.2) CBC Comment AUTO DIFF Differential Total Cells Counted 100 Neutrophils % (Manual) 95 % (16-70) Lymphocytes % 3 % (9-44) Monocytes % 1 % (0-8) Neutrophils # (Manual) 22.0 TH/MM3 (1.8-7.7) Myelocytes 1 % (0-0) Differential Comment FINAL DIFF MANUAL Platelet Estimate NORMAL (NORMAL) Platelet Morphology Comment NORMAL (NORMAL) Blood Urea Nitrogen 107 MG/DL (7-18) Creatinine 6.41 MG/DL (0.60-1.30) Random Glucose 305 MG/DL (74-106) Albumin 2.2 GM/DL (3.4-5.0) Calcium Level 8.1 MG/DL (8.5-10.1) Phosphorus Level 7.3 MG/DL (2.5-4.9) Magnesium Level 2.7 MG/DL (1.5-2.5) Sodium Level 136 MEQ/L (136-145) Potassium Level 4.3 MEQ/L (3.5-5.1) Chloride Level 95 MEQ/L (98-107) Carbon Dioxide Level 25.4 MEQ/L (21.0-32.0) Anion Gap 16 MEQ/L (5-15) Estimat Glomerular Filtration Rate 9 ML/MIN (>89) Result Diagram: 12/23/17 0400 12/23/17 0400 Microbiology Microbiology Date/Time Source Procedure Growth Status 12/21/17 14:32 Blood Peripheral Aerobic Blood Culture - Preliminary NO GROWTH IN 2 DAYS Resulted 12/21/17 14:32 Blood Peripheral Anaerobic Blood Culture - Preliminary NO GROWTH IN 2 DAYS Resulted 12/21/17 14:23 Blood Peripheral Aerobic Blood Culture - Preliminary Staph Sp Coagulase Negative Resulted 12/21/17 14:23 Blood Peripheral Anaerobic Blood Culture - Preliminary NO GROWTH IN 2 DAYS Resulted 12/22/17 18:20 Bronchial Washings Left Lower Lobe Fungal Smear - Final NO FUNGAL ELEMENTS SEEN. Resulted 12/22/17 18:20 Bronchial Washings Left Lower Lobe Fungal Culture Pending Resulted 12/22/17 18:20 Bronchial Washings Left Lower Lobe Acid Fast Stain - Final NO ACID FAST BACILLI SEEN Resulted 12/22/17 18:20 Bronchial Washings Left Lower Lobe Mycobacterial Culture Pending Resulted 12/22/17 18:20 Bronchial Washings Left Lower Lobe Gram Stain - Final Resulted 12/22/17 18:20 Bronchial Washings Left Lower Lobe Bronchial Culture Pending Resulted Procedures * 12/12/17 -endotracheal intubation. * 12/22/17 -bronchoscopy . Assessment and Plan Disease Oriented Problem List: (1) Respiratory failure (2) Pneumonia (3) Cerebrovascular accident (CVA) (4) ESRD (end stage renal disease) (5) Encephalopathy (6) Congestive heart failure Symptom Scale: (1) Anxiety 0-10 Scale: Unable to quantify (2) Pain 0-10 Scale: Unable to quantify (3) Shortness of breath 0-10 Scale: Unable to quantify Pertinent Non-Medical Issues Psychosocial: Retired, , lives alone. in 2008. Spiritual: Jehovah Witness. Legal: Appears that no advance directives have been completed. Ethical issues impacting care: Pending designation of healthcare proxy decision maker. Patient unable to participating in medical decision-making secondary to clinical condition. . Important Contacts Kelsie Benito . Sister Lesa Pickard . . Prognosis Mr. Sy is a 72-year-old male with a medical history significant for end- stage renal disease on hemodialysis, COPD, CHF, cardiomyopathy and anemia of chronic disease. Patient presented to ED via EMS on 12/12/17 endorsing worsening shortness of breath. Clinical course complicated by acute respiratory failure requiring intubation and mechanical ventilation. Clinical course further complicated by acute CVA, pneumonia, persistent respiratory failure, sepsis. Patient's prognosis is guarded. Very high risk for further complications, clinical decline and . . Code Status: Full Code Plan * CODE STATUS: Full code by default. * HEALTHCARE DECISION-MAKING: Patient unable to participate in medical decision- making secondary to clinical condition, encephalopathic, intubated on mechanical ventilation. Unlikely to regain medical decision-making capacity given critical condition. It appears that no advance directives have been completed, palliative care has reached to patient's PCP and hemodialysis center. Patient is , unclear if he has any biological children. One kelsie Benito is willing to serve as proxy, however, pt has a sister - Lesa Pickard- in [place]. Case discussed with casework specialist. [employer] report only provided 1 contact: Aleja Ha, called -no answer, unable to leave message. Telephone call to patient's sister Lesa Pickard, left message in voicemail. This is my 4th call to patient's sister with a message. Palliative care has not received any return phone calls from sister. As per casework specialist's notes, It appears that sister has been previously contacted and that she has to declined participating in medical decision- making. However, pending information on any additional blood relatives that may wish to participate. [facility] reports that patient has mentioned having 2 children.--Healthcare proxy decision maker to be determined. * GOALS OF CARE: Unable to address given pending identification of healthcare proxy decision maker. See above. * SYMPTOMS: = Shortness of breath, secondary to respiratory failure. Currently intubated on mechanical ventilation. Unlikely to be medically extubated, trach and PEG decision approaching. = Pain, history of chronic pain and neuropathy. Ongoing Fentanyl infusion, patient appears calm. = Anxiety/agitation: Currently on Precedex drip. Patient appears calm. * Case discussed with Dr. Pearson and case management. * Palliative care contact information has been provided to patient's kelsie Lopez. * Palliative care will continue to follow-up for further clarifications of goals of care as patient's clinical course continues to evolve. . Time Spent Total Floor Time (mins): 37 (Total time to include review medical records, physical exam, telephone conversation with patient's kelsie, case discussion with Dr. Pearson and case management.) >50% Counseling/Coord of Care: Yes Attestation To help prompt me to consider important information that might be impacting today's encounter and assessment, information from prior notes written by myself or my colleagues may have been "brought forward" into today's note. My signature on this note, however, is an attestation that I personally performed the exam, history, and/or decision-making noted today, and, unless otherwise indicated, the interactions with patient, family, and staff as well as the review of records all occurred today. I also attest that the listed assessment and stated plan reflect my best clinical judgment today based on the combination of historical information, prior notes, and today's exam/ interactions. When time spent is documented, it refers only to time spent today by the signer, or if indicated, combined time spent today by collaborating physician/nurse practitioner. Cindy Gatica Dec 23, 2017 15:21
--- NOTE | 2017-12-23 15:49 | HHI.CCPN ---
Subjective Remarks/Hospital Course Patient is a 72-year-old male with multiple medical comorbidities which include end-stage renal disease, hypertension, CHF, COPD, cardiomyopathy, hyperparathyroidism and anemia of chronic disease. He was brought into ED via EMS for respiratory distress and was given albuterol treatment x2 in addition to Solu-Medrol 125 mg IV prior to arrival. The patient was initially placed on BiPap without any significant relief. In the ED he was intubated with etomidate, succinylcholine and placed on full mechanical ventilation. When seen the patient is sedated with Diprivan and on fentanyl infusion. His laboratory data significant for hyperkalemia with potassium 6.3, BUN 53, creatinine in 8.63 and BNP of 1218. His chest x-ray showed ET tube above the reed, interstitial edema. Nephrology service was notified and the patient is currently receiving hemodialysis treatment. ABG postintubation showed a pH of 7.30, CO2 54, pAO2 454, bicarb 26, sats of 97%. 12/13 Patient is intubated on no sedation. Awake and alert, s/p HD yesterday with removal 3L. Afebrile. 12/14: Afebrile. Remains on propofol drip at 20 mcg/kg per minute. Episodic hypotension. Episodic hypoglycemia requiring D50. On D10 drip for hyperkalemia ? Per nephrology's orders, potassium currently normalized. We'll start tube feeding. Added cefepime for Pseudomonas in sputum 12/15: Afebrile. Tolerating tube feeding. Currently on PSV trial is tolerated well. Not following commands however moving all 4 extremities purposefully today than yesterday. 12/16 Patient remains intubated and on Fentanyl and Diprivan drip for sedation. s /p HD yesterday 12/17 No events overnight. s/p HD yesterday with removal 1.8L. Remains sedated with Fentanyl and intubated. Patient doesn't follow commands off sedation. CT brain yesterday showed no acute process. T:99.9 last night 12/18: Afebrile. Patient ET tube migrated upwards towards vocal cords in high probability aspirated tube feeding. 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 Noted MRI brain revealed acute right and left parietal CVA. MRA brain and carotid Dopplers currently pending. Currently on baby aspirin. Also started on atorvastatin 10 mg daily. 12/19: Tmax 100. Central line placed yesterday due to hypotension. Currently norepinephrine and vasopressin drips. Wide pulse pressure arterial line. Tube feeds will be resumed. Stress dose steroids initiated. Last cortisol was 9. 12/20 Patient remains intubated and sedated with Diprivan and Fentanyl drips. On Levophed 8 mocs and Vasopressin 0.04. Afebrile. s/p HD yesterday with removal 4L. 12/21: Afebrile. Remains on propofol drip at 20 mcg/kg Per minute. On low- dose norepinephrine 2.5 g per minute as well. Remains quite agitated on the ventilator. 8 bowel movements overnight. C. difficile toxin is pending. Noted staph epi in blood 12/10 question kalie. ID consulted. On vancomycin 12/22: Tmax 100. Currently 99.7. CT chest today revealed 3 x 2 point centimeter right cavitary lesion along. Is mediastinal shift left dense infiltrate possible mucous plug left-sided. Status post bronchoscopy which essentially showed clearance of any significant degree/plugging. Follow chest x -ray revealed dense consolidation left lung. No pleural effusion. Labile blood pressure. Subjective 12/23: Resting currently in bed in no distress. Received quetiapine for agitation earlier. Remains on dexmedetomidine. Status post hemodialysis today. Objective Vital Signs Date Time Temp Pulse Resp B/P (MAP) Pulse Ox O2 Delivery O2 Flow Rate FiO2 12/23/17 15:17 97 40 12/23/17 14:00 56 12/23/17 12:00 99.0 22 96/52 (67) Intake and Output 12/23/17 12/23/17 12/24/17 08:00 16:00 00:00 Intake Total 1159 ml Output Total 3000 ml Balance 1159 ml -3000 ml Result Diagram: 12/23/17 0400 12/23/17 0400 Other Results Microbiology Date/Time Source Procedure Growth Status 12/21/17 14:32 Blood Peripheral Aerobic Blood Culture - Preliminary NO GROWTH IN 2 DAYS Resulted 12/21/17 14:32 Blood Peripheral Anaerobic Blood Culture - Preliminary NO GROWTH IN 2 DAYS Resulted 12/22/17 18:20 Bronchial Washings Left Lower Lobe Fungal Smear - Final NO FUNGAL ELEMENTS SEEN. Resulted 12/22/17 18:20 Bronchial Washings Left Lower Lobe Fungal Culture Pending Resulted Imaging Last Impressions Chest X-Ray 12/23/17 1200 Signed Impressions: Service Date/Time: Saturday, December 23, 2017 12:26 - CONCLUSION: Reexpansion of the left lung with minimal left basilar density. Leonard Vaughn MD Chest CT 12/22/17 0000 Signed Impressions: Service Date/Time: December 16:39 - CONCLUSION: 1. Multiple cavitary lesions in the right lung as well as a small nodule and larger nodule or mass. These findings are concerning for metastatic disease. 2. The left lung is completely opacified with air bronchograms and volume loss with mediastinal shift. Areas cut off of the left main bronchus with soft tissue density material which could indicate mucous plugging. 3. Mild to moderate cardiomegaly. Edy Laughlin MD Abdomen X-Ray 12/20/17 0600 Signed Impressions: Service Date/Time: Wednesday, December 20, 2017 02:07 - CONCLUSION: 1. Moderate constipation with stool throughout large bowel. NG coiled in stomach. Khoa Franco MD Neck Magnetic Resonance Angiography 12/19/17 0000 Signed Impressions: Service Date/Time: Tuesday, December 19, 2017 12:24 - CONCLUSION: 1. Patent carotids and vertebrals. Marco Antonio Henriquez Jr., MD Head Magnetic Resonance Angiography 12/19/17 0000 Signed Impressions: Service Date/Time: Tuesday, December 19, 2017 12:24 - CONCLUSION: 1. No large vessel stenosis or aneurysm. 2. Normal variants as described above. Leonard Vaughn MD Brain MRI 12/17/17 0000 Signed Impressions: Service Date/Time: Sunday, December 17, 2017 11:33 - CONCLUSION: Small foci of retracted diffusion in the parietal periventricular white matter bilaterally indicating small acute infarcts. No other acute intracranial findings. Gatito Shipman MD Head CT 12/16/17 0000 Signed Impressions: Service Date/Time: Saturday, December 16, 2017 10:58 - CONCLUSION: No acute disease. Marco Antonio Henriquez Jr., MD Objective Remarks GENERAL: 72-year-old male currently orotracheally intubated SKIN: Warm and dry. No rash HEAD: Normocephalic. Atraumatic EYES: Pupils are equally round and reactive at 3 mm. NECK: Supple, trachea midline. No JVD or lymphadenopathy. Right IJ CVL is clean dry and intact CARDIOVASCULAR: RRR. S1, S2. No S4. Without murmurs RESPIRATORY: Improved aeration/bronchus a sounds throughout the left lung uriostegui anteriorly and. Posteriorly. Right-sided subsequent to auscultation anteriorly and posteriorly. No wheezing GASTROINTESTINAL: Abdomen soft, non-tender, nondistended. MUSCULOSKELETAL: Trace lower extremity. Right upper extremity positive thrill Neuro: Arousable, ventilator. Moves all 4 extremity spontaneously. Cranial nerves II through XII appear grossly intact. Appears to right greater than left. No DTRs. Urinary Catheter: No Assessment to: Continue Vascular Central Line Catheter: Yes Assessment to: Continue Date of Insertion: Dec 18, 2017 Line: Central Venous Catheter Side: Right Location: Internal, Jugular A/P Assessment and Plan Neuro/Psych: Peripheral neuropathy Right greater than left parietal CVA Monitor Neuro status. CT brain no acute findings 12/17 EEG revealed Sharp's triphasic right greater than left. No epileptiform discharges MRI brain 12/17 revealed 6 mm right parietal and tiny left parietal lacunar infarct in the periventricular white matter. MRA brain/neck 12/19: No large vessel stenosis or aneurysm. Aspirin 81 mg daily Atorvastatin 10 mg a day. Triglycerides elevated On Fentanyl currently at 250 mg an hour for sedation. Daily sedation vacation Goal of RASS -2 Continue gabapentin 300 mg daily for peripheral neuropathy Hydrochloroquine 200 mg daily for arthritis resumed As needed midazolam 2 mg every 8 hours when necessary for breakthrough agitation. Dexmedetomidine drip at 0.3 mcg/kg per minute in attempt to wean. Added quetiapine 50 mg twice a day and scheduled oxycodone 5 mg every 6 hours attempt to wean off sedation Dr. Aec neurology following CV: Chronic diastolic heart failure - Mild pulmonary hypertension with pulmonary arterial pressure 46.7 mmHg Currently on norepinephrine at 2.5 mcg/m to maintain MAP>65mmHg Decrease hydrocortisone 50 mg Q 8 hours. Cortisol level 9 on 12/15 2-D echocardiogram reveals EF of 55-60%. Mild MR/TR. Pulmonary arterial Pressures 46.7 mmHg Holding carvedilol 3.125 mg twice a day in light of atrial fibrillation Received 1 dose of digoxin 0.25 mg on 12/15 Resp: Acute hypoxemic and hypercapnic respiratory failure Polymicrobial pneumonia - Pseudomonas and Haemophilus influenza Right cavitary lung mass History of COPD PRVC 18/500/40 increase PEEP to5 Continue with vent support keep sat >92% Ventilator bundle Albuterol/ipratropium aerosols every 6 hours with albuterol aerosols every 2 hours. Dyspnea SBT daily as earle. CT thorax revealed 3 x 2.3 cm cavitary lesion. Mediastinal shift right to left. Left lower lobe collapse. Possible mucus plugging As post bronchoscopy 12/22. Lukens trap obtained. Follow chest x-ray revealed dense consolidation left lung uriostegui. No masses on my bronchoscopy. Able to identify of left upper and lower lobes up to third subsegment without obstruction. GI: Constipation - resolved Nepro goal 55 cc an hour for nutrition's recommendations. Currently at 30 cc an hour KUB abdomen:Moderate constipation with stool throughout large bowel Famotidine 20 mg by tube daily for GI prophylaxis Docusate sodium/senna 1 tablet twice a day for bowel regimen. Metoclopramide 5 mg every 8 hours as needed nausea/high residuals Check C. difficile Endo: Hyperglycemia Secondary hyperparathyroidism Increase SSI to medium scale with accu checks Q4hr. Continue Cinacalet 30 mg daily for secondary hyperparathyroidism when able Cortisol level - 9 /FEN/Renal: End-stage renal disease on hemodialysis Tuesday/Tuesday/Tuesday Hyper-magnesium Hyperphosphatemia Monitor renal function, avoid nephrotoxins. HD per renal- Dr. Galarza Heme: Normocytic anemia/anemia of chronic kidney disease Leukocytosis..trending downward Monitor CBC daily. Follow trends Continue Epogen with hemodialysis ID: Haemophilus influenza/pseudomonas aeruginosa pneumonia/MRSA Staph epi bacteremia? Pertinent cultures On cefepime, levofloxacin, add linezolid Previously on vancomycin and metronidazole monitor for signs of infections ( Fever, WBC) 12/12 - sputum - Haemophilus influenza, pseudomonas aeruginosa 12/12 - blood cultures 2 - no growth Follow up on sputum cx from 12/16: MRSA, H. Influenza, Pseudomonas Follow-up on blood cultures 12/18 staph epi Infectious disease consult for antibiotic management Repeat blood cultures 2 12/21 1 out of 4 coag negative staph. Repeat blood cultures 12/23 x 2 MSK: OP/OA PT evaluate and treat Access -Right IJ CVL day #6 placed 12/18 -Left radial arterial line 12/18.- 12/21 Prophylaxis - GI - famotidine - DVT - SCD/heparin subcutaneous Level III follow-up Saji Pearson MD Dec 23, 2017 15:49
--- NOTE | 2017-12-23 16:24 | HHI.PR ---
Review/Management Daily Summary 12/19 spoke with RN mri brain reviewed, tiny areas of probable subacute ischemia troy he is very ill, this ischemia could be from hypoperfusion or small embolism echo done 12/13, not very impressive for now asa and later on consider anticoagulation 12/23 i have been following him peripherally, seen this pm spoke to RN and dr Pearson multiorgan failure, small ischemic stroke, ?septic source renal failure, lung lesion, sepsis, resp failure will monitor but prognosis appear very discouraging Subjective Subjective Comments sedated, ventilated Active Medications Current Medications Medications (Trade) Dose Ordered Sig/Jhonathan Route Start Time Stop Time Status Last Admin (NS Flush) 2 ml UNSCH PRN IVF 12/12/17 10:15 12/17/17 09:59 Propofol 100 ml @ 0 mls/hr TITRATE PRN IV 12/12/17 10:45 12/21/17 22:42 (Heparin Inj) 5,000 units Q12H SQ 12/12/17 14:00 12/23/17 13:00 Miscellaneous Information 1 Q361D XX 12/12/17 14:00 (Chlorhexidine 2% Cloth) Taper DAILY@04 TOP 12/13/17 04:00 12/09/18 03:59 12/17/17 02:21 (Chlorhexidine 2% Cloth) 3 pack UNSCH PRN TOP 12/12/17 14:00 (Dayna-Colace) 1 tab BID PO 12/12/17 21:00 12/23/17 11:50 (Milk Of Magnesia Liq) 30 ml Q12H PRN PO 12/12/17 14:00 (Senokot) 17.2 mg Q12H PRN PO 12/12/17 14:00 (Dulcolax Supp) 10 mg DAILY PRN RECTAL 12/12/17 14:00 (Lactulose Liq) 30 ml DAILY PRN PO 12/12/17 14:00 (D50w (Vial) Inj) 50 ml UNSCH PRN IV PUSH 12/12/17 14:15 12/14/17 15:19 (Glucagon Inj) 1 mg UNSCH PRN OTHER 12/12/17 14:15 Sodium Chloride 1,000 ml @ 0 mls/hr Q0M PRN OTHER 12/12/17 14:25 (Heparin Inj) 8,000 units UNSCH PRN IV FLUSH 12/12/17 14:30 Sodium Chloride 1,000 ml @ 200 mls/hr Q5H PRN IV 12/12/17 14:25 Sodium Chloride 1,000 ml @ 0 mls/hr Q0M PRN OTHER 12/12/17 14:25 (Mannitol Inj) 12.5 gm UNSCH PRN IV 12/12/17 14:30 Albumin Human 100 ml @ 60 mls/hr UNSCH PRN IV 12/12/17 14:30 12/23/17 09:05 (NS Flush) 5 ml UNSCH PRN IV FLUSH 12/12/17 14:30 (Heparin Inj) UNSCH PRN .XX 12/12/17 14:30 (Gentamicin Inj) 20 mg UNSCH PRN OTHER 12/12/17 14:30 (Zofran Inj) 4 mg UNSCH PRN IV PUSH 12/12/17 14:30 (Tylenol) 650 mg UNSCH PRN PO 12/12/17 14:30 (Benadryl) 25 mg UNSCH PRN PO 12/12/17 14:30 (Nitrostat Sl) 0.4 mg UNSCH PRN SL 12/12/17 14:30 (Catapres) 0.1 mg UNSCH PRN PO 12/12/17 14:30 (Epogen Inj) 10,000 units UNSCH PRN IV PUSH 12/12/17 14:30 12/23/17 11:07 (Gelfoam 12 Mm/7 Mm Top) 1 foam UNSCH PRN TOP 12/12/17 14:30 12/19/17 16:24 Fentanyl Citrate 250 ml @ 5 mls/hr TITRATE PRN IV 12/13/17 20:45 12/23/17 08:18 (Pepcid) 20 mg DAILY NG 12/15/17 09:00 12/23/17 11:50 (Tears Naturale Opth Soln) 1 drop Q8HR EACH EYE 12/14/17 22:00 12/23/17 12:50 (Albuterol Neb) 2.5 mg Q2HR NEB PRN NEB 12/14/17 21:45 (Sensipar) 30 mg DAILY PO 12/15/17 09:00 12/23/17 11:50 (Plaquenil) 200 mg DAILY PO 12/15/17 09:00 12/23/17 11:50 (Bactroban Nasal 2% Oint) Taper BID EACH NARE 12/15/17 21:00 12/11/18 20:59 12/23/17 09:00 (Coreg) 3.125 mg Q12HR PO 12/15/17 21:00 12/23/17 11:51 (Mycostatin Liq) 5 ml QID OROPHARYNG 12/18/17 09:00 12/28/17 08:59 12/23/17 12:46 (Aspirin Chew) 81 mg DAILY PO 12/19/17 09:00 12/23/17 11:51 (Lipitor) 10 mg HS PO 12/18/17 21:00 12/22/17 20:52 (NS Flush) DAILY IV FLUSH 12/19/17 09:00 12/23/17 08:26 (NS Flush) UNSCH PRN IV FLUSH 12/18/17 17:15 12/21/17 20:39 Levofloxacin/ Dextrose 50 ml @ 50 mls/hr Q48H IV 12/18/17 17:00 12/22/17 19:02 Norepinephrine Bitartrate 4 mg/ Sodium Chloride 250 ml @ 7.5 mls/hr TITRATE PRN IV 12/18/17 21:00 12/22/17 20:53 (Brethine Inj) 1 mg UNSCH PRN SQ 12/18/17 21:00 (Reglan Inj) 5 mg Q8H PRN IV PUSH 12/20/17 08:00 (D50w (Vial) Inj) 50 ml UNSCH PRN IV PUSH 12/20/17 08:00 (Glucagon Inj) 1 mg UNSCH PRN OTHER 12/20/17 08:00 (NovoLIN R SUPPLEMENTAL SCALE) 1 Q4HR SQ 12/20/17 08:00 12/23/17 08:00 Cefepime HCl 1000 mg/Sodium Chloride 100 ml @ 200 mls/hr Q24H IV 12/20/17 09:00 12/23/17 11:51 (SoluCORTEF INJ) 50 mg Q8HR IV PUSH 12/21/17 14:00 12/23/17 13:00 (Duoneb Neb) 1 ampule Q6HR NEB NEB 12/21/17 16:00 12/23/17 08:20 Dexmedetomidine HCl 200 mcg/ Sodium Chloride 52 ml @ 4.18 mls/hr TITRATE PRN IV 12/21/17 12:30 12/23/17 08:15 (Versed Inj) 2 mg Q1HR PRN IV PUSH 12/21/17 12:30 12/23/17 12:10 Linezolid 300 ml @ 300 mls/hr Q12H IV 12/21/17 17:00 12/23/17 05:06 (Sodium Chloride 3% Neb) 2 ml Q6HR NEB NEB 12/22/17 22:00 12/29/17 21:59 12/23/17 08:20 Phenylephrine HCl 40 mg/Dextrose 500 ml @ 30 mls/hr TITRATE PRN IV 12/23/17 03:45 12/23/17 04:27 (Brethine Inj) 1 mg UNSCH PRN SQ 12/23/17 03:45 (Levemir Inj) 12 units Q12HR SQ 12/23/17 10:00 12/23/17 11:50 (SEROquel) 50 mg BID PO 12/23/17 21:00 (Roxicodone Intensol Liq) 5 mg Q6H NG 12/23/17 14:00 12/23/17 12:47 (Phoslo) 1,334 mg TID OG-TUBE 12/23/17 13:00 Allergies Allergies Coded Allergies No Known Allergies (Verified Allergy, Unknown, 12/12/17) Exam I&O / VS 12/23/17 12/23/17 12/24/17 14:59 22:59 06:59 Output Total 3000 ml Balance -3000 ml Hemodialysis 3000 ml Vital Signs Date Time Temp Pulse Resp B/P (MAP) Pulse Ox O2 Delivery O2 Flow Rate FiO2 12/23/17 15:17 97 40 12/23/17 14:00 56 12/23/17 12:00 99.0 83 22 96/52 (67) 98 12/23/17 12:00 40 12/23/17 12:00 83 12/23/17 11:43 97 40 12/23/17 10:00 65 12/23/17 09:00 69 72/46 12/23/17 08:25 95 40 12/23/17 08:00 99.0 76 45 194/87 (122) 94 12/23/17 08:00 40 12/23/17 08:00 76 12/23/17 06:30 80 189/81 12/23/17 06:15 76 151/72 12/23/17 06:00 67 12/23/17 05:52 93 40 12/23/17 05:00 61 173/82 12/23/17 04:45 80 173/82 12/23/17 04:27 85 12/23/17 04:15 98 172/78 12/23/17 04:01 97 164/74 12/23/17 04:00 40 12/23/17 04:00 98 12/23/17 04:00 98 12/23/17 04:00 98.1 98 32 164/74 (104) 96 12/23/17 03:46 145 81/42 12/23/17 03:30 143 64/43 12/23/17 02:00 80 12/23/17 00:15 66 106/60 12/23/17 00:00 67 12/23/17 00:00 40 12/23/17 00:00 98.9 67 26 102/56 (71) 99 12/22/17 22:00 81 12/22/17 21:55 98 40 12/22/17 20:53 67 113/59 12/22/17 20:00 67 12/22/17 20:00 40 12/22/17 20:00 98.9 67 20 127/68 (87) 96 12/22/17 19:00 74 141/65 12/22/17 18:08 100 100 12/22/17 18:05 83 85/42 12/22/17 18:00 83 12/22/17 16:59 97 100 12/22/17 16:59 96 40 Respiratory: Lungs CTA, Non-labored respirations Cardiology: Normal rate Musculoskeletal: ROM Objective Radiology Results Last 48 hours Impressions Chest X-Ray 12/23/17 1200 Signed Impressions: Service Date/Time: Saturday, December 23, 2017 12:26 - CONCLUSION: Reexpansion of the left lung with minimal left basilar density. Leonard Vaughn MD Chest X-Ray 12/22/17 0600 Signed Impressions: Service Date/Time: December 03:23 - CONCLUSION: 1. Development of increased density consolidation in the left lung. Differential diagnosis includes pneumonia and aspiration. 2. Improving right basilar airspace consolidation but with development of a suspected cavitary lesion measuring about 3.3 cm in diameter, probably infectious in nature. Khoa Franco MD Chest X-Ray 12/22/17 0000 Signed Impressions: Service Date/Time: December 18:53 - CONCLUSION: Worsening opacification of the left hemithorax compared to previous examination consistent with probable worsening diffuse consolidation and possible increased pleural fluid. Apparent cavitary lesion within the right lower lung field is stable. Multiple tubes and lines are stable. Sergey Brown MD Chest CT 12/22/17 0000 Signed Impressions: Service Date/Time: December 16:39 - CONCLUSION: 1. Multiple cavitary lesions in the right lung as well as a small nodule and larger nodule or mass. These findings are concerning for metastatic disease. 2. The left lung is completely opacified with air bronchograms and volume loss with mediastinal shift. Areas cut off of the left main bronchus with soft tissue density material which could indicate mucous plugging. 3. Mild to moderate cardiomegaly. Edy Laughlin MD Micro and Labs Laboratory Tests Test 12/22/17 18:20 12/23/17 04:00 Bronchoalveolar Lavage WBC 4178 Bronchoalveolar Lavage RBC 250 Bronchoalveolar Lavage Neutrophils 94 Bronchoalveolar Lavage Lymphocytes 4 Bronchoalveolar Lavage Histiocytes 2 Lavage Fluid Total Volume 25.0 Lavage Fluid Total WBC Count 104.400 White Blood Count 22.9 Red Blood Count 3.19 Hemoglobin 9.3 Hematocrit 28.6 Mean Corpuscular Volume 89.9 Mean Corpuscular Hemoglobin 29.3 Mean Corpuscular Hemoglobin Concent 32.6 Red Cell Distribution Width 14.9 Platelet Count 202 Mean Platelet Volume 8.2 Neutrophils (%) (Auto) 93.2 Lymphocytes (%) (Auto) 2.8 Monocytes (%) (Auto) 3.9 Eosinophils (%) (Auto) 0.0 Basophils (%) (Auto) 0.1 Neutrophils # (Auto) 21.4 Lymphocytes # (Auto) 0.7 Monocytes # (Auto) 0.9 Eosinophils # (Auto) 0.0 Basophils # (Auto) 0.0 CBC Comment AUTO DIFF Differential Total Cells Counted 100 Neutrophils % (Manual) 95 Lymphocytes % 3 Monocytes % 1 Neutrophils # (Manual) 22.0 Myelocytes 1 Differential Comment FINAL DIFF MANUAL Platelet Estimate NORMAL Platelet Morphology Comment NORMAL Blood Urea Nitrogen 107 Creatinine 6.41 Random Glucose 305 Albumin 2.2 Calcium Level 8.1 Phosphorus Level 7.3 Magnesium Level 2.7 Sodium Level 136 Potassium Level 4.3 Chloride Level 95 Carbon Dioxide Level 25.4 Anion Gap 16 Estimat Glomerular Filtration Rate 9 Date/Time Source Procedure Growth Status 12/21/17 14:32 Blood Peripheral Aerobic Blood Culture - Preliminary NO GROWTH IN 2 DAYS Resulted 12/21/17 14:32 Blood Peripheral Anaerobic Blood Culture - Preliminary NO GROWTH IN 2 DAYS Resulted 12/22/17 18:20 Bronchial Washings Left Lower Lobe Fungal Smear - Final NO FUNGAL ELEMENTS SEEN. Resulted 12/22/17 18:20 Bronchial Washings Left Lower Lobe Fungal Culture Pending Resulted Raudel Ace MD Dec 23, 2017 16:24
[2017-12-23] MEDS: QUEtiapine FUMARATE 25 MG TAB PO SCH (20:29)
[2017-12-23] MEDS: ATORVASTATIN 10 MG TAB PO SCH (20:29)
[2017-12-24] VITALS (70 sets, daily range): BP systolic 72–178; BP diastolic 38–78; PULSE 59–85; RESP 17–131; TEMP 98.3–99; O2SAT 88–100
[2017-12-24] MEDS: INSULIN NovoLIN REGULAR SUPPLEMENTAL SCALE SQ SCH ×7 (00:21→23:24)
[2017-12-24] MEDS: DEXMEDETOMIDINE INJ 200 MCG in SODIUM CHLORIDE 0.9% INJ 50 ML IV PRN ×5 (00:50→23:25)
[2017-12-24] MEDS: oxyCODONE HCL ORAL CONC 5 MG/0.25 ML SYRINGE NG SCH ×4 (02:25→20:27)
[2017-12-24] MEDS: HEPARIN SODIUM - SQ 10,000 UNITS/ML VIAL SQ SCH ×2 (02:25→13:32)
[2017-12-24 03:38] LABS: BASOPHIL # 0.2 TH/MM3 (0-0.2); BASOPHIL % 1.1 % (0.0-2.0); EOSINOPHIL % 0.1 % (0.0-4.0); HEMATOCRIT 27.1 % (39.0-51.0); HEMOGLOBIN 8.8 GM/DL (13.0-17.0); LYMPH % 3.7 % (9.0-44.0); LYMPHOCYTE # 0.7 TH/MM3 (1.0-4.8); MEAN CELL VOLUME 90.3 FL (80.0-100.0); MEAN CORPUSCULAR HEMOGLOBIN 29.5 PG (27.0-34.0); MEAN CORPUSCULAR HGB CONC 32.7 % (32.0-36.0); MEAN PLATELET VOLUME 8.2 FL (7.0-11.0); MONO % 3.6 % (0.0-8.0); MONOCYTE # 0.6 TH/MM3 (0-0.9); NEUT % 91.5 % (16.0-70.0); PLATELET COUNT 180 TH/MM3 (150-450); RED BLOOD COUNT 2.99 MIL/MM3 (4.50-5.90); RED CELL DISTRIBUTION WIDTH 15.3 % (11.6-17.2); WHITE BLOOD COUNT 17.5 TH/MM3 (4.0-11.0)
[2017-12-24] MEDS: CHLORHEXIDINE GLUCONATE 2 % 1 PACK (2 CLOTHS) TOP SCH ×2 (04:00→23:15)
[2017-12-24 04:24] LABS: ALBUMIN 2.5 GM/DL (3.4-5.0); BICARBONATE 30.2 MEQ/L (21.0-32.0); CALCIUM 7.8 MG/DL (8.5-10.1); CREATININE 5.46 MG/DL (0.60-1.30); PHOSPHORUS 6.4 MG/DL (2.5-4.9)
[2017-12-24] MEDS: MIDAZOLAM HCL 2 MG/2 ML VIAL IV PUSH PRN (04:29)
[2017-12-24] MEDS: LINEZOLID 600 MG PREMIX 300 ML IV SCH ×2 (04:29→16:00)
[2017-12-24] MEDS: RESP: ALBUTEROL 2.5 MG/IPRATROPIUM 0.5 MG NEB (SCH) NEB ×4 (04:31→20:23)
[2017-12-24] MEDS: RESP: SODIUM CHLORIDE 3% 4 ML NEB NEB SCH ×4 (04:32→20:23)
[2017-12-24] MEDS: ARTIFICIAL TEARS OPTH SOLN 15 ML BTL EACH EYE SCH ×3 (05:34→20:28)
[2017-12-24] MEDS: HYDROCORTISONE SOD SUCCINATE 100 MG VIAL IV PUSH SCH ×3 (05:34→20:28)
[2017-12-24 05:59] LABS: LYMPHOCYTES 5 % (9-44); MONOCYTES 3 % (0-8); MYELOCYTES 1 % (0-0); NEUTROPHIL # MANUAL DIFF 16.1 TH/MM3 (1.8-7.7); POLYS (SEG NEUTROPHILS) 91 % (16-70)
[2017-12-24] MEDS: fentaNYL 2,500 MCG/NS 250 ML IV PRN ×2 (07:39→17:57)
[2017-12-24] MEDS: MUPIROCIN 2% OINT 1 APPLIC/GM SYR EACH NARE SCH ×2 (09:00→20:27)
[2017-12-24] MEDS: CARVEDILOL 3.125 MG TAB PO SCH ×2 (09:00→20:09)
[2017-12-24] MEDS: HYDROXYCHLOROQUINE SULFATE 200 MG TAB PO SCH (09:04)
[2017-12-24] MEDS: ASPIRIN 81 MG CHEW TAB PO SCH (09:04)
[2017-12-24] MEDS: CALCIUM ACETATE 667 MG CAP OG-TUBE SCH ×3 (09:04→17:12)
[2017-12-24] MEDS: QUEtiapine FUMARATE 25 MG TAB PO SCH ×2 (09:04→20:27)
[2017-12-24] MEDS: CINACALCET HYDROCHLORIDE 30 MG TAB PO SCH (09:04)
[2017-12-24] MEDS: DOCUSATE SODIUM 50 MG/SENNA 8.6 MG TAB PO SCH ×2 (09:04→20:28)
[2017-12-24] MEDS: FAMOTIDINE 20 MG TAB NG SCH (09:04)
[2017-12-24] MEDS: CEFEPIME INJ 1,000 MG in SODIUM CHLORIDE 0.9% INJ 100 ML IV SCH (09:05)
[2017-12-24] MEDS: INSULIN DETEMIR 100 UNITS/ML VIAL SQ SCH ×2 (09:05→20:26)
[2017-12-24] MEDS: SODIUM CHLORIDE 0.9% FLUSH 10 ML FLUSH IV FLUSH SCH (09:06)
[2017-12-24] MEDS: NYSTATIN SUSP 500,000 U/5 ML CUP OROPHARYNG SCH ×4 (09:06→20:27)
--- NOTE | 2017-12-24 10:18 | HHI.IDPN ---
Note Infectious Disease Note ID COVERAGE 72 year-old white male who presented to the emergency department with shortness of breath on 12/12/2017. The patient has a history of COPD. Has been intubated Previous sputum with MDR PSAE, Hemophilus and MRSA Notes reviewed On the vent, on fentanyl and Precedex Status post bronchoscopy December 23 for left lung collapse Repeat chest x-ray showed reexpansion of the left lung CT of the chest noted Bronchoscopy culture with gram-negative xavier Had low-grade temps overnight Becomes agitated very easily Looks dyspneic on the vent Awake, not following commands Last HD December 23 PAST MEDICAL HISTORY: 1. COPD. 2. CHF. 3. Anemia. 4. End-stage renal disease. 5. Cardiomyopathy. 6. History of left hip replacement. 7. History of right upper extremity A-V fistula. 8. Secondary hyperparathyroidism. ALLERGIES NO KNOWN DRUG ALLERGIES. Current Medications Cefepime Zyvox Levaquin Medications (Trade) Dose Ordered Sig/Jhonathan Route Start Time Stop Time Status Last Admin (NS Flush) 2 ml UNSCH PRN IVF 12/12/17 10:15 12/17/17 09:59 Propofol 100 ml @ 0 mls/hr TITRATE PRN IV 12/12/17 10:45 12/21/17 22:42 (Heparin Inj) 5,000 units Q12H SQ 12/12/17 14:00 12/24/17 02:25 Miscellaneous Information 1 Q361D XX 12/12/17 14:00 (Chlorhexidine 2% Cloth) Taper DAILY@04 TOP 12/13/17 04:00 12/09/18 03:59 12/17/17 02:21 (Chlorhexidine 2% Cloth) 3 pack UNSCH PRN TOP 12/12/17 14:00 (Dayna-Colace) 1 tab BID PO 12/12/17 21:00 12/24/17 09:04 (Milk Of Magnesia Liq) 30 ml Q12H PRN PO 12/12/17 14:00 (Senokot) 17.2 mg Q12H PRN PO 12/12/17 14:00 (Dulcolax Supp) 10 mg DAILY PRN RECTAL 12/12/17 14:00 (Lactulose Liq) 30 ml DAILY PRN PO 12/12/17 14:00 (D50w (Vial) Inj) 50 ml UNSCH PRN IV PUSH 12/12/17 14:15 12/14/17 15:19 (Glucagon Inj) 1 mg UNSCH PRN OTHER 12/12/17 14:15 Sodium Chloride 1,000 ml @ 0 mls/hr Q0M PRN OTHER 12/12/17 14:25 (Heparin Inj) 8,000 units UNSCH PRN IV FLUSH 12/12/17 14:30 Sodium Chloride 1,000 ml @ 200 mls/hr Q5H PRN IV 12/12/17 14:25 Sodium Chloride 1,000 ml @ 0 mls/hr Q0M PRN OTHER 12/12/17 14:25 (Mannitol Inj) 12.5 gm UNSCH PRN IV 12/12/17 14:30 Albumin Human 100 ml @ 60 mls/hr UNSCH PRN IV 12/12/17 14:30 12/23/17 09:05 (NS Flush) 5 ml UNSCH PRN IV FLUSH 12/12/17 14:30 (Heparin Inj) UNSCH PRN .XX 12/12/17 14:30 (Gentamicin Inj) 20 mg UNSCH PRN OTHER 12/12/17 14:30 (Zofran Inj) 4 mg UNSCH PRN IV PUSH 12/12/17 14:30 (Tylenol) 650 mg UNSCH PRN PO 12/12/17 14:30 (Benadryl) 25 mg UNSCH PRN PO 12/12/17 14:30 (Nitrostat Sl) 0.4 mg UNSCH PRN SL 12/12/17 14:30 (Catapres) 0.1 mg UNSCH PRN PO 12/12/17 14:30 (Epogen Inj) 10,000 units UNSCH PRN IV PUSH 12/12/17 14:30 12/23/17 11:07 (Gelfoam 12 Mm/7 Mm Top) 1 foam UNSCH PRN TOP 12/12/17 14:30 12/19/17 16:24 Fentanyl Citrate 250 ml @ 5 mls/hr TITRATE PRN IV 12/13/17 20:45 12/24/17 07:39 (Pepcid) 20 mg DAILY NG 12/15/17 09:00 12/24/17 09:04 (Tears Naturale Opth Soln) 1 drop Q8HR EACH EYE 12/14/17 22:00 23/18 05:34 (Albuterol Neb) 2.5 mg Q2HR NEB PRN NEB 12/14/17 21:45 (Sensipar) 30 mg DAILY PO 12/15/17 09:00 12/24/17 09:04 (Plaquenil) 200 mg DAILY PO 12/15/17 09:00 12/24/17 09:04 (Bactroban Nasal 2% Oint) Taper BID EACH NARE 12/15/17 21:00 12/11/18 20:59 12/23/17 09:00 (Coreg) 3.125 mg Q12HR PO 12/15/17 21:00 12/23/17 20:29 (Mycostatin Liq) 5 ml QID OROPHARYNG 12/18/17 09:00 12/28/17 08:59 12/24/17 09:06 (Aspirin Chew) 81 mg DAILY PO 12/19/17 09:00 12/24/17 09:04 (Lipitor) 10 mg HS PO 12/18/17 21:00 12/23/17 20:29 (NS Flush) DAILY IV FLUSH 12/19/17 09:00 12/24/17 09:06 (NS Flush) UNSCH PRN IV FLUSH 12/18/17 17:15 12/21/17 20:39 Levofloxacin/ Dextrose 50 ml @ 50 mls/hr Q48H IV 12/18/17 17:00 12/22/17 19:02 Norepinephrine Bitartrate 4 mg/ Sodium Chloride 250 ml @ 7.5 mls/hr TITRATE PRN IV 12/18/17 21:00 12/22/17 20:53 (Brethine Inj) 1 mg UNSCH PRN SQ 12/18/17 21:00 (Reglan Inj) 5 mg Q8H PRN IV PUSH 12/20/17 08:00 (D50w (Vial) Inj) 50 ml UNSCH PRN IV PUSH 12/20/17 08:00 (Glucagon Inj) 1 mg UNSCH PRN OTHER 12/20/17 08:00 (NovoLIN R SUPPLEMENTAL SCALE) 1 Q4HR SQ 12/20/17 08:00 12/24/17 09:05 Cefepime HCl 1000 mg/Sodium Chloride 100 ml @ 200 mls/hr Q24H IV 12/20/17 09:00 12/24/17 09:05 (SoluCORTEF INJ) 50 mg Q8HR IV PUSH 12/21/17 14:00 12/24/17 05:34 (Duoneb Neb) 1 ampule Q6HR NEB NEB 12/21/17 16:00 12/24/17 08:00 Dexmedetomidine HCl 200 mcg/ Sodium Chloride 52 ml @ 4.18 mls/hr TITRATE PRN IV 12/21/17 12:30 12/24/17 07:39 (Versed Inj) 2 mg Q1HR PRN IV PUSH 12/21/17 12:30 12/24/17 04:29 Linezolid 300 ml @ 300 mls/hr Q12H IV 12/21/17 17:00 12/24/17 04:29 (Sodium Chloride 3% Neb) 2 ml Q6HR NEB NEB 12/22/17 22:00 12/29/17 21:59 12/24/17 08:00 Phenylephrine HCl 40 mg/Dextrose 500 ml @ 30 mls/hr TITRATE PRN IV 12/23/17 03:45 12/23/17 04:27 (Brethine Inj) 1 mg UNSCH PRN SQ 12/23/17 03:45 (Levemir Inj) 12 units Q12HR SQ 12/23/17 10:00 12/24/17 09:05 (SEROquel) 50 mg BID PO 12/23/17 21:00 12/24/17 09:04 (Roxicodone Intensol Liq) 5 mg Q6H NG 12/23/17 14:00 12/24/17 09:05 (Phoslo) 1,334 mg TID OG-TUBE 12/23/17 13:00 12/24/17 09:04 OBJECTIVE Vital Signs Date Time Temp Pulse Resp B/P (MAP) Pulse Ox O2 Delivery O2 Flow Rate FiO2 12/24/17 06:00 62 12/24/17 05:59 62 127/64 12/24/17 04:51 70 12/24/17 04:49 70 76/47 12/24/17 04:38 50 12/24/17 04:34 91 50 12/24/17 04:00 79 12/24/17 04:00 98.9 79 105 144/67 (92) 88 2/3/18 04:00 40 2/18 03:45 81 30 141/65 (90) 97 18 03:31 63 19 128/63 (84) 95 18 03:30 71 17 96 2//18 03:18 68 22 96/50 (65) 95 /18 03:17 71 27 78/48 (58) 95 12/24/18 03:15 59 18 72/40 (51) 94 18 03:00 70 18 92/53 (66) 95 12/24/18 02:45 77 23 141/65 (90) 97 18 02:30 73 60 133/62 (85) 97 12/24/17 02:15 72 26 130/60 (83) 98 12/24/17 02:01 77 18 139/63 (88) 98 12/24/17 02:00 75 2/02/05 02:00 75 22 97 12/24/17 01:45 68 131 99/51 (67) 95 12/24/17 01:30 68 30 95/51 (66) 92 /18 01:15 67 47 81/48 (59) 92 18 01:00 67 24 85/51 (62) 94 18 00:45 68 18 87/52 (64) 92 18 00:30 68 18 87/52 (64) 92 //18 00:24 98 40 2/18 00:15 68 18 95/51 (66) 98 12/24/17 00:00 98.6 67 19 103/59 (74) 99 18 00:00 40 2//18 00:00 67 2/3/18 00:00 67 103/59 2/2/18 23:45 68 18 98/55 (69) 98 12/23/18 23:30 68 18 100/57 (71) 99 2//18 23:15 68 18 99/56 (70) 99 2/2/18 23:00 67 18 96/55 (69) 99 2//18 22:45 68 0 96/54 (68) 98 218 22:30 68 18 99/54 (69) 98 2//18 22:15 69 18 94/50 (65) 97 2/2/18 22:00 58 18 89/52 (64) 97 12/23/17 22:00 58 12/23/17 21:45 60 19 86/52 (63) 94 12/23/17 21:30 60 18 82/49 (60) 95 12/23/17 21:15 71 18 86/49 (61) 94 12/23/17 21:00 72 81/42 2 21:00 72 18 81/42 (55) 92 12/23/17 20:45 64 18 92/55 (67) 95 12/23/17 20:30 63 18 86/53 (64) 96 12/23/17 20:27 96 40 12/23/17 20:16 62 19 96/55 (69) 95 12/23/17 20:00 100.9 85 28 176/80 (112) 99 12/23/17 20:00 40 12/23/17 20:00 85 12/23/17 20:00 85 176/80 12/23/17 19:00 83 173/77 12/23/17 18:00 75 12/23/17 16:00 40 12/23/17 16:00 74 12/23/17 16:00 99.9 58 48 98/52 (67) 96 12/23/17 15:17 97 40 12/23/17 14:00 56 12/23/17 12:00 99.0 83 22 96/52 (67) 98 12/23/17 12:00 40 12/23/17 12:00 83 12/23/17 11:43 97 40 Vital Signs Date Time Temp Pulse Resp B/P (MAP) Pulse Ox O2 Delivery O2 Flow Rate FiO2 12/22/17 09:56 96 40 12/22/17 09:51 40 12/22/17 09:51 96 40 12/22/17 08:00 100.0 92 52 175/82 (113) 92 12/22/17 08:00 92 12/22/17 07:55 91 40 12/22/17 06:00 88 12/22/17 04:09 95 40 12/22/17 04:00 40 12/22/17 04:00 72 12/22/17 04:00 97.8 72 20 86/54 (65) 95 12/22/17 02:00 62 12/22/17 00:45 75 66/40 12/22/17 00:00 40 12/22/17 00:00 83 12/22/17 00:00 99.4 83 29 143/65 (91) 97 12/21/17 23:55 97 40 12/21/17 22:30 84 138/71 12/21/17 22:00 86 12/21/17 21:45 86 129/60 12/21/17 21:30 85 107/58 12/21/17 21:06 99 40 12/21/17 20:00 137 12/21/17 20:00 40 12/21/17 20:00 98.8 137 20 82/56 (65) 98 Arterial Line 12/21/17 18:00 45 12/21/17 18:00 75 12/21/17 16:00 98.2 131 20 100/54 (69) 98 12/21/17 16:00 75 12/21/17 15:53 100 40 12/21/17 14:00 75 12/21/17 14:00 45 Laboratory Tests Test 12/23/17 04:00 12/24/17 03:23 White Blood Count 22.9 TH/MM3 17.5 TH/MM3 Red Blood Count 3.19 MIL/MM3 2.99 MIL/MM3 Hemoglobin 9.3 GM/DL 8.8 GM/DL Hematocrit 28.6 % 27.1 % Mean Corpuscular Volume 89.9 FL 90.3 FL Mean Corpuscular Hemoglobin 29.3 PG 29.5 PG Mean Corpuscular Hemoglobin Concent 32.6 % 32.7 % Red Cell Distribution Width 14.9 % 15.3 % Platelet Count 202 TH/MM3 180 TH/MM3 Mean Platelet Volume 8.2 FL 8.2 FL Neutrophils (%) (Auto) 93.2 % 91.5 % Lymphocytes (%) (Auto) 2.8 % 3.7 % Monocytes (%) (Auto) 3.9 % 3.6 % Eosinophils (%) (Auto) 0.0 % 0.1 % Basophils (%) (Auto) 0.1 % 1.1 % Neutrophils # (Auto) 21.4 TH/MM3 16.0 TH/MM3 Lymphocytes # (Auto) 0.7 TH/MM3 0.7 TH/MM3 Monocytes # (Auto) 0.9 TH/MM3 0.6 TH/MM3 Eosinophils # (Auto) 0.0 TH/MM3 0.0 TH/MM3 Basophils # (Auto) 0.0 TH/MM3 0.2 TH/MM3 CBC Comment AUTO DIFF AUTO DIFF Differential Total Cells Counted 100 100 Neutrophils % (Manual) 95 % 91 % Lymphocytes % 3 % 5 % Monocytes % 1 % 3 % Neutrophils # (Manual) 22.0 TH/MM3 16.1 TH/MM3 Myelocytes 1 % 1 % Differential Comment FINAL DIFF MANUAL FINAL DIFF MANUAL Platelet Estimate NORMAL NORMAL Platelet Morphology Comment NORMAL NORMAL Red Cell Morphology Comment NORMAL Laboratory Tests Test 12/23/17 04:00 12/24/17 03:23 Blood Urea Nitrogen 107 MG/DL 87 MG/DL Creatinine 6.41 MG/DL 5.46 MG/DL Random Glucose 305 MG/DL 121 MG/DL Albumin 2.2 GM/DL 2.5 GM/DL Calcium Level 8.1 MG/DL 7.8 MG/DL Phosphorus Level 7.3 MG/DL 6.4 MG/DL Magnesium Level 2.7 MG/DL Sodium Level 136 MEQ/L 139 MEQ/L Potassium Level 4.3 MEQ/L 3.8 MEQ/L Chloride Level 95 MEQ/L 97 MEQ/L Carbon Dioxide Level 25.4 MEQ/L 30.2 MEQ/L Anion Gap 16 MEQ/L 12 MEQ/L Estimat Glomerular Filtration Rate 9 ML/MIN 10 ML/MIN Parathyroid Hormone (Intact) 399.4 PG/ML Microbiology Date/Time Source Procedure Growth Status 12/23/17 18:05 Blood Peripheral Aerobic Blood Culture Pending Received 12/23/17 18:05 Blood Peripheral Anaerobic Blood Culture Pending Received 12/23/17 17:55 Blood Peripheral Aerobic Blood Culture Pending Received 12/23/17 17:55 Blood Peripheral Anaerobic Blood Culture Pending Received 12/21/17 14:32 Blood Peripheral Aerobic Blood Culture - Preliminary NO GROWTH IN 2 DAYS Resulted 12/21/17 14:32 Blood Peripheral Anaerobic Blood Culture - Preliminary NO GROWTH IN 2 DAYS Resulted 12/21/17 14:23 Blood Peripheral Aerobic Blood Culture - Preliminary Staph Sp Coagulase Negative Resulted 12/21/17 14:23 Blood Peripheral Anaerobic Blood Culture - Preliminary NO GROWTH IN 2 DAYS Resulted 12/22/17 18:20 Bronchial Washings Left Lower Lobe Fungal Smear - Final NO FUNGAL ELEMENTS SEEN. Resulted 12/22/17 18:20 Bronchial Washings Left Lower Lobe Fungal Culture Pending Resulted 12/22/17 18:20 Bronchial Washings Left Lower Lobe Acid Fast Stain - Final NO ACID FAST BACILLI SEEN Resulted 12/22/17 18:20 Bronchial Washings Left Lower Lobe Mycobacterial Culture Pending Resulted 12/22/17 18:20 Bronchial Washings Left Lower Lobe Gram Stain - Final Resulted 12/22/17 18:20 Bronchial Culture - Preliminary Gram Negative Xavier Resulted IMAGING: Chest X-Ray 12/23/17 1200 Signed Impressions: Service Date/Time: Saturday, December 23, 2017 12:26 - CONCLUSION: Reexpansion of the left lung with minimal left basilar density. Leonard Vaughn MD Chest X-Ray 12/22/17 0600 Signed Impressions: Service Date/Time: December 03:23 - CONCLUSION: 1. Development of increased density consolidation in the left lung. Differential diagnosis includes pneumonia and aspiration. 2. Improving right basilar airspace consolidation but with development of a suspected cavitary lesion measuring about 3.3 cm in diameter, probably infectious in nature. Khoa Franco MD Chest X-Ray 12/22/17 0000 Signed Impressions: Service Date/Time: December 18:53 - CONCLUSION: Worsening opacification of the left hemithorax compared to previous examination consistent with probable worsening diffuse consolidation and possible increased pleural fluid. Apparent cavitary lesion within the right lower lung field is stable. Multiple tubes and lines are stable. Sergey Brown MD Chest CT 12/22/17 0000 Signed Impressions: Service Date/Time: December 16:39 - CONCLUSION: 1. Multiple cavitary lesions in the right lung as well as a small nodule and larger nodule or mass. These findings are concerning for metastatic disease. 2. The left lung is completely opacified with air bronchograms and volume loss with mediastinal shift. Areas cut off of the left main bronchus with soft tissue density material which could indicate mucous plugging. 3. Mild to moderate cardiomegaly. Edy Laughlin MD Chest X-Ray 12/22/17 0600 Signed Impressions: Service Date/Time: December 03:23 - CONCLUSION: 1. Development of increased density consolidation in the left lung. Differential diagnosis includes pneumonia and aspiration. 2. Improving right basilar airspace consolidation but with development of a suspected cavitary lesion measuring about 3.3 cm in diameter, probably infectious in nature. Khoa Franco MD Abdomen X-Ray 12/20/17 0600 Signed Impressions: Service Date/Time: Wednesday, December 20, 2017 02:07 - CONCLUSION: 1. Moderate constipation with stool throughout large bowel. NG coiled in stomach. Khoa Franco MD Neck Magnetic Resonance Angiography 12/19/17 0000 Signed Impressions: Service Date/Time: Tuesday, December 19, 2017 12:24 - CONCLUSION: 1. Patent carotids and vertebrals. Marco Antonio Henriquez Jr., MD Head Magnetic Resonance Angiography 12/19/17 0000 Signed Impressions: Service Date/Time: Tuesday, December 19, 2017 12:24 - CONCLUSION: 1. No large vessel stenosis or aneurysm. 2. Normal variants as described above. Leonard Vaughn MD Brain MRI 12/17/17 0000 Signed Impressions: Service Date/Time: Sunday, December 17, 2017 11:33 - CONCLUSION: Small foci of retracted diffusion in the parietal periventricular white matter bilaterally indicating small acute infarcts. No other acute intracranial findings. Gatito Shipman MD Head CT 12/16/17 0000 Signed Impressions: Service Date/Time: Saturday, December 16, 2017 10:58 - CONCLUSION: No acute disease. Marco Antonio Henriquez Jr., MD PHYSICAL EXAMINATION: GENERAL: Eyes open, looks dyspneic on the vent. Not following commands. On fentanyl and Precedex HEENT: Head atraumatic. No icterus. Oropharynx intubated. Neck: Supple. No palpable adenopathy. Lungs: Decreased breath sounds bilaterally Heart: Irregular S1-S2. No audible murmur. Abdomen: Soft, nontender. No guarding. Bowel sounds present. Extremities: No clubbing or cyanosis or edema. AV fistula in the right forearm with no evidence of infection Skin: No diffuse rash. Neuro: Eyes open not following commands Psych: Unable to assess. LINE: NO evidence of infection IMPRESSION Sepsis with shock, due to PNA Pneumonia due to MRSA and pseudomonas. - mucous plugging. - S/P bronch - MDR PSAE Acute respiratory failure. End-stage renal disease. On HD One blood culture with staph epidermidis, out of four bottles again positive on repeat suggesting contamination. Multiple cavitary lung lesions, ?metastatic Leukocytosis RECOMMENDATIONS Stop cefepime. Continue Levaquin. Add Zerbaxa Continue Linezolid. Follow C/S and adjust Abx Monitor progress D/W Emily Xiong MD Dec 24, 2017 10:18
--- NOTE | 2017-12-24 11:10 | HHI.NPPN ---
Subjective General Problems: Anemia Renal Failure: Chronic, End Stage Renal Disease Review of Systems General General Remarks unable to assess Objective Data Data Vital Signs Date Time Temp Pulse Resp B/P (MAP) Pulse Ox O2 Delivery O2 Flow Rate FiO2 12/24/17 11:00 92 60 12/24/17 10:45 72 82/47 12/24/17 10:30 74 76/38 12/24/17 10:00 77 12/24/17 09:00 84 158/72 12/24/17 08:00 70 12/24/17 08:00 60 12/24/17 08:00 98.3 70 20 117/58 (77) 94 12/24/17 08:00 70 117/58 12/24/17 06:00 62 12/24/17 05:59 62 127/64 12/24/17 04:51 70 12/24/17 04:49 70 76/47 12/24/17 04:38 50 12/24/17 04:34 91 50 12/24/17 04:00 79 12/24/17 04:00 98.9 79 105 144/67 (92) 88 12/24/17 04:00 40 12/24/17 03:45 81 30 141/65 (90) 97 12/24/17 03:31 63 19 128/63 (84) 95 12/24/17 03:30 71 17 96 12/24/17 03:18 68 22 96/50 (65) 95 12/24/17 03:17 71 27 78/48 (58) 95 12/24/17 03:15 59 18 72/40 (51) 94 12/24/17 03:00 70 18 92/53 (66) 95 12/24/17 02:45 77 23 141/65 (90) 97 12/24/17 02:30 73 60 133/62 (85) 97 12/24/17 02:15 72 26 130/60 (83) 98 12/24/17 02:01 77 18 139/63 (88) 98 12/24/17 02:00 75 18 02:00 75 22 97 12/24/17 01:45 68 131 99/51 (67) 95 12/24/17 01:30 68 30 95/51 (66) 92 12/24/17 01:15 67 47 81/48 (59) 92 2/3/18 01:00 67 24 85/51 (62) 94 2/3/18 00:45 68 18 87/52 (64) 92 2/3/18 00:30 68 18 87/52 (64) 92 2/3/18 00:24 98 40 2/3/18 00:15 68 18 95/51 (66) 98 2//18 00:00 98.6 67 19 103/59 (74) 99 2/18 00:00 40 2//18 00:00 67 2/3/18 00:00 67 103/59 2/2/18 23:45 68 18 98/55 (69) 98 2/2/18 23:30 68 18 100/57 (71) 99 2/2/18 23:15 68 18 99/56 (70) 99 2/2/18 23:00 67 18 96/55 (69) 99 2//18 22:45 68 0 96/54 (68) 98 2/18 22:30 68 18 99/54 (69) 98 2/18 22:15 69 18 94/50 (65) 97 2//18 22:00 58 18 89/52 (64) 97 2//18 22:00 58 2/2/18 21:45 60 19 86/52 (63) 94 //18 21:30 60 18 82/49 (60) 95 2//18 21:15 71 18 86/49 (61) 94 12/23/18 21:00 72 81/42 2/2/18 21:00 72 18 81/42 (55) 92 2//18 20:45 64 18 92/55 (67) 95 2/2/18 20:30 63 18 86/53 (64) 96 //18 20:27 96 40 2/2/18 20:16 62 19 96/55 (69) 95 //18 20:00 100.9 85 28 176/80 (112) 99 2/18 20:00 40 /2/18 20:00 85 2/2/18 20:00 85 176/80 2//18 19:00 83 173/77 2//18 18:00 75 //18 16:00 40 2/2/18 16:00 74 2/2/18 16:00 99.9 58 48 98/52 (67) 96 12/23/17 15:17 97 40 12/23/17 14:00 56 12/23/17 12:00 99.0 83 22 96/52 (67) 98 12/23/17 12:00 40 12/23/17 12:00 83 12/23/17 11:43 97 40 -: 12/24/17 0323 12/24/17 0323 Microbiology 12/23/17 Aerobic Blood Culture - Preliminary, Resulted NO GROWTH IN 1 DAY 12/23/17 Anaerobic Blood Culture - Preliminary, Resulted NO GROWTH IN 1 DAY 12/23/17 Aerobic Blood Culture - Preliminary, Resulted NO GROWTH IN 1 DAY 12/23/17 Anaerobic Blood Culture - Preliminary, Resulted NO GROWTH IN 1 DAY Tubes & Lines Comment TLC right IJ Drip Comment fentanyl, versed, precedex Physical Exam General Appearance: Well Developed, Comfortable Eyes Eye Exam: Pupils Equal Pulmonary Resp Exam: Breath Sounds Equal, Crackles, Rhonchi, Sputum, Decreased Bases Cardiology CV Exam: Regular, Normal Sinus Rhythm, Good Perfusion Gastrointestinal/Abdomen GI Exam: Soft, Non-Tender, Bowel Sounds Present Musculoskeletal MS Exam: Joints Intact, Normal Tone Integumentary Skin Exam: Clear, Warm, Dry, Intact Extremeties Extremities Exam: No Edema, Pedal Pulses Palpable Neurologic Neuro Exam: Awake, Moving All Extremities, Unresponsive, Sedated VTE Prophylaxis Device: SCDs Assessment/Plan Assessment Summary: Anemia of CKD, CHF, Diabetes Mellitus, End Stage Renal Disease Electrolyte Assessment: Hyperkalemia Problem List: (1) ESRD (end stage renal disease) ICD Codes: N18.6 - End-stage renal disease Status: Chronic Plan: He was dialyzed yesterday, 3L UF Continue HD MWF Avoid IVF, follow fluid status Obtain renal panel intermittently. He has functioning AVF, avoid right arm procedures. Monitor fluid and electrolyte balance. Avoid Gadolinium. (2) Respiratory failure ICD Codes: J96.90 - Respiratory failure, unspecified, unspecified whether with hypoxia or hypercapnia Plan: Management per senior statistical programmer. Most likely will need trach/PEG soon. Not tolerating CPAP. + VAP,+ H. influenza and pseudomonas, MRSA, on sputum culture. On cefepime, Levaquin, and Zyvoxx Had bronch yesterday Hx of CHF, also most likely has COPD Persistent leukocytosis. ID is following. Blood cultures positive, may be contaminant Palliative care has evaluated, pending HCS. (3) Anemia ICD Codes: D64.9 - Anemia, unspecified Plan: Epogen with dialysis. (4) Secondary hyperparathyroidism of renal origin ICD Codes: N25.81 - Secondary hyperparathyroidism of renal origin Plan: Continue binders with tube feeding. Change to calcium acetate, 1334 mg TID with tube feeding Also on Sensipar. Check iPTH (5) Encephalopathy ICD Codes: G93.40 - Encephalopathy, unspecified Plan: metabolic encephalopathy, acute CVA per MRI. MRA negative. Seen by neurology. He is on precedex and versed. Charline Mayo MD Dec 24, 2017 11:10
[2017-12-24] MEDS: CEFTOLOZANE-TAZOBACTAM INJ 150 MG in SODIUM CHLORIDE 0.9% INJ 100 ML IV SCH ×2 (11:19→20:28)
--- NOTE | 2017-12-24 14:34 | HHI.CCPN ---
Subjective Remarks/Hospital Course Patient is a 72-year-old male with multiple medical comorbidities which include end-stage renal disease, hypertension, CHF, COPD, cardiomyopathy, hyperparathyroidism and anemia of chronic disease. He was brought into ED via EMS for respiratory distress and was given albuterol treatment x2 in addition to Solu-Medrol 125 mg IV prior to arrival. The patient was initially placed on BiPap without any significant relief. In the ED he was intubated with etomidate, succinylcholine and placed on full mechanical ventilation. When seen the patient is sedated with Diprivan and on fentanyl infusion. His laboratory data significant for hyperkalemia with potassium 6.3, BUN 53, creatinine in 8.63 and BNP of 1218. His chest x-ray showed ET tube above the reed, interstitial edema. Nephrology service was notified and the patient is currently receiving hemodialysis treatment. ABG postintubation showed a pH of 7.30, CO2 54, pAO2 454, bicarb 26, sats of 97%. 12/13 Patient is intubated on no sedation. Awake and alert, s/p HD yesterday with removal 3L. Afebrile. 12/14: Afebrile. Remains on propofol drip at 20 mcg/kg per minute. Episodic hypotension. Episodic hypoglycemia requiring D50. On D10 drip for hyperkalemia ? Per nephrology's orders, potassium currently normalized. We'll start tube feeding. Added cefepime for Pseudomonas in sputum 12/15: Afebrile. Tolerating tube feeding. Currently on PSV trial is tolerated well. Not following commands however moving all 4 extremities purposefully today than yesterday. 12/16 Patient remains intubated and on Fentanyl and Diprivan drip for sedation. s /p HD yesterday 12/17 No events overnight. s/p HD yesterday with removal 1.8L. Remains sedated with Fentanyl and intubated. Patient doesn't follow commands off sedation. CT brain yesterday showed no acute process. T:99.9 last night 12/18: Afebrile. Patient ET tube migrated upwards towards vocal cords in high probability aspirated tube feeding. Reintubated by overnight workers compensation manager. Noted MRI brain revealed acute right and left parietal CVA. MRA brain and carotid Dopplers currently pending. Currently on baby aspirin. Also started on atorvastatin 10 mg daily. 12/19: Tmax 100. Central line placed yesterday due to hypotension. Currently norepinephrine and vasopressin drips. Wide pulse pressure arterial line. Tube feeds will be resumed. Stress dose steroids initiated. Last cortisol was 9. 12/20 Patient remains intubated and sedated with Diprivan and Fentanyl drips. On Levophed 8 mocs and Vasopressin 0.04. Afebrile. s/p HD yesterday with removal 4L. 12/21: Afebrile. Remains on propofol drip at 20 mcg/kg Per minute. On low- dose norepinephrine 2.5 g per minute as well. Remains quite agitated on the ventilator. 8 bowel movements overnight. C. difficile toxin is pending. Noted staph epi in blood 12/10 question kalie. ID consulted. On vancomycin 12/22: Tmax 100. Currently 99.7. CT chest today revealed 3 x 2 point centimeter right cavitary lesion along. Is mediastinal shift left dense infiltrate possible mucous plug left-sided. Status post bronchoscopy which essentially showed clearance of any significant degree/plugging. Follow chest x -ray revealed dense consolidation left lung. No pleural effusion. Labile blood pressure. 2: Resting currently in bed in no distress. Received quetiapine for agitation earlier. Remains on dexmedetomidine. Status post hemodialysis today. Subjective 12/24: FiO2 increased to 70% overnight. Currently back in 40%. Remains on dexmedetomidine drip. Tolerating tube feeds at goal. -3 L with hemodialysis yesterday. Objective Vital Signs Date Time Temp Pulse Resp B/P (MAP) Pulse Ox O2 Delivery O2 Flow Rate FiO2 12/24/17 12:00 67 12/24/17 12:00 98.5 20 116/57 (76) 98 12/24/17 12:00 60 Intake and Output 12/24/17 12/24/17 12/25/17 08:00 16:00 00:00 Intake Total 587 ml Balance 587 ml Result Diagram: 12/24/17 0323 12/24/17 0323 Other Results Microbiology Date/Time Source Procedure Growth Status 12/23/17 18:05 Blood Peripheral Aerobic Blood Culture - Preliminary NO GROWTH IN 1 DAY Resulted 12/23/17 18:05 Blood Peripheral Anaerobic Blood Culture - Preliminary NO GROWTH IN 1 DAY Resulted 12/22/17 18:20 Bronchial Washings Left Lower Lobe Fungal Smear - Final NO FUNGAL ELEMENTS SEEN. Resulted 12/22/17 18:20 Bronchial Washings Left Lower Lobe Fungal Culture Pending Resulted Imaging Last Impressions Chest X-Ray 12/23/17 1200 Signed Impressions: Service Date/Time: Saturday, December 23, 2017 12:26 - CONCLUSION: Reexpansion of the left lung with minimal left basilar density. Leonard Vaughn MD Chest CT 12/22/17 0000 Signed Impressions: Service Date/Time: December 16:39 - CONCLUSION: 1. Multiple cavitary lesions in the right lung as well as a small nodule and larger nodule or mass. These findings are concerning for metastatic disease. 2. The left lung is completely opacified with air bronchograms and volume loss with mediastinal shift. Areas cut off of the left main bronchus with soft tissue density material which could indicate mucous plugging. 3. Mild to moderate cardiomegaly. Edy Laughlin MD Abdomen X-Ray 12/20/17 0600 Signed Impressions: Service Date/Time: Wednesday, December 20, 2017 02:07 - CONCLUSION: 1. Moderate constipation with stool throughout large bowel. NG coiled in stomach. Khoa Franco MD Neck Magnetic Resonance Angiography 12/19/17 0000 Signed Impressions: Service Date/Time: Tuesday, December 19, 2017 12:24 - CONCLUSION: 1. Patent carotids and vertebrals. Marco Antonio Henriquez Jr., MD Head Magnetic Resonance Angiography 12/19/17 0000 Signed Impressions: Service Date/Time: Tuesday, December 19, 2017 12:24 - CONCLUSION: 1. No large vessel stenosis or aneurysm. 2. Normal variants as described above. Leonard Vaughn MD Brain MRI 12/17/17 0000 Signed Impressions: Service Date/Time: Sunday, December 17, 2017 11:33 - CONCLUSION: Small foci of retracted diffusion in the parietal periventricular white matter bilaterally indicating small acute infarcts. No other acute intracranial findings. Gatito Shipman MD Head CT 12/16/17 0000 Signed Impressions: Service Date/Time: Saturday, December 16, 2017 10:58 - CONCLUSION: No acute disease. Marco Antonio Henriquez Jr., MD Objective Remarks GENERAL: 72-year-old male currently orotracheally intubated SKIN: Warm and dry. No rash HEAD: Normocephalic. Atraumatic EYES: Pupils are equally round and reactive at 3 mm. NECK: Supple, trachea midline. No JVD or lymphadenopathy. Right IJ CVL is clean dry and intact CARDIOVASCULAR: RRR. S1, S2. No S4. Without murmurs RESPIRATORY: Improved aeration/bronchus a sounds throughout the left lung uriostegui anteriorly and. Posteriorly. Right-sided subsequent to auscultation anteriorly and posteriorly. No wheezing GASTROINTESTINAL: Abdomen soft, non-tender, nondistended. MUSCULOSKELETAL: Trace lower extremity. Right upper extremity positive thrill Neuro: Arousable, ventilator. Moves all 4 extremity spontaneously. Cranial nerves II through XII appear grossly intact. Appears to right greater than left. No DTRs. Urinary Catheter: No Assessment to: Continue Vascular Central Line Catheter: Yes Assessment to: Continue Date of Insertion: Dec 18, 2017 Line: Central Venous Catheter Side: Right Location: Internal, Jugular A/P Assessment and Plan Neuro/Psych: Peripheral neuropathy Right greater than left parietal CVA Monitor Neuro status. CT brain no acute findings 12/17 EEG revealed Sharp's triphasic right greater than left. No epileptiform discharges MRI brain 12/17 revealed 6 mm right parietal and tiny left parietal lacunar infarct in the periventricular white matter. MRA brain/neck 12/19: No large vessel stenosis or aneurysm. Aspirin 81 mg daily Atorvastatin 10 mg a day. Triglycerides elevated On Fentanyl currently at 250 mg an hour for sedation. Along with dexmedetomidine drip at 0.4 vaughn grams per kilogram Per minute. As needed midazolam 2 mg IV every 2 hours when necessary agitation Daily sedation vacation Goal of RASS -2 Continue gabapentin 300 mg daily for peripheral neuropathy Hydrochloroquine 200 mg daily for arthritis resumed Added quetiapine 50 mg twice a day and scheduled oxycodone 5 mg every 6 hours attempt to wean off sedation Dr. Ace neurology following intermittently CV: Chronic diastolic heart failure - Mild pulmonary hypertension with pulmonary arterial pressure 46.7 mmHg Currently on norepinephrine at 2 mcg/m to maintain MAP>65mmHg Decrease hydrocortisone 50 mg Q 8 hours. Cortisol level 9 on 12/15 2-D echocardiogram reveals EF of 55-60%. Mild MR/TR. Pulmonary arterial Pressures 46.7 mmHg Holding carvedilol 3.125 mg twice a day in light of atrial fibrillation Received 1 dose of digoxin 0.25 mg on 12/15 Resp: Acute hypoxemic and hypercapnic respiratory failure Polymicrobial pneumonia - Pseudomonas and Haemophilus influenza Right cavitary lung mass History of COPD PRVC 18/500/11/28/39 Continue with vent support keep sat >92% Ventilator bundle Albuterol/ipratropium aerosols every 6 hours with albuterol aerosols every 2 hours. Dyspnea SBT daily as earle. CT thorax revealed 3 x 2.3 cm cavitary lesion. Mediastinal shift right to left. Left lower lobe collapse. Possible mucus plugging As post bronchoscopy 12/22. Lukens trap obtained. Follow chest x-ray revealed dense consolidation left lung uriostegui. No masses on my bronchoscopy. Able to identify of left upper and lower lobes up to third subsegment without obstruction. GI: Constipation - resolved Nepro goal 55 cc an hour for nutrition's recommendations. Currently at 35 cc an hour KUB abdomen:Moderate constipation with stool throughout large bowel Famotidine 20 mg by tube daily for GI prophylaxis Docusate sodium/senna 1 tablet twice a day for bowel regimen. Metoclopramide 5 mg every 8 hours as needed nausea/high residuals Check C. difficile Endo: Hyperglycemia Secondary hyperparathyroidism Increase SSI to medium scale with accu checks Q4hr. Continue Cinacalet 30 mg daily for secondary hyperparathyroidism when able Cortisol level - 9 iPTH - 399 /FEN/Renal: End-stage renal disease on hemodialysis Tuesday/Tuesday/Tuesday Hyper-magnesium Hyperphosphatemia Monitor renal function, avoid nephrotoxins. HD per renal- Dr. Galarza Heme: Normocytic anemia/anemia of chronic kidney disease Leukocytosis..trending downward Monitor CBC daily. Follow trends Continue Epogen with hemodialysis ID: Haemophilus influenza/pseudomonas aeruginosa pneumonia/MRSA Staph epi bacteremia? Infectious disease consult for antibiotic management Pertinent cultures 12/12 - sputum - Haemophilus influenza, pseudomonas aeruginosa 12/12 - blood cultures 2 - no growth Follow up on sputum cx from 12/16: MRSA, H. Influenza, Pseudomonas Follow-up on blood cultures 12/18 staph epi Bronchoscopy 12/22 - Pseudomonas Repeat blood cultures 2 12/21 1 out of 4 coag negative staph. Repeat blood cultures 12/23 x 2 pending MSK: OP/OA PT evaluate and treat Access -Right IJ CVL day #7 placed 12/18 -Left radial arterial line 12/18.- 12/21 Prophylaxis - GI - famotidine - DVT - SCD/heparin subcutaneous Level III follow-up Saji Pearson MD Dec 24, 2017 14:34
--- NOTE | 2017-12-24 15:41 | EKG ---
Date Performed: 12/23/2017 Time Performed: 14:02:05 PTAGE: 72 years EKG: Sinus rhythm WITH OCCASIONAL VENTRICULAR PREMATURE COMPLEXES RIGHT BUNDLE BRANCH BLOCK ABNORMAL ECG Compared to PREVIOUS TRACING , heart rate is slower, and the PVCs are new. PREVIOUS TRACIN12/12/19 18 10.07 DOCTOR: Clinton Burnham Interpretating Date/Time 12/24/2017 15:40:40
[2017-12-24] MEDS: LEVOFLOXACIN 250 MG PREMIX INJ 50 ML IV SCH (16:01)
[2017-12-24] MEDS ORDERED: MIDAZOLAM HCL 5 MG/ML VIAL (1 ML) ONE (16:23)
[2017-12-24] MEDS ORDERED: MIDAZOLAM HCL 2 MG/2 ML VIAL IV PUSH ONE (16:30)
[2017-12-24] MEDS ORDERED: ROCURONIUM INJ 50 MG/5 ML VIAL IV ONE (16:30)
--- NOTE | 2017-12-24 16:33 | RADRPT ---
EXAM DATE/TIME: 12/24/2017 15:59 [facility] COMPARISON: CHEST SINGLE AP, December 23, 2017, 12:26. INDICATIONS : Follow-up pneumonia. MEDICAL HISTORY : Congestive heart failure. Hypertension. SURGICAL HISTORY : None. ENCOUNTER: Subsequent ACUITY: 3 days PAIN SCORE: Non-responsive. LOCATION: Bilateral chest FINDINGS: Right IJ line is present with tip overlapping the expected region of the SVC. ET tube is present with tip overlapping approximately 4 cm above the reed. NG tube is present with tip in the stomach. The re is worsening left lung base opacification since the prior examination particularly left lung base, however there is now extensive mixed interstitial and alveolar process in the left upper and midlung uriostegui not present previously. Mild interstitial process is seen in the right lung. CONCLUSION: Left basilar opacity is present may be due to a combination of consolidation and or pleural effusion progressed since the prior examination with significant mixed interstitial and alveolar process in th e left lung not present previously measured edema. Axel Dyson MD on December 24, 2017 at 16:29 Board Certified Radiologist. This report was verified electronically.
--- NOTE | 2017-12-24 16:59 | PD.PROCEDR ---
Procedure Note Procedure Procedure DATE: 12/24/2017 Fiberoptic bronchoscopy/therapeutic: INDICATION: Left lung mucous plugging CONSENT Informed consent for procedure was not a candidate considered emergent due to acute hypoxemia with known left mucous plugging DESCRIPTION OF THE PROCEDURE The patient was placed in supine position. On ACV 18/500/5/100. Currently on dexmedetomidine and fentanyl drips. Received 5 mg midazolam and 50 mill grams rocuronium. I entered the 7.5 ET tube with fiberoptic bronchoscopy. The reed was sharp. Left upper and lower lobes were visualized with thick white mucus plugging. Lavaged copiously with multiple syringes of sterile saline. The left upper and lower lobes were evaluated. Mucosa was easily friable. No masses are active bleeding identified.. The scope was withdrawn to the right upper, middle and lower lobes. Mucosa was normal without masses. There is thick mucous plugs in the right lower lobe/posterior branch which were lavaged with sterile saline until clear. I reexamined the left upper and lower lobes and they remain clear. The scope was withdrawn and the procedure ended ESTIMATED BLOOD LOSS: Minimal COMPLICATIONS: No apparent complications. STAT chest x-ray pending at time of dictation Saji Pearson MD, Louis M. MD Dec 24, 2017 16:59
--- NOTE | 2017-12-24 17:44 | RADRPT ---
EXAM DATE/TIME: 12/24/2017 17:11 [facility] COMPARISON: CHEST SINGLE AP, December 24, 2017, 15:59. INDICATIONS : Post bronchoscopy. Respiratory failure. MEDICAL HISTORY : None. SURGICAL HISTORY : None. ENCOUNTER: Subsequent ACUITY: 4 - 6 days PAIN SCORE: Non-responsive. LOCATION: Bilateral chest FINDINGS: Ringlike opacity right lower chest and not changed. Right IJ line is present with tip overlapping the expected region of the SVC. NG tube is present with tip in the stomach. ET tube is present with tip overlapping approximately 4 cm above the reed. Left basilar opacity is present may be due to a comb ination of consolidation and or pleural effusion. There is mild improvement in the aeration of left u pper lung since the prior examination, however persistent mixed interstitial and alveolar process rem ains. CONCLUSION: Mild improvement in aeration of left upper lung, otherwise not significantly changed. Axel Dyson MD on December 24, 2017 at 17:40 Board Certified Radiologist. This report was verified electronically.
[2017-12-24] MEDS: ATORVASTATIN 10 MG TAB PO SCH (20:27)
[2017-12-25] VITALS (17 sets, daily range): BP systolic 123–206; BP diastolic 58–96; PULSE 66–94; RESP 21–35; TEMP 97.7–99.2; O2SAT 98–100
[2017-12-25] MEDS: oxyCODONE HCL ORAL CONC 5 MG/0.25 ML SYRINGE NG SCH ×4 (01:57→19:44)
[2017-12-25] MEDS: HEPARIN SODIUM - SQ 10,000 UNITS/ML VIAL SQ SCH ×2 (01:57→13:52)
[2017-12-25] MEDS: fentaNYL 2,500 MCG/NS 250 ML IV PRN ×3 (03:35→23:19)
[2017-12-25] MEDS: CEFTOLOZANE-TAZOBACTAM INJ 150 MG in SODIUM CHLORIDE 0.9% INJ 100 ML IV SCH ×3 (03:35→19:44)
[2017-12-25] MEDS: INSULIN NovoLIN REGULAR SUPPLEMENTAL SCALE SQ SCH ×6 (03:36→23:19)
[2017-12-25] MEDS: RESP: ALBUTEROL 2.5 MG/3 ML NEB (PRN) NEB (03:53)
[2017-12-25] MEDS: RESP: ALBUTEROL 2.5 MG/IPRATROPIUM 0.5 MG NEB (SCH) NEB ×4 (03:54→21:20)
[2017-12-25] MEDS: RESP: SODIUM CHLORIDE 3% 4 ML NEB NEB SCH ×4 (03:54→21:20)
[2017-12-25] MEDS: ARTIFICIAL TEARS OPTH SOLN 15 ML BTL EACH EYE SCH ×3 (04:47→19:43)
[2017-12-25] MEDS: HYDROCORTISONE SOD SUCCINATE 100 MG VIAL IV PUSH SCH ×3 (04:47→19:44)
[2017-12-25] MEDS: DEXMEDETOMIDINE INJ 200 MCG in SODIUM CHLORIDE 0.9% INJ 50 ML IV PRN ×4 (04:47→14:03)
[2017-12-25] MEDS: LINEZOLID 600 MG PREMIX 300 ML IV SCH ×2 (04:49→16:10)
[2017-12-25 05:50] LABS: AUTOMATED NEUTROPHIL # 16.5 TH/MM3 (1.8-7.7); BASOPHIL % 0.1 % (0.0-2.0); HEMATOCRIT 27.3 % (39.0-51.0); HEMOGLOBIN 8.9 GM/DL (13.0-17.0); LYMPHOCYTE # 0.5 TH/MM3 (1.0-4.8); MEAN CELL VOLUME 90.6 FL (80.0-100.0); MEAN CORPUSCULAR HEMOGLOBIN 29.7 PG (27.0-34.0); MEAN CORPUSCULAR HGB CONC 32.8 % (32.0-36.0); MEAN PLATELET VOLUME 8.4 FL (7.0-11.0); MONOCYTE # 0.5 TH/MM3 (0-0.9); NEUT % 93.9 % (16.0-70.0); PLATELET COUNT 191 TH/MM3 (150-450); RED BLOOD COUNT 3.01 MIL/MM3 (4.50-5.90); WHITE BLOOD COUNT 17.6 TH/MM3 (4.0-11.0)
[2017-12-25 06:10] LABS: ALBUMIN 2.7 GM/DL (3.4-5.0); BICARBONATE 25.5 MEQ/L (21.0-32.0); CALCIUM 7.9 MG/DL (8.5-10.1); CREATININE 7.39 MG/DL (0.60-1.30)
[2017-12-25 06:54] LABS: PHOSPHORUS 7.9 MG/DL (2.5-4.9)
[2017-12-25] MEDS: MUPIROCIN 2% OINT 1 APPLIC/GM SYR EACH NARE SCH ×2 (08:03→19:43)
[2017-12-25] MEDS: SODIUM CHLORIDE 0.9% FLUSH 10 ML FLUSH IV FLUSH SCH (08:25)
[2017-12-25] MEDS: HYDROXYCHLOROQUINE SULFATE 200 MG TAB PO SCH (08:25)
[2017-12-25] MEDS: CINACALCET HYDROCHLORIDE 30 MG TAB PO SCH (08:25)
[2017-12-25] MEDS: INSULIN DETEMIR 100 UNITS/ML VIAL SQ SCH ×2 (08:25→19:44)
[2017-12-25] MEDS: FAMOTIDINE 20 MG TAB NG SCH (08:25)
[2017-12-25] MEDS: NYSTATIN SUSP 500,000 U/5 ML CUP OROPHARYNG SCH ×4 (08:25→19:44)
[2017-12-25] MEDS: QUEtiapine FUMARATE 25 MG TAB PO SCH ×2 (08:25→19:45)
[2017-12-25] MEDS: ASPIRIN 81 MG CHEW TAB PO SCH (08:25)
[2017-12-25] MEDS: CALCIUM ACETATE 667 MG CAP OG-TUBE SCH ×3 (08:25→17:24)
[2017-12-25] MEDS: CARVEDILOL 3.125 MG TAB PO SCH ×2 (08:26→19:45)
[2017-12-25] MEDS: DOCUSATE SODIUM 50 MG/SENNA 8.6 MG TAB PO SCH ×2 (08:26→19:45)
--- NOTE | 2017-12-25 08:38 | HHI.IDPN ---
Note Infectious Disease Note ID COVERAGE 72 year-old white male who presented to the emergency department with shortness of breath on 12/12/2017. The patient has a history of COPD. Has been intubated Previous sputum with MDR PSAE, Hemophilus and MRSA Notes reviewed Discussed with RN Had problems yesterday with mucous plugging, had repeat bronchoscopy done On the vent, on fentanyl and Precedex, looks very restless BP okay, not on pressors CT of the chest noted Bronchoscopy culture with Pseudomonas, susceptibility testing pending Temps better overnight Awake, not following commands Last HD December 23 Repeat blood culture December 23 negative so far PAST MEDICAL HISTORY: 1. COPD. 2. CHF. 3. Anemia. 4. End-stage renal disease. 5. Cardiomyopathy. 6. History of left hip replacement. 7. History of right upper extremity A-V fistula. 8. Secondary hyperparathyroidism. ALLERGIES NO KNOWN DRUG ALLERGIES. Current Medications Zerbaxa Zyvox Levaquin Medications (Trade) Dose Ordered Sig/Jhonathan Route Start Time Stop Time Status Last Admin (NS Flush) 2 ml UNSCH PRN IVF 12/12/17 10:15 12/17/17 09:59 Propofol 100 ml @ 0 mls/hr TITRATE PRN IV 12/12/17 10:45 12/21/17 22:42 (Heparin Inj) 5,000 units Q12H SQ 12/12/17 14:00 12/25/17 01:57 Miscellaneous Information 1 Q361D XX 12/12/17 14:00 (Chlorhexidine 2% Cloth) Taper DAILY@04 TOP 12/13/17 04:00 12/09/18 03:59 12/17/17 02:21 (Chlorhexidine 2% Cloth) 3 pack UNSCH PRN TOP 12/12/17 14:00 (Dayna-Colace) 1 tab BID PO 12/12/17 21:00 12/24/17 20:28 (Milk Of Magnesia Liq) 30 ml Q12H PRN PO 12/12/17 14:00 (Senokot) 17.2 mg Q12H PRN PO 12/12/17 14:00 (Dulcolax Supp) 10 mg DAILY PRN RECTAL 12/12/17 14:00 (Lactulose Liq) 30 ml DAILY PRN PO 12/12/17 14:00 (D50w (Vial) Inj) 50 ml UNSCH PRN IV PUSH 12/12/17 14:15 12/14/17 15:19 (Glucagon Inj) 1 mg UNSCH PRN OTHER 12/12/17 14:15 Sodium Chloride 1,000 ml @ 0 mls/hr Q0M PRN OTHER 12/12/17 14:25 (Heparin Inj) 8,000 units UNSCH PRN IV FLUSH 12/12/17 14:30 Sodium Chloride 1,000 ml @ 200 mls/hr Q5H PRN IV 12/12/17 14:25 Sodium Chloride 1,000 ml @ 0 mls/hr Q0M PRN OTHER 12/12/17 14:25 (Mannitol Inj) 12.5 gm UNSCH PRN IV 12/12/17 14:30 Albumin Human 100 ml @ 60 mls/hr UNSCH PRN IV 12/12/17 14:30 12/23/17 09:05 (NS Flush) 5 ml UNSCH PRN IV FLUSH 12/12/17 14:30 (Heparin Inj) UNSCH PRN .XX 12/12/17 14:30 (Gentamicin Inj) 20 mg UNSCH PRN OTHER 12/12/17 14:30 (Zofran Inj) 4 mg UNSCH PRN IV PUSH 12/12/17 14:30 (Tylenol) 650 mg UNSCH PRN PO 12/12/17 14:30 (Benadryl) 25 mg UNSCH PRN PO 12/12/17 14:30 (Nitrostat Sl) 0.4 mg UNSCH PRN SL 12/12/17 14:30 (Catapres) 0.1 mg UNSCH PRN PO 12/12/17 14:30 (Epogen Inj) 10,000 units UNSCH PRN IV PUSH 12/12/17 14:30 12/23/17 11:07 (Gelfoam 12 Mm/7 Mm Top) 1 foam UNSCH PRN TOP 12/12/17 14:30 12/19/17 16:24 Fentanyl Citrate 250 ml @ 5 mls/hr TITRATE PRN IV 12/13/17 20:45 12/25/17 03:35 (Pepcid) 20 mg DAILY NG 12/15/17 09:00 12/25/17 08:25 (Tears Naturale Opth Soln) 1 drop Q8HR EACH EYE 12/14/17 22:00 12/25/17 04:47 (Albuterol Neb) 2.5 mg Q2HR NEB PRN NEB 12/14/17 21:45 12/25/17 03:53 (Sensipar) 30 mg DAILY PO 12/15/17 09:00 12/25/17 08:25 (Plaquenil) 200 mg DAILY PO 12/15/17 09:00 12/25/17 08:25 (Bactroban Nasal 2% Oint) Taper BID EACH NARE 12/15/17 21:00 12/11/18 20:59 12/24/17 20:27 (Coreg) 3.125 mg Q12HR PO 12/15/17 21:00 12/23/17 20:29 (Mycostatin Liq) 5 ml QID OROPHARYNG 12/18/17 09:00 12/28/17 08:59 12/25/17 08:25 (Aspirin Chew) 81 mg DAILY PO 12/19/17 09:00 12/25/17 08:25 (Lipitor) 10 mg HS PO 12/18/17 21:00 12/24/17 20:27 (NS Flush) DAILY IV FLUSH 12/19/17 09:00 12/25/17 08:25 (NS Flush) UNSCH PRN IV FLUSH 12/18/17 17:15 12/21/17 20:39 Levofloxacin/ Dextrose 50 ml @ 50 mls/hr Q48H IV 12/18/17 17:00 12/24/17 16:01 Norepinephrine Bitartrate 4 mg/ Sodium Chloride 250 ml @ 7.5 mls/hr TITRATE PRN IV 12/18/17 21:00 12/22/17 20:53 (Brethine Inj) 1 mg UNSCH PRN SQ 12/18/17 21:00 (Reglan Inj) 5 mg Q8H PRN IV PUSH 12/20/17 08:00 (D50w (Vial) Inj) 50 ml UNSCH PRN IV PUSH 12/20/17 08:00 (Glucagon Inj) 1 mg UNSCH PRN OTHER 12/20/17 08:00 (NovoLIN R SUPPLEMENTAL SCALE) 1 Q4HR SQ 12/20/17 08:00 12/25/17 08:25 (SoluCORTEF INJ) 50 mg Q8HR IV PUSH 12/21/17 14:00 12/25/17 04:47 (Duoneb Neb) 1 ampule Q6HR NEB NEB 12/21/17 16:00 12/25/17 08:24 Dexmedetomidine HCl 200 mcg/ Sodium Chloride 52 ml @ 4.18 mls/hr TITRATE PRN IV 12/21/17 12:30 12/25/17 04:47 (Versed Inj) 2 mg Q1HR PRN IV PUSH 12/21/17 12:30 12/24/17 04:29 Linezolid 300 ml @ 300 mls/hr Q12H IV 12/21/17 17:00 12/25/17 04:49 (Sodium Chloride 3% Neb) 2 ml Q6HR NEB NEB 12/22/17 22:00 12/29/17 21:59 12/25/17 08:24 Phenylephrine HCl 40 mg/Dextrose 500 ml @ 30 mls/hr TITRATE PRN IV 12/23/17 03:45 12/23/17 04:27 (Brethine Inj) 1 mg UNSCH PRN SQ 12/23/17 03:45 (Levemir Inj) 12 units Q12HR SQ 12/23/17 10:00 12/25/17 08:25 (SEROquel) 50 mg BID PO 12/23/17 21:00 12/25/17 08:25 (Roxicodone Intensol Liq) 5 mg Q6H NG 12/23/17 14:00 12/25/17 08:25 (Phoslo) 1,334 mg TID OG-TUBE 12/23/17 13:00 12/25/17 08:25 Ceftolozane/ Tazobactam 150 mg/ Sodium Chloride 100 ml @ 100 mls/hr Q8H IV 12/24/17 12:00 12/25/17 03:35 OBJECTIVE Vital Signs Date Time Temp Pulse Resp B/P (MAP) Pulse Ox O2 Delivery O2 Flow Rate FiO2 12/25/17 08:27 98 45 12/25/17 06:00 94 12/25/17 05:45 92 166/77 12/25/17 04:00 82 12/25/17 04:00 60 12/25/17 04:00 99.2 82 30 148/67 (94) 100 12/25/17 03:47 100 50 2/4/18 02:00 74 2/4/18 01:30 66 150/73 2/4/18 00:15 76 82/46 2/4/18 00:00 92 2/4/18 00:00 97.7 92 23 151/67 (95) 100 2/4/18 00:00 60 2/3/18 23:49 100 50 2/3/18 22:00 79 2/3/18 21:00 76 139/63 2/3/18 20:17 100 50 2/3/18 20:00 66 2/3/18 20:00 99.0 66 22 166/78 (107) 100 2//18 20:00 60 2//18 20:00 66 166/78 2//18 19:00 66 157/77 2//18 18:00 66 2//18 17:00 100 100 2//18 16:30 76 18 121/58 (79) 100 2//18 16:15 81 18 137/63 (87) 94 2//18 16:00 60 2//18 16:00 98.7 76 18 118/62 (80) 92 2//18 16:00 75 2//18 15:45 70 18 110/53 (72) 94 2/3/18 15:30 82 18 146/67 (93) 99 2/3/18 15:30 97 40 2/3/18 15:16 84 18 145/67 (93) 94 2/3/18 15:15 83 18 94 2/3/18 15:00 85 166/77 (106) 92 2/3/18 14:46 84 148/69 (95) 92 2/3/18 14:45 83 92 2/3/18 14:30 80 143/67 (92) 92 2/3/18 14:16 79 141/64 (89) 94 2/3/18 14:15 75 94 2/3/18 14:00 66 106/59 (75) 96 2/3/18 14:00 81 2/3/18 13:45 66 102/57 (72) 95 2/3/18 13:30 66 102/57 (72) 97 2/3/18 13:15 67 99/55 (70) 97 2/3/18 13:00 68 95/52 (66) 96 2//18 12:45 68 101/55 (70) 96 2//18 12:30 71 18 115/58 (77) 97 2//18 12:00 67 2/3/18 12:00 98.5 67 20 116/57 (76) 98 2//18 12:00 60 2/3/18 11:45 67 110/58 (75) 98 2//18 11:30 68 105/59 (74) 97 2//18 11:15 69 104/59 (74) 98 2//18 11:09 70 98/56 (70) 96 218 11:05 71 91/54 (66) 95 18 11:00 92 60 2//18 11:00 71 89/54 (66) 95 //18 10:55 71 23 86/52 (63) 93 18 10:50 72 19 86/51 (63) 93 12/24/18 10:45 72 19 82/47 (59) 92 18 10:45 72 82/47 2//18 10:30 74 25 76/38 (51) 91 18 10:30 74 76/38 2//18 10:15 78 18 94/51 (65) 92 18 10:00 77 18 95/49 (64) 90 /18 10:00 77 2/18 09:45 79 23 110/56 (74) 92 18 09:30 85 27 157/69 (98) 94 18 09:15 84 51 167/76 (106) 94 18 09:00 84 32 158/72 (100) 95 218 09:00 84 158/72 2/18 08:45 83 52 169/77 (107) 94 Vital Signs Date Time Temp Pulse Resp B/P (MAP) Pulse Ox O2 Delivery O2 Flow Rate FiO2 12/24/17 06:00 62 2/18 05:59 62 127/64 12/24/18 04:51 70 218 04:49 70 76/47 18 04:38 50 18 04:34 91 50 2//18 04:00 79 2/3/18 04:00 98.9 79 105 144/67 (92) 88 2//18 04:00 40 2/3/18 03:45 81 30 141/65 (90) 97 2/3/18 03:31 63 19 128/63 (84) 95 2/3/18 03:30 71 17 96 2/3/18 03:18 68 22 96/50 (65) 95 2//18 03:17 71 27 78/48 (58) 95 2/3/18 03:15 59 18 72/40 (51) 94 2//18 03:00 70 18 92/53 (66) 95 2//18 02:45 77 23 141/65 (90) 97 2/18 02:30 73 60 133/62 (85) 97 2//18 02:15 72 26 130/60 (83) 98 2/3/18 02:01 77 18 139/63 (88) 98 2//18 02:00 75 2//18 02:00 75 22 97 2/3/18 01:45 68 131 99/51 (67) 95 2//18 01:30 68 30 95/51 (66) 92 2//18 01:15 67 47 81/48 (59) 92 2//18 01:00 67 24 85/51 (62) 94 2//18 00:45 68 18 87/52 (64) 92 2//18 00:30 68 18 87/52 (64) 92 2/18 00:24 98 40 2/3/18 00:15 68 18 95/51 (66) 98 2/3/18 00:00 98.6 67 19 103/59 (74) 99 2//18 00:00 40 2/3/18 00:00 67 2/3/18 00:00 67 103/59 2/2/18 23:45 68 18 98/55 (69) 98 2/2/18 23:30 68 18 100/57 (71) 99 2/2/18 23:15 68 18 99/56 (70) 99 2/2/18 23:00 67 18 96/55 (69) 99 2/2/18 22:45 68 0 96/54 (68) 98 2/2/18 22:30 68 18 99/54 (69) 98 18 22:15 69 18 94/50 (65) 97 12/23/17 22:00 58 18 89/52 (64) 97 12/23/17 22:00 58 12/23/17 21:45 60 19 86/52 (63) 94 12/23/17 21:30 60 18 82/49 (60) 95 12/23/17 21:15 71 18 86/49 (61) 94 12/23/17 21:00 72 81/42 2 21:00 72 18 81/42 (55) 92 18 20:45 64 18 92/55 (67) 95 12/23/17 20:30 63 18 86/53 (64) 96 12/23/17 20:27 96 40 12/23/17 20:16 62 19 96/55 (69) 95 12/23/17 20:00 100.9 85 28 176/80 (112) 99 12/23/17 20:00 40 12/23/17 20:00 85 12/23/17 20:00 85 176/80 12/23/17 19:00 83 173/77 12/23/17 18:00 75 12/23/17 16:00 40 12/23/17 16:00 74 12/23/17 16:00 99.9 58 48 98/52 (67) 96 12/23/17 15:17 97 40 12/23/17 14:00 56 12/23/17 12:00 99.0 83 22 96/52 (67) 98 12/23/17 12:00 40 12/23/17 12:00 83 12/23/17 11:43 97 40 Laboratory Tests Test 12/24/17 03:23 12/25/17 04:00 White Blood Count 17.5 TH/MM3 17.6 TH/MM3 Red Blood Count 2.99 MIL/MM3 3.01 MIL/MM3 Hemoglobin 8.8 GM/DL 8.9 GM/DL Hematocrit 27.1 % 27.3 % Mean Corpuscular Volume 90.3 FL 90.6 FL Mean Corpuscular Hemoglobin 29.5 PG 29.7 PG Mean Corpuscular Hemoglobin Concent 32.7 % 32.8 % Red Cell Distribution Width 15.3 % 15.0 % Platelet Count 180 TH/MM3 191 TH/MM3 Mean Platelet Volume 8.2 FL 8.4 FL Neutrophils (%) (Auto) 91.5 % 93.9 % Lymphocytes (%) (Auto) 3.7 % 3.0 % Monocytes (%) (Auto) 3.6 % 3.0 % Eosinophils (%) (Auto) 0.1 % 0.0 % Basophils (%) (Auto) 1.1 % 0.1 % Neutrophils # (Auto) 16.0 TH/MM3 16.5 TH/MM3 Lymphocytes # (Auto) 0.7 TH/MM3 0.5 TH/MM3 Monocytes # (Auto) 0.6 TH/MM3 0.5 TH/MM3 Eosinophils # (Auto) 0.0 TH/MM3 0.0 TH/MM3 Basophils # (Auto) 0.2 TH/MM3 0.0 TH/MM3 CBC Comment AUTO DIFF DIFF FINAL Differential Total Cells Counted 100 Neutrophils % (Manual) 91 % Lymphocytes % 5 % Monocytes % 3 % Neutrophils # (Manual) 16.1 TH/MM3 Myelocytes 1 % Differential Comment FINAL DIFF MANUAL Platelet Estimate NORMAL Platelet Morphology Comment NORMAL Red Cell Morphology Comment NORMAL Laboratory Tests Test 12/24/17 03:23 12/25/17 04:00 Blood Urea Nitrogen 87 MG/DL 117 MG/DL Creatinine 5.46 MG/DL 7.39 MG/DL Random Glucose 121 MG/DL 256 MG/DL Albumin 2.5 GM/DL 2.7 GM/DL Calcium Level 7.8 MG/DL 7.9 MG/DL Phosphorus Level 6.4 MG/DL 7.9 MG/DL Sodium Level 139 MEQ/L 133 MEQ/L Potassium Level 3.8 MEQ/L 4.7 MEQ/L Chloride Level 97 MEQ/L 91 MEQ/L Carbon Dioxide Level 30.2 MEQ/L 25.5 MEQ/L Anion Gap 12 MEQ/L 17 MEQ/L Estimat Glomerular Filtration Rate 10 ML/MIN 7 ML/MIN Parathyroid Hormone (Intact) 399.4 PG/ML Microbiology Date/Time Source Procedure Growth Status 12/23/17 18:05 Blood Peripheral Aerobic Blood Culture - Preliminary NO GROWTH IN 1 DAY Resulted 12/23/17 18:05 Blood Peripheral Anaerobic Blood Culture - Preliminary NO GROWTH IN 1 DAY Resulted 12/23/17 17:55 Blood Peripheral Aerobic Blood Culture - Preliminary NO GROWTH IN 1 DAY Resulted 12/23/17 17:55 Blood Peripheral Anaerobic Blood Culture - Preliminary NO GROWTH IN 1 DAY Resulted 12/22/17 18:20 Bronchial Washings Left Lower Lobe Fungal Smear - Final NO FUNGAL ELEMENTS SEEN. Resulted 12/22/17 18:20 Bronchial Washings Left Lower Lobe Fungal Culture Pending Resulted 12/22/17 18:20 Bronchial Washings Left Lower Lobe Acid Fast Stain - Final NO ACID FAST BACILLI SEEN Resulted 12/22/17 18:20 Bronchial Washings Left Lower Lobe Mycobacterial Culture Pending Resulted 12/22/17 18:20 Bronchial Washings Left Lower Lobe Gram Stain - Final Resulted 12/22/17 18:20 Bronchial Culture - Preliminary Pseudomonas Aeruginosa Resulted IMAGING: Chest X-Ray 12/23/17 1200 Signed Impressions: Service Date/Time: Saturday, December 23, 2017 12:26 - CONCLUSION: Reexpansion of the left lung with minimal left basilar density. eLonard Vaughn MD Chest X-Ray 12/22/17 0600 Signed Impressions: Service Date/Time: December 03:23 - CONCLUSION: 1. Development of increased density consolidation in the left lung. Differential diagnosis includes pneumonia and aspiration. 2. Improving right basilar airspace consolidation but with development of a suspected cavitary lesion measuring about 3.3 cm in diameter, probably infectious in nature. Khoa Franco MD Chest X-Ray 12/22/17 0000 Signed Impressions: Service Date/Time: December 18:53 - CONCLUSION: Worsening opacification of the left hemithorax compared to previous examination consistent with probable worsening diffuse consolidation and possible increased pleural fluid. Apparent cavitary lesion within the right lower lung field is stable. Multiple tubes and lines are stable. Sergey Brown MD Chest CT 12/22/17 0000 Signed Impressions: Service Date/Time: December 16:39 - CONCLUSION: 1. Multiple cavitary lesions in the right lung as well as a small nodule and larger nodule or mass. These findings are concerning for metastatic disease. 2. The left lung is completely opacified with air bronchograms and volume loss with mediastinal shift. Areas cut off of the left main bronchus with soft tissue density material which could indicate mucous plugging. 3. Mild to moderate cardiomegaly. Edy Laughlin MD Chest X-Ray 2/1/18 0600 Signed Impressions: Service Date/Time: December 03:23 - CONCLUSION: 1. Development of increased density consolidation in the left lung. Differential diagnosis includes pneumonia and aspiration. 2. Improving right basilar airspace consolidation but with development of a suspected cavitary lesion measuring about 3.3 cm in diameter, probably infectious in nature. Khoa Franco MD Abdomen X-Ray 12/20/17599 Signed Impressions: Service Date/Time: Wednesday, December 20, 2017 02:07 - CONCLUSION: 1. Moderate constipation with stool throughout large bowel. NG coiled in stomach. Khoa Franco MD Neck Magnetic Resonance Angiography 12/19/17 0000 Signed Impressions: Service Date/Time: Tuesday, December 19, 2017 12:24 - CONCLUSION: 1. Patent carotids and vertebrals. Marco Antonio Henriquez Jr., MD Head Magnetic Resonance Angiography 12/19/17 0000 Signed Impressions: Service Date/Time: Tuesday, December 19, 2017 12:24 - CONCLUSION: 1. No large vessel stenosis or aneurysm. 2. Normal variants as described above. Leonard Vaughn MD Brain MRI 12/17/17 0000 Signed Impressions: Service Date/Time: Sunday, December 17, 2017 11:33 - CONCLUSION: Small foci of retracted diffusion in the parietal periventricular white matter bilaterally indicating small acute infarcts. No other acute intracranial findings. Gatito Shipman MD Head CT 12/16/17 0000 Signed Impressions: Service Date/Time: Saturday, December 16, 2017 10:58 - CONCLUSION: No acute disease. Marco Antonio Henriquez Jr., MD PHYSICAL EXAMINATION: GENERAL: Eyes open, looks restless, on the vent. Not following commands. On fentanyl and Precedex HEENT: Head atraumatic. No icterus. Oropharynx intubated. Neck: Supple. No palpable adenopathy. Lungs: Decreased breath sounds bilaterally Heart: Irregular S1-S2. No audible murmur. Abdomen: Soft, nontender. No guarding. Bowel sounds present. Extremities: No clubbing or cyanosis or edema. AV fistula in the right forearm with no evidence of infection Skin: No diffuse rash. Neuro: Eyes open not following commands Psych: Restless LINE: NO evidence of infection IMPRESSION Sepsis with shock, due to PNA Pneumonia due to MRSA and pseudomonas. - mucous plugging. - S/P bronch - MDR PSAE Acute respiratory failure. End-stage renal disease. On HD One blood culture with staph epidermidis, out of four bottles again positive on repeat suggesting contamination. Multiple cavitary lung lesions, ?metastatic Leukocytosis, persistent RECOMMENDATIONS Continue Zerbaxa Continue Levaquin. Continue Linezolid. - follow CBC CXR to reevaluate L lung Follow C/S and adjust Abx Monitor progress D/W Emily Xiong MD Dec 25, 2017 08:38
--- NOTE | 2017-12-25 11:04 | RADRPT ---
EXAM DATE/TIME: 12/25/2017 09:50 [facility] COMPARISON: CHEST SINGLE AP, December 24, 2017, 17:11. INDICATIONS : Short of Breath MEDICAL HISTORY : Congestive heart failure. Hypertension SURGICAL HISTORY : None. ENCOUNTER: Subsequent ACUITY: 1 week PAIN SCORE: 0/10 LOCATION: chest FINDINGS: A single view of the chest demonstrates left basilar consolidation and probable small pleural effusio n. Densities throughout the right lung have improved. Cavitary lesion in the right lower lobe lateral ly again noted. Endotracheal tube, nasogastric tube and right jugular central line stable position. Osseous structures are intact. CONCLUSION: 1. Persistent left basilar consolidation. 2. Cavitary lesion right lower lobe is stable. Leonard Vaughn MD on December 25, 2017 at 10:58 Board Certified Radiologist. This report was verified electronically.
--- NOTE | 2017-12-25 11:53 | HHI.NPPN ---
Subjective General Problems: Anemia Renal Failure: Chronic, End Stage Renal Disease Review of Systems General General Remarks unable to assess Objective Data Data Vital Signs Date Time Temp Pulse Resp B/P (MAP) Pulse Ox O2 Delivery O2 Flow Rate FiO2 12/25/17 10:00 72 12/25/17 08:27 98 45 12/25/17 08:00 98.7 88 25 151/58 (89) 100 12/25/17 08:00 45 12/25/17 08:00 92 12/25/17 06:00 94 12/25/17 05:45 92 166/77 12/25/17 04:00 82 12/25/17 04:00 60 12/25/17 04:00 99.2 82 30 148/67 (94) 100 12/25/17 03:47 100 50 12/25/17 02:00 74 12/25/17 01:30 66 150/73 12/25/17 00:15 76 82/46 12/25/17 00:00 92 12/25/17 00:00 97.7 92 23 151/67 (95) 100 12/25/17 00:00 60 12/24/17 23:49 100 50 12/24/17 22:00 79 12/24/17 21:00 76 139/63 12/24/17 20:17 100 50 12/24/17 20:00 66 12/24/17 20:00 99.0 66 22 166/78 (107) 100 12/24/17 20:00 60 12/24/17 20:00 66 166/78 12/24/17 19:00 66 157/77 18 18:00 66 12/24/17 17:00 100 100 12/24/17 16:30 76 18 121/58 (79) 100 12/24/17 16:15 81 18 137/63 (87) 94 12/24/17 16:00 60 12/24/17 16:00 98.7 76 18 118/62 (80) 92 12/24/17 16:00 75 18 15:45 70 18 110/53 (72) 94 12/24/17 15:30 82 18 146/67 (93) 99 12/24/17 15:30 97 40 12/24/17 15:16 84 18 145/67 (93) 94 12/24/17 15:15 83 18 94 12/24/17 15:00 85 166/77 (106) 92 12/24/17 14:46 84 148/69 (95) 92 12/24/17 14:45 83 92 12/24/17 14:30 80 143/67 (92) 92 12/24/17 14:16 79 141/64 (89) 94 12/24/17 14:15 75 94 12/24/17 14:00 66 106/59 (75) 96 12/24/17 14:00 81 12/24/17 13:45 66 102/57 (72) 95 12/24/17 13:30 66 102/57 (72) 97 12/24/17 13:15 67 99/55 (70) 97 12/24/17 13:00 68 95/52 (66) 96 12/24/17 12:45 68 101/55 (70) 96 12/24/17 12:30 71 18 115/58 (77) 97 12/24/17 12:00 67 12/24/17 12:00 98.5 67 20 116/57 (76) 98 12/24/17 12:00 60 -: 12/25/17 0400 12/25/17 0400 Tubes & Lines Comment TLC right IJ Drip Comment fentanyl, versed, precedex Physical Exam General Appearance: Well Developed, Comfortable Eyes Eye Exam: Pupils Equal Pulmonary Resp Exam: Breath Sounds Equal, Crackles, Rhonchi, Sputum, Decreased Bases Cardiology CV Exam: Regular, Normal Sinus Rhythm, Good Perfusion Gastrointestinal/Abdomen GI Exam: Soft, Non-Tender, Bowel Sounds Present Musculoskeletal MS Exam: Joints Intact, Normal Tone Integumentary Skin Exam: Clear, Warm, Dry, Intact Extremeties Extremities Exam: No Edema, Pedal Pulses Palpable Neurologic Neuro Exam: Awake, Moving All Extremities, Unresponsive, Sedated VTE Prophylaxis Device: SCDs Assessment/Plan Assessment Summary: Anemia of CKD, CHF, Diabetes Mellitus, End Stage Renal Disease Electrolyte Assessment: Hyperkalemia Problem List: (1) ESRD (end stage renal disease) ICD Codes: N18.6 - End-stage renal disease Status: Chronic Plan: He had HD Tuesday 3L UF Continue HD MWF Avoid IVF, follow fluid status Obtain renal panel intermittently. He has functioning AVF, avoid right arm procedures. Monitor fluid and electrolyte balance. Avoid Gadolinium. Dr. 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 Most likely will need trach/PEG soon. Not tolerating CPAP. + VAP,+ H. influenza and pseudomonas, MRSA, on sputum culture. On cefepime, Levaquin, and Zyvoxx Had bronch yesterday Hx of CHF, also most likely has COPD Persistent leukocytosis. ID is following. Blood cultures positive, may be contaminant Palliative care has evaluated, pending HCS. (3) Anemia ICD Codes: D64.9 - Anemia, unspecified Plan: Epogen with dialysis. (4) Secondary hyperparathyroidism of renal origin ICD Codes: N25.81 - Secondary hyperparathyroidism of renal origin Plan: Continue binders with tube feeding. Change to calcium acetate, 1334 mg TID with tube feeding Also on Sensipar. Check iPTH (5) Encephalopathy ICD Codes: G93.40 - Encephalopathy, unspecified Plan: metabolic encephalopathy, acute CVA per MRI. MRA negative. Seen by neurology. He is on precedex and versed. Charline Mayo MD Dec 25, 2017 11:53
[2017-12-25] MEDS: DEXMEDETOMIDINE INJ 1,000 MCG in SODIUM CHLOR 0.9% 250 ML INJ 240 ML IV PRN (16:09)
--- NOTE | 2017-12-25 18:44 | HHI.CCPN ---
Subjective Remarks/Hospital Course Patient is a 72-year-old male with multiple medical comorbidities which include end-stage renal disease, hypertension, CHF, COPD, cardiomyopathy, hyperparathyroidism and anemia of chronic disease. He was brought into ED via EMS for respiratory distress and was given albuterol treatment x2 in addition to Solu-Medrol 125 mg IV prior to arrival. The patient was initially placed on BiPap without any significant relief. In the ED he was intubated with etomidate, succinylcholine and placed on full mechanical ventilation. When seen the patient is sedated with Diprivan and on fentanyl infusion. His laboratory data significant for hyperkalemia with potassium 6.3, BUN 53, creatinine in 8.63 and BNP of 1218. His chest x-ray showed ET tube above the reed, interstitial edema. Nephrology service was notified and the patient is currently receiving hemodialysis treatment. ABG postintubation showed a pH of 7.30, CO2 54, pAO2 454, bicarb 26, sats of 97%. 12/13 Patient is intubated on no sedation. Awake and alert, s/p HD yesterday with removal 3L. Afebrile. 12/14: Afebrile. Remains on propofol drip at 20 mcg/kg per minute. Episodic hypotension. Episodic hypoglycemia requiring D50. On D10 drip for hyperkalemia ? Per nephrology's orders, potassium currently normalized. We'll start tube feeding. Added cefepime for Pseudomonas in sputum 12/15: Afebrile. Tolerating tube feeding. Currently on PSV trial is tolerated well. Not following commands however moving all 4 extremities purposefully today than yesterday. 12/16 Patient remains intubated and on Fentanyl and Diprivan drip for sedation. s /p HD yesterday 12/17 No events overnight. s/p HD yesterday with removal 1.8L. Remains sedated with Fentanyl and intubated. Patient doesn't follow commands off sedation. CT brain yesterday showed no acute process. T:99.9 last night 12/18: Afebrile. Patient ET tube migrated upwards towards vocal cords in high probability aspirated tube feeding. Reintubated by overnight fine grade operator. Noted MRI brain revealed acute right and left parietal CVA. MRA brain and carotid Dopplers currently pending. Currently on baby aspirin. Also started on atorvastatin 10 mg daily. 12/19: Tmax 100. Central line placed yesterday due to hypotension. Currently norepinephrine and vasopressin drips. Wide pulse pressure arterial line. Tube feeds will be resumed. Stress dose steroids initiated. Last cortisol was 9. 12/20 Patient remains intubated and sedated with Diprivan and Fentanyl drips. On Levophed 8 mocs and Vasopressin 0.04. Afebrile. s/p HD yesterday with removal 4L. 12/21: Afebrile. Remains on propofol drip at 20 mcg/kg Per minute. On low- dose norepinephrine 2.5 g per minute as well. Remains quite agitated on the ventilator. 8 bowel movements overnight. C. difficile toxin is pending. Noted staph epi in blood 12/10 question kalie. ID consulted. On vancomycin 12/22: Tmax 100. Currently 99.7. CT chest today revealed 3 x 2 point centimeter right cavitary lesion along. Is mediastinal shift left dense infiltrate possible mucous plug left-sided. Status post bronchoscopy which essentially showed clearance of any significant degree/plugging. Follow chest x -ray revealed dense consolidation left lung. No pleural effusion. Labile blood pressure. 2: Resting currently in bed in no distress. Received quetiapine for agitation earlier. Remains on dexmedetomidine. Status post hemodialysis today. Subjective 12/24: FiO2 increased to 70% overnight. Currently back in 40%. Remains on dexmedetomidine drip. Tolerating tube feeds at goal. -3 L with hemodialysis yesterday. 12/25: Tmax 99.2. Patient noted to have open sacral wound care consulted for evaluation and treatment. Patient continues on sedation. Persistent hyperglycemia Levemir increased to 15 units twice a day. Objective Vital Signs Date Time Temp Pulse Resp B/P (MAP) Pulse Ox O2 Delivery O2 Flow Rate FiO2 12/25/17 18:00 72 12/25/17 16:44 100 45 12/25/17 16:00 98.4 22 167/77 (107) Intake and Output 12/25/17 12/25/17 12/26/17 08:00 16:00 00:00 Intake Total 1165 ml 506 ml 1019 ml Output Total 300 ml 100 ml Balance 865 ml 506 ml 919 ml Result Diagram: 12/25/17 0400 12/25/17 0400 Imaging Last Impressions Chest X-Ray 12/25/17 0000 Signed Impressions: Service Date/Time: Monday, December 25, 2017 09:50 - CONCLUSION: 1. Persistent left basilar consolidation. 2. Cavitary lesion right lower lobe is stable. Leonard Vaughn MD Chest CT 12/22/17 0000 Signed Impressions: Service Date/Time: December 16:39 - CONCLUSION: 1. Multiple cavitary lesions in the right lung as well as a small nodule and larger nodule or mass. These findings are concerning for metastatic disease. 2. The left lung is completely opacified with air bronchograms and volume loss with mediastinal shift. Areas cut off of the left main bronchus with soft tissue density material which could indicate mucous plugging. 3. Mild to moderate cardiomegaly. Edy Laughlin MD Abdomen X-Ray 12/20/17 0600 Signed Impressions: Service Date/Time: Wednesday, December 20, 2017 02:07 - CONCLUSION: 1. Moderate constipation with stool throughout large bowel. NG coiled in stomach. Khoa Franco MD Neck Magnetic Resonance Angiography 12/19/17 0000 Signed Impressions: Service Date/Time: Tuesday, December 19, 2017 12:24 - CONCLUSION: 1. Patent carotids and vertebrals. Marco Antonio Henriquez Jr., MD Head Magnetic Resonance Angiography 12/19/17 0000 Signed Impressions: Service Date/Time: Tuesday, December 19, 2017 12:24 - CONCLUSION: 1. No large vessel stenosis or aneurysm. 2. Normal variants as described above. Leonard Vaughn MD Brain MRI 12/17/17 0000 Signed Impressions: Service Date/Time: Sunday, December 17, 2017 11:33 - CONCLUSION: Small foci of retracted diffusion in the parietal periventricular white matter bilaterally indicating small acute infarcts. No other acute intracranial findings. Gatito Shipman MD Head CT 12/16/17 0000 Signed Impressions: Service Date/Time: Saturday, December 16, 2017 10:58 - CONCLUSION: No acute disease. Marco Antonio Henriquez Jr., MD Last Impressions Chest X-Ray 12/23/17 1200 Signed Impressions: Service Date/Time: Saturday, December 23, 2017 12:26 - CONCLUSION: Reexpansion of the left lung with minimal left basilar density. Leonard Vaughn MD Chest CT 12/22/17 0000 Signed Impressions: Service Date/Time: December 16:39 - CONCLUSION: 1. Multiple cavitary lesions in the right lung as well as a small nodule and larger nodule or mass. These findings are concerning for metastatic disease. 2. The left lung is completely opacified with air bronchograms and volume loss with mediastinal shift. Areas cut off of the left main bronchus with soft tissue density material which could indicate mucous plugging. 3. Mild to moderate cardiomegaly. Edy Laughlin MD Abdomen X-Ray 12/20/17 0600 Signed Impressions: Service Date/Time: Wednesday, December 20, 2017 02:07 - CONCLUSION: 1. Moderate constipation with stool throughout large bowel. NG coiled in stomach. Khoa Franco MD Neck Magnetic Resonance Angiography 12/19/17 0000 Signed Impressions: Service Date/Time: Tuesday, December 19, 2017 12:24 - CONCLUSION: 1. Patent carotids and vertebrals. Marco Antonio Henriquez Jr., MD Head Magnetic Resonance Angiography 12/19/17 0000 Signed Impressions: Service Date/Time: Tuesday, December 19, 2017 12:24 - CONCLUSION: 1. No large vessel stenosis or aneurysm. 2. Normal variants as described above. Leonard Vaughn MD Brain MRI 12/17/17 0000 Signed Impressions: Service Date/Time: Sunday, December 17, 2017 11:33 - CONCLUSION: Small foci of retracted diffusion in the parietal periventricular white matter bilaterally indicating small acute infarcts. No other acute intracranial findings. Gatito Shipman MD Head CT 12/16/17 0000 Signed Impressions: Service Date/Time: Saturday, December 16, 2017 10:58 - CONCLUSION: No acute disease. Marco Antonio Henriquez Jr., MD Objective Remarks GENERAL: 72-year-old male currently orotracheally intubated and sedated SKIN: Warm and dry. No rash HEAD: Normocephalic. Atraumatic EYES: Pupils are equally round and reactive at 3 mm. NECK: Supple, trachea midline. No JVD or lymphadenopathy. Right IJ CVL is clean dry and intact CARDIOVASCULAR: RRR. S1, S2. No S4. Without murmurs RESPIRATORY: Improved aeration/bronchus a sounds throughout the left lung uriostegui anteriorly and. Posteriorly. Right-sided subsequent to auscultation anteriorly and posteriorly. No wheezing GASTROINTESTINAL: Abdomen soft, non-tender, nondistended. MUSCULOSKELETAL: Trace lower extremity. Right upper extremity positive thrill and bruit Neuro: RASS -2. Moves all 4 extremity spontaneously. Cranial nerves II through XII appear grossly intact. Appears to right greater than left. No DTRs. Date of Insertion: Dec 18, 2017 Line: Central Venous Catheter Side: Right Location: Internal, Jugular A/P Assessment and Plan Neuro/Psych: Peripheral neuropathy Right greater than left parietal CVA Monitor Neuro status. CT brain no acute findings 12/17 EEG revealed Sharp's triphasic right greater than left. No epileptiform discharges MRI brain 12/17 revealed 6 mm right parietal and tiny left parietal lacunar infarct in the periventricular white matter. MRA brain/neck 12/19: No large vessel stenosis or aneurysm. Aspirin 81 mg daily Atorvastatin 10 mg a day. Triglycerides elevated On Fentanyl currently at 250 mg an hour for sedation. Along with dexmedetomidine drip at 0.4 vaughn grams per kilogram Per minute. As needed midazolam 2 mg IV every 2 hours when necessary agitation Daily sedation vacation Goal of RASS -2 Continue gabapentin 300 mg daily for peripheral neuropathy Hydrochloroquine 200 mg daily for arthritis resumed Added quetiapine 50 mg twice a day and scheduled oxycodone 5 mg every 6 hours attempt to wean off sedation Dr. Ace neurology following intermittently CV: Chronic diastolic heart failure - Mild pulmonary hypertension with pulmonary arterial pressure 46.7 mmHg Currently on norepinephrine at 2 mcg/m to maintain MAP>65mmHg Decrease hydrocortisone 50 mg Q 8 hours. Cortisol level 9 on 12/15 2-D echocardiogram reveals EF of 55-60%. Mild MR/TR. Pulmonary arterial Pressures 46.7 mmHg Holding carvedilol 3.125 mg twice a day in light of atrial fibrillation Received 1 dose of digoxin 0.25 mg on 12/15 Resp: Acute hypoxemic and hypercapnic respiratory failure Polymicrobial pneumonia - Pseudomonas and Haemophilus influenza Right cavitary lung mass History of COPD PRVC /11/28/39 Continue with vent support keep sat >92% Ventilator bundle Albuterol/ipratropium aerosols every 6 hours with albuterol aerosols every 2 hours. Dyspnea SBT daily as earle. CT thorax revealed 3 x 2.3 cm cavitary lesion. Mediastinal shift right to left. Left lower lobe collapse. Possible mucus plugging S/P bronchoscopy 12/22. Lukens trap obtained. Follow chest x-ray revealed dense consolidation left lung uriostegui. No masses on my bronchoscopy. Able to identify of left upper and lower lobes up to third subsegment without obstruction. GI: Constipation - resolved Nepro goal 55 cc an hour for nutrition's recommendations. Currently at 35 cc an hour KUB abdomen:Moderate constipation with stool throughout large bowel Famotidine 20 mg by tube daily for GI prophylaxis Docusate sodium/senna 1 tablet twice a day for bowel regimen. Metoclopramide 5 mg every 8 hours as needed nausea/high residuals C. difficile PCR- Endo: Hyperglycemia Secondary hyperparathyroidism Increase SSI to medium scale with accu checks Q4hr. Continue Cinacalet 30 mg daily for secondary hyperparathyroidism when able Cortisol level - 9 iPTH - 399 /FEN/Renal: End-stage renal disease on hemodialysis Tuesday/Tuesday/Tuesday Hyper-magnesium Hyperphosphatemia Monitor renal function, avoid nephrotoxins. HD per renal- Dr. Galarza Heme: Normocytic anemia/anemia of chronic kidney disease Leukocytosis..trending downward Monitor CBC daily. Follow trends Continue Epogen with hemodialysis ID: Haemophilus influenza/pseudomonas aeruginosa pneumonia/MRSA Staph epi bacteremia? Infectious disease consult for antibiotic management - Dr. Chen Currently on Zyvox, Zerbaxa, and Levaquin Pertinent cultures 12/12 - sputum - Haemophilus influenza, pseudomonas aeruginosa 12/12 - blood cultures 2 - no growth Follow up on sputum cx from 12/16: MRSA, H. Influenza, Pseudomonas Follow-up on blood cultures 12/18 staph epi Bronchoscopy 12/22 - Pseudomonas Repeat blood cultures 2 12/21 1 out of 4 coag negative staph. Repeat blood cultures 12/23 x 2 pending MSK: OP/OA PT evaluate and treat Access -Right IJ CVL day #8 placed 12/18 -Left radial arterial line 12/18.- 12/21 Prophylaxis - GI - famotidine - DVT - SCD/heparin subcutaneous Level III follow-up Physician Lainey Cunha MD Dec 25, 2017 18:44
[2017-12-25] MEDS: SODIUM CHLORIDE 0.9% FLUSH 10 ML FLUSH IV FLUSH PRN (19:43)
[2017-12-25] MEDS: ATORVASTATIN 10 MG TAB PO SCH (19:45)
[2017-12-26] VITALS (19 sets, daily range): BP systolic 111–184; BP diastolic 56–97; PULSE 72–150; RESP 18–23; TEMP 97.6–99.3; O2SAT 95–100
[2017-12-26] MEDS: oxyCODONE HCL ORAL CONC 5 MG/0.25 ML SYRINGE NG SCH ×4 (01:24→20:21)
[2017-12-26] MEDS: HEPARIN SODIUM - SQ 10,000 UNITS/ML VIAL SQ SCH ×2 (01:25→14:10)
[2017-12-26] MEDS: DEXMEDETOMIDINE INJ 1,000 MCG in SODIUM CHLOR 0.9% 250 ML INJ 240 ML IV PRN ×3 (02:55→19:50)
[2017-12-26] MEDS: INSULIN NovoLIN REGULAR SUPPLEMENTAL SCALE SQ SCH ×6 (03:08→23:52)
[2017-12-26] MEDS: CHLORHEXIDINE GLUCONATE 2 % 1 PACK (2 CLOTHS) TOP SCH (03:08)
[2017-12-26] MEDS: CEFTOLOZANE-TAZOBACTAM INJ 150 MG in SODIUM CHLORIDE 0.9% INJ 100 ML IV SCH ×3 (03:08→20:23)
--- NOTE | 2017-12-26 04:11 | RADRPT ---
EXAM DATE/TIME: 12/26/2017 03:40 [facility] COMPARISON: CHEST SINGLE AP, December 25, 2017, 9:50. INDICATIONS : Shortness of breath, possible pulmonary disease. MEDICAL HISTORY : Congestive heart failure. Hypertension SURGICAL HISTORY : None. ENCOUNTER: Subsequent ACUITY: 2 weeks PAIN SCORE: Non-responsive. LOCATION: Bilateral chest FINDINGS: Portable AP view of the chest demonstrates a normal-sized cardiac silhouette. ETT tip is at the aorti c knob level and there are multiple EKG lines overlying the patient. There is a stable left basilar p leural-parenchymal opacity. No pneumothorax is identified. There is mild motion artifact. A right IJ line tip is in stable position likely near the SVC region. The previously described cavitary nodule i n the right lower lung zone is stable. CONCLUSION: Stable chest x-ray with left mid and lower lung zone airspace consolidation with small left pleural e ffusion. The cavitary nodule in the right lower lung zone is stable. Jakob Corley MD on December 26, 2017 at 4:08 Board Certified Radiologist. This report was verified electronically.
[2017-12-26] MEDS: RESP: ALBUTEROL 2.5 MG/3 ML NEB (PRN) NEB ×3 (04:21→17:16)
[2017-12-26] MEDS: RESP: SODIUM CHLORIDE 3% 4 ML NEB NEB SCH ×3 (04:21→21:09)
[2017-12-26] MEDS: LINEZOLID 600 MG PREMIX 300 ML IV SCH ×2 (05:20→17:30)
[2017-12-26] MEDS: HYDROCORTISONE SOD SUCCINATE 100 MG VIAL IV PUSH SCH ×3 (05:20→20:39)
[2017-12-26] MEDS: ARTIFICIAL TEARS OPTH SOLN 15 ML BTL EACH EYE SCH ×3 (05:21→20:40)
[2017-12-26 05:49] LABS: AUTOMATED NEUTROPHIL # 11.9 TH/MM3 (1.8-7.7); BASOPHIL % 0.1 % (0.0-2.0); LYMPH % 1.6 % (9.0-44.0); LYMPHOCYTE # 0.2 TH/MM3 (1.0-4.8); MEAN CELL VOLUME 90.4 FL (80.0-100.0); MEAN CORPUSCULAR HEMOGLOBIN 30.1 PG (27.0-34.0); MEAN CORPUSCULAR HGB CONC 33.3 % (32.0-36.0); MEAN PLATELET VOLUME 7.9 FL (7.0-11.0); MONOCYTE # 0.5 TH/MM3 (0-0.9); NEUT % 94.3 % (16.0-70.0); PLATELET COUNT 201 TH/MM3 (150-450); RED BLOOD COUNT 2.65 MIL/MM3 (4.50-5.90); RED CELL DISTRIBUTION WIDTH 15.4 % (11.6-17.2); WHITE BLOOD COUNT 12.7 TH/MM3 (4.0-11.0)
[2017-12-26 06:31] LABS: BICARBONATE 24.3 MEQ/L (21.0-32.0); BLOOD UREA NITROGEN 157 MG/DL (7-18); CALCIUM 7.5 MG/DL (8.5-10.1); CHLORIDE 90 MEQ/L (98-107); CREATININE 8.57 MG/DL (0.60-1.30); GLOMERULAR FILTRATION RATE 6 ML/MIN (>89); GLUCOSE,RANDOM 210 MG/DL (74-106); MAGNESIUM 2.4 MG/DL (1.5-2.5); PHOSPHORUS 8.7 MG/DL (2.5-4.9); SODIUM (NA) 132 MEQ/L (136-145)
[2017-12-26] MEDS: CALCIUM ACETATE 667 MG CAP OG-TUBE SCH ×3 (09:00→17:30)
[2017-12-26] MEDS: CARVEDILOL 3.125 MG TAB PO SCH ×2 (09:00→20:39)
[2017-12-26] MEDS: SODIUM CHLORIDE 0.9% FLUSH 10 ML FLUSH IV FLUSH SCH (09:00)
[2017-12-26] MEDS: QUEtiapine FUMARATE 25 MG TAB PO SCH ×2 (09:00→20:20)
[2017-12-26] MEDS: DOCUSATE SODIUM 50 MG/SENNA 8.6 MG TAB PO SCH ×2 (09:00→20:40)
[2017-12-26] MEDS: MIDAZOLAM HCL 2 MG/2 ML VIAL IV PUSH PRN (09:15)
[2017-12-26] MEDS: NOREPINEPHRINE INJ 4 MG in SODIUM CHLOR 0.9% 250 ML INJ 246 ML IV PRN ×3 (09:30→22:25)
[2017-12-26] MEDS: ALBUMIN 25% INJ 100 ML IV PRN ×2 (10:30→10:35)
--- NOTE | 2017-12-26 10:43 | HHI.NPPN ---
Subjective General Problems: Anemia Renal Failure: Chronic, End Stage Renal Disease Interval History He is unresponsive on the vent, 50% FiO2. On Precedex and fentanyl. Hypotensive on dialysis today, heart rate 130s. (Nancy Springer) Review of Systems General General Remarks unable to assess (Nancy Springer) Objective Data Data Vital Signs Date Time Temp Pulse Resp B/P (MAP) Pulse Ox O2 Delivery O2 Flow Rate FiO2 12/26/17 09:40 97 50 12/26/17 06:00 88 12/26/17 04:10 95 50 12/26/17 04:00 92 12/26/17 04:00 99.3 92 23 158/70 (99) 99 12/26/17 04:00 45 12/26/17 02:00 89 12/26/17 00:45 100 40 12/26/17 00:00 72 12/26/17 00:00 97.6 72 19 111/56 (74) 100 12/26/17 00:00 45 12/25/17 22:00 76 12/25/17 21:00 100 45 12/25/17 20:00 97.7 84 21 157/71 (99) 100 12/25/17 20:00 84 12/25/17 20:00 45 12/25/17 18:00 72 12/25/17 16:44 100 45 12/25/17 16:00 45 12/25/17 16:00 98.4 68 22 167/77 (107) 100 12/25/17 16:00 73 12/25/17 14:00 66 12/25/17 12:00 70 12/25/17 12:00 98.8 68 35 123/66 (85) 100 12/25/17 12:00 45 12/25/17 11:50 100 45 (Nancy Springer) -: 12/26/17 0500 12/26/17 0500 Imaging Last 72 hours Impressions Chest X-Ray 12/26/17 0600 Signed Impressions: Service Date/Time: Tuesday, December 26, 2017 03:40 - CONCLUSION: Stable chest x-ray with left mid and lower lung zone airspace consolidation with small left pleural effusion. The cavitary nodule in the right lower lung zone is stable. Jakob Corley MD Chest X-Ray 12/25/17 0000 Signed Impressions: Service Date/Time: Monday, December 25, 2017 09:50 - CONCLUSION: 1. Persistent left basilar consolidation. 2. Cavitary lesion right lower lobe is stable. Leonard Vaughn MD Chest X-Ray 12/24/17 1600 Signed Impressions: Service Date/Time: Sunday, December 24, 2017 15:59 - CONCLUSION: Left basilar opacity is present may be due to a combination of consolidation and or pleural effusion progressed since the prior examination with significant mixed interstitial and alveolar process in the left lung not present previously measured edema. Axel Dyson MD Chest X-Ray 12/24/17 0000 Signed Impressions: Service Date/Time: Sunday, December 24, 2017 17:11 - CONCLUSION: Mild improvement in aeration of left upper lung, otherwise not significantly changed. Axel Dyson MD Chest X-Ray 12/23/17 1200 Signed Impressions: Service Date/Time: Saturday, December 23, 2017 12:26 - CONCLUSION: Reexpansion of the left lung with minimal left basilar density. Leonard Vaughn MD Tubes & Lines Comment TLC right IJ Drip Comment fentanyl, precedex (Nancy Springer BLev CHAVEZ) Physical Exam General Appearance: Well Developed, Comfortable Appearance Remarks intubated, sedated (Nancy Springer BLev HYDROBLASTER) Eyes Eye Exam: Pupils Equal (Nancy Springer BLev HYDROBLASTER) Pulmonary Resp Exam: Breath Sounds Equal, Crackles, Rhonchi, Sputum, Decreased Bases Resp Remarks vented lung sounds (Nancy Springer B. HYDROBLASTER) Cardiology CV Exam: Regular, Normal Sinus Rhythm, Good Perfusion (Nancy Springer B. HYDROBLASTER) Gastrointestinal/Abdomen GI Exam: Soft, Non-Tender, Bowel Sounds Present (Nancy Springer B. HYDROBLASTER) Musculoskeletal MS Exam: Joints Intact, Normal Tone (Nancy Springer B. HYDROBLASTER) Integumentary Skin Exam: Clear, Warm, Dry, Intact (Nancy Springer B. HYDROBLASTER) Extremeties Extremities Exam: No Edema, Pedal Pulses Palpable (Nancy Springer B. HYDROBLASTER) Neurologic Neuro Exam: Awake, Moving All Extremities, Unresponsive, Sedated (Nancy Springer) VTE Prophylaxis Device: SCDs (Nancy Springer) Assessment/Plan Assessment Summary: Anemia of CKD, CHF, Diabetes Mellitus, End Stage Renal Disease Electrolyte Assessment: Hyperkalemia Problem List: (1) ESRD (end stage renal disease) ICD Codes: N18.6 - End-stage renal disease Status: Chronic Plan: HD MWF. BUN 157 today, we will do 4 hours of dialysis today. Seen during HD on a 2K, 350 BFR, 2L UF or as tolerated Give albumin during treatment today for hypotension. Obtain renal panel intermittently. He has functioning AVF, avoid right arm procedures. Monitor fluid and electrolyte balance. Avoid Gadolinium. (2) Respiratory failure ICD Codes: J96.90 - Respiratory failure, unspecified, unspecified whether with hypoxia or hypercapnia Plan: Management per exterminator helper. Most likely will need trach/PEG soon. Not tolerating CPAP. + VAP,+ H. influenza and pseudomonas, MRSA, on sputum culture. Abx include Zerbaxa, Levaquin, and Linezolid Had repeat bronchoscopy over the weekend. Hx of CHF, also most likely has COPD ID is following. Palliative care has evaluated, pending HCS. (3) Anemia ICD Codes: D64.9 - Anemia, unspecified Plan: Epogen with dialysis. (4) Secondary hyperparathyroidism of renal origin ICD Codes: N25.81 - Secondary hyperparathyroidism of renal origin Plan: Continue binders with tube feeding. On calcium acetate, titrate as needed iPTH is acceptable, hold Sensipar for the time being. (5) Encephalopathy ICD Codes: G93.40 - Encephalopathy, unspecified Plan: metabolic encephalopathy, acute CVA per MRI. MRA negative. Seen by neurology. He is on precedex for agitation. (Nancy Springer) Plan patient was seen and examined. Agree with above assessment and plan. Seen during dialysis. He is doing poorly. Antibiotics were noted. Poor prognosis. (Tru Galarza MD) Nancy Springer Dec 26, 2017 10:43 Tru Galarza MD Dec 26, 2017 12:37
[2017-12-26] MEDS: HYDROXYCHLOROQUINE SULFATE 200 MG TAB PO SCH (11:10)
[2017-12-26] MEDS: NYSTATIN SUSP 500,000 U/5 ML CUP OROPHARYNG SCH ×4 (11:10→20:20)
[2017-12-26] MEDS: INSULIN DETEMIR 100 UNITS/ML VIAL SQ SCH ×2 (11:10→20:23)
[2017-12-26] MEDS: FAMOTIDINE 20 MG TAB NG SCH (11:10)
[2017-12-26] MEDS: ASPIRIN 81 MG CHEW TAB PO SCH (11:10)
[2017-12-26] MEDS: MUPIROCIN 2% OINT 1 APPLIC/GM SYR EACH NARE SCH ×2 (11:11→20:22)
--- NOTE | 2017-12-26 11:15 | HHI.IDPN ---
Note Infectious Disease Note Patient on the vent. 50%FIO2. Becomes agitated when sedation is decreased. Has superficial bruise on the right hand knuckle from banging against the bed rail. Mucous plugging noted. Dialysis in progress. Afebrile. 72 year-old white male who presented to the emergency department with shortness of breath on 12/12/2017. The patient has a history of COPD. PAST MEDICAL HISTORY: 1. COPD. 2. CHF. 3. Anemia. 4. End-stage renal disease. 5. Cardiomyopathy. 6. History of left hip replacement. 7. History of right upper extremity A-V fistula. 8. Secondary hyperparathyroidism. ALLERGIES NO KNOWN DRUG ALLERGIES. ANTIBIOTICS 1. Zerbaxa. 2. Levaquin. 3. Zyvox. OBJECTIVE: Vital Signs Date Time Temp Pulse Resp B/P (MAP) Pulse Ox O2 Delivery O2 Flow Rate FiO2 12/26/17 10:43 119 12/26/17 10:30 113 169/81 12/26/17 10:15 121 12/26/17 10:00 132 76/34 12/26/17 10:00 132 12/26/17 09:45 123 83/48 12/26/17 09:40 97 50 12/26/17 09:30 154 153/89 12/26/17 08:00 73 12/26/17 08:00 50 12/26/17 08:00 97.9 73 18 119/56 (77) 99 12/26/17 06:00 88 12/26/17 04:10 95 50 12/26/17 04:00 92 12/26/17 04:00 99.3 92 23 158/70 (99) 99 12/26/17 04:00 45 12/26/17 02:00 89 12/26/17 00:45 100 40 12/26/17 00:00 72 12/26/17 00:00 97.6 72 19 111/56 (74) 100 12/26/17 00:00 45 12/25/17 22:00 76 12/25/17 21:00 100 45 12/25/17 20:00 97.7 84 21 157/71 (99) 100 12/25/17 20:00 84 12/25/17 20:00 45 12/25/17 18:00 72 12/25/17 16:44 100 45 12/25/17 16:00 45 12/25/17 16:00 98.4 68 22 167/77 (107) 100 12/25/17 16:00 73 12/25/17 14:00 66 12/25/17 12:00 70 12/25/17 12:00 98.8 68 35 123/66 (85) 100 12/25/17 12:00 45 12/25/17 11:50 100 45 Laboratory Tests Test 12/25/17 04:00 12/26/17 05:00 White Blood Count 17.6 TH/MM3 12.7 TH/MM3 Red Blood Count 3.01 MIL/MM3 2.65 MIL/MM3 Hemoglobin 8.9 GM/DL 8.0 GM/DL Hematocrit 27.3 % 24.0 % Mean Corpuscular Volume 90.6 FL 90.4 FL Mean Corpuscular Hemoglobin 29.7 PG 30.1 PG Mean Corpuscular Hemoglobin Concent 32.8 % 33.3 % Red Cell Distribution Width 15.0 % 15.4 % Platelet Count 191 TH/MM3 201 TH/MM3 Mean Platelet Volume 8.4 FL 7.9 FL Neutrophils (%) (Auto) 93.9 % 94.3 % Lymphocytes (%) (Auto) 3.0 % 1.6 % Monocytes (%) (Auto) 3.0 % 4.0 % Eosinophils (%) (Auto) 0.0 % 0.0 % Basophils (%) (Auto) 0.1 % 0.1 % Neutrophils # (Auto) 16.5 TH/MM3 11.9 TH/MM3 Lymphocytes # (Auto) 0.5 TH/MM3 0.2 TH/MM3 Monocytes # (Auto) 0.5 TH/MM3 0.5 TH/MM3 Eosinophils # (Auto) 0.0 TH/MM3 0.0 TH/MM3 Basophils # (Auto) 0.0 TH/MM3 0.0 TH/MM3 CBC Comment DIFF FINAL DIFF FINAL Differential Comment Laboratory Tests Test 12/25/17 04:00 12/26/17 05:00 Blood Urea Nitrogen 117 MG/DL 157 MG/DL Creatinine 7.39 MG/DL 8.57 MG/DL Random Glucose 256 MG/DL 210 MG/DL Albumin 2.7 GM/DL Calcium Level 7.9 MG/DL 7.5 MG/DL Phosphorus Level 7.9 MG/DL 8.7 MG/DL Sodium Level 133 MEQ/L 132 MEQ/L Potassium Level 4.7 MEQ/L 4.8 MEQ/L Chloride Level 91 MEQ/L 90 MEQ/L Carbon Dioxide Level 25.5 MEQ/L 24.3 MEQ/L Anion Gap 17 MEQ/L 18 MEQ/L Estimat Glomerular Filtration Rate 7 ML/MIN 6 ML/MIN Magnesium Level 2.4 MG/DL Microbiology Date/Time Source Procedure Growth Status 12/23/17 18:05 Blood Peripheral Aerobic Blood Culture - Preliminary NO GROWTH IN 3 DAYS Resulted 12/23/17 18:05 Blood Peripheral Anaerobic Blood Culture - Preliminary NO GROWTH IN 3 DAYS Resulted 12/23/17 17:55 Blood Peripheral Aerobic Blood Culture - Preliminary NO GROWTH IN 3 DAYS Resulted 12/23/17 17:55 Blood Peripheral Anaerobic Blood Culture - Preliminary NO GROWTH IN 3 DAYS Resulted IMAGING: Chest X-Ray 12/26/17 0600 Signed Impressions: Service Date/Time: Tuesday, December 26, 2017 03:40 - CONCLUSION: Stable chest x-ray with left mid and lower lung zone airspace consolidation with small left pleural effusion. The cavitary nodule in the right lower lung zone is stable. Jakob Corley MD Chest X-Ray 12/25/17 0000 Signed Impressions: Service Date/Time: Monday, December 25, 2017 09:50 - CONCLUSION: 1. Persistent left basilar consolidation. 2. Cavitary lesion right lower lobe is stable. Leonard Vaughn MD Chest X-Ray 12/24/17 1600 Signed Impressions: Service Date/Time: Sunday, December 24, 2017 15:59 - CONCLUSION: Left basilar opacity is present may be due to a combination of consolidation and or pleural effusion progressed since the prior examination with significant mixed interstitial and alveolar process in the left lung not present previously measured edema. Axel Dyson MD Chest X-Ray 12/24/17 0000 Signed Impressions: Service Date/Time: Sunday, December 24, 2017 17:11 - CONCLUSION: Mild improvement in aeration of left upper lung, otherwise not significantly changed. Axel Dyson MD Chest X-Ray 12/23/17 1200 Signed Impressions: Service Date/Time: Saturday, December 23, 2017 12:26 - CONCLUSION: Reexpansion of the left lung with minimal left basilar density. Leonard Vaughn MD Chest X-Ray 12/22/17 0600 Signed Impressions: Service Date/Time: December 03:23 - CONCLUSION: 1. Development of increased density consolidation in the left lung. Differential diagnosis includes pneumonia and aspiration. 2. Improving right basilar airspace consolidation but with development of a suspected cavitary lesion measuring about 3.3 cm in diameter, probably infectious in nature. Khoa Franco MD Chest X-Ray 12/22/17 0000 Signed Impressions: Service Date/Time: December 18:53 - CONCLUSION: Worsening opacification of the left hemithorax compared to previous examination consistent with probable worsening diffuse consolidation and possible increased pleural fluid. Apparent cavitary lesion within the right lower lung field is stable. Multiple tubes and lines are stable. Sergey Brown MD Chest CT 12/22/17 0000 Signed Impressions: Service Date/Time: December 16:39 - CONCLUSION: 1. Multiple cavitary lesions in the right lung as well as a small nodule and larger nodule or mass. These findings are concerning for metastatic disease. 2. The left lung is completely opacified with air bronchograms and volume loss with mediastinal shift. Areas cut off of the left main bronchus with soft tissue density material which could indicate mucous plugging. 3. Mild to moderate cardiomegaly. Edy Laughlin MD PHYSICAL EXAMINATION: GENERAL: No acute distress. Sedated on the ventilator. HEENT: Head atraumatic. No icterus. Oropharynx intubated. Neck: Supple. No palpable adenopathy. Lungs: Decreased breath sounds. Heart: Irregular S1-S2. No audible murmur. Abdomen: Soft, No tenderness appreciated. Bowel sounds present. Extremities: No clubbing or cyanosis or edema. Skin: No diffuse rash. Neuro: Unable to assess. Psych: Unable to assess. IMPRESSION 1. Pneumonia due to MRSA and MDR pseudomonas. - mucous plugging. 2. Acute respiratory failure. 3. End-stage renal disease. 4. Staph coag negative bacteremia. RECOMMENDATIONS 1. Continue Zerbaxa. 2. Continue Levaquin. 3. Continue Linezolid. 4. Follow blood cultures. 5. Monitor clinical status. Dave Waite MD Dec 26, 2017 11:15
[2017-12-26] MEDS: EPOETIN ALFA 10,000 UNITS/ML VIAL IV PUSH PRN (11:30)
--- NOTE | 2017-12-26 11:31 | HHI.HCPN ---
Reason for visit a. To assist with evaluation and management of symptoms including: Shortness of breath, restlessness/agitation, debility. b. To assist medical decision maker(s) with: better understanding of current medical conditions; weighing benefits/burdens of medical treatment options; making medical treatment decisions. . Subjective/Interval History Palliative care follow up for further clarification of goals of care. Patient seen in the medical ICU. He remains intratracheally intubated on mechanical ventilation. Currently 50% FiO2. Patient calm during my visit, remains on Precedex and fentanyl drip. Eyes closed, did not open to verbal or tactile stimuli. Ongoing hemodialysis at time of my visit. Laboratory workup today revealing WBC 12.7, Hgb 8.0, platelet count 21. Potassium 4.8, BUN/creatinine 157/8.57. Chest x-ray revealing stable chest with left lower lung zone airspace consolidation with small left pleural effusion. Stable cavitary nodule in the right lower lung. Case discussed with Dr. Russ and bedside RN. Follow-up telephone call to patient's sister Lesa Pickard, left message in voicemail. This is my 5th call to patient's sister with a message since last week. Palliative care has not received any phone calls back. As per correctional counselor/case manager's notes, It appears that sister has been previously contacted and that she has to declined participating in medical decision-making. However, pending information on any additional blood relatives that may wish to participate. [employer] report only provided 1 contact: Aleja Ha, called - no answer, only able to leave message. Telephone conversation with patient's jaguar Benito. Discussed that as per [place] statute, we are still in the process of identifying proxy decision maker. Pending review with legal department. Medical update provided. Stepson willing and readily available for medical decision-making. Reviewed that patient is not likely to be medically extubated. Reviewed options to include trach PEG versus compassionate withdrawal of life support given overall poor prognosis. Stepson encourage to visit patient before making any medical decision, pending designation of proxy. Palliative care to meet with step son tomorrow 2/ at 9 AM for further goals of care discussion. . Family/friend interactions See interval note. . Advance Directives Advance Directive Specifics Health Care Surrogate(s): Unclear if advance directives have been completed. Healthcare proxy decision maker to be determined. . Significant change in goals: Unable to address at this time. Pending identification of proxy. . Objective Vital Signs Date Time Temp Pulse Resp B/P (MAP) Pulse Ox O2 Delivery O2 Flow Rate FiO2 12/26/17 10:43 119 12/26/17 10:30 113 169/81 12/26/17 10:15 121 12/26/17 10:00 132 76/34 12/26/17 10:00 132 12/26/17 09:45 123 83/48 12/26/17 09:40 97 50 12/26/17 09:30 154 153/89 12/26/17 08:00 73 12/26/17 08:00 50 12/26/17 08:00 97.9 73 18 119/56 (77) 99 12/26/17 06:00 88 12/26/17 04:10 95 50 12/26/17 04:00 92 12/26/17 04:00 99.3 92 23 158/70 (99) 99 12/26/17 04:00 45 12/26/17 02:00 89 12/26/17 00:45 100 40 12/26/17 00:00 72 12/26/17 00:00 97.6 72 19 111/56 (74) 100 12/26/17 00:00 45 12/25/17 22:00 76 12/25/17 21:00 100 45 12/25/17 20:00 97.7 84 21 157/71 (99) 100 12/25/17 20:00 84 12/25/17 20:00 45 12/25/17 18:00 72 12/25/17 16:44 100 45 12/25/17 16:00 45 12/25/17 16:00 98.4 68 22 167/77 (107) 100 12/25/17 16:00 73 12/25/17 14:00 66 12/25/17 12:00 70 12/25/17 12:00 98.8 68 35 123/66 (85) 100 12/25/17 12:00 45 12/25/17 11:50 100 45 Intake & Output 12/26/17 12/26/17 07:00 19:00 Intake Total 1274 ml Output Total 350 ml Balance 924 ml IV Total 750 ml Tube Feeding 524 ml Stool Total 350 ml # Bowel Movements 1 Physical Exam CONSTITUTIONAL/GENERAL: This is an adequately nourished elderly man in no acute distress. TUBES/LINES/DRAINS: ETT, OG, Murillo catheter, right IJ, soft wrist restraints. Rectal tube. SKIN: No jaundice, rashes, or lesions. Ecchymoses on upper extremities. No wounds seen anteriorly. Skin temperature appropriate. Not diaphoretic. HEAD: Atraumatic. Normocephalic. EYES: Pupils equal and round and reactive. No scleral icterus. No injection or drainage. Fundi not examined. ENT: Unable to evaluate hearing secondary to clinical condition. Nose without bleeding or purulent drainage. Moist oral cause a. NECK: Trachea midline. Supple. CARDIOVASCULAR: Regular rate and rhythm. Peripheral pulses symmetric. RESPIRATORY/CHEST: Symmetric, coarse sounds bilaterally. Endotracheal intubated on mechanical ventilation. GASTROINTESTINAL: Abdomen large, round, soft. Bowel sounds present, hyperactive. GENITOURINARY: Without palpable bladder distension. Murillo catheter in place. MUSCULOSKELETAL: Extremities without clubbing, cyanosis, or edema. No mottling or clubbing. NEUROLOGICAL: Not following any commands or attempting to communicate. Moves all extremities spontaneously. PSYCHIATRIC: Unable to evaluate given her clinical condition, appears calm. . Diagnostic Tests Laboratory Laboratory Tests Test 12/24/17 03:23 12/25/17 04:00 12/26/17 05:00 White Blood Count 17.5 TH/MM3 (4.0-11.0) 17.6 TH/MM3 (4.0-11.0) 12.7 TH/MM3 (4.0-11.0) Red Blood Count 2.99 MIL/MM3 (4.50-5.90) 3.01 MIL/MM3 (4.50-5.90) 2.65 MIL/MM3 (4.50-5.90) Hemoglobin 8.8 GM/DL (13.0-17.0) 8.9 GM/DL (13.0-17.0) 8.0 GM/DL (13.0-17.0) Hematocrit 27.1 % (39.0-51.0) 27.3 % (39.0-51.0) 24.0 % (39.0-51.0) Mean Corpuscular Volume 90.3 FL (80.0-100.0) 90.6 FL (80.0-100.0) 90.4 FL (80.0-100.0) Mean Corpuscular Hemoglobin 29.5 PG (27.0-34.0) 29.7 PG (27.0-34.0) 30.1 PG (27.0-34.0) Mean Corpuscular Hemoglobin Concent 32.7 % (32.0-36.0) 32.8 % (32.0-36.0) 33.3 % (32.0-36.0) Red Cell Distribution Width 15.3 % (11.6-17.2) 15.0 % (11.6-17.2) 15.4 % (11.6-17.2) Platelet Count 180 TH/MM3 (150-450) 191 TH/MM3 (150-450) 201 TH/MM3 (150-450) Mean Platelet Volume 8.2 FL (7.0-11.0) 8.4 FL (7.0-11.0) 7.9 FL (7.0-11.0) Neutrophils (%) (Auto) 91.5 % (16.0-70.0) 93.9 % (16.0-70.0) 94.3 % (16.0-70.0) Lymphocytes (%) (Auto) 3.7 % (9.0-44.0) 3.0 % (9.0-44.0) 1.6 % (9.0-44.0) Monocytes (%) (Auto) 3.6 % (0.0-8.0) 3.0 % (0.0-8.0) 4.0 % (0.0-8.0) Eosinophils (%) (Auto) 0.1 % (0.0-4.0) 0.0 % (0.0-4.0) 0.0 % (0.0-4.0) Basophils (%) (Auto) 1.1 % (0.0-2.0) 0.1 % (0.0-2.0) 0.1 % (0.0-2.0) Neutrophils # (Auto) 16.0 TH/MM3 (1.8-7.7) 16.5 TH/MM3 (1.8-7.7) 11.9 TH/MM3 (1.8-7.7) Lymphocytes # (Auto) 0.7 TH/MM3 (1.0-4.8) 0.5 TH/MM3 (1.0-4.8) 0.2 TH/MM3 (1.0-4.8) Monocytes # (Auto) 0.6 TH/MM3 (0-0.9) 0.5 TH/MM3 (0-0.9) 0.5 TH/MM3 (0-0.9) Eosinophils # (Auto) 0.0 TH/MM3 (0-0.4) 0.0 TH/MM3 (0-0.4) 0.0 TH/MM3 (0-0.4) Basophils # (Auto) 0.2 TH/MM3 (0-0.2) 0.0 TH/MM3 (0-0.2) 0.0 TH/MM3 (0-0.2) CBC Comment AUTO DIFF DIFF FINAL DIFF FINAL Differential Total Cells Counted 100 Neutrophils % (Manual) 91 % (16-70) Lymphocytes % 5 % (9-44) Monocytes % 3 % (0-8) Neutrophils # (Manual) 16.1 TH/MM3 (1.8-7.7) Myelocytes 1 % (0-0) Differential Comment FINAL DIFF MANUAL Platelet Estimate NORMAL (NORMAL) Platelet Morphology Comment NORMAL (NORMAL) Red Cell Morphology Comment NORMAL (NORMAL) Blood Urea Nitrogen 87 MG/DL (7-18) 117 MG/DL (7-18) 157 MG/DL (7-18) Creatinine 5.46 MG/DL (0.60-1.30) 7.39 MG/DL (0.60-1.30) 8.57 MG/DL (0.60-1.30) Random Glucose 121 MG/DL (74-106) 256 MG/DL (74-106) 210 MG/DL (74-106) Albumin 2.5 GM/DL (3.4-5.0) 2.7 GM/DL (3.4-5.0) Calcium Level 7.8 MG/DL (8.5-10.1) 7.9 MG/DL (8.5-10.1) 7.5 MG/DL (8.5-10.1) Phosphorus Level 6.4 MG/DL (2.5-4.9) 7.9 MG/DL (2.5-4.9) 8.7 MG/DL (2.5-4.9) Sodium Level 139 MEQ/L (136-145) 133 MEQ/L (136-145) 132 MEQ/L (136-145) Potassium Level 3.8 MEQ/L (3.5-5.1) 4.7 MEQ/L (3.5-5.1) 4.8 MEQ/L (3.5-5.1) Chloride Level 97 MEQ/L (98-107) 91 MEQ/L (98-107) 90 MEQ/L (98-107) Carbon Dioxide Level 30.2 MEQ/L (21.0-32.0) 25.5 MEQ/L (21.0-32.0) 24.3 MEQ/L (21.0-32.0) Anion Gap 12 MEQ/L (5-15) 17 MEQ/L (5-15) 18 MEQ/L (5-15) Estimat Glomerular Filtration Rate 10 ML/MIN (>89) 7 ML/MIN (>89) 6 ML/MIN (>89) Parathyroid Hormone (Intact) 399.4 PG/ML (12.4-76.8) Magnesium Level 2.4 MG/DL (1.5-2.5) Result Diagram: 12/26/17 0500 12/26/17 0500 Microbiology Microbiology Date/Time Source Procedure Growth Status 12/23/17 18:05 Blood Peripheral Aerobic Blood Culture - Preliminary NO GROWTH IN 3 DAYS Resulted 12/23/17 18:05 Blood Peripheral Anaerobic Blood Culture - Preliminary NO GROWTH IN 3 DAYS Resulted 12/23/17 17:55 Blood Peripheral Aerobic Blood Culture - Preliminary NO GROWTH IN 3 DAYS Resulted 12/23/17 17:55 Blood Peripheral Anaerobic Blood Culture - Preliminary NO GROWTH IN 3 DAYS Resulted Imaging Last 48 hours Impressions Chest X-Ray 12/26/17 0600 Signed Impressions: Service Date/Time: Tuesday, December 26, 2017 03:40 - CONCLUSION: Stable chest x-ray with left mid and lower lung zone airspace consolidation with small left pleural effusion. The cavitary nodule in the right lower lung zone is stable. Jakob Corley MD Chest X-Ray 12/25/17 0000 Signed Impressions: Service Date/Time: Monday, December 25, 2017 09:50 - CONCLUSION: 1. Persistent left basilar consolidation. 2. Cavitary lesion right lower lobe is stable. Leonard Vaughn MD Chest X-Ray 12/24/17 1600 Signed Impressions: Service Date/Time: Sunday, December 24, 2017 15:59 - CONCLUSION: Left basilar opacity is present may be due to a combination of consolidation and or pleural effusion progressed since the prior examination with significant mixed interstitial and alveolar process in the left lung not present previously measured edema. Axel Dyson MD Procedures * 12/12/17 -endotracheal intubation. * 12/22/17 -bronchoscopy * 12/24/17 -bronchoscopy . Assessment and Plan Disease Oriented Problem List: (1) Respiratory failure (2) Pneumonia (3) Cerebrovascular accident (CVA) (4) ESRD (end stage renal disease) (5) Encephalopathy (6) Congestive heart failure Symptom Scale: (1) Anxiety 0-10 Scale: Unable to quantify (2) Pain 0-10 Scale: Unable to quantify (3) Shortness of breath 0-10 Scale: Unable to quantify Pertinent Non-Medical Issues Psychosocial: Retired, , lives alone. in 2008. Spiritual: Jehovah Witness. Legal: Appears that no advance directives have been completed. Ethical issues impacting care: Pending designation of healthcare proxy decision maker. Patient unable to participating in medical decision-making secondary to clinical condition. . Important Contacts Jaguar Lopez Thong . Sister Lesa Pickard . . Prognosis Mr. Sy is a 72-year-old male with a medical history significant for end- stage renal disease on hemodialysis, COPD, CHF, cardiomyopathy and anemia of chronic disease. Patient presented to ED via EMS on 12/12/17 endorsing worsening shortness of breath. Clinical course complicated by acute respiratory failure requiring intubation and mechanical ventilation. Clinical course further complicated by acute CVA, pneumonia, persistent respiratory failure, sepsis. Patient's prognosis is guarded. Very high risk for further complications, clinical decline and . . Code Status: Full Code Plan * CODE STATUS: Full code by default. * HEALTHCARE DECISION-MAKING: Patient unable to participate in medical decision- making secondary to clinical condition, encephalopathic, intubated on mechanical ventilation. Will not regain medical decision-making capacity given critical condition. No advance directives have been completed, palliative care has reached to patient's PCP and hemodialysis center. Patient is , unclear if he has any biological children. One jaguar Benito is willing and readily available to serve as proxy, however, pt has a sister - Lesa Pickard- in [place]. [employer] report only provided 1 contact: Aleja Ha. Palliative care has been unable to communicate with any blood relative in spite of several telephone calls and messages. --Healthcare proxy decision maker to be determined, case to be reviewed with legal department. * GOALS OF CARE: Unable to address given pending identification of healthcare proxy decision maker. However, introduced goals of care discussion with patient' s jaguar Benito. Reviewed that patient is not likely to be medically extubated. Reviewed options to include trach PEG versus compassionate withdrawal of life support given overall poor prognosis. Jaguar was encouraged to visit patient before making any medical decision, pending designation of proxy. Palliative care to meet with jaguar tomorrow 12/27 at 9 AM for further goals of care discussion. * SYMPTOMS: = Shortness of breath, secondary to respiratory failure. Currently intubated on mechanical ventilation. Unlikely to be medically extubated, trach and PEG decision approaching. = Pain, history of chronic pain and neuropathy. Ongoing Fentanyl infusion, patient appears calm. = Anxiety/agitation: Currently on Precedex drip. Patient appears calm. * Case discussed with Dr. Michel Russ and bedside RN Xuan/Cristino. * Palliative care contact information has been provided to patient's jaguar Lopez. * Palliative care will continue to follow-up for further clarifications of goals of care as patient's clinical course continues to evolve. . Time Spent Total Floor Time (mins): 44 (Total time to review medical records, physical exam, telephone conversation with patient's step son, case discussion with Dr. Russ bedside RN.) >50% Counseling/Coord of Care: Yes Attestation To help prompt me to consider important information that might be impacting today's encounter and assessment, information from prior notes written by myself or my colleagues may have been "brought forward" into today's note. My signature on this note, however, is an attestation that I personally performed the exam, history, and/or decision-making noted today, and, unless otherwise indicated, the interactions with patient, family, and staff as well as the review of records all occurred today. I also attest that the listed assessment and stated plan reflect my best clinical judgment today based on the combination of historical information, prior notes, and today's exam/ interactions. When time spent is documented, it refers only to time spent today by the signer, or if indicated, combined time spent today by collaborating physician/nurse practitioner. Cindy Gatica Dec 26, 2017 11:31
--- NOTE | 2017-12-26 15:37 | HHI.CCPN ---
Subjective Remarks/Hospital Course Patient is a 72-year-old male with multiple medical comorbidities which include end-stage renal disease, hypertension, CHF, COPD, cardiomyopathy, hyperparathyroidism and anemia of chronic disease. He was brought into ED via EMS for respiratory distress and was given albuterol treatment x2 in addition to Solu-Medrol 125 mg IV prior to arrival. The patient was initially placed on BiPap without any significant relief. In the ED he was intubated with etomidate, succinylcholine and placed on full mechanical ventilation. When seen the patient is sedated with Diprivan and on fentanyl infusion. His laboratory data significant for hyperkalemia with potassium 6.3, BUN 53, creatinine in 8.63 and BNP of 1218. His chest x-ray showed ET tube above the reed, interstitial edema. Nephrology service was notified and the patient is currently receiving hemodialysis treatment. ABG postintubation showed a pH of 7.30, CO2 54, pAO2 454, bicarb 26, sats of 97%. 12/13 Patient is intubated on no sedation. Awake and alert, s/p HD yesterday with removal 3L. Afebrile. 12/14: Afebrile. Remains on propofol drip at 20 mcg/kg per minute. Episodic hypotension. Episodic hypoglycemia requiring D50. On D10 drip for hyperkalemia ? Per nephrology's orders, potassium currently normalized. We'll start tube feeding. Added cefepime for Pseudomonas in sputum 12/15: Afebrile. Tolerating tube feeding. Currently on PSV trial is tolerated well. Not following commands however moving all 4 extremities purposefully today than yesterday. 12/16 Patient remains intubated and on Fentanyl and Diprivan drip for sedation. s /p HD yesterday 12/17 No events overnight. s/p HD yesterday with removal 1.8L. Remains sedated with Fentanyl and intubated. Patient doesn't follow commands off sedation. CT brain yesterday showed no acute process. T:99.9 last night 12/18: Afebrile. Patient ET tube migrated upwards towards vocal cords in high probability aspirated tube feeding. Reintubated by overnight cable installer repairer helper. Noted MRI brain revealed acute right and left parietal CVA. MRA brain and carotid Dopplers currently pending. Currently on baby aspirin. Also started on atorvastatin 10 mg daily. 12/19: Tmax 100. Central line placed yesterday due to hypotension. Currently norepinephrine and vasopressin drips. Wide pulse pressure arterial line. Tube feeds will be resumed. Stress dose steroids initiated. Last cortisol was 9. 12/20 Patient remains intubated and sedated with Diprivan and Fentanyl drips. On Levophed 8 mocs and Vasopressin 0.04. Afebrile. s/p HD yesterday with removal 4L. 12/21: Afebrile. Remains on propofol drip at 20 mcg/kg Per minute. On low- dose norepinephrine 2.5 g per minute as well. Remains quite agitated on the ventilator. 8 bowel movements overnight. C. difficile toxin is pending. Noted staph epi in blood 12/10 question kalie. ID consulted. On vancomycin 12/22: Tmax 100. Currently 99.7. CT chest today revealed 3 x 2 point centimeter right cavitary lesion along. Is mediastinal shift left dense infiltrate possible mucous plug left-sided. Status post bronchoscopy which essentially showed clearance of any significant degree/plugging. Follow chest x -ray revealed dense consolidation left lung. No pleural effusion. Labile blood pressure. 2: Resting currently in bed in no distress. Received quetiapine for agitation earlier. Remains on dexmedetomidine. Status post hemodialysis today. Subjective 12/24: FiO2 increased to 70% overnight. Currently back in 40%. Remains on dexmedetomidine drip. Tolerating tube feeds at goal. -3 L with hemodialysis yesterday. 12/25: Tmax 99.2. Patient noted to have open sacral wound care consulted for evaluation and treatment. Patient continues on sedation. Persistent hyperglycemia Levemir increased to 15 units twice a day. 12/26: No acute events overnight. WBC count downtrending. Patient underwent IHD today with approximately 3 L removed, required Levophed infusion to maintain MAP. Discussion with palliative care plan for possible decision of healthcare proxy tomorrow. Objective Vital Signs Date Time Temp Pulse Resp B/P (MAP) Pulse Ox O2 Delivery O2 Flow Rate FiO2 12/26/17 14:51 148 138/82 12/26/17 12:08 100 50 12/26/17 12:00 98.8 20 Intake and Output 12/26/17 12/26/17 12/26/17 07:59 15:59 23:59 Intake Total 1085 ml 156 ml Output Total 350 ml 3000 ml Balance 735 ml -2844 ml Result Diagram: 12/26/17 0500 12/26/17 0500 Imaging Last Impressions Chest X-Ray 12/25/17 0000 Signed Impressions: Service Date/Time: Monday, December 25, 2017 09:50 - CONCLUSION: 1. Persistent left basilar consolidation. 2. Cavitary lesion right lower lobe is stable. Leonard Vaughn MD Chest CT 12/22/17 0000 Signed Impressions: Service Date/Time: December 16:39 - CONCLUSION: 1. Multiple cavitary lesions in the right lung as well as a small nodule and larger nodule or mass. These findings are concerning for metastatic disease. 2. The left lung is completely opacified with air bronchograms and volume loss with mediastinal shift. Areas cut off of the left main bronchus with soft tissue density material which could indicate mucous plugging. 3. Mild to moderate cardiomegaly. Edy Laughlin MD Abdomen X-Ray 12/20/17 0600 Signed Impressions: Service Date/Time: Wednesday, December 20, 2017 02:07 - CONCLUSION: 1. Moderate constipation with stool throughout large bowel. NG coiled in stomach. Khoa Franco MD Neck Magnetic Resonance Angiography 12/19/17 0000 Signed Impressions: Service Date/Time: Tuesday, December 19, 2017 12:24 - CONCLUSION: 1. Patent carotids and vertebrals. Marco Antonio Henriquez Jr., MD Head Magnetic Resonance Angiography 12/19/17 0000 Signed Impressions: Service Date/Time: Tuesday, December 19, 2017 12:24 - CONCLUSION: 1. No large vessel stenosis or aneurysm. 2. Normal variants as described above. Leonard Vaughn MD Brain MRI 12/17/17 0000 Signed Impressions: Service Date/Time: Sunday, December 17, 2017 11:33 - CONCLUSION: Small foci of retracted diffusion in the parietal periventricular white matter bilaterally indicating small acute infarcts. No other acute intracranial findings. Gatito Shipman MD Head CT 12/16/17 0000 Signed Impressions: Service Date/Time: Saturday, December 16, 2017 10:58 - CONCLUSION: No acute disease. Marco Antonio Henriquez Jr., MD Last Impressions Chest X-Ray 12/23/17 1200 Signed Impressions: Service Date/Time: Saturday, December 23, 2017 12:26 - CONCLUSION: Reexpansion of the left lung with minimal left basilar density. Leonard Vaughn MD Chest CT 12/22/17 0000 Signed Impressions: Service Date/Time: December 16:39 - CONCLUSION: 1. Multiple cavitary lesions in the right lung as well as a small nodule and larger nodule or mass. These findings are concerning for metastatic disease. 2. The left lung is completely opacified with air bronchograms and volume loss with mediastinal shift. Areas cut off of the left main bronchus with soft tissue density material which could indicate mucous plugging. 3. Mild to moderate cardiomegaly. Edy Laughlin MD Abdomen X-Ray 12/20/17 0600 Signed Impressions: Service Date/Time: Wednesday, December 20, 2017 02:07 - CONCLUSION: 1. Moderate constipation with stool throughout large bowel. NG coiled in stomach. Khoa Franco MD Neck Magnetic Resonance Angiography 12/19/17 0000 Signed Impressions: Service Date/Time: Tuesday, December 19, 2017 12:24 - CONCLUSION: 1. Patent carotids and vertebrals. Marco Antonio Henriquez Jr., MD Head Magnetic Resonance Angiography 12/19/17 0000 Signed Impressions: Service Date/Time: Tuesday, December 19, 2017 12:24 - CONCLUSION: 1. No large vessel stenosis or aneurysm. 2. Normal variants as described above. Leonard Vaughn MD Brain MRI 12/17/17 0000 Signed Impressions: Service Date/Time: Sunday, December 17, 2017 11:33 - CONCLUSION: Small foci of retracted diffusion in the parietal periventricular white matter bilaterally indicating small acute infarcts. No other acute intracranial findings. Gatito Shipman MD Head CT 12/16/17 0000 Signed Impressions: Service Date/Time: Saturday, December 16, 2017 10:58 - CONCLUSION: No acute disease. Marco Antonio Henriquez Jr., MD Objective Remarks GENERAL: 72-year-old male currently orotracheally intubated SKIN: Warm and dry. No rash HEAD: Normocephalic. Atraumatic EYES: Pupils are equally round and reactive at 3 mm. NECK: Supple, trachea midline. No JVD or lymphadenopathy. Right IJ CVL is clean dry and intact CARDIOVASCULAR: RRR. S1, S2. No S4. Without murmurs RESPIRATORY: Improved aeration/bronchus a sounds throughout the left lung uriostegui anteriorly and. Posteriorly. Right-sided subsequent to auscultation anteriorly and posteriorly. No wheezing GASTROINTESTINAL: Abdomen soft, non-tender, nondistended. MUSCULOSKELETAL: Trace lower extremity. Right upper extremity positive thrill and bruit Neuro: RASS -2. Moves all 4 extremity spontaneously. Cranial nerves II through XII appear grossly intact. Appears to right greater than left. No DTRs. Date of Insertion: Dec 18, 2017 Line: Central Venous Catheter Side: Right Location: Internal, Jugular A/P Assessment and Plan Neuro/Psych: Peripheral neuropathy Right greater than left parietal CVA Monitor Neuro status. CT brain no acute findings 12/17 EEG revealed Sharp's triphasic right greater than left. No epileptiform discharges MRI brain 12/17 revealed 6 mm right parietal and tiny left parietal lacunar infarct in the periventricular white matter. MRA brain/neck 12/19: No large vessel stenosis or aneurysm. Aspirin 81 mg daily Atorvastatin 10 mg a day. Triglycerides elevated On Fentanyl currently at 250 mg an hour for sedation. Along with dexmedetomidine drip at 0.4 vaughn grams per kilogram Per minute. As needed midazolam 2 mg IV every 2 hours when necessary agitation Daily sedation vacation Goal of RASS -2 Continue gabapentin 300 mg daily for peripheral neuropathy Hydrochloroquine 200 mg daily for arthritis resumed Added quetiapine 50 mg twice a day and scheduled oxycodone 5 mg every 6 hours attempt to wean off sedation Dr. Ace neurology following intermittently CV: Chronic diastolic heart failure - Mild pulmonary hypertension with pulmonary arterial pressure 46.7 mmHg Currently on norepinephrine at 2 mcg/m to maintain MAP>65mmHg Decrease hydrocortisone 50 mg Q 8 hours. Cortisol level 9 on 12/15 2-D echocardiogram reveals EF of 55-60%. Mild MR/TR. Pulmonary arterial Pressures 46.7 mmHg Holding carvedilol 3.125 mg twice a day in light of atrial fibrillation Received 1 dose of digoxin 0.25 mg on 12/15 Resp: Acute hypoxemic and hypercapnic respiratory failure Polymicrobial pneumonia - Pseudomonas and Haemophilus influenza Right cavitary lung mass History of COPD [facility] 18500/11/28/39 Continue with vent support keep sat >92% Ventilator bundle Albuterol/ipratropium aerosols every 6 hours with albuterol aerosols every 2 hours. Dyspnea SBT daily as earle. CT thorax revealed 3 x 2.3 cm cavitary lesion. Mediastinal shift right to left. Left lower lobe collapse. Possible mucus plugging S/P bronchoscopy 12/22. Lukens trap obtained. Follow chest x-ray revealed dense consolidation left lung uriostegui. No masses on my bronchoscopy. Able to identify of left upper and lower lobes up to third subsegment without obstruction. GI: Constipation - resolved Nepro goal 55 cc an hour for nutrition's recommendations. Currently at 35 cc an hour KUB abdomen:Moderate constipation with stool throughout large bowel Famotidine 20 mg by tube daily for GI prophylaxis Docusate sodium/senna 1 tablet twice a day for bowel regimen. Metoclopramide 5 mg every 8 hours as needed nausea/high residuals C. difficile PCR- negative Endo: Hyperglycemia Secondary hyperparathyroidism Increase SSI to medium scale with accu checks Q4hr. Continue Cinacalet 30 mg daily for secondary hyperparathyroidism when able Cortisol level - 9 iPTH - 399 /FEN/Renal: End-stage renal disease on hemodialysis Tuesday/Tuesday/Tuesday Hyper-magnesium Hyperphosphatemia Monitor renal function, avoid nephrotoxins. HD per renal- Dr. Galarza Heme: Normocytic anemia/anemia of chronic kidney disease Leukocytosis..trending downward Monitor CBC daily. Follow trends Continue Epogen with hemodialysis ID: Haemophilus influenza/pseudomonas aeruginosa pneumonia/MRSA Staph epi bacteremia? Infectious disease consult for antibiotic management - Dr. Chen Currently on Zyvox, Zerbaxa, and Levaquin Pertinent cultures 12/12 - sputum - Haemophilus influenza, pseudomonas aeruginosa 12/12 - blood cultures 2 - no growth Follow up on sputum cx from 12/16: MRSA, H. Influenza, Pseudomonas Follow-up on blood cultures 12/18 staph epi Bronchoscopy 12/22 - Pseudomonas Repeat blood cultures 2 12/21 1 out of 4 coag negative staph. Repeat blood cultures 12/23 x 2 pending MSK: OP/OA PT evaluate and treat Access -Right IJ CVL day #8 placed 12/18 -Left radial arterial line 12/18.- 12/21 Prophylaxis - GI - famotidine - DVT - SCD/heparin subcutaneous Level III follow-up Dispo: Discussed with palliative care seafood team member Cindy Gatica, scheduled meeting tomorrow for decision in healthcare proxy, to define goals of care. Discussed with HUNTING AND FISHING GUIDE at bedside. Physician Lainey Cunha MD Dec 26, 2017 15:37
[2017-12-26] MEDS: PROPOFOL 1000 MG/100 ML INJ 100 ML IV PRN (16:00)
[2017-12-26] MEDS: LEVOFLOXACIN 250 MG PREMIX INJ 50 ML IV SCH (17:30)
[2017-12-26] MEDS: fentaNYL 2,500 MCG/NS 250 ML IV PRN (18:18)
[2017-12-26] MEDS: ATORVASTATIN 10 MG TAB PO SCH (20:20)
[2017-12-26] MEDS ORDERED: SODIUM CHLOR 0.9% 1000 ML INJ 1,000 ML IV ONE (23:45)
[2017-12-27] VITALS (18 sets, daily range): BP systolic 72–155; BP diastolic 50–79; PULSE 53–133; RESP 18–143; TEMP 97.5–98.7; O2SAT 94–100
[2017-12-27] MEDS: oxyCODONE HCL ORAL CONC 5 MG/0.25 ML SYRINGE NG SCH ×4 (02:44→21:57)
[2017-12-27] MEDS: PROPOFOL 1000 MG/100 ML INJ 100 ML IV PRN ×4 (02:44→21:39)
[2017-12-27] MEDS: HEPARIN SODIUM - SQ 10,000 UNITS/ML VIAL SQ SCH ×2 (02:44→13:32)
[2017-12-27] MEDS: CEFTOLOZANE-TAZOBACTAM INJ 150 MG in SODIUM CHLORIDE 0.9% INJ 100 ML IV SCH (02:45)
[2017-12-27] MEDS: CHLORHEXIDINE GLUCONATE 2 % 1 PACK (2 CLOTHS) TOP SCH (02:45)
[2017-12-27] MEDS: RESP: SODIUM CHLORIDE 3% 4 ML NEB NEB SCH ×4 (03:44→20:46)
[2017-12-27] MEDS: INSULIN NovoLIN REGULAR SUPPLEMENTAL SCALE SQ SCH ×5 (04:00→20:00)
[2017-12-27] MEDS: PHENYLEPHRINE INJ 40 MG in DEXTROSE 5% IN WATE 500 ML INJ 496 ML IV PRN ×2 (04:28)
[2017-12-27] MEDS: ARTIFICIAL TEARS OPTH SOLN 15 ML BTL EACH EYE SCH ×3 (05:32→21:55)
[2017-12-27] MEDS: LINEZOLID 600 MG PREMIX 300 ML IV SCH ×2 (06:10→16:18)
[2017-12-27] MEDS: HYDROCORTISONE SOD SUCCINATE 100 MG VIAL IV PUSH SCH ×3 (06:11→21:56)
[2017-12-27 06:56] LABS: HEMATOCRIT 25.8 % (39.0-51.0); HEMOGLOBIN 8.5 GM/DL (13.0-17.0); MEAN CELL VOLUME 92.3 FL (80.0-100.0); MEAN CORPUSCULAR HEMOGLOBIN 30.3 PG (27.0-34.0); MEAN CORPUSCULAR HGB CONC 32.8 % (32.0-36.0); MEAN PLATELET VOLUME 8.3 FL (7.0-11.0); PLATELET COUNT 220 TH/MM3 (150-450); RED BLOOD COUNT 2.79 MIL/MM3 (4.50-5.90); RED CELL DISTRIBUTION WIDTH 15.8 % (11.6-17.2); WHITE BLOOD COUNT 14.9 TH/MM3 (4.0-11.0)
[2017-12-27 07:32] LABS: CALCIUM 8.1 MG/DL (8.5-10.1); CREATININE 5.46 MG/DL (0.60-1.30)
[2017-12-27] MEDS: RESP: ALBUTEROL 2.5 MG/3 ML NEB (PRN) NEB ×2 (07:47→15:02)
[2017-12-27] MEDS: MUPIROCIN 2% OINT 1 APPLIC/GM SYR EACH NARE SCH ×2 (08:05→21:58)
[2017-12-27] MEDS: DOCUSATE SODIUM 50 MG/SENNA 8.6 MG TAB PO SCH ×2 (08:05→21:58)
[2017-12-27] MEDS: NYSTATIN SUSP 500,000 U/5 ML CUP OROPHARYNG SCH ×4 (08:05→21:58)
[2017-12-27] MEDS: ASPIRIN 81 MG CHEW TAB PO SCH (08:06)
[2017-12-27] MEDS: HYDROXYCHLOROQUINE SULFATE 200 MG TAB PO SCH (08:06)
[2017-12-27] MEDS: FAMOTIDINE 20 MG TAB NG SCH (08:06)
[2017-12-27] MEDS: QUEtiapine FUMARATE 25 MG TAB PO SCH ×2 (08:07→21:58)
[2017-12-27] MEDS: CALCIUM ACETATE 667 MG CAP OG-TUBE SCH ×3 (08:07→18:00)
[2017-12-27] MEDS: CARVEDILOL 3.125 MG TAB PO SCH ×2 (08:09→21:58)
[2017-12-27] MEDS: INSULIN DETEMIR 100 UNITS/ML VIAL SQ SCH ×2 (08:15→21:00)
[2017-12-27] MEDS: SODIUM CHLORIDE 0.9% FLUSH 10 ML FLUSH IV FLUSH SCH (08:15)
[2017-12-27] MEDS: fentaNYL 2,500 MCG/NS 250 ML IV PRN ×2 (09:46→21:39)
--- NOTE | 2017-12-27 10:37 | HHI.HCPN ---
Reason for visit a. To assist with evaluation and management of symptoms including: Shortness of breath, restlessness/agitation, debility. b. To assist medical decision maker(s) with: better understanding of current medical conditions; weighing benefits/burdens of medical treatment options; making medical treatment decisions. . Subjective/Interval History Palliative care follow up for further clarification of goals of care. Patient seen in the medical ICU. He remains intratracheally intubated on mechanical ventilation. Currently 40% FiO2. Patient restless during my visit, currently on propofol and fentanyl drip. Eyes closed, did not open to verbal or tactile stimuli. Laboratory workup today revealing WBC 14.9, Hgb 8.5, platelet count 220. BUN/creatinine 99/5.46 status post hemodialysis yesterday removing 3 L. HEALTHCARE DECISION-MAKER: Palliative care has attempted in multiple occasions since last week to contact patient's sister Lesa Pickard. Several phone calls, detail messages left in voicemail. Palliative care has not received any phone calls from family. As per pillowcase sewer's notes, It appears that sister has been previously contacted and that she has to declined participating in medical decision-making. [employer] report only provided 1 contact: Aleja Leland, called - no answer, unable to leave message. Internet search and social medial surge with patient's name coming back with 's family information. in 2008, former name "Thong". Kelsie Benito listed as family member in many searches. Case discussed in detail with [employer] department, counselor Marcia. Okay to proceed with kelsie Benito as healthcare proxy decision maker given [place] statute (close friend). Meeting with patient's kelsie Benito. Also in attendance patient's best friend Jolie Taran (listed on contacts) and friend José Manuel Bojorquez who has known patient for the past 7 years. Medical update provided. Reviewed patient's past medical history, clinical course and current medical management. Reviewed overall poor prognosis given patient's multiple chronic ongoing comorbidities, end-stage renal disease on dialysis, acute respiratory failure with prolonged intubation, polymicrobial pneumonia, bacteremia, recent stroke and multiple pulmonary masses/lesions concerning of metastatic cancer. Reviewed that patient is not likely to be medically extubated. Reviewed options to include trach PEG versus compassionate withdrawal of life support given overall poor prognosis. Son verbalized a needing a few hours to discuss with additional of his family members. Receptive to palliative care follow up this afternoon. Case discussed with Dr. Russ and bedside RN Jud. 16:09. Telephone conversation with patient's kelsie Benito. He reports that after further conversations with additional family members, he has elected to proceed with compassionate withdrawal life support. Asking to wait until tomorrow Tuesday12/28/[address] Russ and bedside RN Jud made aware. . Family/friend interactions See interval note. . Advance Directives Advance Directive Specifics Health Care Surrogate(s): Unclear if advance directives have been completed. Healthcare proxy decision maker to be determined. . Significant change in goals: Patient's step son acting as healthcare proxy has elected to transition patient to comfort-directed care/compassionate withdrawal life support or Tuesday after 4 PM. . Objective Vital Signs Date Time Temp Pulse Resp B/P (MAP) Pulse Ox O2 Delivery O2 Flow Rate FiO2 12/27/17 10:00 83 12/27/17 08:46 98 40 12/27/17 08:00 97.5 53 18 91/51 (64) 98 12/27/17 08:00 53 12/27/17 08:00 40 12/27/17 06:00 74 12/27/17 05:15 54 173/80 12/27/17 04:28 106 80/49 12/27/17 04:01 97 40 12/27/17 04:00 40 12/27/17 04:00 97.6 127 18 72/50 (57) 97 12/27/17 04:00 127 72/50 12/27/17 04:00 127 72/50 12/27/17 04:00 127 12/27/17 03:55 40 12/27/17 02:45 128 156/93 12/27/17 02:00 129 12/27/17 02:00 129 118/79 12/27/17 01:12 100 50 12/27/17 00:00 98.7 133 18 123/79 (94) 100 12/27/17 00:00 133 12/27/17 00:00 50 12/27/17 00:00 133 123/79 12/26/17 22:30 127 76/51 12/26/17 22:25 126 69/39 12/26/17 22:09 99 50 12/26/17 22:00 127 12/26/17 20:00 99.0 126 19 117/69 (85) 100 12/26/17 20:00 50 12/26/17 20:00 126 12/26/17 19:58 100 50 12/26/17 18:00 127 12/26/17 17:18 99 50 12/26/17 16:00 98.8 108 18 184/83 (116) 100 12/26/17 16:00 50 12/26/17 16:00 108 12/26/17 15:09 18 12/26/17 14:51 148 138/82 12/26/17 14:00 150 12/26/17 12:08 100 50 12/26/17 12:00 50 12/26/17 12:00 98.8 150 20 168/97 (120) 100 12/26/17 12:00 150 12/26/17 10:43 119 12/26/17 10:30 113 169/81 Intake & Output 12/27/17 12/27/17 07:00 19:00 Intake Total 1759 ml 300 ml Output Total 1150.0 ml 0 ml Balance 609.0 ml 300 ml IV Total 1500 ml 300 ml Tube Feeding 179 ml Tube Irrigant 80 ml Output Urine Total 0 ml Stool Total 400 ml Tube Feeding Residual Discard 750.0 ml 0 ml Physical Exam CONSTITUTIONAL/GENERAL: This is an adequately nourished elderly man in no acute distress. TUBES/LINES/DRAINS: ETT, OG, Murillo catheter, right IJ, soft wrist restraints. Rectal tube. SKIN: No jaundice, rashes, or lesions. Ecchymoses on upper extremities. No wounds seen anteriorly. Skin temperature appropriate. Not diaphoretic. HEAD: Atraumatic. Normocephalic. EYES: Pupils equal and round and reactive. No scleral icterus. No injection or drainage. Fundi not examined. ENT: Unable to evaluate hearing secondary to clinical condition. Nose without bleeding or purulent drainage. Moist oral cause a. NECK: Trachea midline. Supple. CARDIOVASCULAR: Regular rate and rhythm. Peripheral pulses symmetric. RESPIRATORY/CHEST: Symmetric, coarse sounds bilaterally. Endotracheal intubated on mechanical ventilation. GASTROINTESTINAL: Abdomen large, round, soft. Bowel sounds present, hyperactive. GENITOURINARY: Without palpable bladder distension. Murillo catheter in place. MUSCULOSKELETAL: Extremities without clubbing, cyanosis, or edema. No mottling or clubbing. NEUROLOGICAL: Not following any commands or attempting to communicate. Moves all extremities spontaneously. PSYCHIATRIC: Unable to evaluate given her clinical condition, appears calm. . Diagnostic Tests Laboratory Laboratory Tests Test 12/25/17 04:00 12/26/17 05:00 12/27/17 05:30 White Blood Count 17.6 TH/MM3 (4.0-11.0) 12.7 TH/MM3 (4.0-11.0) 14.9 TH/MM3 (4.0-11.0) Red Blood Count 3.01 MIL/MM3 (4.50-5.90) 2.65 MIL/MM3 (4.50-5.90) 2.79 MIL/MM3 (4.50-5.90) Hemoglobin 8.9 GM/DL (13.0-17.0) 8.0 GM/DL (13.0-17.0) 8.5 GM/DL (13.0-17.0) Hematocrit 27.3 % (39.0-51.0) 24.0 % (39.0-51.0) 25.8 % (39.0-51.0) Mean Corpuscular Volume 90.6 FL (80.0-100.0) 90.4 FL (80.0-100.0) 92.3 FL (80.0-100.0) Mean Corpuscular Hemoglobin 29.7 PG (27.0-34.0) 30.1 PG (27.0-34.0) 30.3 PG (27.0-34.0) Mean Corpuscular Hemoglobin Concent 32.8 % (32.0-36.0) 33.3 % (32.0-36.0) 32.8 % (32.0-36.0) Red Cell Distribution Width 15.0 % (11.6-17.2) 15.4 % (11.6-17.2) 15.8 % (11.6-17.2) Platelet Count 191 TH/MM3 (150-450) 201 TH/MM3 (150-450) 220 TH/MM3 (150-450) Mean Platelet Volume 8.4 FL (7.0-11.0) 7.9 FL (7.0-11.0) 8.3 FL (7.0-11.0) Neutrophils (%) (Auto) 93.9 % (16.0-70.0) 94.3 % (16.0-70.0) Lymphocytes (%) (Auto) 3.0 % (9.0-44.0) 1.6 % (9.0-44.0) Monocytes (%) (Auto) 3.0 % (0.0-8.0) 4.0 % (0.0-8.0) Eosinophils (%) (Auto) 0.0 % (0.0-4.0) 0.0 % (0.0-4.0) Basophils (%) (Auto) 0.1 % (0.0-2.0) 0.1 % (0.0-2.0) Neutrophils # (Auto) 16.5 TH/MM3 (1.8-7.7) 11.9 TH/MM3 (1.8-7.7) Lymphocytes # (Auto) 0.5 TH/MM3 (1.0-4.8) 0.2 TH/MM3 (1.0-4.8) Monocytes # (Auto) 0.5 TH/MM3 (0-0.9) 0.5 TH/MM3 (0-0.9) Eosinophils # (Auto) 0.0 TH/MM3 (0-0.4) 0.0 TH/MM3 (0-0.4) Basophils # (Auto) 0.0 TH/MM3 (0-0.2) 0.0 TH/MM3 (0-0.2) CBC Comment DIFF FINAL DIFF FINAL Differential Comment Blood Urea Nitrogen 117 MG/DL (7-18) 157 MG/DL (7-18) 99 MG/DL (7-18) Creatinine 7.39 MG/DL (0.60-1.30) 8.57 MG/DL (0.60-1.30) 5.46 MG/DL (0.60-1.30) Random Glucose 256 MG/DL (74-106) 210 MG/DL (74-106) 86 MG/DL (74-106) Albumin 2.7 GM/DL (3.4-5.0) Calcium Level 7.9 MG/DL (8.5-10.1) 7.5 MG/DL (8.5-10.1) 8.1 MG/DL (8.5-10.1) Phosphorus Level 7.9 MG/DL (2.5-4.9) 8.7 MG/DL (2.5-4.9) Sodium Level 133 MEQ/L (136-145) 132 MEQ/L (136-145) 137 MEQ/L (136-145) Potassium Level 4.7 MEQ/L (3.5-5.1) 4.8 MEQ/L (3.5-5.1) 3.8 MEQ/L (3.5-5.1) Chloride Level 91 MEQ/L (98-107) 90 MEQ/L (98-107) 99 MEQ/L (98-107) Carbon Dioxide Level 25.5 MEQ/L (21.0-32.0) 24.3 MEQ/L (21.0-32.0) 25.0 MEQ/L (21.0-32.0) Anion Gap 17 MEQ/L (5-15) 18 MEQ/L (5-15) 13 MEQ/L (5-15) Estimat Glomerular Filtration Rate 7 ML/MIN (>89) 6 ML/MIN (>89) 10 ML/MIN (>89) Magnesium Level 2.4 MG/DL (1.5-2.5) Hemoglobin A1c 7.0 % (4.3-6.0) Result Diagram: 12/27/1730 12/27/17 0530 Procedures * 12/12/17 -endotracheal intubation. * 12/22/17 -bronchoscopy * 12/24/17 -bronchoscopy . Assessment and Plan Disease Oriented Problem List: (1) Respiratory failure (2) Pneumonia (3) Cerebrovascular accident (CVA) (4) ESRD (end stage renal disease) (5) Encephalopathy (6) Congestive heart failure Symptom Scale: (1) Anxiety 0-10 Scale: Unable to quantify (2) Pain 0-10 Scale: Unable to quantify (3) Shortness of breath 0-10 Scale: Unable to quantify Pertinent Non-Medical Issues Psychosocial: Retired, , lives alone. in 2008. Spiritual: Jehovah Witness. Legal: Appears that no advance directives have been completed. Ethical issues impacting care: Pending designation of healthcare proxy decision maker. Patient unable to participating in medical decision-making secondary to clinical condition. . Important Contacts Kelsie Benito . Sister Lesa Pickard . . Prognosis Mr. Sy is a 72-year-old male with a medical history significant for end- stage renal disease on hemodialysis, COPD, CHF, cardiomyopathy and anemia of chronic disease. Patient presented to ED via EMS on 12/12/17 endorsing worsening shortness of breath. Clinical course complicated by acute respiratory failure requiring intubation and mechanical ventilation. Clinical course further complicated by acute CVA, pneumonia, persistent respiratory failure, sepsis. Patient's prognosis is guarded. Very high risk for further complications, clinical decline and . . Code Status: No Code Plan * CODE STATUS: No code. * HEALTHCARE DECISION-MAKING: Patient is incapacitated for medical decision- making secondary to clinical condition, s/p CVA, intubated on mechanical ventilation. Patient will not regain medical decision-making capacity. No advance directives completed. Patient is , multiple attempts at contacting blood relatives to no avail. Case discussed with [employer] legal department. As per [place] statute 765.401 (g), patient's kelsie Benito will serve as healthcare proxy decision maker. Kelsie willing and available to participate, he is being supported by additional family members. * GOALS OF CARE: Patient's kelsie Benito acting as healthcare proxy decision maker has elected to transition patient to comfort-directed care/ compassionate withdrawal life support tomorrow Tuesday12/28/17 after 4:00 PM. Willianon to meet with palliative care at that time to sign exhibit B. * SYMPTOMS: = Shortness of breath, secondary to respiratory failure. Currently intubated on mechanical ventilation. Unlikely to be medically extubated, trach and PEG decision approaching. = Pain, history of chronic pain and neuropathy. Ongoing Fentanyl infusion, patient appears calm. = Anxiety/agitation: Currently on Precedex drip. Patient appears calm. * Case discussed with Dr. Russ and bedside RN Jud. * Palliative care contact information has been provided to patient's willianstephanie CastJohn. * Palliative care will continue to follow-up for further clarifications of goals of care as patient's clinical course continues to evolve. . Time Spent Total Floor Time (mins): 47 (Total time to include review medical records, physical exam, goals of care conversation with patient's step son, case discussion with Dr. Russ bedside RN.) >50% Counseling/Coord of Care: Yes Attestation To help prompt me to consider important information that might be impacting today's encounter and assessment, information from prior notes written by myself or my colleagues may have been "brought forward" into today's note. My signature on this note, however, is an attestation that I personally performed the exam, history, and/or decision-making noted today, and, unless otherwise indicated, the interactions with patient, family, and staff as well as the review of records all occurred today. I also attest that the listed assessment and stated plan reflect my best clinical judgment today based on the combination of historical information, prior notes, and today's exam/ interactions. When time spent is documented, it refers only to time spent today by the signer, or if indicated, combined time spent today by collaborating physician/nurse practitioner. Cindy Gatica Dec 27, 2017 10:37
--- NOTE | 2017-12-27 10:56 | HHI.CCPN ---
Subjective Remarks/Hospital Course Patient is a 72-year-old male with multiple medical comorbidities which include end-stage renal disease, hypertension, CHF, COPD, cardiomyopathy, hyperparathyroidism and anemia of chronic disease. He was brought into ED via EMS for respiratory distress and was given albuterol treatment x2 in addition to Solu-Medrol 125 mg IV prior to arrival. The patient was initially placed on BiPap without any significant relief. In the ED he was intubated with etomidate, succinylcholine and placed on full mechanical ventilation. When seen the patient is sedated with Diprivan and on fentanyl infusion. His laboratory data significant for hyperkalemia with potassium 6.3, BUN 53, creatinine in 8.63 and BNP of 1218. His chest x-ray showed ET tube above the reed, interstitial edema. Nephrology service was notified and the patient is currently receiving hemodialysis treatment. ABG postintubation showed a pH of 7.30, CO2 54, pAO2 454, bicarb 26, sats of 97%. 12/13 Patient is intubated on no sedation. Awake and alert, s/p HD yesterday with removal 3L. Afebrile. 12/14: Afebrile. Remains on propofol drip at 20 mcg/kg per minute. Episodic hypotension. Episodic hypoglycemia requiring D50. On D10 drip for hyperkalemia ? Per nephrology's orders, potassium currently normalized. We'll start tube feeding. Added cefepime for Pseudomonas in sputum 12/15: Afebrile. Tolerating tube feeding. Currently on PSV trial is tolerated well. Not following commands however moving all 4 extremities purposefully today than yesterday. 12/16 Patient remains intubated and on Fentanyl and Diprivan drip for sedation. s /p HD yesterday 12/17 No events overnight. s/p HD yesterday with removal 1.8L. Remains sedated with Fentanyl and intubated. Patient doesn't follow commands off sedation. CT brain yesterday showed no acute process. T:99.9 last night 12/18: Afebrile. Patient ET tube migrated upwards towards vocal cords in high probability aspirated tube feeding. Reintubated by overnight escort car driver. Noted MRI brain revealed acute right and left parietal CVA. MRA brain and carotid Dopplers currently pending. Currently on baby aspirin. Also started on atorvastatin 10 mg daily. 12/19: Tmax 100. Central line placed yesterday due to hypotension. Currently norepinephrine and vasopressin drips. Wide pulse pressure arterial line. Tube feeds will be resumed. Stress dose steroids initiated. Last cortisol was 9. 12/20 Patient remains intubated and sedated with Diprivan and Fentanyl drips. On Levophed 8 mocs and Vasopressin 0.04. Afebrile. s/p HD yesterday with removal 4L. 12/21: Afebrile. Remains on propofol drip at 20 mcg/kg Per minute. On low- dose norepinephrine 2.5 g per minute as well. Remains quite agitated on the ventilator. 8 bowel movements overnight. C. difficile toxin is pending. Noted staph epi in blood 12/10 question kalie. ID consulted. On vancomycin 12/22: Tmax 100. Currently 99.7. CT chest today revealed 3 x 2 point centimeter right cavitary lesion along. Is mediastinal shift left dense infiltrate possible mucous plug left-sided. Status post bronchoscopy which essentially showed clearance of any significant degree/plugging. Follow chest x -ray revealed dense consolidation left lung. No pleural effusion. Labile blood pressure. 2: Resting currently in bed in no distress. Received quetiapine for agitation earlier. Remains on dexmedetomidine. Status post hemodialysis today. Subjective 12/24: FiO2 increased to 70% overnight. Currently back in 40%. Remains on dexmedetomidine drip. Tolerating tube feeds at goal. -3 L with hemodialysis yesterday. 12/25: Tmax 99.2. Patient noted to have open sacral wound care consulted for evaluation and treatment. Patient continues on sedation. Persistent hyperglycemia Levemir increased to 15 units twice a day. 12/26: No acute events overnight. WBC count downtrending. Patient underwent IHD today with approximately 3 L removed, required Levophed infusion to maintain MAP. Discussion with palliative care plan for possible decision of healthcare proxy tomorrow. 12/27: Afebrile .Patient was noted to have elevated residual tube feeds last night , tube feeds placed on hold. Patient was noted to be significant bradycardia cardiac cord was held this a.m., Precedex was discontinued. Palliative care care meeting underway at this time for healthcare surrogate for decision making. Objective Vital Signs Date Time Temp Pulse Resp B/P (MAP) Pulse Ox O2 Delivery O2 Flow Rate FiO2 12/27/17 10:00 83 12/27/17 08:46 98 40 12/27/17 08:00 97.5 18 91/51 (64) Intake and Output 12/27/17 12/27/17 12/27/17 07:59 15:59 23:59 Intake Total 1659 ml Output Total 725.0 ml 0 ml Balance 934.0 ml 0 ml Result Diagram: 12/27/17 0530 12/27/17 0530 Imaging Last Impressions Chest X-Ray 12/25/17 0000 Signed Impressions: Service Date/Time: Monday, December 25, 2017 09:50 - CONCLUSION: 1. Persistent left basilar consolidation. 2. Cavitary lesion right lower lobe is stable. Leonard Vaughn MD Chest CT 12/22/17 0000 Signed Impressions: Service Date/Time: December 16:39 - CONCLUSION: 1. Multiple cavitary lesions in the right lung as well as a small nodule and larger nodule or mass. These findings are concerning for metastatic disease. 2. The left lung is completely opacified with air bronchograms and volume loss with mediastinal shift. Areas cut off of the left main bronchus with soft tissue density material which could indicate mucous plugging. 3. Mild to moderate cardiomegaly. Edy Laughlin MD Abdomen X-Ray 12/20/17 0600 Signed Impressions: Service Date/Time: Wednesday, December 20, 2017 02:07 - CONCLUSION: 1. Moderate constipation with stool throughout large bowel. NG coiled in stomach. Khoa Franco MD Neck Magnetic Resonance Angiography 12/19/17 0000 Signed Impressions: Service Date/Time: Tuesday, December 19, 2017 12:24 - CONCLUSION: 1. Patent carotids and vertebrals. Marco Antonio Henriquez Jr., MD Head Magnetic Resonance Angiography 12/19/17 0000 Signed Impressions: Service Date/Time: Tuesday, December 19, 2017 12:24 - CONCLUSION: 1. No large vessel stenosis or aneurysm. 2. Normal variants as described above. Leonard Vaughn MD Brain MRI 12/17/17 0000 Signed Impressions: Service Date/Time: Sunday, December 17, 2017 11:33 - CONCLUSION: Small foci of retracted diffusion in the parietal periventricular white matter bilaterally indicating small acute infarcts. No other acute intracranial findings. Gatito Shipman MD Head CT 12/16/17 0000 Signed Impressions: Service Date/Time: Saturday, December 16, 2017 10:58 - CONCLUSION: No acute disease. Marco Antonio Henriquez Jr., MD Last Impressions Chest X-Ray 12/23/17 1200 Signed Impressions: Service Date/Time: Saturday, December 23, 2017 12:26 - CONCLUSION: Reexpansion of the left lung with minimal left basilar density. Leonard Vaughn MD Chest CT 12/22/17 0000 Signed Impressions: Service Date/Time: December 16:39 - CONCLUSION: 1. Multiple cavitary lesions in the right lung as well as a small nodule and larger nodule or mass. These findings are concerning for metastatic disease. 2. The left lung is completely opacified with air bronchograms and volume loss with mediastinal shift. Areas cut off of the left main bronchus with soft tissue density material which could indicate mucous plugging. 3. Mild to moderate cardiomegaly. Edy Laughlin MD Abdomen X-Ray 12/20/17 0600 Signed Impressions: Service Date/Time: Wednesday, December 20, 2017 02:07 - CONCLUSION: 1. Moderate constipation with stool throughout large bowel. NG coiled in stomach. Khoa Franco MD Neck Magnetic Resonance Angiography 12/19/17 0000 Signed Impressions: Service Date/Time: Tuesday, December 19, 2017 12:24 - CONCLUSION: 1. Patent carotids and vertebrals. Marco Antonio Henriquez Jr., MD Head Magnetic Resonance Angiography 12/19/17 0000 Signed Impressions: Service Date/Time: Tuesday, December 19, 2017 12:24 - CONCLUSION: 1. No large vessel stenosis or aneurysm. 2. Normal variants as described above. Leonard Vaughn MD Brain MRI 12/17/17 0000 Signed Impressions: Service Date/Time: Sunday, December 17, 2017 11:33 - CONCLUSION: Small foci of retracted diffusion in the parietal periventricular white matter bilaterally indicating small acute infarcts. No other acute intracranial findings. Gatito Shipman MD Head CT 12/16/17 0000 Signed Impressions: Service Date/Time: Saturday, December 16, 2017 10:58 - CONCLUSION: No acute disease. Marco Antonio Henriquez Jr., MD Objective Remarks GENERAL: 72-year-old male currently orotracheally intubated SKIN: Warm and dry. No rash HEAD: Normocephalic. Atraumatic EYES: Pupils are equally round and reactive at 3 mm. NECK: Supple, trachea midline. No JVD or lymphadenopathy. Right IJ CVL is clean dry and intact CARDIOVASCULAR: RRR. S1, S2. No S4. Without murmurs RESPIRATORY: Improved aeration/bronchus a sounds throughout the left lung uriostegui anteriorly and. Posteriorly. Right-sided subsequent to auscultation anteriorly and posteriorly. No wheezing GASTROINTESTINAL: Abdomen soft, non-tender, nondistended. MUSCULOSKELETAL: Trace lower extremity. Right upper extremity positive thrill and bruit Neuro: RASS -2. Moves all 4 extremity spontaneously. Cranial nerves II through XII appear grossly intact. Appears to right greater than left. No DTRs. Date of Insertion: Dec 18, 2017 Line: Central Venous Catheter Side: Right Location: Internal, Jugular A/P Assessment and Plan Neuro/Psych: Peripheral neuropathy Right greater than left parietal CVA Monitor Neuro status. CT brain no acute findings 12/17 EEG revealed Sharp's triphasic right greater than left. No epileptiform discharges MRI brain 12/17 revealed 6 mm right parietal and tiny left parietal lacunar infarct in the periventricular white matter. MRA brain/neck 12/19: No large vessel stenosis or aneurysm. Aspirin 81 mg daily Atorvastatin 10 mg a day. Triglycerides elevated On Fentanyl currently at 250 mg an hour for sedation. Precedex infusion discontinued As needed midazolam 2 mg IV every 2 hours when necessary agitation Daily sedation vacation Goal of RASS -2 Continue gabapentin 300 mg daily for peripheral neuropathy Hydrochloroquine 200 mg daily for arthritis resumed Added quetiapine 50 mg twice a day and scheduled oxycodone 5 mg every 6 hours attempt to wean off sedation Dr. Ace neurology following intermittently CV: Chronic diastolic heart failure - Mild pulmonary hypertension with pulmonary arterial pressure 46.7 mmHg Currently on norepinephrine at 2 mcg/m to maintain MAP>65mmHg Decrease hydrocortisone 50 mg Q 8 hours. Cortisol level 9 on 12/15 2-D echocardiogram reveals EF of 55-60%. Mild MR/TR. Pulmonary arterial Pressures 46.7 mmHg Holding carvedilol 3.125 mg twice a day in light of atrial fibrillation Received 1 dose of digoxin 0.25 mg on 12/15 Resp: Acute hypoxemic and hypercapnic respiratory failure Polymicrobial pneumonia - Pseudomonas and Haemophilus influenza Right cavitary lung mass History of COPD PRVC 18/500/11/28/39 Continue with vent support keep sat >92% Ventilator bundle Albuterol/ipratropium aerosols every 6 hours with albuterol aerosols every 2 hours. Dyspnea SBT daily as earle. CT thorax revealed 3 x 2.3 cm cavitary lesion. Mediastinal shift right to left. Left lower lobe collapse. Possible mucus plugging S/P bronchoscopy 12/22. Lukens trap obtained. Follow chest x-ray revealed dense consolidation left lung uriostegui. No masses on my bronchoscopy. Able to identify of left upper and lower lobes up to third subsegment without obstruction. GI: Constipation - resolved Nepro goal 55 cc an hour for nutrition's recommendations. Currently at 35 cc an hour KUB abdomen:Moderate constipation with stool throughout large bowel Famotidine 20 mg by tube daily for GI prophylaxis Docusate sodium/senna 1 tablet twice a day for bowel regimen. Metoclopramide 5 mg every 8 hours as needed nausea/high residuals C. difficile PCR- negative Endo: Hyperglycemia Secondary hyperparathyroidism Increase SSI to medium scale with accu checks Q4hr. Continue Cinacalet 30 mg daily for secondary hyperparathyroidism when able Cortisol level - 9 iPTH - 399 /FEN/Renal: End-stage renal disease on hemodialysis Tuesday/Tuesday/Tuesday Hyper-magnesium Hyperphosphatemia Monitor renal function, avoid nephrotoxins. HD per renal- Dr. Galarza Heme: Normocytic anemia/anemia of chronic kidney disease Leukocytosis..trending downward Monitor CBC daily. Follow trends Continue Epogen with hemodialysis ID: Haemophilus influenza/pseudomonas aeruginosa pneumonia/MRSA Staph epi bacteremia? Infectious disease consult for antibiotic management - Dr. Chen Currently on Zyvox, Zerbaxa, and Levaquin Pertinent cultures 12/12 - sputum - Haemophilus influenza, pseudomonas aeruginosa 12/12 - blood cultures 2 - no growth Follow up on sputum cx from 12/16: MRSA, H. Influenza, Pseudomonas Follow-up on blood cultures 12/18 staph epi Bronchoscopy 12/22 - Pseudomonas Repeat blood cultures 2 12/21 1 out of 4 coag negative staph. Repeat blood cultures 12/23 x 2 pending MSK: OP/OA PT evaluate and treat Access -Right IJ CVL day #8 placed 12/18 -Left radial arterial line 12/18.- 12/21 Prophylaxis - GI - famotidine - DVT - SCD/heparin subcutaneous Level 3 follow-up Dispo: Discussed with palliative care steam pipe fitter Cindy Gatica, scheduled meeting currently underway for decision in healthcare proxy, to define goals of care. Discussed with HOUSEMAN (Jud) at bedside. Physician Lainey Cunha MD Dec 27, 2017 10:56
--- NOTE | 2017-12-27 11:52 | HHI.NPPN ---
Subjective General Problems: Anemia Renal Failure: Chronic, End Stage Renal Disease Interval History Dialyzed yesterday. Family met with palliative care this morning. (Nancy Springer) Review of Systems General General Remarks unable to assess (Nancy Springer) Objective Data Data 12/27/17 12/28/17 18:59 06:59 Intake Total 300 ml Output Total 0 ml Balance 300 ml IV Total 300 ml Tube Feeding Residual Discard 0 ml Vital Signs Date Time Temp Pulse Resp B/P (MAP) Pulse Ox O2 Delivery O2 Flow Rate FiO2 12/27/17 10:00 83 12/27/17 08:46 98 40 12/27/17 08:00 97.5 53 18 91/51 (64) 98 12/27/17 08:00 53 12/27/17 08:00 40 12/27/17 06:00 74 12/27/17 05:15 54 173/80 12/27/17 04:28 106 80/49 12/27/17 04:01 97 40 12/27/17 04:00 40 12/27/17 04:00 97.6 127 18 72/50 (57) 97 12/27/17 04:00 127 72/50 12/27/17 04:00 127 72/50 12/27/17 04:00 127 12/27/17 03:55 40 12/27/17 02:45 128 156/93 12/27/17 02:00 129 12/27/17 02:00 129 118/79 12/27/17 01:12 100 50 12/27/17 00:00 98.7 133 18 123/79 (94) 100 12/27/17 00:00 133 12/27/17 00:00 50 12/27/17 00:00 133 123/79 12/26/17 22:30 127 76/51 12/26/17 22:25 126 69/39 12/26/17 22:09 99 50 12/26/17 22:00 127 12/26/17 20:00 99.0 126 19 117/69 (85) 100 12/26/17 20:00 50 12/26/17 20:00 126 12/26/17 19:58 100 50 12/26/17 18:00 127 12/26/17 17:18 99 50 12/26/17 16:00 98.8 108 18 184/83 (116) 100 12/26/17 16:00 50 12/26/17 16:00 108 12/26/17 15:09 18 12/26/17 14:51 148 138/82 12/26/17 14:00 150 12/26/17 12:08 100 50 12/26/17 12:00 50 12/26/17 12:00 98.8 150 20 168/97 (120) 100 12/26/17 12:00 150 (Nacny Springer) -: 12/27/17 0530 12/27/17 0530 Imaging Last 72 hours Impressions Chest X-Ray 12/26/17 0600 Signed Impressions: Service Date/Time: Tuesday, December 26, 2017 03:40 - CONCLUSION: Stable chest x-ray with left mid and lower lung zone airspace consolidation with small left pleural effusion. The cavitary nodule in the right lower lung zone is stable. Jakob Corley MD Chest X-Ray 12/25/17 0000 Signed Impressions: Service Date/Time: Monday, December 25, 2017 09:50 - CONCLUSION: 1. Persistent left basilar consolidation. 2. Cavitary lesion right lower lobe is stable. Leonard Vaughn MD Chest X-Ray 12/24/17 1600 Signed Impressions: Service Date/Time: Sunday, December 24, 2017 15:59 - CONCLUSION: Left basilar opacity is present may be due to a combination of consolidation and or pleural effusion progressed since the prior examination with significant mixed interstitial and alveolar process in the left lung not present previously measured edema. Axel Dyson MD Tubes & Lines Comment TLC right IJ Drip Comment phenylephrine (Nancy Springer) Physical Exam General Appearance: Well Developed, Comfortable Appearance Remarks intubated, sedated (Nancy Springer) Eyes Eye Exam: Pupils Equal (Nancy Springer) Pulmonary Resp Exam: Breath Sounds Equal, Crackles, Rhonchi, Sputum, Decreased Bases Resp Remarks vented lung sounds (Nancy Springer) Cardiology CV Exam: Regular, Normal Sinus Rhythm, Good Perfusion (Nancy Springer) Gastrointestinal/Abdomen GI Exam: Soft, Non-Tender, Bowel Sounds Present (Nancy Springer) Musculoskeletal MS Exam: Joints Intact, Normal Tone (Nancy Springer) Integumentary Skin Exam: Clear, Warm, Dry, Intact (Nancy Springer) Extremeties Extremities Exam: No Edema, Pedal Pulses Palpable (Nancy Springer) Neurologic Neuro Exam: Awake, Moving All Extremities, Unresponsive, Sedated (Nancy Springer) VTE Prophylaxis Device: SCDs (Nancy Springer) Assessment/Plan Assessment Summary: Anemia of CKD, CHF, Diabetes Mellitus, End Stage Renal Disease Electrolyte Assessment: Hyperkalemia Problem List: (1) ESRD (end stage renal disease) ICD Codes: N18.6 - End-stage renal disease Status: Chronic Plan: HD MWF. Had 3L UF yesterday. BUN noted to be elevated. Dialysis tomorrow. Obtain renal panel intermittently. He has functioning AVF, avoid right arm procedures. Monitor fluid and electrolyte balance. Avoid Gadolinium. (2) Respiratory failure ICD Codes: J96.90 - Respiratory failure, unspecified, unspecified whether with hypoxia or hypercapnia Plan: Management per manager psychology. Most likely will need trach/PEG soon. Not tolerating CPAP. + VAP,+ H. influenza and pseudomonas, MRSA, on sputum culture. Abx include Zerbaxa, Levaquin, and Linezolid Had repeat bronchoscopy over the weekend. Hx of CHF, also most likely has COPD ID is following. Palliative care has evaluated, pending HCS. (3) Anemia ICD Codes: D64.9 - Anemia, unspecified Plan: Epogen with dialysis. (4) Secondary hyperparathyroidism of renal origin ICD Codes: N25.81 - Secondary hyperparathyroidism of renal origin Plan: Continue binders with tube feeding. On calcium acetate, titrate as needed iPTH is acceptable, hold Sensipar for the time being. (5) Encephalopathy ICD Codes: G93.40 - Encephalopathy, unspecified Plan: metabolic encephalopathy, acute CVA per MRI. MRA negative. Seen by neurology. He is on precedex for agitation. Family to meet with palliative care to discuss goals. (Nancy Springer) Plan patient was seen and examined. Patient's condition has not improved. Palliative care on the case. Dialysis is being continued for now. Prognosis is guarded. Above note was reviewed and agree with assessment and plan. (Tru Galarza MD) Nancy Springer Dec 27, 2017 11:52 Tru Galazra MD Dec 27, 2017 14:31
--- NOTE | 2017-12-27 11:55 | HHI.IDPN ---
Note Infectious Disease Note Patient on the vent. Becomes agitated when sedation is decreased. Opens eyes but no meaningful responses. Mucous plugging noted. Dialysis in progress. Afebrile. 72 year-old white male who presented to the emergency department with shortness of breath on 12/12/2017. The patient has a history of COPD. PAST MEDICAL HISTORY: 1. COPD. 2. CHF. 3. Anemia. 4. End-stage renal disease. 5. Cardiomyopathy. 6. History of left hip replacement. 7. History of right upper extremity A-V fistula. 8. Secondary hyperparathyroidism. ALLERGIES NO KNOWN DRUG ALLERGIES. ANTIBIOTICS 1. Zerbaxa. 2. Levaquin. 3. Zyvox. OBJECTIVE: Vital Signs Date Time Temp Pulse Resp B/P (MAP) Pulse Ox O2 Delivery O2 Flow Rate FiO2 12/27/17 10:00 83 12/27/17 08:46 98 40 12/27/17 08:00 97.5 53 18 91/51 (64) 98 12/27/17 08:00 53 12/27/17 08:00 40 12/27/17 06:00 74 12/27/17 05:15 54 173/80 12/27/17 04:28 106 80/49 12/27/17 04:01 97 40 12/27/17 04:00 40 12/27/17 04:00 97.6 127 18 72/50 (57) 97 12/27/17 04:00 127 72/50 12/27/17 04:00 127 72/50 12/27/17 04:00 127 12/27/17 03:55 40 12/27/17 02:45 128 156/93 12/27/17 02:00 129 12/27/17 02:00 129 118/79 12/27/17 01:12 100 50 12/27/17 00:00 98.7 133 18 123/79 (94) 100 12/27/17 00:00 133 12/27/17 00:00 50 12/27/17 00:00 133 123/79 12/26/17 22:30 127 76/51 12/26/17 22:25 126 69/39 12/26/17 22:09 99 50 12/26/17 22:00 127 12/26/17 20:00 99.0 126 19 117/69 (85) 100 12/26/17 20:00 50 12/26/17 20:00 126 12/26/17 19:58 100 50 12/26/17 18:00 127 12/26/17 17:18 99 50 12/26/17 16:00 98.8 108 18 184/83 (116) 100 12/26/17 16:00 50 12/26/17 16:00 108 12/26/17 15:09 18 12/26/17 14:51 148 138/82 12/26/17 14:00 150 12/26/17 12:08 100 50 12/26/17 12:00 50 12/26/17 12:00 98.8 150 20 168/97 (120) 100 12/26/17 12:00 150 Laboratory Tests Test 12/26/17 05:00 12/27/17 05:30 White Blood Count 12.7 TH/MM3 14.9 TH/MM3 Red Blood Count 2.65 MIL/MM3 2.79 MIL/MM3 Hemoglobin 8.0 GM/DL 8.5 GM/DL Hematocrit 24.0 % 25.8 % Mean Corpuscular Volume 90.4 FL 92.3 FL Mean Corpuscular Hemoglobin 30.1 PG 30.3 PG Mean Corpuscular Hemoglobin Concent 33.3 % 32.8 % Red Cell Distribution Width 15.4 % 15.8 % Platelet Count 201 TH/MM3 220 TH/MM3 Mean Platelet Volume 7.9 FL 8.3 FL Neutrophils (%) (Auto) 94.3 % Lymphocytes (%) (Auto) 1.6 % Monocytes (%) (Auto) 4.0 % Eosinophils (%) (Auto) 0.0 % Basophils (%) (Auto) 0.1 % Neutrophils # (Auto) 11.9 TH/MM3 Lymphocytes # (Auto) 0.2 TH/MM3 Monocytes # (Auto) 0.5 TH/MM3 Eosinophils # (Auto) 0.0 TH/MM3 Basophils # (Auto) 0.0 TH/MM3 CBC Comment DIFF FINAL Differential Comment Laboratory Tests Test 12/26/17 05:00 12/27/17 05:30 Blood Urea Nitrogen 157 MG/DL 99 MG/DL Creatinine 8.57 MG/DL 5.46 MG/DL Random Glucose 210 MG/DL 86 MG/DL Calcium Level 7.5 MG/DL 8.1 MG/DL Phosphorus Level 8.7 MG/DL Magnesium Level 2.4 MG/DL Sodium Level 132 MEQ/L 137 MEQ/L Potassium Level 4.8 MEQ/L 3.8 MEQ/L Chloride Level 90 MEQ/L 99 MEQ/L Carbon Dioxide Level 24.3 MEQ/L 25.0 MEQ/L Anion Gap 18 MEQ/L 13 MEQ/L Estimat Glomerular Filtration Rate 6 ML/MIN 10 ML/MIN Hemoglobin A1c 7.0 % Microbiology Date/Time Source Procedure Growth Status 12/23/17 18:05 Blood Peripheral Aerobic Blood Culture - Preliminary NO GROWTH IN 3 DAYS Resulted 12/23/17 18:05 Blood Peripheral Anaerobic Blood Culture - Preliminary NO GROWTH IN 3 DAYS Resulted 12/23/17 17:55 Blood Peripheral Aerobic Blood Culture - Preliminary NO GROWTH IN 3 DAYS Resulted 12/23/17 17:55 Blood Peripheral Anaerobic Blood Culture - Preliminary NO GROWTH IN 3 DAYS Resulted IMAGING: Chest X-Ray 12/26/17 0600 Signed Impressions: Service Date/Time: Tuesday, December 26, 2017 03:40 - CONCLUSION: Stable chest x-ray with left mid and lower lung zone airspace consolidation with small left pleural effusion. The cavitary nodule in the right lower lung zone is stable. Jakob Corley MD Chest X-Ray 12/25/17 0000 Signed Impressions: Service Date/Time: Monday, December 25, 2017 09:50 - CONCLUSION: 1. Persistent left basilar consolidation. 2. Cavitary lesion right lower lobe is stable. Leonard Vaughn MD Chest X-Ray 12/24/17 1600 Signed Impressions: Service Date/Time: Sunday, December 24, 2017 15:59 - CONCLUSION: Left basilar opacity is present may be due to a combination of consolidation and or pleural effusion progressed since the prior examination with significant mixed interstitial and alveolar process in the left lung not present previously measured edema. Axel Dyson MD Chest X-Ray 12/24/17 0000 Signed Impressions: Service Date/Time: Sunday, December 24, 2017 17:11 - CONCLUSION: Mild improvement in aeration of left upper lung, otherwise not significantly changed. Axel Dyson MD Chest X-Ray 12/23/17 1200 Signed Impressions: Service Date/Time: Saturday, December 23, 2017 12:26 - CONCLUSION: Reexpansion of the left lung with minimal left basilar density. Leonard Vaughn MD Chest X-Ray 12/22/17 0600 Signed Impressions: Service Date/Time: December 03:23 - CONCLUSION: 1. Development of increased density consolidation in the left lung. Differential diagnosis includes pneumonia and aspiration. 2. Improving right basilar airspace consolidation but with development of a suspected cavitary lesion measuring about 3.3 cm in diameter, probably infectious in nature. Khoa Franco MD Chest X-Ray 12/22/17 0000 Signed Impressions: Service Date/Time: December 18:53 - CONCLUSION: Worsening opacification of the left hemithorax compared to previous examination consistent with probable worsening diffuse consolidation and possible increased pleural fluid. Apparent cavitary lesion within the right lower lung field is stable. Multiple tubes and lines are stable. Sergey Brown MD Chest CT 12/22/17 0000 Signed Impressions: Service Date/Time: December 16:39 - CONCLUSION: 1. Multiple cavitary lesions in the right lung as well as a small nodule and larger nodule or mass. These findings are concerning for metastatic disease. 2. The left lung is completely opacified with air bronchograms and volume loss with mediastinal shift. Areas cut off of the left main bronchus with soft tissue density material which could indicate mucous plugging. 3. Mild to moderate cardiomegaly. Edy Laughlin MD PHYSICAL EXAMINATION: GENERAL: No acute distress. Sedated on the ventilator. HEENT: Head atraumatic. No icterus. Oropharynx intubated. Neck: Supple. No palpable adenopathy. Lungs: Decreased breath sounds bilateral. Heart: Irregular S1-S2. No audible murmur. Abdomen: Soft, No tenderness appreciated. Bowel sounds present. Extremities: No clubbing or cyanosis or edema. Skin: No diffuse rash. Neuro: Unable to assess. Psych: Unable to assess. IMPRESSION 1. Pneumonia due to MRSA and MDR pseudomonas. - mucous plugging. 2. Acute respiratory failure. Vent dependent. 3. End-stage renal disease. 4. Staph coag negative bacteremia. RECOMMENDATIONS 1. Change Zerbaxa to Zosyn. 2. Continue Levaquin. 3. Continue Linezolid. 4. Monitor clinical status. 5. Monitor WBC. Dave Waite MD Dec 27, 2017 11:55
[2017-12-27] MEDS: PIPERACIL-TAZO 2.25 GM PREMIX 50 ML IV SCH ×2 (13:32→21:40)
[2017-12-27] MEDS: MIDAZOLAM HCL 2 MG/2 ML VIAL IV PUSH PRN (15:19)
[2017-12-27] MEDS: ATORVASTATIN 10 MG TAB PO SCH (21:57)
[2017-12-28] VITALS (26 sets, daily range): BP systolic 83–165; BP diastolic 45–75; PULSE 53–93; RESP 13–138; TEMP 96.5–99.7; O2SAT 98–100
[2017-12-28] MEDS: PROPOFOL 1000 MG/100 ML INJ 100 ML IV PRN ×6 (00:57→23:18)
[2017-12-28] MEDS: oxyCODONE HCL ORAL CONC 5 MG/0.25 ML SYRINGE NG SCH ×4 (00:57→20:00)
[2017-12-28] MEDS: HEPARIN SODIUM - SQ 10,000 UNITS/ML VIAL SQ SCH ×2 (00:58→13:37)
[2017-12-28] MEDS: RESP: SODIUM CHLORIDE 3% 4 ML NEB NEB SCH ×4 (03:36→21:00)
[2017-12-28] MEDS: CHLORHEXIDINE GLUCONATE 2 % 1 PACK (2 CLOTHS) TOP SCH (04:00)
[2017-12-28] MEDS: INSULIN NovoLIN REGULAR SUPPLEMENTAL SCALE SQ SCH ×6 (04:00→20:00)
[2017-12-28] MEDS: PIPERACIL-TAZO 2.25 GM PREMIX 50 ML IV SCH ×3 (04:59→20:00)
[2017-12-28] MEDS: LINEZOLID 600 MG PREMIX 300 ML IV SCH ×2 (04:59→17:00)
[2017-12-28] MEDS: ARTIFICIAL TEARS OPTH SOLN 15 ML BTL EACH EYE SCH ×3 (05:00→22:00)
[2017-12-28] MEDS: HYDROCORTISONE SOD SUCCINATE 100 MG VIAL IV PUSH SCH ×3 (05:00→23:19)
[2017-12-28] MEDS: fentaNYL 2,500 MCG/NS 250 ML IV PRN ×2 (07:55→17:51)
[2017-12-28] MEDS: MUPIROCIN 2% OINT 1 APPLIC/GM SYR EACH NARE SCH ×2 (07:55→21:00)
[2017-12-28] MEDS: SODIUM CHLORIDE 0.9% FLUSH 10 ML FLUSH IVF PRN (07:56)
[2017-12-28] MEDS: SODIUM CHLORIDE 0.9% FLUSH 10 ML FLUSH IV FLUSH SCH (07:56)
[2017-12-28] MEDS: FAMOTIDINE 20 MG TAB NG SCH (07:56)
[2017-12-28] MEDS: CALCIUM ACETATE 667 MG CAP OG-TUBE SCH ×3 (07:56→17:28)
[2017-12-28] MEDS: SODIUM CHLORIDE 0.9% FLUSH 10 ML FLUSH IV FLUSH PRN (07:56)
[2017-12-28] MEDS: DOCUSATE SODIUM 50 MG/SENNA 8.6 MG TAB PO SCH ×2 (07:57→23:19)
[2017-12-28] MEDS: CARVEDILOL 3.125 MG TAB PO SCH ×2 (07:57→23:19)
[2017-12-28] MEDS: ASPIRIN 81 MG CHEW TAB PO SCH (07:57)
[2017-12-28] MEDS: QUEtiapine FUMARATE 25 MG TAB PO SCH ×2 (07:58→23:19)
[2017-12-28] MEDS: HYDROXYCHLOROQUINE SULFATE 200 MG TAB PO SCH (07:58)
[2017-12-28] MEDS: INSULIN DETEMIR 100 UNITS/ML VIAL SQ SCH ×2 (07:59→21:00)
--- NOTE | 2017-12-28 10:02 | HHI.CCPN ---
Subjective Remarks/Hospital Course Patient is a 72-year-old male with multiple medical comorbidities which include end-stage renal disease, hypertension, CHF, COPD, cardiomyopathy, hyperparathyroidism and anemia of chronic disease. He was brought into ED via EMS for respiratory distress and was given albuterol treatment x2 in addition to Solu-Medrol 125 mg IV prior to arrival. The patient was initially placed on BiPap without any significant relief. In the ED he was intubated with etomidate, succinylcholine and placed on full mechanical ventilation. When seen the patient is sedated with Diprivan and on fentanyl infusion. His laboratory data significant for hyperkalemia with potassium 6.3, BUN 53, creatinine in 8.63 and BNP of 1218. His chest x-ray showed ET tube above the reed, interstitial edema. Nephrology service was notified and the patient is currently receiving hemodialysis treatment. ABG postintubation showed a pH of 7.30, CO2 54, pAO2 454, bicarb 26, sats of 97%. 12/13 Patient is intubated on no sedation. Awake and alert, s/p HD yesterday with removal 3L. Afebrile. 12/14: Afebrile. Remains on propofol drip at 20 mcg/kg per minute. Episodic hypotension. Episodic hypoglycemia requiring D50. On D10 drip for hyperkalemia ? Per nephrology's orders, potassium currently normalized. We'll start tube feeding. Added cefepime for Pseudomonas in sputum 12/15: Afebrile. Tolerating tube feeding. Currently on PSV trial is tolerated well. Not following commands however moving all 4 extremities purposefully today than yesterday. 12/16 Patient remains intubated and on Fentanyl and Diprivan drip for sedation. s /p HD yesterday 12/17 No events overnight. s/p HD yesterday with removal 1.8L. Remains sedated with Fentanyl and intubated. Patient doesn't follow commands off sedation. CT brain yesterday showed no acute process. T:99.9 last night 12/18: Afebrile. Patient ET tube migrated upwards towards vocal cords in high probability aspirated tube feeding. Reintubated by overnight acid retort operator. Noted MRI brain revealed acute right and left parietal CVA. MRA brain and carotid Dopplers currently pending. Currently on baby aspirin. Also started on atorvastatin 10 mg daily. 12/19: Tmax 100. Central line placed yesterday due to hypotension. Currently norepinephrine and vasopressin drips. Wide pulse pressure arterial line. Tube feeds will be resumed. Stress dose steroids initiated. Last cortisol was 9. 12/20 Patient remains intubated and sedated with Diprivan and Fentanyl drips. On Levophed 8 mocs and Vasopressin 0.04. Afebrile. s/p HD yesterday with removal 4L. 12/21: Afebrile. Remains on propofol drip at 20 mcg/kg Per minute. On low- dose norepinephrine 2.5 g per minute as well. Remains quite agitated on the ventilator. 8 bowel movements overnight. C. difficile toxin is pending. Noted staph epi in blood 12/10 question kalie. ID consulted. On vancomycin 12/22: Tmax 100. Currently 99.7. CT chest today revealed 3 x 2 point centimeter right cavitary lesion along. Is mediastinal shift left dense infiltrate possible mucous plug left-sided. Status post bronchoscopy which essentially showed clearance of any significant degree/plugging. Follow chest x -ray revealed dense consolidation left lung. No pleural effusion. Labile blood pressure. 2: Resting currently in bed in no distress. Received quetiapine for agitation earlier. Remains on dexmedetomidine. Status post hemodialysis today. Subjective 12/24: FiO2 increased to 70% overnight. Currently back in 40%. Remains on dexmedetomidine drip. Tolerating tube feeds at goal. -3 L with hemodialysis yesterday. 12/25: Tmax 99.2. Patient noted to have open sacral wound care consulted for evaluation and treatment. Patient continues on sedation. Persistent hyperglycemia Levemir increased to 15 units twice a day. 12/26: No acute events overnight. WBC count downtrending. Patient underwent IHD today with approximately 3 L removed, required Levophed infusion to maintain MAP. Discussion with palliative care plan for possible decision of healthcare proxy tomorrow. 12/27: Afebrile .Patient was noted to have elevated residual tube feeds last night , tube feeds placed on hold. Patient was noted to be significant bradycardia carvedilol was held this a.m., Precedex was discontinued. Palliative care care meeting underway at this time for healthcare surrogate for decision making. 12/28: Afebrile. Remains sedated .No acute events overnight. Discussion with palliative care yesterday plan for compassionate withdrawal this afternoon. Objective Vital Signs Date Time Temp Pulse Resp B/P (MAP) Pulse Ox O2 Delivery O2 Flow Rate FiO2 12/28/17 09:36 100 40 12/28/17 09:00 65 128 91/50 (64) 12/28/17 08:00 97.6 Intake and Output 12/28/17 12/28/17 12/29/17 08:00 16:00 00:00 Intake Total 770 ml 50 ml Output Total 100 ml Balance 670 ml 50 ml Result Diagram: 12/27/17 0530 12/27/17 0530 Imaging Last Impressions Chest X-Ray 12/25/17 0000 Signed Impressions: Service Date/Time: Monday, December 25, 2017 09:50 - CONCLUSION: 1. Persistent left basilar consolidation. 2. Cavitary lesion right lower lobe is stable. Leonard Vaughn MD Chest CT 12/22/17 0000 Signed Impressions: Service Date/Time: December 16:39 - CONCLUSION: 1. Multiple cavitary lesions in the right lung as well as a small nodule and larger nodule or mass. These findings are concerning for metastatic disease. 2. The left lung is completely opacified with air bronchograms and volume loss with mediastinal shift. Areas cut off of the left main bronchus with soft tissue density material which could indicate mucous plugging. 3. Mild to moderate cardiomegaly. Edy Laughlin MD Abdomen X-Ray 12/20/17 0600 Signed Impressions: Service Date/Time: Wednesday, December 20, 2017 02:07 - CONCLUSION: 1. Moderate constipation with stool throughout large bowel. NG coiled in stomach. Khoa Franco MD Neck Magnetic Resonance Angiography 12/19/17 0000 Signed Impressions: Service Date/Time: Tuesday, December 19, 2017 12:24 - CONCLUSION: 1. Patent carotids and vertebrals. Marco Antonio Henriquez Jr., MD Head Magnetic Resonance Angiography 12/19/17 0000 Signed Impressions: Service Date/Time: Tuesday, December 19, 2017 12:24 - CONCLUSION: 1. No large vessel stenosis or aneurysm. 2. Normal variants as described above. Leonard Vaughn MD Brain MRI 12/17/17 0000 Signed Impressions: Service Date/Time: Sunday, December 17, 2017 11:33 - CONCLUSION: Small foci of retracted diffusion in the parietal periventricular white matter bilaterally indicating small acute infarcts. No other acute intracranial findings. Gatito Shipman MD Head CT 12/16/17 0000 Signed Impressions: Service Date/Time: Saturday, December 16, 2017 10:58 - CONCLUSION: No acute disease. Marco Antonio Henriquez Jr., MD Last Impressions Chest X-Ray 12/23/17 1200 Signed Impressions: Service Date/Time: Saturday, December 23, 2017 12:26 - CONCLUSION: Reexpansion of the left lung with minimal left basilar density. Leonard Vaughn MD Chest CT 12/22/17 0000 Signed Impressions: Service Date/Time: December 16:39 - CONCLUSION: 1. Multiple cavitary lesions in the right lung as well as a small nodule and larger nodule or mass. These findings are concerning for metastatic disease. 2. The left lung is completely opacified with air bronchograms and volume loss with mediastinal shift. Areas cut off of the left main bronchus with soft tissue density material which could indicate mucous plugging. 3. Mild to moderate cardiomegaly. Edy Laughlin MD Abdomen X-Ray 12/20/17 0600 Signed Impressions: Service Date/Time: Wednesday, December 20, 2017 02:07 - CONCLUSION: 1. Moderate constipation with stool throughout large bowel. NG coiled in stomach. Khoa Franco MD Neck Magnetic Resonance Angiography 12/19/17 0000 Signed Impressions: Service Date/Time: Tuesday, December 19, 2017 12:24 - CONCLUSION: 1. Patent carotids and vertebrals. Marco Antonio Henriquez Jr., MD Head Magnetic Resonance Angiography 12/19/17 0000 Signed Impressions: Service Date/Time: Tuesday, December 19, 2017 12:24 - CONCLUSION: 1. No large vessel stenosis or aneurysm. 2. Normal variants as described above. Leonard Vaughn MD Brain MRI 12/17/17 0000 Signed Impressions: Service Date/Time: Sunday, December 17, 2017 11:33 - CONCLUSION: Small foci of retracted diffusion in the parietal periventricular white matter bilaterally indicating small acute infarcts. No other acute intracranial findings. Gatito Shipman MD Head CT 12/16/17 0000 Signed Impressions: Service Date/Time: Saturday, December 16, 2017 10:58 - CONCLUSION: No acute disease. Marco Antonio Henriquez Jr., MD Objective Remarks GENERAL: 72-year-old male currently orotracheally intubated and sedated SKIN: Warm and dry. No rash HEAD: Normocephalic. Atraumatic EYES: Pupils are equally round and reactive at 3 mm. NECK: Supple, trachea midline. No JVD or lymphadenopathy. Right IJ CVL is clean dry and intact CARDIOVASCULAR: RRR. S1, S2. No S4. Without murmurs RESPIRATORY: Improved aeration/bronchus a sounds throughout the left lung uriostegui anteriorly and. Posteriorly. Right-sided subsequent to auscultation anteriorly and posteriorly. No wheezing GASTROINTESTINAL: Abdomen soft, non-tender, nondistended. MUSCULOSKELETAL: Trace lower extremity. Right upper extremity positive thrill and bruit Neuro: RASS -2. Moves all 4 extremity spontaneously. Date of Insertion: Dec 18, 2017 Line: Central Venous Catheter Side: Right Location: Internal, Jugular A/P Assessment and Plan Neuro/Psych: Peripheral neuropathy Right greater than left parietal CVA Monitor Neuro status. CT brain no acute findings 12/17 EEG revealed Sharp's triphasic right greater than left. No epileptiform discharges MRI brain 12/17 revealed 6 mm right parietal and tiny left parietal lacunar infarct in the periventricular white matter. MRA brain/neck 12/19: No large vessel stenosis or aneurysm. Aspirin 81 mg daily Atorvastatin 10 mg a day. Triglycerides elevated On Fentanyl currently at 250 mg an hour for sedation. Precedex infusion discontinued As needed midazolam 2 mg IV every 2 hours when necessary agitation Daily sedation vacation Goal of RASS -2 Continue gabapentin 300 mg daily for peripheral neuropathy Hydrochloroquine 200 mg daily for arthritis Added quetiapine 50 mg twice a day and scheduled oxycodone 5 mg every 6 hours attempt to wean off sedation Dr. Ace neurology following intermittently CV: Chronic diastolic heart failure - Mild pulmonary hypertension with pulmonary arterial pressure 46.7 mmHg Currently on norepinephrine at 2 mcg/m to maintain MAP>65mmHg Decrease hydrocortisone 50 mg Q 8 hours. Cortisol level 9 on 12/15 2-D echocardiogram reveals EF of 55-60%. Mild MR/TR. Pulmonary arterial Pressures 46.7 mmHg Holding carvedilol 3.125 mg twice a day in light of atrial fibrillation Received 1 dose of digoxin 0.25 mg on 12/15 Resp: Acute hypoxemic and hypercapnic respiratory failure Polymicrobial pneumonia - Pseudomonas and Haemophilus influenza Right cavitary lung mass History of COPD PRVC 18/500/11/28/39 Continue with vent support keep sat >92% Ventilator bundle Albuterol/ipratropium aerosols every 6 hours with albuterol aerosols every 2 hours. Dyspnea SBT daily as earle. CT thorax revealed 3 x 2.3 cm cavitary lesion. Mediastinal shift right to left. Left lower lobe collapse. Possible mucus plugging S/P bronchoscopy 12/22. Lukens trap obtained. Follow chest x-ray revealed dense consolidation left lung uriostegui. No masses on my bronchoscopy. Able to identify of left upper and lower lobes up to third subsegment without obstruction. GI: Constipation - resolved Nepro goal 55 cc an hour for nutrition's recommendations. Currently at 35 cc an hour KUB abdomen:Moderate constipation with stool throughout large bowel Famotidine 20 mg by tube daily for GI prophylaxis Docusate sodium/senna 1 tablet twice a day for bowel regimen. Metoclopramide 5 mg every 8 hours as needed nausea/high residuals C. difficile PCR- negative Endo: Hyperglycemia Secondary hyperparathyroidism Increase SSI to medium scale with accu checks Q4hr. Continue Cinacalet 30 mg daily for secondary hyperparathyroidism when able Cortisol level - 9 iPTH - 399 /FEN/Renal: End-stage renal disease on hemodialysis Tuesday/Tuesday/Tuesday Hyper-magnesium Hyperphosphatemia Monitor renal function, avoid nephrotoxins. HD per renal- Dr. Galarza Heme: Normocytic anemia/anemia of chronic kidney disease Leukocytosis..trending downward Monitor CBC daily. Follow trends Continue Epogen with hemodialysis ID: Haemophilus influenza/pseudomonas aeruginosa pneumonia/MRSA Staph epi bacteremia? Infectious disease consult for antibiotic management - Dr. Chen Currently on Zyvox, Zerbaxa, and Levaquin Pertinent cultures 12/12 - sputum - Haemophilus influenza, pseudomonas aeruginosa 12/12 - blood cultures 2 - no growth Follow up on sputum cx from 12/16: MRSA, H. Influenza, Pseudomonas Follow-up on blood cultures 12/18 staph epi Bronchoscopy 12/22 - Pseudomonas Repeat blood cultures 2 12/21 1 out of 4 coag negative staph. Repeat blood cultures 12/23 x 2 pending MSK: OP/OA PT evaluate and treat Access -Right IJ CVL day #8 placed 12/18 -Left radial arterial line 12/18.- 12/21 Prophylaxis - GI - famotidine - DVT - SCD/heparin subcutaneous Level 2 follow-up Dispo: Discussed with palliative care steam fitter supervisor maintenance Cindy Gatica, discussed with John Benito, decision made to perform compassionate withdrawal this afternoon . Discussed with GLOBAL TECHNICAL WRITER (Whitley) at bedside. Physician Lainey Cunha MD Dec 28, 2017 10:02
--- NOTE | 2017-12-28 11:41 | HHI.NPPN ---
Subjective General Problems: Anemia Renal Failure: Chronic, End Stage Renal Disease Interval History To be provided comfort measures today. No plans for dialysis. (Nancy Springer) Review of Systems General General Remarks unable to assess (Nancy Springer) Objective Data Data 12/28/17 12/29/17 19:00 07:00 Intake Total 300 ml Balance 300 ml IV Total 300 ml Vital Signs Date Time Temp Pulse Resp B/P (MAP) Pulse Ox O2 Delivery O2 Flow Rate FiO2 12/28/17 10:00 64 12/28/17 09:36 100 40 12/28/17 09:00 65 128 91/50 (64) 99 12/28/17 08:00 40 12/28/17 08:00 63 12/28/17 08:00 97.6 63 119 100/54 (69) 100 12/28/17 07:00 62 138 92/54 (67) 100 12/28/17 06:00 66 12/28/17 05:00 99.7 77 15 130/60 (83) 100 12/28/17 04:00 69 12/28/17 04:00 40 12/28/17 03:36 98 40 12/28/17 02:00 81 12/28/17 00:13 100 40 12/28/17 00:00 98.0 93 46 165/75 (105) 100 12/28/17 00:00 40 12/28/17 00:00 93 12/27/17 22:00 92 12/27/17 20:47 100 40 12/27/17 20:00 69 12/27/17 20:00 40 12/27/17 20:00 98.2 69 143 96/52 (67) 100 12/27/17 18:00 103 12/27/17 17:11 95 40 12/27/17 16:00 94 12/27/17 16:00 40 12/27/17 16:00 98.0 94 18 155/69 (97) 97 12/27/17 14:00 97 12/27/17 12:06 94 40 12/27/17 12:00 98.0 89 18 149/67 (94) 100 12/27/17 12:00 89 12/27/17 12:00 40 (Nancy Springer) -: 12/27/17 0530 12/27/17 0530 Tubes & Lines Comment TLC right IJ Drip Comment phenylephrine (Nancy Springer) Physical Exam General Appearance: Well Developed, Comfortable Appearance Remarks intubated, sedated (Nancy Springer) Eyes Eye Exam: Pupils Equal (Nancy Springer) Pulmonary Resp Exam: Breath Sounds Equal, Crackles, Rhonchi, Sputum, Decreased Bases Resp Remarks vented lung sounds (Nancy Springer) Cardiology CV Exam: Regular, Normal Sinus Rhythm, Good Perfusion (Nancy Springer) Gastrointestinal/Abdomen GI Exam: Soft, Non-Tender, Bowel Sounds Present (Nancy Springer) Musculoskeletal MS Exam: Joints Intact, Normal Tone (Nancy Springer) Integumentary Skin Exam: Clear, Warm, Dry, Intact (Nancy Springer) Extremeties Extremities Exam: No Edema, Pedal Pulses Palpable (Nancy Springer) Neurologic Neuro Exam: Awake, Moving All Extremities, Unresponsive, Sedated (Nancy Springer) VTE Prophylaxis Device: SCDs (Nancy Springer) Assessment/Plan Assessment Summary: Anemia of CKD, CHF, Diabetes Mellitus, End Stage Renal Disease Electrolyte Assessment: Hyperkalemia Problem List: (1) ESRD (end stage renal disease) ICD Codes: N18.6 - End-stage renal disease Status: Chronic Plan: The family has decided to convert to comfort measures. We will not dialyze him today. We will sign off at this time. (2) Respiratory failure ICD Codes: J96.90 - Respiratory failure, unspecified, unspecified whether with hypoxia or hypercapnia Plan: Planned extubation today. (3) Anemia ICD Codes: D64.9 - Anemia, unspecified (4) Secondary hyperparathyroidism of renal origin ICD Codes: N25.81 - Secondary hyperparathyroidism of renal origin Plan: Medications to be discontinued. (5) Encephalopathy ICD Codes: G93.40 - Encephalopathy, unspecified Plan: Palliative/hospice following Planned extubation. (Nancy Springer) Plan patient was seen and examined. Agree with above assessment and plan. (Tru Galarza MD) Nancy SpringerP Dec 28, 2017 11:41 Tru Galarza MD Dec 28, 2017 17:51
[2017-12-28] MEDS: LEVOFLOXACIN 250 MG PREMIX INJ 50 ML IV SCH (17:28)
--- NOTE | 2017-12-28 17:51 | HHI.HCPN ---
Reason for visit a. To assist with evaluation and management of symptoms including: Shortness of breath, restlessness/agitation, debility. b. To assist medical decision maker(s) with: better understanding of current medical conditions; weighing benefits/burdens of medical treatment options; making medical treatment decisions. . Subjective/Interval History Palliative care follow up for further clarification of goals of care. Patient seen in the medical ICU. He remains intratracheally intubated on mechanical ventilation. Currently 40% FiO2. , currently on propofol and fentanyl drip. Eyes closed, did not open to verbal or tactile stimuli. Meeting with patient's willianon John Benito. 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 Reviewed patient's past medical history, clinical course and current medical management. Reviewed overall poor prognosis given patient's multiple chronic ongoing comorbidities, end-stage renal disease on dialysis, acute respiratory failure with prolonged intubation, polymicrobial pneumonia, bacteremia, recent stroke and multiple pulmonary masses/lesions concerning of metastatic cancer. Reviewed that patient is not likely to be medically extubated. Reviewed options to include trach PEG versus compassionate withdrawal of life support given overall poor prognosis. Patient's willianon verbalized being unsure about serving as healthcare proxy. He reports feeling this way as he never had a chance to talk to patient about "this type of issues". Kelsie reports that he will like to go to patient's house to search for any type of documentation or guidance. Discussed with kelsie that we have been in contact with patient's primary care doctor and dialysis center, both of which declined having any advance directives from patient. Kelsie receptive to palliative care follow up tomorrow after 2 PM. Goals of therapy aggressive by default. Case discussed with Dr. Russ and bedside RN Whitley. Nephrology has made aware, dialysis patient. . Family/friend interactions See interval note. . Advance Directives Advance Directive Specifics Health Care Surrogate(s): Unclear if advance directives have been completed. Healthcare proxy decision maker to be determined. . Significant change in goals: Goals aggressive by default. . Objective Vital Signs Date Time Temp Pulse Resp B/P (MAP) Pulse Ox O2 Delivery O2 Flow Rate FiO2 12/28/17 16:00 97.9 63 62 96/53 (67) 100 12/28/17 16:00 40 2/7/18 16:00 63 12/28/17 15:00 54 26 89/53 (65) 99 12/28/17 14:00 62 12/28/17 14:00 62 23 128/62 (84) 100 12/28/17 13:00 53 96 83/45 (58) 100 12/28/17 12:47 100 40 12/28/17 12:00 40 12/28/17 12:00 53 12/28/17 12:00 96.5 53 37 84/49 (61) 100 12/28/17 11:00 62 22 89/52 (64) 100 12/28/17 10:00 64 12/28/17 10:00 64 46 88/52 (64) 100 12/28/17 09:36 100 40 12/28/17 09:00 65 128 91/50 (64) 99 12/28/17 08:00 40 12/28/17 08:00 63 12/28/17 08:00 97.6 63 119 100/54 (69) 100 12/28/17 07:00 62 138 92/54 (67) 100 12/28/17 06:00 66 12/28/17 05:00 99.7 77 15 130/60 (83) 100 12/28/17 04:00 69 12/28/17 04:00 40 12/28/17 03:36 98 40 12/28/17 02:00 81 12/28/17 00:13 100 40 12/28/17 00:00 98.0 93 46 165/75 (105) 100 12/28/17 00:00 40 12/28/17 00:00 93 12/27/17 22:00 92 12/27/17 20:47 100 40 12/27/17 20:00 69 12/27/17 20:00 40 12/27/17 20:00 98.2 69 143 96/52 (67) 100 12/27/17 18:00 103 Intake & Output 12/28/17 12/28/17 07:00 19:00 Intake Total 870 ml 473.1 ml Output Total 100 ml Balance 770 ml 473.1 ml IV Total 550 ml 473.1 ml Tube Feeding 200 ml Other 120 ml Output Urine Total 0 ml Stool Total 100 ml Physical Exam CONSTITUTIONAL/GENERAL: This is an adequately nourished elderly man in no acute distress. TUBES/LINES/DRAINS: ETT, OG, Murillo catheter, right IJ, soft wrist restraints. Rectal tube. SKIN: No jaundice, rashes, or lesions. Ecchymoses on upper extremities. No wounds seen anteriorly. Skin temperature appropriate. Not diaphoretic. HEAD: Atraumatic. Normocephalic. EYES: Pupils equal and round and reactive. No scleral icterus. No injection or drainage. Fundi not examined. ENT: Unable to evaluate hearing secondary to clinical condition. Nose without bleeding or purulent drainage. Moist oral cause a. NECK: Trachea midline. Supple. CARDIOVASCULAR: Regular rate and rhythm. Peripheral pulses symmetric. RESPIRATORY/CHEST: Symmetric, coarse sounds bilaterally. Endotracheal intubated on mechanical ventilation. GASTROINTESTINAL: Abdomen large, round, soft. Bowel sounds present, hyperactive. GENITOURINARY: Without palpable bladder distension. Murillo catheter in place. MUSCULOSKELETAL: Extremities without clubbing, cyanosis, or edema. No mottling or clubbing. NEUROLOGICAL: Not following any commands or attempting to communicate. Moves all extremities spontaneously. PSYCHIATRIC: Unable to evaluate given her clinical condition, appears calm. . Diagnostic Tests Laboratory Laboratory Tests Test 12/26/17 05:00 12/27/17 05:30 White Blood Count 12.7 TH/MM3 (4.0-11.0) 14.9 TH/MM3 (4.0-11.0) Red Blood Count 2.65 MIL/MM3 (4.50-5.90) 2.79 MIL/MM3 (4.50-5.90) Hemoglobin 8.0 GM/DL (13.0-17.0) 8.5 GM/DL (13.0-17.0) Hematocrit 24.0 % (39.0-51.0) 25.8 % (39.0-51.0) Mean Corpuscular Volume 90.4 FL (80.0-100.0) 92.3 FL (80.0-100.0) Mean Corpuscular Hemoglobin 30.1 PG (27.0-34.0) 30.3 PG (27.0-34.0) Mean Corpuscular Hemoglobin Concent 33.3 % (32.0-36.0) 32.8 % (32.0-36.0) Red Cell Distribution Width 15.4 % (11.6-17.2) 15.8 % (11.6-17.2) Platelet Count 201 TH/MM3 (150-450) 220 TH/MM3 (150-450) Mean Platelet Volume 7.9 FL (7.0-11.0) 8.3 FL (7.0-11.0) Neutrophils (%) (Auto) 94.3 % (16.0-70.0) Lymphocytes (%) (Auto) 1.6 % (9.0-44.0) Monocytes (%) (Auto) 4.0 % (0.0-8.0) Eosinophils (%) (Auto) 0.0 % (0.0-4.0) Basophils (%) (Auto) 0.1 % (0.0-2.0) Neutrophils # (Auto) 11.9 TH/MM3 (1.8-7.7) Lymphocytes # (Auto) 0.2 TH/MM3 (1.0-4.8) Monocytes # (Auto) 0.5 TH/MM3 (0-0.9) Eosinophils # (Auto) 0.0 TH/MM3 (0-0.4) Basophils # (Auto) 0.0 TH/MM3 (0-0.2) CBC Comment DIFF FINAL Differential Comment Blood Urea Nitrogen 157 MG/DL (7-18) 99 MG/DL (7-18) Creatinine 8.57 MG/DL (0.60-1.30) 5.46 MG/DL (0.60-1.30) Random Glucose 210 MG/DL (74-106) 86 MG/DL (74-106) Calcium Level 7.5 MG/DL (8.5-10.1) 8.1 MG/DL (8.5-10.1) Phosphorus Level 8.7 MG/DL (2.5-4.9) Magnesium Level 2.4 MG/DL (1.5-2.5) Sodium Level 132 MEQ/L (136-145) 137 MEQ/L (136-145) Potassium Level 4.8 MEQ/L (3.5-5.1) 3.8 MEQ/L (3.5-5.1) Chloride Level 90 MEQ/L (98-107) 99 MEQ/L (98-107) Carbon Dioxide Level 24.3 MEQ/L (21.0-32.0) 25.0 MEQ/L (21.0-32.0) Anion Gap 18 MEQ/L (5-15) 13 MEQ/L (5-15) Estimat Glomerular Filtration Rate 6 ML/MIN (>89) 10 ML/MIN (>89) Hemoglobin A1c 7.0 % (4.3-6.0) Result Diagram: 12/27/17 0530 12/27/17 0530 Procedures * 12/12/17 -endotracheal intubation. * 12/22/17 -bronchoscopy * 12/24/17 -bronchoscopy . Assessment and Plan Disease Oriented Problem List: (1) Respiratory failure (2) Pneumonia (3) Cerebrovascular accident (CVA) (4) ESRD (end stage renal disease) (5) Encephalopathy (6) Congestive heart failure Symptom Scale: (1) Anxiety 0-10 Scale: Unable to quantify (2) Pain 0-10 Scale: Unable to quantify (3) Shortness of breath 0-10 Scale: Unable to quantify Pertinent Non-Medical Issues Psychosocial: Retired, , lives alone. in 2008. Spiritual: Jehovah Witness. Legal: Appears that no advance directives have been completed. Ethical issues impacting care: Pending designation of healthcare proxy decision maker. Patient unable to participating in medical decision-making secondary to clinical condition. . Important Contacts Kelsie Castvier Thong . Sister Lesa Pickard . . Prognosis Mr. Sy is a 72-year-old male with a medical history significant for end- stage renal disease on hemodialysis, COPD, CHF, cardiomyopathy and anemia of chronic disease. Patient presented to ED via EMS on 12/12/17 endorsing worsening shortness of breath. Clinical course complicated by acute respiratory failure requiring intubation and mechanical ventilation. Clinical course further complicated by acute CVA, pneumonia, persistent respiratory failure, sepsis. Patient's prognosis is guarded. Very high risk for further complications, clinical decline and . . Code Status: Full Code Plan * CODE STATUS: Full code by default. * HEALTHCARE DECISION-MAKING: Patient is incapacitated for medical decision- making secondary to clinical condition, s/p CVA, intubated on mechanical ventilation. Patient will not regain medical decision-making capacity. No advance directives completed. Patient is , multiple attempts at contacting blood relatives to no avail. Case discussed with [place] legal department. As per [place] statute 765.401 (g), patient's kelsie Benito may serve as healthcare proxy decision maker as close friend. * GOALS OF CARE: 12/28/17 =Goals are aggressive by default. Kelsie Benito identified as proxy decision maker, however, pending acceptance of role. Kelsie has verbalized his willingness to act in this role on multiple occasions since patient's admission. however, today he reports being unsure about serving as healthcare proxy. He reports feeling this way as he never had a chance to talk to patient about "this type of issues". Kelsie reports that he will like to go to patient's house to search for any type of documentation or guidance. Kelsie receptive to palliative care follow up tomorrow 07/08 after 2 PM. Trach/PEG vs compassionate withdrawal life support has been discussed in great detail with kelsie. Exhibit C has been signed. * SYMPTOMS: = Shortness of breath, secondary to respiratory failure. Currently intubated on mechanical ventilation. Unlikely to be medically extubated, trach and PEG decision approaching. = Pain, history of chronic pain and neuropathy. Ongoing Fentanyl infusion, patient appears calm. = Anxiety/agitation: Currently on propofol and fentanyl drip. Patient appears calm. * Case discussed with Dr. Russ and bedside RN Jud. * Palliative care contact information has been provided to patient's kelsie Lopez. * Palliative care will continue to follow-up for further clarifications of goals of care as patient's clinical course continues to evolve. . Time Spent Total Floor Time (mins): 55 (Total time to include review medical records, physical exam, goals of care conversation with patient's step son, case discussion with Dr. Russ bedside RN.) >50% Counseling/Coord of Care: Yes Attestation To help prompt me to consider important information that might be impacting today's encounter and assessment, information from prior notes written by myself or my colleagues may have been "brought forward" into today's note. My signature on this note, however, is an attestation that I personally performed the exam, history, and/or decision-making noted today, and, unless otherwise indicated, the interactions with patient, family, and staff as well as the review of records all occurred today. I also attest that the listed assessment and stated plan reflect my best clinical judgment today based on the combination of historical information, prior notes, and today's exam/ interactions. When time spent is documented, it refers only to time spent today by the signer, or if indicated, combined time spent today by collaborating physician/nurse practitioner. Cindy Gatica Dec 28, 2017 17:51
[2017-12-28] MEDS: RESP: ALBUTEROL 2.5 MG/3 ML NEB (PRN) NEB (20:59)
[2017-12-28] MEDS: ATORVASTATIN 10 MG TAB PO SCH (23:19)
[2017-12-29] VITALS (24 sets, daily range): BP systolic 62–163; BP diastolic 37–87; PULSE 78–149; RESP 0–124; TEMP 97.5–100; O2SAT 98–100
[2017-12-29] MEDS: oxyCODONE HCL ORAL CONC 5 MG/0.25 ML SYRINGE NG SCH ×4 (02:00→20:23)
[2017-12-29] MEDS: PIPERACIL-TAZO 2.25 GM PREMIX 50 ML IV SCH ×3 (02:38→20:22)
[2017-12-29] MEDS: HEPARIN SODIUM - SQ 10,000 UNITS/ML VIAL SQ SCH ×2 (02:38→14:00)
[2017-12-29] MEDS: CHLORHEXIDINE GLUCONATE 2 % 1 PACK (2 CLOTHS) TOP SCH (02:39)
[2017-12-29] MEDS: PROPOFOL 1000 MG/100 ML INJ 100 ML IV PRN ×4 (02:42→20:25)
[2017-12-29] MEDS ORDERED: RESP: ALBUTEROL 2.5 MG/3 ML NEB (SCH) ONE (03:28)
[2017-12-29] MEDS: INSULIN NovoLIN REGULAR SUPPLEMENTAL SCALE SQ SCH ×7 (03:33→23:55)
[2017-12-29] MEDS: MIDAZOLAM HCL 2 MG/2 ML VIAL IV PUSH PRN (03:33)
--- NOTE | 2017-12-29 04:03 | RADRPT ---
EXAM DATE/TIME: 12/29/2017 03:11 [facility] COMPARISON: CT THORAX W/O CONTRAST, December 22, 2017, 16:39. CHEST SINGLE AP, December 26, 2017, 3:40. INDICATIONS : Shortness of breath, possible pulmonary disease. MEDICAL HISTORY : Congestive heart failure. Hypertension SURGICAL HISTORY : None. ENCOUNTER: Subsequent ACUITY: 2 weeks PAIN SCORE: Non-responsive. LOCATION: Bilateral chest FINDINGS: Portable AP view of the chest demonstrates a normal-sized cardiac silhouette. ETT, nasogastric tube, and right IJ central line remain present. There is stable left basilar pleural-parenchymal opacity. N o pneumothorax is identified. Cavitary-appearing nodule in the right lower lungs is stable. CONCLUSION: 1. Stable chest x-ray with left pleural effusion with associated volume loss and/or airspace consolid ation. 2. Stable right lung cavitary nodule. Jakob Corley MD on December 29, 2017 at 4:00 Board Certified Radiologist. This report was verified electronically.
[2017-12-29] MEDS: RESP: SODIUM CHLORIDE 3% 4 ML NEB NEB SCH ×3 (04:52→15:33)
[2017-12-29] MEDS ORDERED: METOPROLOL TARTRATE 5 MG/5 ML VIAL ONE (05:02)
[2017-12-29] MEDS: fentaNYL 2,500 MCG/NS 250 ML IV PRN ×2 (05:12→16:00)
[2017-12-29] MEDS: LINEZOLID 600 MG PREMIX 300 ML IV SCH (05:12)
[2017-12-29] MEDS: HYDROCORTISONE SOD SUCCINATE 100 MG VIAL IV PUSH SCH ×3 (05:12→20:22)
[2017-12-29] MEDS: ARTIFICIAL TEARS OPTH SOLN 15 ML BTL EACH EYE SCH ×3 (05:13→20:24)
[2017-12-29] MEDS ORDERED: METOPROLOL TARTRATE 5 MG/5 ML VIAL IV PUSH ONE (05:15)
[2017-12-29 05:38] LABS: HEMATOCRIT 24.9 % (39.0-51.0); HEMOGLOBIN 8.1 GM/DL (13.0-17.0); MEAN CELL VOLUME 91.6 FL (80.0-100.0); MEAN CORPUSCULAR HEMOGLOBIN 29.7 PG (27.0-34.0); MEAN CORPUSCULAR HGB CONC 32.4 % (32.0-36.0); MEAN PLATELET VOLUME 7.8 FL (7.0-11.0); PLATELET COUNT 297 TH/MM3 (150-450); RED BLOOD COUNT 2.72 MIL/MM3 (4.50-5.90); RED CELL DISTRIBUTION WIDTH 16.8 % (11.6-17.2); WHITE BLOOD COUNT 22.8 TH/MM3 (4.0-11.0)
[2017-12-29 05:39] LABS: CALCIUM 8.2 MG/DL (8.5-10.1); CREATININE 4.73 MG/DL (0.60-1.30); MAGNESIUM 2.1 MG/DL (1.5-2.5); PHOSPHORUS 5.9 MG/DL (2.5-4.9)
[2017-12-29] MEDS ORDERED: AMIODARONE INJ 450 MG in SODIUM CHLOR 0.9% (EXCEL) INJ 250 ML IV PRN (05:41)
[2017-12-29] MEDS: SODIUM CHLORIDE 0.9% FLUSH 10 ML FLUSH IV FLUSH PRN (08:10)
[2017-12-29] MEDS: SODIUM CHLORIDE 0.9% FLUSH 10 ML FLUSH IVF PRN (08:10)
[2017-12-29] MEDS: SODIUM CHLORIDE 0.9% FLUSH 10 ML FLUSH IV FLUSH SCH (08:10)
[2017-12-29] MEDS: MUPIROCIN 2% OINT 1 APPLIC/GM SYR EACH NARE SCH ×2 (08:10→20:23)
[2017-12-29] MEDS: CALCIUM ACETATE 667 MG CAP OG-TUBE SCH ×3 (08:11→17:25)
[2017-12-29] MEDS: QUEtiapine FUMARATE 25 MG TAB PO SCH ×2 (08:11→20:23)
[2017-12-29] MEDS: CARVEDILOL 3.125 MG TAB PO SCH ×2 (08:11→20:23)
[2017-12-29] MEDS: FAMOTIDINE 20 MG TAB NG SCH (08:11)
[2017-12-29] MEDS: INSULIN DETEMIR 100 UNITS/ML VIAL SQ SCH ×2 (08:11→20:24)
[2017-12-29] MEDS: ASPIRIN 81 MG CHEW TAB PO SCH (08:11)
[2017-12-29] MEDS: HYDROXYCHLOROQUINE SULFATE 200 MG TAB PO SCH (08:11)
[2017-12-29] MEDS: DOCUSATE SODIUM 50 MG/SENNA 8.6 MG TAB PO SCH ×2 (08:11→20:23)
--- NOTE | 2017-12-29 09:44 | HHI.CCPN ---
Subjective Remarks/Hospital Course Patient is a 72-year-old male with multiple medical comorbidities which include end-stage renal disease, hypertension, CHF, COPD, cardiomyopathy, hyperparathyroidism and anemia of chronic disease. He was brought into ED via EMS for respiratory distress and was given albuterol treatment x2 in addition to Solu-Medrol 125 mg IV prior to arrival. The patient was initially placed on BiPap without any significant relief. In the ED he was intubated with etomidate, succinylcholine and placed on full mechanical ventilation. When seen the patient is sedated with Diprivan and on fentanyl infusion. His laboratory data significant for hyperkalemia with potassium 6.3, BUN 53, creatinine in 8.63 and BNP of 1218. His chest x-ray showed ET tube above the reed, interstitial edema. Nephrology service was notified and the patient is currently receiving hemodialysis treatment. ABG postintubation showed a pH of 7.30, CO2 54, pAO2 454, bicarb 26, sats of 97%. 12/13 Patient is intubated on no sedation. Awake and alert, s/p HD yesterday with removal 3L. Afebrile. 12/14: Afebrile. Remains on propofol drip at 20 mcg/kg per minute. Episodic hypotension. Episodic hypoglycemia requiring D50. On D10 drip for hyperkalemia ? Per nephrology's orders, potassium currently normalized. We'll start tube feeding. Added cefepime for Pseudomonas in sputum 12/15: Afebrile. Tolerating tube feeding. Currently on PSV trial is tolerated well. Not following commands however moving all 4 extremities purposefully today than yesterday. 12/16 Patient remains intubated and on Fentanyl and Diprivan drip for sedation. s /p HD yesterday 12/17 No events overnight. s/p HD yesterday with removal 1.8L. Remains sedated with Fentanyl and intubated. Patient doesn't follow commands off sedation. CT brain yesterday showed no acute process. T:99.9 last night 12/18: Afebrile. Patient ET tube migrated upwards towards vocal cords in high probability aspirated tube feeding. Reintubated by overnight cargo service agent. Noted MRI brain revealed acute right and left parietal CVA. MRA brain and carotid Dopplers currently pending. Currently on baby aspirin. Also started on atorvastatin 10 mg daily. 12/19: Tmax 100. Central line placed yesterday due to hypotension. Currently norepinephrine and vasopressin drips. Wide pulse pressure arterial line. Tube feeds will be resumed. Stress dose steroids initiated. Last cortisol was 9. 12/20 Patient remains intubated and sedated with Diprivan and Fentanyl drips. On Levophed 8 mocs and Vasopressin 0.04. Afebrile. s/p HD yesterday with removal 4L. 12/21: Afebrile. Remains on propofol drip at 20 mcg/kg Per minute. On low- dose norepinephrine 2.5 g per minute as well. Remains quite agitated on the ventilator. 8 bowel movements overnight. C. difficile toxin is pending. Noted staph epi in blood 12/10 question kalie. ID consulted. On vancomycin 12/22: Tmax 100. Currently 99.7. CT chest today revealed 3 x 2 point centimeter right cavitary lesion along. Is mediastinal shift left dense infiltrate possible mucous plug left-sided. Status post bronchoscopy which essentially showed clearance of any significant degree/plugging. Follow chest x -ray revealed dense consolidation left lung. No pleural effusion. Labile blood pressure. 2: Resting currently in bed in no distress. Received quetiapine for agitation earlier. Remains on dexmedetomidine. Status post hemodialysis today. Subjective 12/24: FiO2 increased to 70% overnight. Currently back in 40%. Remains on dexmedetomidine drip. Tolerating tube feeds at goal. -3 L with hemodialysis yesterday. 12/25: Tmax 99.2. Patient noted to have open sacral wound care consulted for evaluation and treatment. Patient continues on sedation. Persistent hyperglycemia Levemir increased to 15 units twice a day. 12/26: No acute events overnight. WBC count downtrending. Patient underwent IHD today with approximately 3 L removed, required Levophed infusion to maintain MAP. Discussion with palliative care plan for possible decision of healthcare proxy tomorrow. 12/27: Afebrile .Patient was noted to have elevated residual tube feeds last night , tube feeds placed on hold. Patient was noted to be significant bradycardia carvedilol was held this a.m., Precedex was discontinued. Palliative care care meeting underway at this time for healthcare surrogate for decision making. 12/28: Afebrile. Remains sedated .No acute events overnight. Discussion with palliative care yesterday plan for compassionate withdrawal this afternoon. 12/29: Last evening tentative plan for compassionate with draw rescinded by the patient's POA, John Benito and his ring spinner. Patient made CODE STATUS. Family plans reconsideration today, to determine goals of care. Overnight the patient went into A. fib RVR heart rate in the 130s. Amiodarone infusion instituted. The patient on propofol and fentanyl sedation for ventilator synchrony. Legal documentation has been obtained to determine the POA meeting planned with palliative care team for possible this afternoon. Objective Vital Signs Date Time Temp Pulse Resp B/P (MAP) Pulse Ox O2 Delivery O2 Flow Rate FiO2 12/29/17 09:00 126 18 62/37 (45) 100 12/29/17 08:28 40 12/29/17 04:00 100.0 Intake and Output 12/29/17 12/29/17 12/30/17 08:00 16:00 00:00 Intake Total 288 ml Output Total 100 ml Balance 188 ml Result Diagram: 12/29/17 0340 12/29/17 0340 Imaging Last Impressions Chest X-Ray 12/25/17 0000 Signed Impressions: Service Date/Time: Monday, December 25, 2017 09:50 - CONCLUSION: 1. Persistent left basilar consolidation. 2. Cavitary lesion right lower lobe is stable. Leonard Vaughn MD Chest CT 12/22/17 0000 Signed Impressions: Service Date/Time: December 16:39 - CONCLUSION: 1. Multiple cavitary lesions in the right lung as well as a small nodule and larger nodule or mass. These findings are concerning for metastatic disease. 2. The left lung is completely opacified with air bronchograms and volume loss with mediastinal shift. Areas cut off of the left main bronchus with soft tissue density material which could indicate mucous plugging. 3. Mild to moderate cardiomegaly. Edy Laughlin MD Abdomen X-Ray 12/20/17 0600 Signed Impressions: Service Date/Time: Wednesday, December 20, 2017 02:07 - CONCLUSION: 1. Moderate constipation with stool throughout large bowel. NG coiled in stomach. Khoa Franco MD Neck Magnetic Resonance Angiography 12/19/17 0000 Signed Impressions: Service Date/Time: Tuesday, December 19, 2017 12:24 - CONCLUSION: 1. Patent carotids and vertebrals. Marco Antonio Henriquez Jr., MD Head Magnetic Resonance Angiography 12/19/17 0000 Signed Impressions: Service Date/Time: Tuesday, December 19, 2017 12:24 - CONCLUSION: 1. No large vessel stenosis or aneurysm. 2. Normal variants as described above. Leonard Vaughn MD Brain MRI 12/17/17 0000 Signed Impressions: Service Date/Time: Sunday, December 17, 2017 11:33 - CONCLUSION: Small foci of retracted diffusion in the parietal periventricular white matter bilaterally indicating small acute infarcts. No other acute intracranial findings. Gatito Shipman MD Head CT 12/16/17 0000 Signed Impressions: Service Date/Time: Saturday, December 16, 2017 10:58 - CONCLUSION: No acute disease. Marco Antonio Henriquez Jr., MD Last Impressions Chest X-Ray 12/23/17 1200 Signed Impressions: Service Date/Time: Saturday, December 23, 2017 12:26 - CONCLUSION: Reexpansion of the left lung with minimal left basilar density. Leonard Vaughn MD Chest CT 12/22/17 0000 Signed Impressions: Service Date/Time: December 16:39 - CONCLUSION: 1. Multiple cavitary lesions in the right lung as well as a small nodule and larger nodule or mass. These findings are concerning for metastatic disease. 2. The left lung is completely opacified with air bronchograms and volume loss with mediastinal shift. Areas cut off of the left main bronchus with soft tissue density material which could indicate mucous plugging. 3. Mild to moderate cardiomegaly. Edy Laughlin MD Abdomen X-Ray 12/20/17 0600 Signed Impressions: Service Date/Time: Wednesday, December 20, 2017 02:07 - CONCLUSION: 1. Moderate constipation with stool throughout large bowel. NG coiled in stomach. Khoa Franco MD Neck Magnetic Resonance Angiography 12/19/17 0000 Signed Impressions: Service Date/Time: Tuesday, December 19, 2017 12:24 - CONCLUSION: 1. Patent carotids and vertebrals. Marco Antonio Henriquez Jr., MD Head Magnetic Resonance Angiography 12/19/17 0000 Signed Impressions: Service Date/Time: Tuesday, December 19, 2017 12:24 - CONCLUSION: 1. No large vessel stenosis or aneurysm. 2. Normal variants as described above. Leonard Vaughn MD Brain MRI 12/17/17 0000 Signed Impressions: Service Date/Time: Sunday, December 17, 2017 11:33 - CONCLUSION: Small foci of retracted diffusion in the parietal periventricular white matter bilaterally indicating small acute infarcts. No other acute intracranial findings. Gatito Shipman MD Head CT 12/16/17 0000 Signed Impressions: Service Date/Time: Saturday, December 16, 2017 10:58 - CONCLUSION: No acute disease. Marco Antonio Henriquez Jr., MD Objective Remarks GENERAL: 72-year-old male currently orotracheally intubated and sedated SKIN: Warm and dry. No rash HEAD: Normocephalic. Atraumatic EYES: Pupils are equally round and reactive at 3 mm. NECK: Supple, trachea midline. No JVD or lymphadenopathy. Right IJ CVL is clean dry and intact CARDIOVASCULAR: RRR. S1, S2. No S4. Without murmurs RESPIRATORY: Improved aeration/bronchus a sounds throughout the left lung uriostegui anteriorly and. Posteriorly. Right-sided subsequent to auscultation anteriorly and posteriorly. No wheezing GASTROINTESTINAL: Abdomen soft, non-tender, nondistended. MUSCULOSKELETAL: Trace lower extremity. Right upper extremity positive thrill and bruit Neuro: RASS -2. Moves all 4 extremity spontaneously. Does not follow any commands. Date of Insertion: Dec 18, 2017 Line: Central Venous Catheter Side: Right Location: Internal, Jugular A/P Assessment and Plan Neuro/Psych: Peripheral neuropathy Right greater than left parietal CVA Monitor Neuro status. CT brain no acute findings 12/17 EEG revealed Sharp's triphasic right greater than left. No epileptiform discharges MRI brain 12/17 revealed 6 mm right parietal and tiny left parietal lacunar infarct in the periventricular white matter. MRA brain/neck 12/19: No large vessel stenosis or aneurysm. Aspirin 81 mg daily Atorvastatin 10 mg a day. Triglycerides elevated On Fentanyl currently at 250 mg an hour and propofol for sedation. Precedex infusion discontinued As needed midazolam 2 mg IV every 2 hours when necessary agitation Daily sedation vacation Goal of RASS -2 Continue gabapentin 300 mg daily for peripheral neuropathy Hydrochloroquine 200 mg daily for arthritis Added quetiapine 50 mg twice a day and scheduled oxycodone 5 mg every 6 hours attempt to wean off sedation Dr. Ace neurology following intermittently CV: Chronic diastolic heart failure - Mild pulmonary hypertension with pulmonary arterial pressure 46.7 mmHg Maintain MAP>65mmHg Decrease hydrocortisone 50 mg Q 8 hours. Cortisol level 9 on 12/15 2-D echocardiogram reveals EF of 55-60%. Mild MR/TR. Pulmonary arterial Pressures 46.7 mmHg Holding carvedilol 3.125 mg twice a day in light of atrial fibrillation Received 1 dose of digoxin 0.25 mg on 12/15 Resp: Acute hypoxemic and hypercapnic respiratory failure Polymicrobial pneumonia - Pseudomonas and Haemophilus influenza Right cavitary lung mass [facility] Continue with vent support keep sat >92% Ventilator bundle Albuterol/ipratropium aerosols every 6 hours with albuterol aerosols every 2 hours. Dyspnea SBT daily as earle. CT thorax revealed 3 x 2.3 cm cavitary lesion. Mediastinal shift right to left. Left lower lobe collapse. Possible mucus plugging S/P bronchoscopy 12/22. Lukens trap obtained. Follow chest x-ray revealed dense consolidation left lung uriostegui. No masses on my bronchoscopy. Able to identify of left upper and lower lobes up to third subsegment without obstruction. GI: Constipation - resolved Nepro goal 55 cc an hour for nutrition's recommendations. Currently at 35 cc an hour KUB abdomen:Moderate constipation with stool throughout large bowel Famotidine 20 mg by tube daily for GI prophylaxis Docusate sodium/senna 1 tablet twice a day for bowel regimen. Metoclopramide 5 mg every 8 hours as needed nausea/high residuals C. difficile PCR- negative Endo: Hyperglycemia Secondary hyperparathyroidism Increase SSI to medium scale with accu checks Q4hr. Continue Cinacalet 30 mg daily for secondary hyperparathyroidism when able Cortisol level - 9 iPTH - 399 /FEN/Renal: End-stage renal disease on hemodialysis Tuesday/Tuesday/Tuesday Hyper-magnesium Hyperphosphatemia Monitor renal function, avoid nephrotoxins. HD per renal- Dr. Galarza Heme: Normocytic anemia/anemia of chronic kidney disease Leukocytosis..trending downward Monitor CBC daily. Follow trends Continue Epogen with hemodialysis ID: Haemophilus influenza/pseudomonas aeruginosa pneumonia/MRSA Staph epi bacteremia? Persistent leukocytosis Infectious disease consult for antibiotic management - Dr. Chen Currently on Zyvox, Zerbaxa, and Levaquin WBC 14->22 today, continue to monitor Pertinent cultures 12/12 - sputum - Haemophilus influenza, pseudomonas aeruginosa 12/12 - blood cultures 2 - no growth Follow up on sputum cx from 12/16: MRSA, H. Influenza, Pseudomonas Follow-up on blood cultures 12/18 staph epi Bronchoscopy 12/22 - Pseudomonas Repeat blood cultures 2 12/21 1 out of 4 coag negative staph. Repeat blood cultures 12/23 x 2 pending MSK: OP/OA PT evaluate and treat Access -Right IJ CVL day #8 placed 12/18 -Left radial arterial line 12/18.- 12/21 Prophylaxis - GI - famotidine - DVT - SCD/heparin subcutaneous Level 2 follow-up Dispo: Discussed with palliative care team assembler ERIC Kapoor, decision made to resend compassionate withdrawal patient made full CODE STATUS last night. POCresencio would like to reconsider possible passionate withdrawal this a.m . Gressett measures continued at this time . Discussed with STORE STOCKER ( Whitley) at bedside. Physician Lainey Cunha MD Dec 29, 2017 09:44
--- NOTE | 2017-12-29 11:23 | HHI.NPPN ---
Subjective General Problems: Anemia Renal Failure: Chronic, End Stage Renal Disease Interval History Family decided not to transition to comfort measures. He was dialyzed without fluid removal. Hypotensive. (Nancy Springer) Review of Systems General General Remarks unable to assess (Nancy Springer) Objective Data Data Vital Signs Date Time Temp Pulse Resp B/P (MAP) Pulse Ox O2 Delivery O2 Flow Rate FiO2 12/29/17 10:00 128 12/29/17 09:00 126 18 62/37 (45) 100 12/29/17 08:28 100 40 12/29/17 08:00 40 12/29/17 08:00 125 12/29/17 08:00 125 26 146/78 (100) 100 12/29/17 07:00 125 19 89/52 (64) 100 12/29/17 06:00 129 12/29/17 04:52 100 40 12/29/17 04:00 40 12/29/17 04:00 135 12/29/17 04:00 100.0 130 18 77/47 (57) 98 12/29/17 02:00 102 12/29/17 00:51 99 40 12/29/17 00:00 108 12/29/17 00:00 40 12/29/17 00:00 98.9 108 33 161/74 (103) 98 12/28/17 22:00 93 12/28/17 20:49 100 40 12/28/17 20:00 82 41 100 12/28/17 20:00 82 12/28/17 20:00 40 12/28/17 18:00 71 12/28/17 18:00 71 13 134/63 (86) 98 12/28/17 17:42 98 40 12/28/17 17:30 65 24 100/54 (69) 100 12/28/17 17:00 63 22 102/55 (71) 100 12/28/17 16:00 97.9 63 62 96/53 (67) 100 12/28/17 16:00 40 12/28/17 16:00 63 12/28/17 15:00 54 26 89/53 (65) 99 12/28/17 14:00 62 12/28/17 14:00 62 23 128/62 (84) 100 12/28/17 13:00 53 96 83/45 (58) 100 12/28/17 12:47 100 40 12/28/17 12:00 40 12/28/17 12:00 53 12/28/17 12:00 96.5 53 37 84/49 (61) 100 (Nancy Springer) -: 12/29/17 0340 12/29/17 0340 Tubes & Lines Comment TLC right IJ Drip Comment phenylephrine (Nancy Springer) Physical Exam General Appearance: Well Developed, Comfortable Appearance Remarks intubated, sedated (Nancy Springer) Eyes Eye Exam: Pupils Equal (Nancy Springer) Pulmonary Resp Exam: Breath Sounds Equal, Crackles, Rhonchi, Sputum, Decreased Bases Resp Remarks vented lung sounds (Nancy Springer) Cardiology CV Exam: Regular, Normal Sinus Rhythm, Good Perfusion (Nancy Springer) Gastrointestinal/Abdomen GI Exam: Soft, Non-Tender, Bowel Sounds Present (Nancy Springer) Musculoskeletal MS Exam: Joints Intact, Normal Tone (Nancy Springer) Integumentary Skin Exam: Clear, Warm, Dry, Intact (Nancy Springer) Extremeties Extremities Exam: No Edema, Pedal Pulses Palpable (Nancy Springer) Neurologic Neuro Exam: Awake, Moving All Extremities, Unresponsive, Sedated (Nancy Springer) VTE Prophylaxis Device: SCDs (Nancy Springer) Assessment/Plan Assessment Summary: Anemia of CKD, CHF, Diabetes Mellitus, End Stage Renal Disease Electrolyte Assessment: Hyperkalemia Problem List: (1) ESRD (end stage renal disease) ICD Codes: N18.6 - End-stage renal disease Status: Chronic Plan: Dialysis MWF, no fluid removal yesterday due to hypotension We will continue HD as long as family wishes to persue aggressive measures. repeat labs tomorrow He has AVF for HD use. (2) Respiratory failure ICD Codes: J96.90 - Respiratory failure, unspecified, unspecified whether with hypoxia or hypercapnia Plan: remains intubated Will need trach/PEG soon if family wishes Palliative following (3) Anemia ICD Codes: D64.9 - Anemia, unspecified Plan: Epogen with HD (4) Secondary hyperparathyroidism of renal origin ICD Codes: N25.81 - Secondary hyperparathyroidism of renal origin Plan: Medications to be continued. (5) Encephalopathy ICD Codes: G93.40 - Encephalopathy, unspecified Plan: Palliative/hospice following Family meeting today (Nancy Springer) Plan patient was seen and examined. Agree with above assessment and plan.Poor prognosis. (Tru Galarza MD) Nancy Springer Dec 29, 2017 11:22 Tru Galarza MD Dec 29, 2017 16:43
--- NOTE | 2017-12-29 12:58 | HHI.IDPN ---
Note Infectious Disease Note Patient on the vent. Becomes agitated when aroused. Opens eyes but no meaningful responses. Low grade fever. 72 year-old white male who presented to the emergency department with shortness of breath on 12/12/2017. The patient has a history of COPD. PAST MEDICAL HISTORY: 1. COPD. 2. CHF. 3. Anemia. 4. End-stage renal disease. 5. Cardiomyopathy. 6. History of left hip replacement. 7. History of right upper extremity A-V fistula. 8. Secondary hyperparathyroidism. ALLERGIES NO KNOWN DRUG ALLERGIES. ANTIBIOTICS 1. Zerbaxa. 2. Levaquin. 3. Zyvox. OBJECTIVE: Vital Signs Date Time Temp Pulse Resp B/P (MAP) Pulse Ox O2 Delivery O2 Flow Rate FiO2 12/29/17 12:00 40 12/29/17 12:00 97.6 124 0 69/43 (52) 100 12/29/17 12:00 124 12/29/17 11:15 100 40 12/29/17 11:00 127 46 124/64 (84) 100 12/29/17 10:00 128 12/29/17 10:00 128 28 138/71 (93) 98 12/29/17 09:00 126 18 62/37 (45) 100 12/29/17 08:28 100 40 12/29/17 08:00 40 12/29/17 08:00 125 12/29/17 08:00 125 26 146/78 (100) 100 12/29/17 07:00 125 19 89/52 (64) 100 12/29/17 06:00 129 12/29/17 04:52 100 40 12/29/17 04:00 40 12/29/17 04:00 135 12/29/17 04:00 100.0 130 18 77/47 (57) 98 12/29/17 02:00 102 12/29/17 00:51 99 40 12/29/17 00:00 108 12/29/17 00:00 40 12/29/17 00:00 98.9 108 33 161/74 (103) 98 12/28/17 22:00 93 12/28/17 20:49 100 40 12/28/17 20:00 82 41 100 12/28/17 20:00 82 12/28/17 20:00 40 12/28/17 18:00 71 12/28/17 18:00 71 13 134/63 (86) 98 12/28/17 17:42 98 40 12/28/17 17:30 65 24 100/54 (69) 100 12/28/17 17:00 63 22 102/55 (71) 100 12/28/17 16:00 97.9 63 62 96/53 (67) 100 12/28/17 16:00 40 12/28/17 16:00 63 12/28/17 15:00 54 26 89/53 (65) 99 12/28/17 14:00 62 12/28/17 14:00 62 23 128/62 (84) 100 12/28/17 13:00 53 96 83/45 (58) 100 Laboratory Tests Test 12/29/17 03:40 White Blood Count 22.8 TH/MM3 Red Blood Count 2.72 MIL/MM3 Hemoglobin 8.1 GM/DL Hematocrit 24.9 % Mean Corpuscular Volume 91.6 FL Mean Corpuscular Hemoglobin 29.7 PG Mean Corpuscular Hemoglobin Concent 32.4 % Red Cell Distribution Width 16.8 % Platelet Count 297 TH/MM3 Mean Platelet Volume 7.8 FL Laboratory Tests Test 12/29/17 03:40 Blood Urea Nitrogen 82 MG/DL Creatinine 4.73 MG/DL Random Glucose 159 MG/DL Calcium Level 8.2 MG/DL Phosphorus Level 5.9 MG/DL Magnesium Level 2.1 MG/DL Sodium Level 132 MEQ/L Potassium Level 3.6 MEQ/L Chloride Level 91 MEQ/L Carbon Dioxide Level 26.0 MEQ/L Anion Gap 15 MEQ/L Estimat Glomerular Filtration Rate 12 ML/MIN Microbiology Date/Time Source Procedure Growth Status 12/23/17 18:05 Blood Peripheral Aerobic Blood Culture - Preliminary NO GROWTH IN 3 DAYS Resulted 12/23/17 18:05 Blood Peripheral Anaerobic Blood Culture - Preliminary NO GROWTH IN 3 DAYS Resulted 12/23/17 17:55 Blood Peripheral Aerobic Blood Culture - Preliminary NO GROWTH IN 3 DAYS Resulted 12/23/17 17:55 Blood Peripheral Anaerobic Blood Culture - Preliminary NO GROWTH IN 3 DAYS Resulted IMAGING: Chest X-Ray 12/29/17 0600 Signed Impressions: Service Date/Time: December 03:11 - CONCLUSION: 1. Stable chest x-ray with left pleural effusion with associated volume loss and/or airspace consolidation. 2. Stable right lung cavitary nodule. Jakob Corley MD Chest X-Ray 12/22/17 0600 Signed Impressions: Service Date/Time: December 03:23 - CONCLUSION: 1. Development of increased density consolidation in the left lung. Differential diagnosis includes pneumonia and aspiration. 2. Improving right basilar airspace consolidation but with development of a suspected cavitary lesion measuring about 3.3 cm in diameter, probably infectious in nature. Khoa Franco MD Chest X-Ray 12/22/17 0000 Signed Impressions: Service Date/Time: December 18:53 - CONCLUSION: Worsening opacification of the left hemithorax compared to previous examination consistent with probable worsening diffuse consolidation and possible increased pleural fluid. Apparent cavitary lesion within the right lower lung field is stable. Multiple tubes and lines are stable. Sergey Brown MD Chest CT 12/22/17 0000 Signed Impressions: Service Date/Time: December 16:39 - CONCLUSION: 1. Multiple cavitary lesions in the right lung as well as a small nodule and larger nodule or mass. These findings are concerning for metastatic disease. 2. The left lung is completely opacified with air bronchograms and volume loss with mediastinal shift. Areas cut off of the left main bronchus with soft tissue density material which could indicate mucous plugging. 3. Mild to moderate cardiomegaly. Edy Laughlin MD PHYSICAL EXAMINATION: GENERAL: No acute distress. On the ventilator. HEENT: Head atraumatic. No icterus. Oropharynx intubated. Neck: Supple. No palpable adenopathy. Lungs: Bilateral rhonchi. Heart: Irregular S1-S2. No audible murmur. Abdomen: Soft, No tenderness appreciated. Bowel sounds present. Extremities: No clubbing or cyanosis or edema. Skin: No diffuse rash. Neuro: Unable to assess. Psych: Unable to assess. IMPRESSION 1. Pneumonia due to MRSA and MDR pseudomonas. - mucous plugging. - repeat sputum culture has pseudomonas. 2. Acute respiratory failure. Vent dependent. 3. End-stage renal disease. 4. Staph coag negative bacteremia. RECOMMENDATIONS 1. Continue Zosyn. 2. Continue Levaquin. 3. Stop Linezolid. 4. Monitor clinical status. 5. Monitor WBC. Dave Waite MD Dec 29, 2017 12:58
[2017-12-29] MEDS: AMIODARONE INJ 450 MG in SODIUM CHLOR 0.9% (EXCEL) INJ 250 ML IV PRN (13:34)
--- NOTE | 2017-12-29 14:52 | HHI.HCPN ---
Reason for visit a. To assist with evaluation and management of symptoms including: Shortness of breath, pain, debility. b. To assist medical decision maker(s) with: better understanding of current medical conditions; weighing benefits/burdens of medical treatment options; making medical treatment decisions. . Subjective/Interval History Palliative care follow up for further clarification of goals of care. Patient seen in the medical ICU. He remains intubated on mechanical ventilation. Currently 40% FiO2. Sedated with propofol and fentanyl. Eyes open, no purposeful movements noted. Tachycardic. Intermittent hypotensive. On Amiodarone for A. Flutter with RVR overnight. WBC 22.8, hemoglobin 8.1, platelets 297. Creatinine 4.73. Chest xray with left pleural effusion with associated volume loss and/or airspace consolidation, stable right lung cavitary nodule. Case discussed with bedside RN Whitley. . Family/friend interactions Called John iglesias - he indicates they found [facility] surrogate paperwork. He will bring the paperwork when they arrive later today (330pm), he also indicates the designated HCS will be coming at that time. 4pm: Met with John iglesias and friend, Lizzy Jenkins. Lizzy provided copy of Advance Directive for Health Care that patient completed 02/18/14. Directive states patient would refuse blood products. He "would not want my life to be prolonged if, to a reasonable degree of medical certainty, my situation is hopeless. Names Health care surrogate (HCS) as Lizzy Jenkins and alternate HCS as Taran Garner. Medical update provided. MAT Velez is certain based on patient written and previously verbalized directives that he would not want continued life prolonging measures. He "knows patient would not want to be resuscitated." He plans to honor patient wishes and plans to proceed with compassionate withdrawal of life support on 12/30/17, he will call me with a time. Anticipatory guidance provided. Questions answered. . Advance Directives Living Will: Copy in medical record Health Care Surrogate: Copy in medical record Advance Directive Specifics Date completed: 02/18/14 . Health Care Surrogate(s): Copy of Advance Directive for Health Care on chart that patient completed . Directive states patient would refuse blood products. He "would not want my life to be prolonged if, to a reasonable degree of medical certainty, my situation is hopeless." Names Health care surrogate (HCS) as Lizzy Jenkins and alternate HCS as Taran Garner. . Significant change in goals: NO CODE. Medical update provided. MAT Velez is certain based on patient written and previously verbalized directives that he would not want continued life prolonging measures. He "knows patient would not want to be resuscitated." He plans to honor patient wishes and plans to proceed with compassionate withdrawal of life support on 12/30/17, he will call me with a time. Anticipatory guidance provided. Questions answered. Unclear if advance directives have been completed. Healthcare proxy decision maker to be determined. . Objective Vital Signs Date Time Temp Pulse Resp B/P (MAP) Pulse Ox O2 Delivery O2 Flow Rate FiO2 12/29/17 14:00 129 12/29/17 13:34 129 137/70 12/29/17 12:00 40 12/29/17 12:00 97.6 124 0 69/43 (52) 100 12/29/17 12:00 124 12/29/17 11:15 100 40 12/29/17 11:00 127 46 124/64 (84) 100 12/29/17 10:00 128 12/29/17 10:00 128 28 138/71 (93) 98 12/29/17 09:00 126 18 62/37 (45) 100 12/29/17 08:28 100 40 12/29/17 08:00 40 12/29/17 08:00 125 12/29/17 08:00 125 26 146/78 (100) 100 12/29/17 07:00 125 19 89/52 (64) 100 12/29/17 06:00 129 12/29/17 04:52 100 40 12/29/17 04:00 40 12/29/17 04:00 135 12/29/17 04:00 100.0 130 18 77/47 (57) 98 12/29/17 02:00 102 12/29/17 00:51 99 40 12/29/17 00:00 108 12/29/17 00:00 40 12/29/17 00:00 98.9 108 33 161/74 (103) 98 12/28/17 22:00 93 12/28/17 20:49 100 40 12/28/17 20:00 82 41 100 12/28/17 20:00 82 12/28/17 20:00 40 12/28/17 18:00 71 12/28/17 18:00 71 13 134/63 (86) 98 12/28/17 17:42 98 40 12/28/17 17:30 65 24 100/54 (69) 100 12/28/17 17:00 63 22 102/55 (71) 100 12/28/17 16:00 97.9 63 62 96/53 (67) 100 12/28/17 16:00 40 12/28/17 16:00 63 12/28/17 15:00 54 26 89/53 (65) 99 Intake & Output 12/29/17 12/29/17 07:00 19:00 Intake Total 338 ml 365.8 ml Output Total 100 ml Balance 238 ml 365.8 ml IV Total 50 ml 365.8 ml Tube Feeding 168 ml Other 120 ml Output Urine Total 0 ml Stool Total 100 ml Physical Exam CONSTITUTIONAL/GENERAL: This is an adequately nourished elderly man in no acute distress. TUBES/LINES/DRAINS: ETT, OG, Murillo catheter, right IJ, soft wrist restraints. Rectal tube. SKIN: No jaundice, rashes, or lesions. Ecchymoses on upper extremities. No wounds seen anteriorly. Skin temperature appropriate. Not diaphoretic. EYES: eyes open, does not track. CARDIOVASCULAR: Regular rate and rhythm. Peripheral pulses symmetric. RESPIRATORY/CHEST: Symmetric, coarse sounds bilaterally. Endotracheal intubated on mechanical ventilation. GASTROINTESTINAL: Abdomen large, round, soft. Bowel sounds present, hyperactive. GENITOURINARY: Without palpable bladder distension. Murillo catheter in place. MUSCULOSKELETAL: Extremities without clubbing, cyanosis, or edema. No mottling or clubbing. NEUROLOGICAL: Not following any commands or attempting to communicate. Moves all extremities spontaneously. PSYCHIATRIC: Unable to evaluate given her clinical condition, appears calm. . Diagnostic Tests Laboratory Laboratory Tests Test 12/27/17 05:30 12/29/17 03:40 White Blood Count 14.9 TH/MM3 (4.0-11.0) 22.8 TH/MM3 (4.0-11.0) Red Blood Count 2.79 MIL/MM3 (4.50-5.90) 2.72 MIL/MM3 (4.50-5.90) Hemoglobin 8.5 GM/DL (13.0-17.0) 8.1 GM/DL (13.0-17.0) Hematocrit 25.8 % (39.0-51.0) 24.9 % (39.0-51.0) Mean Corpuscular Volume 92.3 FL (80.0-100.0) 91.6 FL (80.0-100.0) Mean Corpuscular Hemoglobin 30.3 PG (27.0-34.0) 29.7 PG (27.0-34.0) Mean Corpuscular Hemoglobin Concent 32.8 % (32.0-36.0) 32.4 % (32.0-36.0) Red Cell Distribution Width 15.8 % (11.6-17.2) 16.8 % (11.6-17.2) Platelet Count 220 TH/MM3 (150-450) 297 TH/MM3 (150-450) Mean Platelet Volume 8.3 FL (7.0-11.0) 7.8 FL (7.0-11.0) Blood Urea Nitrogen 99 MG/DL (7-18) 82 MG/DL (7-18) Creatinine 5.46 MG/DL (0.60-1.30) 4.73 MG/DL (0.60-1.30) Random Glucose 86 MG/DL (74-106) 159 MG/DL (74-106) Calcium Level 8.1 MG/DL (8.5-10.1) 8.2 MG/DL (8.5-10.1) Sodium Level 137 MEQ/L (136-145) 132 MEQ/L (136-145) Potassium Level 3.8 MEQ/L (3.5-5.1) 3.6 MEQ/L (3.5-5.1) Chloride Level 99 MEQ/L (98-107) 91 MEQ/L (98-107) Carbon Dioxide Level 25.0 MEQ/L (21.0-32.0) 26.0 MEQ/L (21.0-32.0) Anion Gap 13 MEQ/L (5-15) 15 MEQ/L (5-15) Estimat Glomerular Filtration Rate 10 ML/MIN (>89) 12 ML/MIN (>89) Phosphorus Level 5.9 MG/DL (2.5-4.9) Magnesium Level 2.1 MG/DL (1.5-2.5) Result Diagram: 12/29/17 03412/29/17 034 Microbiology Microbiology Date/Time Source Procedure Growth Status 12/23/17 18:05 Blood Peripheral Aerobic Blood Culture - Final NO GROWTH IN 5 DAYS Complete 12/23/17 18:05 Blood Peripheral Anaerobic Blood Culture - Final NO GROWTH IN 5 DAYS Complete 12/22/17 18:20 Bronchial Washings Left Lower Lobe Fungal Smear - Final NO FUNGAL ELEMENTS SEEN. Resulted 12/22/17 18:20 Bronchial Washings Left Lower Lobe Fungal Culture - Preliminary NO GROWTH IN 1 WEEK Resulted Imaging Last Impressions Chest X-Ray 12/29/17 0600 Signed Impressions: Service Date/Time: December 03:11 - CONCLUSION: 1. Stable chest x-ray with left pleural effusion with associated volume loss and/or airspace consolidation. 2. Stable right lung cavitary nodule. Jakob Corley MD Chest CT 12/22/17 0000 Signed Impressions: Service Date/Time: December 16:39 - CONCLUSION: 1. Multiple cavitary lesions in the right lung as well as a small nodule and larger nodule or mass. These findings are concerning for metastatic disease. 2. The left lung is completely opacified with air bronchograms and volume loss with mediastinal shift. Areas cut off of the left main bronchus with soft tissue density material which could indicate mucous plugging. 3. Mild to moderate cardiomegaly. Edy Laughlin MD Abdomen X-Ray 12/20/17 0600 Signed Impressions: Service Date/Time: Wednesday, December 20, 2017 02:07 - CONCLUSION: 1. Moderate constipation with stool throughout large bowel. NG coiled in stomach. Khoa Franco MD Neck Magnetic Resonance Angiography 12/19/17 0000 Signed Impressions: Service Date/Time: Tuesday, December 19, 2017 12:24 - CONCLUSION: 1. Patent carotids and vertebrals. Marco Antonio Henriquez Jr., MD Head Magnetic Resonance Angiography 12/19/17 0000 Signed Impressions: Service Date/Time: Tuesday, December 19, 2017 12:24 - CONCLUSION: 1. No large vessel stenosis or aneurysm. 2. Normal variants as described above. Leonard Vaughn MD Brain MRI 12/17/17 0000 Signed Impressions: Service Date/Time: Sunday, December 17, 2017 11:33 - CONCLUSION: Small foci of retracted diffusion in the parietal periventricular white matter bilaterally indicating small acute infarcts. No other acute intracranial findings. Gatito Shipman MD Head CT 12/16/17 0000 Signed Impressions: Service Date/Time: Saturday, December 16, 2017 10:58 - CONCLUSION: No acute disease. Marco Antonio Henriquez Jr., MD Procedures * 12/12/17 -endotracheal intubation. * 12/22/17 -bronchoscopy * 12/24/17 -bronchoscopy . Assessment and Plan Disease Oriented Problem List: (1) Respiratory failure (2) Pneumonia (3) Cerebrovascular accident (CVA) (4) ESRD (end stage renal disease) (5) Encephalopathy (6) Congestive heart failure Symptom Scale: (1) Anxiety 0-10 Scale: Unable to quantify (2) Pain 0-10 Scale: Unable to quantify (3) Shortness of breath 0-10 Scale: Unable to quantify Pertinent Non-Medical Issues Psychosocial: Retired, , lives alone. in 2008. Spiritual: Jehovah Witness. Legal: Patient is not capacitated to make his own health care decisions, will not regain capacity. Copy of Advance Directive for Health Care on chart that patient completed 02/18/14. Directive states patient would refuse blood products. He "would not want my life to be prolonged if, to a reasonable degree of medical certainty, my situation is hopeless." Names Health care surrogate ( HCS) as Lizzy Jenkins and alternate HCS as Taran Garner. Ethical issues impacting care: Patient unable to participating in medical decision-making secondary to clinical condition. . Important Contacts * Lizzy Jenkins, primary HCS/ friend: [phone] or [phone] * Taran Garner, alternate HCS: [phone] * Jaguar Benito . * Sister Lesa Pickard . . Prognosis Mr. Sy is a 72-year-old male with a medical history significant for end- stage renal disease on hemodialysis, COPD, CHF, cardiomyopathy and anemia of chronic disease. Patient presented to ED via EMS on 12/12/17 endorsing worsening shortness of breath. Clinical course complicated by acute respiratory failure requiring intubation and mechanical ventilation. Clinical course further complicated by acute CVA, pneumonia, persistent respiratory failure, sepsis. Patient with continued decline, does not appear he will survive this hospitalization. . Code Status: No Code Plan * NO CODE * HEALTHCARE DECISION-MAKING: Patient is NOT capacitated for medical decision- making secondary to clinical condition, s/p CVA, intubated on mechanical ventilation. Patient will not regain medical decision-making capacity. Copy of Advance Directive for Health Care provided 12/29/17 on chart that patient completed 02/18/14. Directive states patient would refuse blood products. He "would not want my life to be prolonged if, to a reasonable degree of medical certainty, my situation is hopeless." Names Health care surrogate (HCS) as Lizzy Jenkins and alternate HCS as Taran Garner. * GOALS OF CARE: Medical update provided. MAT Velez is certain based on patient written and previously verbalized directives that he would not want continued life prolonging measures. He "knows patient would not want to be resuscitated." He plans to honor patient wishes and plans to proceed with compassionate withdrawal of life support on 12/30/17, he will call me with a time . Anticipatory guidance provided. * SYMPTOMS: = Shortness of breath, secondary to respiratory failure. Currently intubated on mechanical ventilation. Unlikely to be medically extubated, HCS certain patient would not want trach and PEG. = Pain, history of chronic pain and neuropathy. Ongoing Fentanyl, appears comfortable. = Anxiety/agitation: Currently on propofol and fentanyl drip. * Palliative care will continue to follow-up for further clarifications of goals of care as patient's clinical course continues to evolve. . Attestation To help prompt me to consider important information that might be impacting today's encounter and assessment, information from prior notes written by myself or my colleagues may have been "brought forward" into today's note. My signature on this note, however, is an attestation that I personally performed the exam, history, and/or decision-making noted today, and, unless otherwise indicated, the interactions with patient, family, and staff as well as the review of records all occurred today. I also attest that the listed assessment and stated plan reflect my best clinical judgment today based on the combination of historical information, prior notes, and today's exam/ interactions. When time spent is documented, it refers only to time spent today by the signer, or if indicated, combined time spent today by collaborating physician/nurse practitioner. Tessy Hand Dec 29, 2017 14:52
[2017-12-29] MEDS ORDERED: DIGOXIN 0.5 MG/2 ML VIAL ONE (16:53)
[2017-12-29] MEDS ORDERED: DIGOXIN 0.5 MG/2 ML VIAL IV PUSH ONE (17:00)
[2017-12-29] MEDS: ATORVASTATIN 10 MG TAB PO SCH (20:23)
[2017-12-30] VITALS (16 sets, daily range): BP systolic 95–177; BP diastolic 56–82; PULSE 24–96; RESP 17–35; TEMP 97.8–98.7; O2SAT 100
[2017-12-30] MEDS: PIPERACIL-TAZO 2.25 GM PREMIX 50 ML IV SCH ×2 (03:03→12:00)
[2017-12-30] MEDS: HEPARIN SODIUM - SQ 10,000 UNITS/ML VIAL SQ SCH ×2 (03:03→15:00)
[2017-12-30] MEDS: oxyCODONE HCL ORAL CONC 5 MG/0.25 ML SYRINGE NG SCH ×3 (03:03→15:01)
[2017-12-30] MEDS: fentaNYL 2,500 MCG/NS 250 ML IV PRN ×2 (03:04→12:14)
[2017-12-30] MEDS: INSULIN NovoLIN REGULAR SUPPLEMENTAL SCALE SQ SCH ×4 (04:00→16:00)
[2017-12-30] MEDS: AMIODARONE INJ 450 MG in SODIUM CHLOR 0.9% (EXCEL) INJ 250 ML IV PRN (04:57)
[2017-12-30] MEDS: ARTIFICIAL TEARS OPTH SOLN 15 ML BTL EACH EYE SCH ×2 (05:37→14:00)
[2017-12-30] MEDS: HYDROCORTISONE SOD SUCCINATE 100 MG VIAL IV PUSH SCH ×2 (05:37→15:00)
[2017-12-30] MEDS: FAMOTIDINE 20 MG TAB NG SCH (08:48)
[2017-12-30] MEDS: QUEtiapine FUMARATE 25 MG TAB PO SCH (08:48)
[2017-12-30] MEDS: DOCUSATE SODIUM 50 MG/SENNA 8.6 MG TAB PO SCH (08:48)
[2017-12-30] MEDS: CARVEDILOL 3.125 MG TAB PO SCH (08:48)
[2017-12-30] MEDS: ASPIRIN 81 MG CHEW TAB PO SCH (08:48)
[2017-12-30] MEDS: CALCIUM ACETATE 667 MG CAP OG-TUBE SCH ×2 (08:48→12:14)
[2017-12-30] MEDS: HYDROXYCHLOROQUINE SULFATE 200 MG TAB PO SCH (08:48)
[2017-12-30] MEDS: INSULIN DETEMIR 100 UNITS/ML VIAL SQ SCH (08:49)
[2017-12-30] MEDS: SODIUM CHLORIDE 0.9% FLUSH 10 ML FLUSH IV FLUSH SCH (08:50)
[2017-12-30] MEDS: MUPIROCIN 2% OINT 1 APPLIC/GM SYR EACH NARE SCH (08:52)
--- NOTE | 2017-12-30 10:15 | HHI.NPPN ---
Subjective General Problems: Anemia Renal Failure: Chronic, End Stage Renal Disease Interval History Per palliative care, patient living will was found, he did not want aggressive measures. Planned withdrawal today. (Nancy Springer) Review of Systems General General Remarks unable to assess (Nancy Springer) Objective Data Data Vital Signs Date Time Temp Pulse Resp B/P (MAP) Pulse Ox O2 Delivery O2 Flow Rate FiO2 12/30/17 09:31 100 40 12/30/17 08:00 98.3 96 18 95/56 (69) 100 12/30/17 08:00 95 12/30/17 08:00 40 12/30/17 06:00 76 12/30/17 04:57 72 144/61 12/30/17 04:00 69 12/30/17 04:00 98.3 69 17 142/63 (89) 100 12/30/17 04:00 98.3 12/30/17 04:00 40 12/30/17 03:50 100 40 12/30/17 02:00 71 12/30/17 00:39 100 40 12/30/17 00:00 97.8 76 35 177/82 (113) 100 12/30/17 00:00 40 12/30/17 00:00 76 12/29/17 22:00 78 12/29/17 22:00 80 12/29/17 20:56 99 40 12/29/17 20:00 78 12/29/17 20:00 97.5 78 63 163/74 (103) 99 12/29/17 20:00 40 12/29/17 19:00 79 144/65 12/29/17 18:00 85 124 157/72 (100) 100 12/29/17 18:00 85 12/29/17 17:00 144 27 155/87 (109) 100 12/29/17 16:00 149 12/29/17 16:00 40 12/29/17 16:00 99.4 149 19 86/54 (65) 100 12/29/17 15:36 100 40 12/29/17 15:00 130 18 129/69 (89) 100 12/29/17 14:00 129 29 139/72 (94) 100 12/29/17 14:00 129 12/29/17 13:34 129 137/70 12/29/17 13:00 127 28 148/73 (98) 100 12/29/17 12:00 40 12/29/17 12:00 97.6 124 0 69/43 (52) 100 12/29/17 12:00 124 12/29/17 11:15 100 40 12/29/17 11:00 127 46 124/64 (84) 100 (Nancy Springer) -: 12/29/17 0340 12/29/17 0340 Imaging Last 72 hours Impressions Chest X-Ray 12/29/17 0600 Signed Impressions: Service Date/Time: December 03:11 - CONCLUSION: 1. Stable chest x-ray with left pleural effusion with associated volume loss and/or airspace consolidation. 2. Stable right lung cavitary nodule. Jakob Corley MD Tubes & Lines Comment TLC right IJ (Nancy Springer) Physical Exam General Appearance: Well Developed, Comfortable Appearance Remarks intubated, sedated (Nancy Springer) Eyes Eye Exam: Pupils Equal (Nancy Springer) Pulmonary Resp Exam: Breath Sounds Equal, Crackles, Rhonchi, Sputum, Decreased Bases Resp Remarks vented lung sounds (Nancy Springer) Cardiology CV Exam: Regular, Normal Sinus Rhythm, Good Perfusion (Nancy Springer) Gastrointestinal/Abdomen GI Exam: Soft, Non-Tender, Bowel Sounds Present (Nancy Springer) Musculoskeletal MS Exam: Joints Intact, Normal Tone (Nancy Springer) Integumentary Skin Exam: Clear, Warm, Dry, Intact (Nancy Springer) Extremeties Extremities Exam: No Edema, Pedal Pulses Palpable (Nancy Springer) Neurologic Neuro Exam: Awake, Moving All Extremities, Unresponsive, Sedated (Nancy Springer) VTE Prophylaxis Device: SCDs (Nancy Springer) Assessment/Plan Assessment Summary: Anemia of CKD, CHF, Diabetes Mellitus, End Stage Renal Disease Electrolyte Assessment: Hyperkalemia Problem List: (1) ESRD (end stage renal disease) ICD Codes: N18.6 - End-stage renal disease Status: Chronic Plan: Normal Dialysis MWF, we did dialyze on Tuesday per his wishes, we will not dialyze today. Planned extubation. Please call us if any changes. (2) Respiratory failure ICD Codes: J96.90 - Respiratory failure, unspecified, unspecified whether with hypoxia or hypercapnia Plan: withdrawal planned today Ingot Weigher is at bedside. (3) Anemia ICD Codes: D64.9 - Anemia, unspecified Plan: Epogen with HD (4) Secondary hyperparathyroidism of renal origin ICD Codes: N25.81 - Secondary hyperparathyroidism of renal origin Plan: Medications to be discontinued. (5) Encephalopathy ICD Codes: G93.40 - Encephalopathy, unspecified Plan: Palliative/hospice following Comfort measures planned. (Nancy Springer) Plan Withdrawal of care is planned. No more dialysis. We will sign off at this time. (Tru Galarza MD) Nancy Springer Dec 30, 2017 10:15 Tru Galarza MD Dec 30, 2017 15:20
--- NOTE | 2017-12-30 13:08 | HHI.CCPN ---
Subjective Remarks/Hospital Course Patient is a 72-year-old male with multiple medical comorbidities which include end-stage renal disease, hypertension, CHF, COPD, cardiomyopathy, hyperparathyroidism and anemia of chronic disease. He was brought into ED via EMS for respiratory distress and was given albuterol treatment x2 in addition to Solu-Medrol 125 mg IV prior to arrival. The patient was initially placed on BiPap without any significant relief. In the ED he was intubated with etomidate, succinylcholine and placed on full mechanical ventilation. When seen the patient is sedated with Diprivan and on fentanyl infusion. His laboratory data significant for hyperkalemia with potassium 6.3, BUN 53, creatinine in 8.63 and BNP of 1218. His chest x-ray showed ET tube above the reed, interstitial edema. Nephrology service was notified and the patient is currently receiving hemodialysis treatment. ABG postintubation showed a pH of 7.30, CO2 54, pAO2 454, bicarb 26, sats of 97%. 12/13 Patient is intubated on no sedation. Awake and alert, s/p HD yesterday with removal 3L. Afebrile. 12/14: Afebrile. Remains on propofol drip at 20 mcg/kg per minute. Episodic hypotension. Episodic hypoglycemia requiring D50. On D10 drip for hyperkalemia ? Per nephrology's orders, potassium currently normalized. We'll start tube feeding. Added cefepime for Pseudomonas in sputum 12/15: Afebrile. Tolerating tube feeding. Currently on PSV trial is tolerated well. Not following commands however moving all 4 extremities purposefully today than yesterday. 12/16 Patient remains intubated and on Fentanyl and Diprivan drip for sedation. s /p HD yesterday 12/17 No events overnight. s/p HD yesterday with removal 1.8L. Remains sedated with Fentanyl and intubated. Patient doesn't follow commands off sedation. CT brain yesterday showed no acute process. T:99.9 last night 12/18: Afebrile. Patient ET tube migrated upwards towards vocal cords in high probability aspirated tube feeding. 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 Noted MRI brain revealed acute right and left parietal CVA. MRA brain and carotid Dopplers currently pending. Currently on baby aspirin. Also started on atorvastatin 10 mg daily. 12/19: Tmax 100. Central line placed yesterday due to hypotension. Currently norepinephrine and vasopressin drips. Wide pulse pressure arterial line. Tube feeds will be resumed. Stress dose steroids initiated. Last cortisol was 9. 12/20 Patient remains intubated and sedated with Diprivan and Fentanyl drips. On Levophed 8 mocs and Vasopressin 0.04. Afebrile. s/p HD yesterday with removal 4L. 12/21: Afebrile. Remains on propofol drip at 20 mcg/kg Per minute. On low- dose norepinephrine 2.5 g per minute as well. Remains quite agitated on the ventilator. 8 bowel movements overnight. C. difficile toxin is pending. Noted staph epi in blood 12/10 question kalie. ID consulted. On vancomycin 12/22: Tmax 100. Currently 99.7. CT chest today revealed 3 x 2 point centimeter right cavitary lesion along. Is mediastinal shift left dense infiltrate possible mucous plug left-sided. Status post bronchoscopy which essentially showed clearance of any significant degree/plugging. Follow chest x -ray revealed dense consolidation left lung. No pleural effusion. Labile blood pressure. 2: Resting currently in bed in no distress. Received quetiapine for agitation earlier. Remains on dexmedetomidine. Status post hemodialysis today. Subjective 12/24: FiO2 increased to 70% overnight. Currently back in 40%. Remains on dexmedetomidine drip. Tolerating tube feeds at goal. -3 L with hemodialysis yesterday. 12/25: Tmax 99.2. Patient noted to have open sacral wound care consulted for evaluation and treatment. Patient continues on sedation. Persistent hyperglycemia Levemir increased to 15 units twice a day. 12/26: No acute events overnight. WBC count downtrending. Patient underwent IHD today with approximately 3 L removed, required Levophed infusion to maintain MAP. Discussion with palliative care plan for possible decision of healthcare proxy tomorrow. 12/27: Afebrile .Patient was noted to have elevated residual tube feeds last night , tube feeds placed on hold. Patient was noted to be significant bradycardia carvedilol was held this a.m., Precedex was discontinued. Palliative care care meeting underway at this time for healthcare surrogate for decision making. 12/28: Afebrile. Remains sedated .No acute events overnight. Discussion with palliative care yesterday plan for compassionate withdrawal this afternoon. 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 Patient made CODE STATUS. Family plans reconsideration today, to determine goals of care. Overnight the patient went into A. fib RVR heart rate in the 130s. Amiodarone infusion instituted. The patient on propofol and fentanyl sedation for ventilator synchrony. Legal documentation has been obtained to determine the POA meeting planned with palliative care team for possible this afternoon. 12/30: Discussed with palliative care, plan for withdrawal of life support and comfort measures in the afternoon. Otherwise patient remains intubated Objective Vital Signs Date Time Temp Pulse Resp B/P (MAP) Pulse Ox O2 Delivery O2 Flow Rate FiO2 12/30/17 11:36 100 40 12/30/17 10:00 67 12/30/17 09:49 18 12/30/17 09:00 83/52 12/30/17 08:00 98.3 Intake and Output 12/30/17 12/30/17 12/31/17 08:00 16:00 00:00 Intake Total 700 ml Output Total 50 ml Balance 650 ml Result Diagram: 12/29/17 0340 12/29/17 0340 Imaging Last Impressions Chest X-Ray 12/25/17 0000 Signed Impressions: Service Date/Time: Monday, December 25, 2017 09:50 - CONCLUSION: 1. Persistent left basilar consolidation. 2. Cavitary lesion right lower lobe is stable. Leonard Vaughn MD Chest CT 12/22/17 0000 Signed Impressions: Service Date/Time: December 16:39 - CONCLUSION: 1. Multiple cavitary lesions in the right lung as well as a small nodule and larger nodule or mass. These findings are concerning for metastatic disease. 2. The left lung is completely opacified with air bronchograms and volume loss with mediastinal shift. Areas cut off of the left main bronchus with soft tissue density material which could indicate mucous plugging. 3. Mild to moderate cardiomegaly. Edy Laughlin MD Abdomen X-Ray 12/20/17 0600 Signed Impressions: Service Date/Time: Wednesday, December 20, 2017 02:07 - CONCLUSION: 1. Moderate constipation with stool throughout large bowel. NG coiled in stomach. Khoa Franco MD Neck Magnetic Resonance Angiography 12/19/17 0000 Signed Impressions: Service Date/Time: Tuesday, December 19, 2017 12:24 - CONCLUSION: 1. Patent carotids and vertebrals. Marco Antonio Henriquez Jr., MD Head Magnetic Resonance Angiography 12/19/17 0000 Signed Impressions: Service Date/Time: Tuesday, December 19, 2017 12:24 - CONCLUSION: 1. No large vessel stenosis or aneurysm. 2. Normal variants as described above. Leonard Vaughn MD Brain MRI 12/17/17 0000 Signed Impressions: Service Date/Time: Sunday, December 17, 2017 11:33 - CONCLUSION: Small foci of retracted diffusion in the parietal periventricular white matter bilaterally indicating small acute infarcts. No other acute intracranial findings. Gatito Shipman MD Head CT 12/16/17 0000 Signed Impressions: Service Date/Time: Saturday, December 16, 2017 10:58 - CONCLUSION: No acute disease. Marco Antonio Henriquez Jr., MD Last Impressions Chest X-Ray 12/23/17 1200 Signed Impressions: Service Date/Time: Saturday, December 23, 2017 12:26 - CONCLUSION: Reexpansion of the left lung with minimal left basilar density. Leonard Vaughn MD Chest CT 12/22/17 0000 Signed Impressions: Service Date/Time: December 16:39 - CONCLUSION: 1. Multiple cavitary lesions in the right lung as well as a small nodule and larger nodule or mass. These findings are concerning for metastatic disease. 2. The left lung is completely opacified with air bronchograms and volume loss with mediastinal shift. Areas cut off of the left main bronchus with soft tissue density material which could indicate mucous plugging. 3. Mild to moderate cardiomegaly. Edy Laughlin MD Abdomen X-Ray 12/20/17 0600 Signed Impressions: Service Date/Time: Wednesday, December 20, 2017 02:07 - CONCLUSION: 1. Moderate constipation with stool throughout large bowel. NG coiled in stomach. Khoa Franco MD Neck Magnetic Resonance Angiography 12/19/17 0000 Signed Impressions: Service Date/Time: Tuesday, December 19, 2017 12:24 - CONCLUSION: 1. Patent carotids and vertebrals. Marco Antonio Henriquez Jr., MD Head Magnetic Resonance Angiography 12/19/17 0000 Signed Impressions: Service Date/Time: Tuesday, December 19, 2017 12:24 - CONCLUSION: 1. No large vessel stenosis or aneurysm. 2. Normal variants as described above. Leonard Vaughn MD Brain MRI 12/17/17 0000 Signed Impressions: Service Date/Time: Sunday, December 17, 2017 11:33 - CONCLUSION: Small foci of retracted diffusion in the parietal periventricular white matter bilaterally indicating small acute infarcts. No other acute intracranial findings. Gatito Shipman MD Head CT 12/16/17 0000 Signed Impressions: Service Date/Time: Saturday, December 16, 2017 10:58 - CONCLUSION: No acute disease. Marco Antonio Henriquez Jr., MD Objective Remarks GENERAL: 72-year-old male currently orotracheally intubated and sedated SKIN: Warm and dry. No rash HEAD: Normocephalic. Atraumatic EYES: Pupils are equally round and reactive at 3 mm. NECK: Supple, trachea midline. No JVD or lymphadenopathy. Right IJ CVL is clean dry and intact CARDIOVASCULAR: RRR. S1, S2. No S4. Without murmurs RESPIRATORY: Air entry equal bilaterally but diminished. No wheezing GASTROINTESTINAL: Abdomen soft, non-tender, nondistended. MUSCULOSKELETAL: Trace lower extremity. Right upper extremity positive thrill and bruit Neuro: RASS -2. Moves all 4 extremity spontaneously. Does not follow any commands. Date of Insertion: Dec 18, 2017 Line: Central Venous Catheter Side: Right Location: Internal, Jugular A/P Assessment and Plan Neuro/Psych: Right greater than left parietal CVA Encephalopathy Peripheral neuropathy Monitor Neuro status. CT brain no acute findings 12/17 EEG revealed Sharp's triphasic right greater than left. No epileptiform discharges MRI brain 12/17 revealed 6 mm right parietal and tiny left parietal lacunar infarct in the periventricular white matter. MRA brain/neck 12/19: No large vessel stenosis or aneurysm. Aspirin 81 mg daily. Atorvastatin 10 mg a day. Triglycerides elevated On Fentanyl currently at 250 mg an hour and propofol for sedation. Continue gabapentin 300 mg daily for peripheral neuropathy Hydrochloroquine 200 mg daily for arthritis Quetiapine 50 mg twice a day and scheduled oxycodone 5 mg every 6 hours attempt to wean off sedation Dr. Ace neurology following intermittently CV: Chronic diastolic heart failure - Mild pulmonary hypertension with pulmonary arterial pressure 46.7 mmHg Maintain MAP>65mmHg Hydrocortisone 50 mg Q 8 hours. Cortisol level 9 on 12/15 2-D echocardiogram reveals EF of 55-60%. Mild MR/TR. Pulmonary arterial Pressures 46.7 mmHg Holding carvedilol 3.125 mg twice a day Received 1 dose of digoxin 0.25 mg on 12/15 Resp: Acute hypoxemic and hypercapnic respiratory failure Polymicrobial pneumonia - Pseudomonas and Haemophilus influenza Right cavitary lung mass [facility] Continue with vent support keep sat >92% Ventilator bundle Albuterol/ipratropium aerosols every 6 hours with albuterol aerosols every [address] thorax revealed 3 x 2.3 cm cavitary lesion. Mediastinal shift right to left. Left lower lobe collapse. Possible mucus plugging S/P bronchoscopy 12/22. Lukens trap obtained. Follow chest x-ray revealed dense consolidation left lung uriostegui. No masses on my bronchoscopy. Able to identify of left upper and lower lobes up to third subsegment without obstruction. GI: Constipation - resolved Nepro goal 55 cc an hour for nutrition's recommendations. Currently at 35 cc an hour KUB abdomen: Moderate constipation with stool throughout large bowel Famotidine 20 mg by tube daily for GI prophylaxis Docusate sodium/senna 1 tablet twice a day for bowel regimen. Metoclopramide 5 mg every 8 hours as needed nausea/high residuals C. difficile PCR- negative Endo: Hyperglycemia Secondary hyperparathyroidism SSI to medium scale with accu checks Q4hr. Continue Cinacalcet 30 mg daily for secondary hyperparathyroidism when able Cortisol level - 9 iPTH - 399 /FEN/Renal: End-stage renal disease on hemodialysis Tuesday/Tuesday/Tuesday Hyper-magnesium Hyperphosphatemia Monitor renal function, avoid nephrotoxins. HD per renal- Dr. Galarza Heme: Normocytic anemia/anemia of chronic kidney disease Leukocytosis..trending downward Monitor CBC daily. Follow trends Continue Epogen with hemodialysis ID: Haemophilus influenza/pseudomonas aeruginosa pneumonia/MRSA Staph epi bacteremia? Persistent leukocytosis Infectious disease consult for antibiotic management - Dr. Chen Currently on Zyvox, Zerbaxa, and Levaquin Pertinent cultures 12/12 - sputum - Haemophilus influenza, pseudomonas aeruginosa 12/12 - blood cultures 2 - no growth Follow up on sputum cx from 12/16: MRSA, H. Influenza, Pseudomonas Follow-up on blood cultures 12/18 staph epi Bronchoscopy 12/22 - Pseudomonas Repeat blood cultures 2 12/21 1 out of 4 coag negative staph. Repeat blood cultures 12/23 x 2 pending MSK: OP/OA PT evaluate and treat Access -Right IJ CVL day #9 placed 12/18 -Left radial arterial line 12/18.- 12/21 Prophylaxis - GI - famotidine - DVT - SCD/heparin subcutaneous Level 1 follow-up Dispo: Discussed with palliative care retail team member Cindy Gatica, Decision made for compassionate withdrawal at 4 pm today Misael Robert MD Dec 30, 2017 13:08
--- NOTE | 2017-12-30 15:44 | EKG ---
Date Performed: 12/29/2017 Time Performed: 06:36:10 PTAGE: 72 years EKG: Atrial flutter with rapid ventricular response with PVC(s) or aberrant ventricular conducti on Right bundle branch block Inferior T wave changes are nonspecific Low QRS voltages in limb leads A bnormal ECG Compared to PREVIOUS TRACING , the atrial flutter is new. There has been an overall increase in the Q T interval for the heart rate. Clinical correlation will be necessary to assess the serial changes an d the tachycardia is also new. PREVIOUS TRACIN12/23/201705 DOCTOR: Lidia Wills Interpretating Date/Time 12/30/2017 15:42:14
[2017-12-30] MEDS: PROPOFOL 1000 MG/100 ML INJ 100 ML IV PRN (16:17)
[2017-12-30] MEDS ORDERED: fentaNYL DRIP 250 ML IV PRN (16:45)
--- NOTE | 2017-12-30 17:08 | HHI.HCPN ---
Reason for visit a. To assist with evaluation and management of symptoms including: Shortness of breath, pain, debility. b. To assist medical decision maker(s) with: better understanding of current medical conditions; weighing benefits/burdens of medical treatment options; making medical treatment decisions. . Subjective/Interval History Palliative care follow up for further clarification of goals of care. Patient seen in the medical ICU. He remains intubated on mechanical ventilation. Currently 40% FiO2. Sedated with propofol and fentanyl. Eyes open, no purposeful movements noted. On Amiodarone for A. Flutter with RVR overnight. No new laboratory workup or imaging review. Case discussed with bedside RN Jeremiah and Cindy. Met with patient's healthcare surrogate Lizzy Jenkins. Also spoke with patient' s jaguar Lopez. Medical update provided. Healthcare surrogate electing to proceed with compassionate withdrawal life support given patient's poor prognosis and known wishes as stated in his living will. . Family/friend interactions See interval note. . Advance Directives Living Will: Copy in medical record Health Care Surrogate: Copy in medical record Advance Directive Specifics Date completed: 02/18/14 . Health Care Surrogate(s): Copy of Advance Directive for Health Care on chart that patient completed . Directive states patient would refuse blood products. He "would not want my life to be prolonged if, to a reasonable degree of medical certainty, my situation is hopeless." Names Health care surrogate (HCS) as Lizzy Jenkins and alternate HCS as Taran Garner. . Significant change in goals: Compassionate withdrawal life support. . Objective Vital Signs Date Time Temp Pulse Resp B/P (MAP) Pulse Ox O2 Delivery O2 Flow Rate FiO2 12/30/17 16:17 18 12/30/17 14:39 100 40 12/30/17 14:00 70 12/30/17 12:00 98.7 68 163/67 (99) 100 12/30/17 12:00 68 12/30/17 11:36 100 40 12/30/17 10:00 67 12/30/17 09:31 100 40 12/30/17 09:00 78 83/52 12/30/17 08:30 79 175/80 12/30/17 08:00 98.3 96 18 95/56 (69) 100 12/30/17 08:00 95 12/30/17 08:00 40 12/30/17 08:00 75 167/73 12/30/17 06:00 76 12/30/17 04:57 72 144/61 12/30/17 04:00 69 12/30/17 04:00 98.3 69 17 142/63 (89) 100 12/30/17 04:00 98.3 12/30/17 04:00 40 12/30/17 03:50 100 40 12/30/17 02:00 71 12/30/17 00:39 100 40 12/30/17 00:00 97.8 76 35 177/82 (113) 100 12/30/17 00:00 40 12/30/17 00:00 76 12/29/17 22:00 78 12/29/17 22:00 80 12/29/17 20:56 99 40 12/29/17 20:00 78 12/29/17 20:00 97.5 78 63 163/74 (103) 99 12/29/17 20:00 40 12/29/17 19:00 79 144/65 12/29/17 18:00 85 124 157/72 (100) 100 12/29/17 18:00 85 12/29/17 17:00 144 27 155/87 (109) 100 Intake & Output 12/30/17 12/30/17 07:00 19:00 Intake Total 700 ml Output Total 50 ml Balance 650 ml IV Total 600 ml Tube Feeding 0 ml Other 100 ml Output Urine Total 0 ml Stool Total 50 ml Physical Exam CONSTITUTIONAL/GENERAL: This is an adequately nourished elderly man in no acute distress. TUBES/LINES/DRAINS: ETT, OG, Murillo catheter, right IJ, soft wrist restraints. Rectal tube. SKIN: No jaundice, rashes, or lesions. Ecchymoses on upper extremities. No wounds seen anteriorly. Skin temperature appropriate. Not diaphoretic. EYES: eyes open, does not track. CARDIOVASCULAR: Regular rate and rhythm. Peripheral pulses symmetric. RESPIRATORY/CHEST: Symmetric, coarse sounds bilaterally. Endotracheal intubated on mechanical ventilation. GASTROINTESTINAL: Abdomen large, round, soft. Bowel sounds present, hyperactive. GENITOURINARY: Without palpable bladder distension. Murillo catheter in place. MUSCULOSKELETAL: Extremities without clubbing, cyanosis, or edema. No mottling or clubbing. NEUROLOGICAL: Not following any commands or attempting to communicate. Moves all extremities spontaneously. PSYCHIATRIC: Unable to evaluate given her clinical condition, insurance/ restlessness during my visit. . Diagnostic Tests Laboratory Laboratory Tests Test 12/29/17 03:40 White Blood Count 22.8 TH/MM3 (4.0-11.0) Red Blood Count 2.72 MIL/MM3 (4.50-5.90) Hemoglobin 8.1 GM/DL (13.0-17.0) Hematocrit 24.9 % (39.0-51.0) Mean Corpuscular Volume 91.6 FL (80.0-100.0) Mean Corpuscular Hemoglobin 29.7 PG (27.0-34.0) Mean Corpuscular Hemoglobin Concent 32.4 % (32.0-36.0) Red Cell Distribution Width 16.8 % (11.6-17.2) Platelet Count 297 TH/MM3 (150-450) Mean Platelet Volume 7.8 FL (7.0-11.0) Blood Urea Nitrogen 82 MG/DL (7-18) Creatinine 4.73 MG/DL (0.60-1.30) Random Glucose 159 MG/DL (74-106) Calcium Level 8.2 MG/DL (8.5-10.1) Phosphorus Level 5.9 MG/DL (2.5-4.9) Magnesium Level 2.1 MG/DL (1.5-2.5) Sodium Level 132 MEQ/L (136-145) Potassium Level 3.6 MEQ/L (3.5-5.1) Chloride Level 91 MEQ/L (98-107) Carbon Dioxide Level 26.0 MEQ/L (21.0-32.0) Anion Gap 15 MEQ/L (5-15) Estimat Glomerular Filtration Rate 12 ML/MIN (>89) Result Diagram: 12/29/17 0340 12/29/17 0340 Imaging Last 48 hours Impressions Chest X-Ray 12/29/17 0600 Signed Impressions: Service Date/Time: December 03:11 - CONCLUSION: 1. Stable chest x-ray with left pleural effusion with associated volume loss and/or airspace consolidation. 2. Stable right lung cavitary nodule. Jakob Corley MD Procedures * 12/12/17 -endotracheal intubation. * 12/22/17 -bronchoscopy * 12/24/17 -bronchoscopy . Assessment and Plan Disease Oriented Problem List: (1) Respiratory failure (2) Pneumonia (3) Cerebrovascular accident (CVA) (4) ESRD (end stage renal disease) (5) Encephalopathy (6) Congestive heart failure Symptom Scale: (1) Anxiety 0-10 Scale: Unable to quantify (2) Pain 0-10 Scale: Unable to quantify (3) Shortness of breath 0-10 Scale: Unable to quantify Pertinent Non-Medical Issues Psychosocial: Retired, , lives alone. in 2008. Spiritual: Jehovah Witness. Legal: Patient is not capacitated to make his own health care decisions, will not regain capacity. Copy of Advance Directive for Health Care on chart that patient completed 02/18/14. Directive states patient would refuse blood products. He "would not want my life to be prolonged if, to a reasonable degree of medical certainty, my situation is hopeless." Names Health care surrogate ( HCS) as Lizzy Jenkins and alternate HCS as Taran Garner. Ethical issues impacting care: Patient unable to participating in medical decision-making secondary to clinical condition. . Important Contacts * Lizzy Jenkins, primary HCS/ friend: [phone] or [phone] * Taran Garner, alternate HCS: [phone] * Jaguar Benito . * Sister Lesa Pickard . . Prognosis Mr. Sy is a 72-year-old male with a medical history significant for end- stage renal disease on hemodialysis, COPD, CHF, cardiomyopathy and anemia of chronic disease. Patient presented to ED via EMS on 12/12/17 endorsing worsening shortness of breath. Clinical course complicated by acute respiratory failure requiring intubation and mechanical ventilation. Clinical course further complicated by acute CVA, pneumonia, persistent respiratory failure, sepsis. Patient with continued decline, does not appear he will survive this hospitalization. . Code Status: No Code Plan * NO CODE * HEALTHCARE DECISION-MAKING: Patient is NOT capacitated for medical decision- making secondary to clinical condition, s/p CVA, intubated on mechanical ventilation. Patient will not regain medical decision-making capacity. Copy of Advance Directive for Health Care provided 12/29/17 on chart that patient completed 02/18/14. Directive states patient would refuse blood products. He "would not want my life to be prolonged if, to a reasonable degree of medical certainty, my situation is hopeless." Names Health care surrogate (HCS) as Lizzy Jenkins and alternate HCS as Taran Garner. * GOALS OF CARE: MAT Velez is certain based on patient written and previously verbalized directives that he would not want continued life prolonging measures. He "knows patient would not want to be resuscitated." He plans to honor patient wishes and plans to proceed with compassionate withdrawal of life support this afternoon. Exhibits B & C signed. anticipatory guidance provided. * SYMPTOMS: comfort measures in place. * Case discussed with Dr. Robert and bedside RN Bryanna. * Ongoing emotional support and active listening provided. Patient jaguar Lopez has been contacted, he wishes not to be present during compassionate withdrawal life support. However, requesting to be cold upon patient's . HCS Mr. Jenkins receptive to hospice should patient survives the night. * Palliative care will continue to follow-up for further clarifications of goals of care as patient's clinical course continues to evolve. . Time Spent Total Floor Time (mins): 46 (Total time to include review medical records, physical exam, goals of care conversation with patient's healthcare surrogate, telephone conversation with step son, case discussion with Dr. Robert and bedside RN.) >50% Counseling/Coord of Care: Yes Attestation To help prompt me to consider important information that might be impacting today's encounter and assessment, information from prior notes written by myself or my colleagues may have been "brought forward" into today's note. My signature on this note, however, is an attestation that I personally performed the exam, history, and/or decision-making noted today, and, unless otherwise indicated, the interactions with patient, family, and staff as well as the review of records all occurred today. I also attest that the listed assessment and stated plan reflect my best clinical judgment today based on the combination of historical information, prior notes, and today's exam/ interactions. When time spent is documented, it refers only to time spent today by the signer, or if indicated, combined time spent today by collaborating physician/nurse practitioner. Cindy Gatica Dec 30, 2017 17:08
[2017-12-30] MEDS ORDERED: HYOSCYAMINE 0.5 MG/ML AMP IV PUSH ONE (17:15)
[2017-12-30] MEDS ORDERED: HYOSCYAMINE 0.5 MG/ML AMP IV PUSH PRN (17:15)
[2017-12-30] MEDS ORDERED: LORazepam 2 MG/ML VIAL IV PUSH PRN ×3 (17:15)
[2017-12-30] MEDS ORDERED: LORazepam 2 MG/ML VIAL IV PUSH ONE ×2 (17:15→17:45)
[2017-12-30] MEDS ORDERED: FUROSEMIDE 20 MG/2 ML VIAL IV PUSH PRN (17:15)
[2017-12-30] MEDS ORDERED: HYDROmorphone HCL PF 2 MG/ML VIAL IV PUSH ONE ×2 (17:15→17:45)
[2017-12-30] MEDS ORDERED: RASS Change Order XX ONE (17:30)
[2017-12-30] MEDS ORDERED: HYDROmorphone HCL PF 2 MG/ML VIAL IV PUSH PRN ×2 (17:45)
[2017-12-30] MEDS ORDERED: LORazepam 2 MG/ML VIAL IV PUSH SCH (20:00)
--- NOTE | 2017-12-31 15:21 | HHI.DS ---
Summary Note Date of : Dec 30, 2017 Time Of : 1825 Admission Date Dec 12, 2017 at 13:51 Admitting Diagnosis Respiratory failure. Acute exacerbation COPD. ESRD on dialysis Diagnosis at Time of : (1) Acute hypoxemic hypercarbic respiratory failure Diagnosis: Principal (2) Cerebrovascular accident (CVA) ICD Code: I63.9 - Cerebral infarction, unspecified Diagnosis: Principal (3) Pneumonia ICD Code: J18.9 - Pneumonia, unspecified organism Diagnosis: Principal (4) Encephalopathy ICD Code: G93.40 - Encephalopathy, unspecified Diagnosis: Principal (5) Congestive heart failure ICD Code: I50.9 - Congestive heart failure Diagnosis: Principal (6) Sepsis ICD Code: A41.9 - Sepsis, unspecified organism Diagnosis: Principal (7) ESRD (end stage renal disease) ICD Code: N18.6 - End-stage renal disease Diagnosis: Secondary (8) Secondary hyperparathyroidism of renal origin ICD Code: N25.81 - Secondary hyperparathyroidism of renal origin Diagnosis: Secondary (9) SVT (supraventricular tachycardia) ICD Code: I47.1 - Supraventricular tachycardia Diagnosis: Secondary (10) COPD (chronic obstructive pulmonary disease) ICD Code: J44.9 - Chronic obstructive pulmonary disease Procedures Intubation and Central line placement on 12/18/2017 Bronchoscopy on 12/22/17 and 12/24/17 Brief History Patient is a 72-year-old male with multiple medical comorbidities which include end-stage renal disease, hypertension, CHF, COPD, cardiomyopathy, hyperparathyroidism and anemia of chronic disease. He was brought into ED via EMS for respiratory distress and was given albuterol treatment x2 in addition to Solu-Medrol 125 mg IV prior to arrival. The patient was initially placed on BiPap without any significant relief. In the ED he was intubated with etomidate , succinylcholine and placed on full mechanical ventilation. When seen the patient is sedated with Diprivan and on fentanyl infusion. His laboratory data significant for hyperkalemia with potassium 6.3, BUN 53, creatinine in 8.63 and BNP of 1218. His chest x-ray showed ET tube above the reed, interstitial edema. Nephrology service was notified and the patient is currently receiving hemodialysis treatment. CBC/BMP: 12/29/17 0340 12/29/17 0340 Significant Findings Laboratory Tests Test 12/29/17 03:40 White Blood Count 22.8 TH/MM3 (4.0-11.0) Red Blood Count 2.72 MIL/MM3 (4.50-5.90) Hemoglobin 8.1 GM/DL (13.0-17.0) Hematocrit 24.9 % (39.0-51.0) Blood Urea Nitrogen 82 MG/DL (7-18) Creatinine 4.73 MG/DL (0.60-1.30) Random Glucose 159 MG/DL (74-106) Calcium Level 8.2 MG/DL (8.5-10.1) Phosphorus Level 5.9 MG/DL (2.5-4.9) Sodium Level 132 MEQ/L (136-145) Chloride Level 91 MEQ/L (98-107) Estimat Glomerular Filtration Rate 12 ML/MIN (>89) Imaging Last Impressions Chest X-Ray 12/25/17 0000 Signed Impressions: Service Date/Time: Monday, December 25, 2017 09:50 - CONCLUSION: 1. Persistent left basilar consolidation. 2. Cavitary lesion right lower lobe is stable. Leonard Vaughn MD Chest CT 12/22/17 0000 Signed Impressions: Service Date/Time: December 16:39 - CONCLUSION: 1. Multiple cavitary lesions in the right lung as well as a small nodule and larger nodule or mass. These findings are concerning for metastatic disease. 2. The left lung is completely opacified with air bronchograms and volume loss with mediastinal shift. Areas cut off of the left main bronchus with soft tissue density material which could indicate mucous plugging. 3. Mild to moderate cardiomegaly. Edy Laughlin MD Abdomen X-Ray 12/20/17 0600 Signed Impressions: Service Date/Time: Wednesday, December 20, 2017 02:07 - CONCLUSION: 1. Moderate constipation with stool throughout large bowel. NG coiled in stomach. Khoa Franco MD Neck Magnetic Resonance Angiography 12/19/17 0000 Signed Impressions: Service Date/Time: Tuesday, December 19, 2017 12:24 - CONCLUSION: 1. Patent carotids and vertebrals. Marco Antonio Henriquez Jr., MD Head Magnetic Resonance Angiography 12/19/17 0000 Signed Impressions: Service Date/Time: Tuesday, December 19, 2017 12:24 - CONCLUSION: 1. No large vessel stenosis or aneurysm. 2. Normal variants as described above. Leonard Vaughn MD Brain MRI 12/17/17 0000 Signed Impressions: Service Date/Time: Sunday, December 17, 2017 11:33 - CONCLUSION: Small foci of retracted diffusion in the parietal periventricular white matter bilaterally indicating small acute infarcts. No other acute intracranial findings. Gatito Shipman MD Head CT 12/16/17 0000 Signed Impressions: Service Date/Time: Saturday, December 16, 2017 10:58 - CONCLUSION: No acute disease. Marco Antonio Henriquez Jr., MD Last Impressions Chest X-Ray 12/23/17 1200 Signed Impressions: Service Date/Time: Saturday, December 23, 2017 12:26 - CONCLUSION: Reexpansion of the left lung with minimal left basilar density. Leonard Vaughn MD Chest CT 12/22/17 0000 Signed Impressions: Service Date/Time: December 16:39 - CONCLUSION: 1. Multiple cavitary lesions in the right lung as well as a small nodule and larger nodule or mass. These findings are concerning for metastatic disease. 2. The left lung is completely opacified with air bronchograms and volume loss with mediastinal shift. Areas cut off of the left main bronchus with soft tissue density material which could indicate mucous plugging. 3. Mild to moderate cardiomegaly. Edy Laughlin MD Abdomen X-Ray 12/20/17 0600 Signed Impressions: Service Date/Time: Wednesday, December 20, 2017 02:07 - CONCLUSION: 1. Moderate constipation with stool throughout large bowel. NG coiled in stomach. Khoa Franco MD Neck Magnetic Resonance Angiography 12/19/17 0000 Signed Impressions: Service Date/Time: Tuesday, December 19, 2017 12:24 - CONCLUSION: 1. Patent carotids and vertebrals. Marco Antonio Henriquez Jr., MD Head Magnetic Resonance Angiography 12/19/17 0000 Signed Impressions: Service Date/Time: Tuesday, December 19, 2017 12:24 - CONCLUSION: 1. No large vessel stenosis or aneurysm. 2. Normal variants as described above. Leonard Vaughn MD Brain MRI 12/17/17 0000 Signed Impressions: Service Date/Time: Sunday, December 17, 2017 11:33 - CONCLUSION: Small foci of retracted diffusion in the parietal periventricular white matter bilaterally indicating small acute infarcts. No other acute intracranial findings. Gatito Shipman MD Head CT 12/16/17 0000 Signed Impressions: Service Date/Time: Saturday, December 16, 2017 10:58 - CONCLUSION: No acute disease. Marco Antonio Henriquez Jr., MD Hospital Course Patient is a 72-year-old male with multiple medical comorbidities which include end-stage renal disease, hypertension, CHF, COPD, cardiomyopathy, hyperparathyroidism and anemia of chronic disease. He was brought into ED via EMS for respiratory distress and was given albuterol treatment x2 in addition to Solu-Medrol 125 mg IV prior to arrival. The patient was initially placed on BiPap without any significant relief. In the ED he was intubated with etomidate , succinylcholine and placed on full mechanical ventilation. When seen the patient is sedated with Diprivan and on fentanyl infusion. His laboratory data significant for hyperkalemia with potassium 6.3, BUN 53, creatinine in 8.63 and BNP of 1218. His chest x-ray showed ET tube above the reed, interstitial edema. Nephrology service was notified and the patient is currently receiving hemodialysis treatment. ABG postintubation showed a pH of 7.30, CO2 54, pAO2 454, bicarb 26, sats of 97%. 12/13 Patient is intubated on no sedation. Awake and alert, s/p HD yesterday with removal 3L. Afebrile. 12/14: Afebrile. Remains on propofol drip at 20 mcg/kg per minute. Episodic hypotension. Episodic hypoglycemia requiring D50. On D10 drip for hyperkalemia ? Per nephrology's orders, potassium currently normalized. We'll start tube feeding. Added cefepime for Pseudomonas in sputum 12/15: Afebrile. Tolerating tube feeding. Currently on PSV trial is tolerated well. Not following commands however moving all 4 extremities purposefully today than yesterday. 12/16 Patient remains intubated and on Fentanyl and Diprivan drip for sedation. s /p HD yesterday 12/17 No events overnight. s/p HD yesterday with removal 1.8L. Remains sedated with Fentanyl and intubated. Patient doesn't follow commands off sedation. CT brain yesterday showed no acute process. T:99.9 last night 12/18: Afebrile. Patient ET tube migrated upwards towards vocal cords in high probability aspirated tube feeding. Reintubated by overnight antenna installer. Noted MRI brain revealed acute right and left parietal CVA. MRA brain and carotid Dopplers currently pending. Currently on baby aspirin. Also started on atorvastatin 10 mg daily. 12/19: Tmax 100. Central line placed yesterday due to hypotension. Currently norepinephrine and vasopressin drips. Wide pulse pressure arterial line. Tube feeds will be resumed. Stress dose steroids initiated. Last cortisol was 9. 12/20 Patient remains intubated and sedated with Diprivan and Fentanyl drips. On Levophed 8 mocs and Vasopressin 0.04. Afebrile. s/p HD yesterday with removal 4L. 12/21: Afebrile. Remains on propofol drip at 20 mcg/kg Per minute. On low- dose norepinephrine 2.5 g per minute as well. Remains quite agitated on the ventilator. 8 bowel movements overnight. C. difficile toxin is pending. Noted staph epi in blood 12/10 question kalie. ID consulted. On vancomycin 12/22: Tmax 100. Currently 99.7. CT chest today revealed 3 x 2 point centimeter right cavitary lesion along. Is mediastinal shift left dense infiltrate possible mucous plug left-sided. Status post bronchoscopy which essentially showed clearance of any significant degree/plugging. Follow chest x -ray revealed dense consolidation left lung. No pleural effusion. Labile blood pressure. 2/2: Resting currently in bed in no distress. Received quetiapine for agitation earlier. Remains on dexmedetomidine. Status post hemodialysis today. Subjective 2: FiO2 increased to 70% overnight. Currently back in 40%. Remains on dexmedetomidine drip. Tolerating tube feeds at goal. -3 L with hemodialysis yesterday. 12/25: Tmax 99.2. Patient noted to have open sacral wound care consulted for evaluation and treatment. Patient continues on sedation. Persistent hyperglycemia Levemir increased to 15 units twice a day. 12/26: No acute events overnight. WBC count downtrending. Patient underwent IHD today with approximately 3 L removed, required Levophed infusion to maintain MAP. Discussion with palliative care plan for possible decision of healthcare proxy tomorrow. 12/27: Afebrile .Patient was noted to have elevated residual tube feeds last night , tube feeds placed on hold. Patient was noted to be significant bradycardia carvedilol was held this a.m., Precedex was discontinued. Palliative care care meeting underway at this time for healthcare surrogate for decision making. 12/28: Afebrile. Remains sedated .No acute events overnight. Discussion with palliative care yesterday plan for compassionate withdrawal this afternoon. 12/29: Last evening tentative plan for compassionate with draw rescinded by the patient's POA, John Benito and his aircraft launch and recovery technician. Patient made CODE STATUS. Family plans reconsideration today, to determine goals of care. Overnight the patient went into A. fib RVR heart rate in the 130s. Amiodarone infusion instituted. The patient on propofol and fentanyl sedation for ventilator synchrony. Legal documentation has been obtained to determine the POA meeting planned with palliative care team for possible this afternoon. 12/30: Discussed with palliative care, plan for withdrawal of life support and comfort measures in the afternoon. Otherwise patient remains intubated After administration of comfort medications acute life support was withdrawn, patient at 1826 on December 30, 2017 Misael Robert MD Dec 31, 2017 15:21
== END 2017-12-30 20:55 | disposition expired | DRG 166 ==
LOC: NEPC 10:02 → NEDA 13:51 → HIME 14:21
PROVIDERS: ADMIT Internal Medicine; ATTEND Internal Medicine
PROC: 5A1955Z Respiratory Ventilation, Greater than 96 Consecutive Hours (ICD-10-PCS; 2017-12-12)
PROC: 0BH17EZ Insertion of Endotracheal Airway into Trachea, Via Natural or Artificial Opening (ICD-10-PCS; 2017-12-12)
PROC: 5A1D70Z Performance of Urinary Filtration, Intermittent, Less than 6 Hours Per Day (ICD-10-PCS; 2017-12-13)
PROC: 0BH17EZ Insertion of Endotracheal Airway into Trachea, Via Natural or Artificial Opening (ICD-10-PCS; 2017-12-18)
PROC: 02HV33Z Insertion of Infusion Device into Superior Vena Cava, Percutaneous Approach (ICD-10-PCS; 2017-12-18)
PROC: 0B9J8ZX Drainage of Left Lower Lung Lobe, Via Natural or Artificial Opening Endoscopic, Diagnostic (ICD-10-PCS; principal; 2017-12-22)
PROC: 0B9G8ZX Drainage of Left Upper Lung Lobe, Via Natural or Artificial Opening Endoscopic, Diagnostic (ICD-10-PCS; 2017-12-22)
PROC: 0B9F8ZX Drainage of Right Lower Lung Lobe, Via Natural or Artificial Opening Endoscopic, Diagnostic (ICD-10-PCS; 2017-12-22)
PROC: 0B9J8ZX Drainage of Left Lower Lung Lobe, Via Natural or Artificial Opening Endoscopic, Diagnostic (ICD-10-PCS; 2017-12-24)
PROC: 0B9G8ZX Drainage of Left Upper Lung Lobe, Via Natural or Artificial Opening Endoscopic, Diagnostic (ICD-10-PCS; 2017-12-24)
PROC: 0B9F8ZX Drainage of Right Lower Lung Lobe, Via Natural or Artificial Opening Endoscopic, Diagnostic (ICD-10-PCS; 2017-12-24)
DX: J96.01 Acute respiratory failure with hypoxia (principal); A41.02 Sepsis due to Methicillin resistant Staphylococcus aureus; I63.9 Cerebral infarction, unspecified; R65.21 Severe sepsis with septic shock; J15.1 Pneumonia due to Pseudomonas; G93.41 Metabolic encephalopathy; J15.212 Pneumonia due to Methicillin resistant Staphylococcus aureus; T17.890A Other foreign object in other parts of respiratory tract causing asphyxiation, initial encounter; I13.2 Hypertensive heart and chronic kidney disease with heart failure and with stage 5 chronic kidney disease, or end stage renal disease; N18.6 End stage renal disease; I42.9 Cardiomyopathy, unspecified; N25.81 Secondary hyperparathyroidism of renal origin; I50.32 Chronic diastolic (congestive) heart failure; J44.0 Chronic obstructive pulmonary disease with (acute) lower respiratory infection; J44.1 Chronic obstructive pulmonary disease with (acute) exacerbation; I47.1 Supraventricular tachycardia; I48.92 Unspecified atrial flutter; J98.19 Other pulmonary collapse; Z99.11 Dependence on respirator [ventilator] status; J96.02 Acute respiratory failure with hypercapnia; E87.5 Hyperkalemia; D63.1 Anemia in chronic kidney disease; Z96.643 Presence of artificial hip joint, bilateral; I25.10 Atherosclerotic heart disease of native coronary artery without angina pectoris; B37.9 Candidiasis, unspecified; K21.9 Gastro-esophageal reflux disease without esophagitis; Z51.5 Encounter for palliative care; I25.2 Old myocardial infarction; Z87.891 Personal history of nicotine dependence; Z99.2 Dependence on renal dialysis; G62.9 Polyneuropathy, unspecified; E16.2 Hypoglycemia, unspecified; R45.1 Restlessness and agitation; R73.9 Hyperglycemia, unspecified; R00.1 Bradycardia, unspecified; I48.91 Unspecified atrial fibrillation; D69.6 Thrombocytopenia, unspecified; E78.1 Pure hyperglyceridemia; E83.39 Other disorders of phosphorus metabolism; I27.20 Pulmonary hypertension, unspecified; I95.3 Hypotension of hemodialysis; K59.00 Constipation, unspecified; M19.90 Unspecified osteoarthritis, unspecified site; G89.29 Other chronic pain; R91.1 Solitary pulmonary nodule
CPT/HCPCS: 31500; 31624; 36556; 36591; 36600; 36620; 70450; 70544; 70547; 70551; 71045; 71250; 74018; 76937; 80048; 80053; 80061; 80069; 80202; 82140; 82533; 82805; 82948; 83036; 83605; 83735; 83880; 83970; 84100; 84132; 85007; 85025; 85027; 85610; 85730; 87015; 87040; 87070; 87077; 87102; 87116; 87184; 87185; 87186; 87205; 87206; 87493; 87641; 87804; 88112; 88305; 89051; 90935; 93005; 93306; 94002; 94003; 94640; 94664; 95819; 96374; 96375; J0282; J0330; J0692; J0695; J1160; J1170; J1644; J1720; J1956; J1980; J2020; J2060; J2212; J2250; J2370; J2543; J2997; J3010; J3370; J7030; J7040; J7042; J7050; J7060; J7613; P9045; P9047; Q4081